=== PATIENT | female | born 1965 | race Caucasian/White ===

== ENCOUNTER 2020-05-05 11:00 | Outpatient (RCR) | payer BC, SELFPAY ==
--- NOTE | 2020-03-25 13:36 | OTOPEVAL ---
OCCUPATIONAL THERAPY EVALUATION REPORT 03/25/2020 Thank you for referring Joan Chase to [facility]. Skilled OT indicated 2x/week for 6 weeks for deficits outlined below. Please review, sign, date and return this plan of care MARYLU. I agree with and certify that the following plan of care is medically necessary. Referring Physician Date Referring Provider: Tony Rodriguez, PA Therapy Assessment Status Assessment Status Assessment Status Evaluation Outpatient Past Medical History Neurological History Hx Neurological Disorders No Significant History Cardiovascular History Hx Coronary Artery Disease Yes: s/p stents Hx Hypertension Yes Respiratory History Hx Chronic Obstructive Pulmonary Disease Yes (COPD) Hx Sleep Apnea Yes Musculoskeletal History Hx Arthritis Yes: spine Hx Fractures Yes: R clavicle, R pinky finger Reproductive History Hx Hysterectomy Yes Pain History Has Past Pain Affected Your Daily Life Yes: On steroids x2 months Other History Hx Cancer Yes: cervical, uterine, and ovarian; current non-hodgkin's lymphoma (suspected) Evaluation Information Problem Diagnosis (R) elbow pain Onset about 3 months Subjective Information Patient reports noticing an Query Text:As Reported By Patient/ ache in her elbow about three Family months ago then the pain and swelling progressively got worse. She reports no trauma to the area. Diagnostic Tests X-Rays For This Problem Yes: Negative for fracture Prior Level of Function Activity Level (Last 3 Months) Occupation Not working right now Hand Dominance Right Activity of Daily Living Ability Independent Cooking Yes Cleaning Yes Laundry Yes Shopping Yes Driving Yes Pain Assessment Timing of Pain Assessment Timing of Pain Assessment Assessment Pain Scale Pain Scale Used Numeric (1 - 10) Self Report Pain Assessment Right Elbow(s) Reported Pain Level 4 Pain Description Aching,Dull Pain Frequency Continuous Other Pain Description 3 Lowest Pain Intensity 10 Other Pain Aggravating Factors (R) UE use with gripping and lifting Pain Score Pain Score 4: Self Report Upper Extremity Range of Motion Scapular/ Shoulder Range of Motion Right Reason Not Measured WNL/Right Elbow/Forearm Range of Motion Right
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
== END 2020-05-05 14:35 | disposition home or self-care (01) ==
LOC: ANHOT 11:00
PROVIDERS: PCP Physician Assistant; Visit Provider Physician Assistant
DX: S59.901D Unspecified injury of right elbow, subsequent encounter (principal)
CPT/HCPCS: 97033; 97035; 97110; 97140; 97166; 97535; J1100; L3906

== ENCOUNTER 2020-07-28 13:01 | Outpatient (CLI) | payer BC, SELFPAY ==
--- NOTE | ~2020-07-28 | MM_ITS ---
EXAMINATION: MM diagnostic danuta BI w claudy HISTORY: Palpable lump of the upper inner quadrant of the left breast. Family history of breast cance r in her mother and sister TECHNIQUE: Craniocaudal, mediolateral, and mediolateral oblique 3-D tomosynthesis images of the melissa ts were performed and synthetic 2-D images were generated. CAD analysis was submitted and interpreted . COMPARISON: 09/20/2014, 08/29/2014 BREAST PARENCHYMAL COMPOSITION: There are scattered areas of fibroglandular density. FINDINGS: Right breast: There is no evidence of suspicious mass, calcification, or architectural distortion to suggest malignancy. There has been no suspicious interval change. Left breast: A stable focal asymmetry is present in the middle third of the upper breast. There is no suspicious calcification or architectural distortion. No mammographic correlate is identified for th e reported palpable abnormality of concern. IMPRESSION: 1. No mammographic correlate identified for the reported palpable abnormality of the left breast choudhury davon, targeted left breast ultrasound in the area of the palpable abnormality is recommended. BI-RADS Category 0: Incomplete: Needs additional imaging evaluation. Reviewed, dictated and finalized at location A. LER MACHINE OPERATOR HELPER IMPRESSION: 1. No mammographic correlate identified for the reported palpable abnormality o f the left breast however, targeted left breast ultrasound in the area of the p alpable abnormality is recommended. BI-RADS Category 0: Incomplete: Needs additional imaging evaluation.
== END 2020-07-28 13:02 | disposition home or self-care (01) ==
PROVIDERS: PCP Physician Assistant; Visit Provider Physician Assistant
DX: N63.20 Unspecified lump in the left breast, unspecified quadrant (principal); R92.8 Other abnormal and inconclusive findings on diagnostic imaging of breast
CPT/HCPCS: 77062; 77066; G0279

== ENCOUNTER 2020-08-04 10:56 | Outpatient (CLI) | payer BC, SELFPAY ==
--- NOTE | ~2020-08-04 | US_ITS ---
EXAMINATION: US breast LT limited HISTORY: Palpable lump of the left breast TECHNIQUE: Limited left breast ultrasound is performed in the area of clinical concern. FINDINGS: There is no evidence of focal abnormal cystic or solid mass in the vicinity of the reported palpable abnormality of concern. IMPRESSION: No specific sonographic correlate is identified for the reported palpable abnormality of concern. Fur ther evaluation at this time should be based on clinical assessment. Continued follow-up physical exa mination is recommended. BI-RADS Category 1: Negative Reviewed, dictated and finalized at location A. E RIDER IMPRESSION: No specific sonographic correlate is identified for the reported palpable abnor mality of concern. Further evaluation at this time should be based on clinical assessment. Continued follow-up physical examination is recommended. BI-RADS Category 1: Negative
== END 2020-08-04 10:57 | disposition home or self-care (01) ==
PROVIDERS: PCP Physician Assistant; Visit Provider Physician Assistant
DX: N63.20 Unspecified lump in the left breast, unspecified quadrant (principal)
CPT/HCPCS: 76642

== ENCOUNTER 2020-09-24 10:43 | Outpatient (CLI) | payer BC, SELFPAY ==
--- NOTE | ~2020-09-24 | US_ITS ---
EXAMINATION: US venous doppler UE DATE: 09/24/2020 11:46 INDICATION: Right arm pain TECHNIQUE: Kent scale images with and without compression and Doppler images of the right and left up per extremity veins were obtained. COMPARISON: None. FINDINGS: The right and left internal jugular vein, subclavian vein, axillary vein, brachial veins, basilic vei n, cephalic vein, radial vein, and ulnar vein are patent.] IMPRESSION: 1. Patent bilateral upper extremity veins. No evidence of deep venous thrombosis. Reviewed, dictated and finalized at location A. RN DANCER IMPRESSION: 1. Patent bilateral upper extremity veins. No evidence of deep venous thrombosi s.
== END 2020-09-24 10:44 | disposition home or self-care (01) ==
PROVIDERS: PCP Physician Assistant; Visit Provider Physician Assistant
DX: M79.601 Pain in right arm (principal)
CPT/HCPCS: 93970

== ENCOUNTER 2021-02-17 20:43 | Inpatient (IN) | payer MEDICARE, MEDICAID, SELFPAY ==
[2021-02-17] VITALS (16 sets, daily range): BP systolic 128–171; BP diastolic 70–94; PULSE 73–95; RESP 15–28; TEMP 36.8; O2SAT 93–100
--- NOTE | ~2021-02-17 | XR_ITS ---
EXAMINATION: XR chest 1V portable EXAM DATE: 02/22/2021 00:03 INDICATION: Shortness of breath. Chest pain. TECHNIQUE: Portable AP frontal chest x-ray was obtained. Comparison is made to prior examination from 02/20/2021, and CT from that same date. FINDINGS: Moderately hyperinflated lungs (mild emphysema was inserted on CT). Cardiomediastinal silho uette is normal. No confluent consolidation, pneumothorax or pleural effusion suspected. There are no osseous abnormalities identified. IMPRESSION: Hyperinflation. Reviewed, dictated and finalized at location A. IMPRESSION: Hyperinflation.
--- NOTE | ~2021-02-17 | XR_ITS ---
EXAMINATION: XR knee RT 3V DATE: 03/04/2021 10:21 INDICATION: Right knee pain TECHNIQUE: Anteroposterior, oblique and crosstable lateral views of the right knee were obtained COMPARISON: None. FINDINGS: Alignment is normal. No fracture. Joint spaces are normal on nonweightbearing imaging. Bone island a t the medial side of the proximal tibial metaphyseal region. No joint effusion/layering lipohemarthro sis. Soft tissues are unremarkable. IMPRESSION: 1. Normal right knee radiographs with bone island at the proximal tibia. Reviewed, dictated and finalized at location A.
--- NOTE | ~2021-02-17 | US_ITS ---
EXAMINATION: US retroperitoneal duplex ltd EXAM DATE: 03/01/2021 07:45 INDICATION: Resistant hypertension HTN . TECHNIQUE: Multiple grayscale and Doppler images of the kidneys and renal arteries were obtained. T here is no prior study for comparison. FINDINGS: The aorta peak systolic velocity is 71 cm/s. Renal arteries interrogated in several segments from origin to hilum. RIGHT RENAL ARTERY Proximal segment (origin): 108 cm/s. Middle segment: 84 cm/s. Distal segment (hilum): 40 cm/s. LEFT RENAL ARTERY Proximal segment (origin): 53 cm/s. Middle segment: 56 cm/s. Distal segment (hilum): 50 cm/s. IMPRESSION: 1. Renal artery Doppler velocities within normal limits. Reviewed, dictated and finalized at location A.
--- NOTE | ~2021-02-17 | MR_ITS ---
EXAMINATION: MRA brain wo con EXAM DATE: 03/02/2021 08:21 INDICATION: Severe headache with left visual field loss. TECHNIQUE: 3-D [id number] MRA of the intracranial arteries was performed without contrast. Correl ation is made to head CT from 02/27/2021. FINDINGS: There is normal flow related signal seen within the vertebral, basilar and internal carotid arteries. There is no proximal stenosis. There are no aneurysms identified. There is right-sided posterior c ommunicating artery dominant posterior cerebral artery. There are scattered regions of cerebral arter y narrowings, regions of atherosclerosis. IMPRESSION: 1. No cerebral artery aneurysm. 2. Scattered regions of cerebral narrowings, atherosclerosis. Reviewed, dictated and finalized at location B.
--- NOTE | ~2021-02-17 | CT_ITS ---
EXAMINATION:CT diagnostic chest wo con DATE: 02/20/2021 12:04 INDICATION: Left lung nodule. Abnormal chest radiograph. TECHNIQUE: Computed tomography (CT) of the chest was performed without intravenous contrast. Automate d exposure control and iterative reconstruction technique were employed. The dose-length product (DLP ) was 148.56 mGy-cm. COMPARISON: Chest single view 02/20/2021 FINDINGS: There is mild emphysema. There are mild peripheral groundglass opacities in the upper lobes , right middle lobe, and right lower lobe. There are a few scattered nodules measuring up to 3 mm. Th ere is a 4 mm nodule at minor fissure. These nodules are likely benign. Calcified left lung nodules a nd calcified left hilar lymph nodes are consistent with old granulomatous disease. No pleural effusio n. The heart size is normal. No pericardial effusion. There is ectasia of ascending aorta measuring 4 .0 cm. There is moderate thoracic spondylosis. There is mild chronic height loss of multiple vertebra l bodies. T3 is a butterfly segment. IMPRESSION: 1. No abnormal correlate for the chest radiograph finding. 2. Mild peripheral groundglass opacities in the upper lobes, right middle lobe, and right lower lobe, likely inflammation or infection. 3. Mild emphysema. Reviewed, dictated and finalized at location A.
--- NOTE | ~2021-02-17 | XR_ITS ---
EXAMINATION: XR chest 1V portable DATE: 02/20/2021 05:48 INDICATION: COPD exacerbation presenting with shortness of breath TECHNIQUE: frontal view of the chest was obtained. COMPARISON: Chest radiograph dated 02/17/2021 FINDINGS: Subtle nodular opacity projecting over the anterior left sixth rib. No other airspace opacities, pulm onary edema, pleural effusion or pneumothorax. The cardiomediastinal silhouette is normal. Visualized bones and soft tissues are unremarkable. IMPRESSION: 1. Indeterminate small nodular opacity projecting of the anterior left sixth rib further evaluation w ith low-dose noncontrast chest CT . Reviewed, dictated and finalized at location A. IMPRESSION: 1. Indeterminate small nodular opacity projecting of the anterior left sixth ri b further evaluation with low-dose noncontrast chest CT .
--- NOTE | ~2021-02-17 | XR_ITS ---
XR chest 1V portable DATE: 02/17/2021 21:31 INDICATION: Wheezing TECHNIQUE: Portable upright AP chest on 02/17/2021 at 2133 hours COMPARISON: 02/23/2012 PA and lateral chest FINDINGS: Normal heart size. No hilar or mediastinal enlargement. No pulmonary infiltrate or consolid ation, pleural effusion or pulmonary vascular congestion or pneumothorax. Included skeletal structures are unremarkable. IMPRESSION: No active cardiopulmonary disease Reviewed, dictated and finalized at location A.
--- NOTE | ~2021-02-17 | XR_ITS ---
EXAMINATION: XR ankle RT 2V DATE: 03/04/2021 10:21 INDICATION: Right ankle pain TECHNIQUE: Anteroposterior and lateral views of the right ankle were obtained. COMPARISON: None. FINDINGS: Alignment is normal. No fracture. Joint spaces are normal. Soft tissues are unremarkable. IMPRESSION: 1. Negative right ankle radiographs. Reviewed, dictated and finalized at location A.
--- NOTE | ~2021-02-17 | CT_ITS ---
EXAMINATION: CT brain wo con EXAM DATE: 02/27/2021 02:46 INDICATION: Headache. TECHNIQUE: Spiral CT of the head was performed without contrast. Axial, coronal and sagittal images were reviewed. The dose-length product (DLP) for this examination was 681.00 mGy-cm. The exposure w as tailored according to patient size, and iterative reconstruction (ASIR) was used as additional dos e reduction technique. There is no prior study for comparison. FINDINGS: There is no acute intraparenchymal hemorrhage. No evidence of intraparenchymal brain mass lesion. No evidence of acute infarction. There is no mass effect or midline shift. The ventricles are normal in size. There are no extra-axial collections. There are no acute calvarial fractures. T he orbits are unremarkable. Soft tissue is unremarkable. The visualized sinuses and mastoid air savage ls are well aerated. IMPRESSION: 1. No acute intracranial findings. Reviewed, dictated and finalized at location A.
--- NOTE | 2021-02-17 20:51 | ECG_ITS ---
Measurements Intervals [place] Rate: 79 P: 67 NC: 111 QRS: 21 QRSD: 89 T: 63 QT: 380 QTc: 437 Interpretive Statements SINUS RHYTHM WITH SHORT NC INTERVAL BORDERLINE ST ABNORMALITY- ANTEROLAT/INF LEADS BASELINE ARTIFACT- II, III, AVF, V3 BORDERLINE ECG Electronically Signed On 02-18-2021 6:01:51 CDT by Dav Olivarez D.O.
[2021-02-17] MEDS: IPRATROPIUM BR 0.02% INH SOLN 0.5 MG/2.5 ML VIAL INHALATION (21:01)
[2021-02-17] MEDS: ALBUTEROL SULFATE NEB 2.5 MG/0.5 ML INH 5 MG INHALATION (21:01)
[2021-02-17 21:24] LABS: Basophils Percent Auto 0.3 % (0.2-1.2); Eosinophils Percent Auto 0.2 % (0-4.4); Hematocrit 43.7 % (37.0-47.0); Hemoglobin 14.6 g/dL (12.0-15.0); Immature Granulocyte Absolute 0.07 K/mm3 (0.00-0.031); Immature Granulocyte Percent A 0.7 % (0-0.5); Lymphocytes Absolute Auto 1.11 K/mm3 (0.9-3.2); Lymphocytes Percent Auto 11.7 % (18.3-44.2); Mean Corpuscular HGB Conc 33.4 g/dl (32-36); Mean Corpuscular Hemoglobin 32.7 pg (26-34); Mean Platelet Volume 11.2 fl (7.4-10.4); Monocytes Absolute Auto 0.6 K/mm3 (0.1-0.6); Monocytes Percent Auto 6.3 % (2.6-8.5); Neutrophils Absolute Auto 7.7 K/mm3 (1.3-6.7); Neutrophils Percent Auto 80.8 % (45.5-73.1); Platelet Count Result 172 k/mm3 (150-375); Red Blood Count 4.46 M/mm3 (4.2-5.4); Red Cell Distribution Width 13.5 % (11.5-14.5); White Blood Count 9.5 K/mm3 (4.5-10.0)
[2021-02-17 21:30] LABS: Alveolar/Arterial O2 Gradient 158.6 mmHg; Fractional Inspired Oxygen 36 %; HCO3 ABG 25.7 mEq/l (22.0-26.0); Oxygen Content ABG 19.3 %vol (16.0-22.0); Oxygen Saturation ABG 92.7 % (95.0-100.0); Oxyhemoglobin 89.9 % THb (90.0-100.0); PO2 ABG 58.6 mmHg (80.0-100.0); PO2 FiO2 Ratio Arterial Blood 1.63 %; Total Hemoglobin 15.3 g/dL (12.0-18.0); pH ABG 7.497 (7.350-7.450)
[2021-02-17 21:34] LABS: Anion Gap 9 mmol/L (8-16); Blood Urea Nitrogen 9 mg/dL (7-17); Calcium 9.4 mg/dL (8.4-10.2); Carbon Dioxide 25 mmol/L (22-30); Chloride 103 mmol/L (98-107); Estimated CRCL calculation 37 ml/min; Estimated Glomerular Filt Rate > 60; Glucose 124 mg/dL (65-105); Potassium 4.2 mmol/L (3.4-5.0); Sodium 137 mmol/L (137-145)
--- NOTE | 2021-02-17 21:38 | ED.SOB ---
HPI - SOB/Dyspnea General Chief Complaint: Shortness of Breath/Dyspnea Stated Complaint: sob , neb treatment given Time Seen by Provider: 02/17/21 21:05 Source: patient Mode of arrival: EMS Limitations: no limitations History of Present Illness HPI Narrative: This is a 55 year old female that presents to the ER for shortness of breath x 2 days. Reports increasing wheezing and shortness of breath, not relieved with albuterol inhaler. Also reports a cough productive of sputum. Patient is still a smoker. Reports chest pain with coughing. Denies fever. Related Data Allergies Allergy/AdvReac Type Severity Reaction Status Date / Time iohexol Allergy Unknown Swelling Verified 02/17/21 22:53 [From contrast - CT, X-RAY] of Lip/Tongue/Throat Penicillins Allergy Unknown Unknown Verified 02/17/21 22:53 propoxyphene Allergy Unknown Hives Verified 02/17/21 22:53 Tetanus Vaccines and Toxoid Allergy Unknown Swelling Verified 02/17/21 22:53 Review of Systems Review of Systems: Narrative: CONSTITUTIONAL: Denies fever ENT: Reports congestion CARDIOVASCULAR: Denies chest pain or edema. RESPIRATORY: Reports cough and dyspnea. All systems reviewed & are unremarkable except as noted in HPI and below PMFSH Past Medical History Medical History (Updated 02/18/21 @ 02:46 by Swapna Madrid PA-C) History of COPD Social History Social History (Updated 02/17/21 @ 21:42 by Swapna Madrid PA-C) Smoking status: Current every day smoker Exam Narrative: Exam Narrative: GENERAL: Well-appearing, well-nourished, and in no acute distress. HEAD: Normocephalic, atraumatic. EYES: EOMI. ENT: Nares clear, no rhinorrhea or epistaxis. Mucous membranes moist. Oropharynx without tonsillar hypertrophy exudate or other lesions. Bilateral TMs pearly juan non-bulging NECK: Supple. No adenopathy or masses. CHEST: No respiratory distress. Expiratory wheezing throughout. No rales or rhonchi HEART: Regular rate and rhythm. No murmur heard. Normal peripheral pulses. EXTREMITIES: Normal range of motion. No edema. SKIN: Warm, dry, no rash. NEURO: No focal deficits. Alert and oriented x3. PSYCH: Normal mood and affect Course Consultations Consultation #1: Spoke with hospitalist about patient and workup who accepts admission Date: 02/18/21 Vital Signs Vital signs: Vital Signs Temperature 98.2 F 02/17/21 20:45 Pulse Rate 91 02/17/21 20:45 Respiratory Rate 28 H 02/17/21 20:45 Blood Pressure 171/94 H 02/17/21 20:45 Pulse Oximetry 99 02/17/21 20:45 Temperature 98.2 F 02/17/21 20:45 Pulse Rate 89 02/18/21 02:46 Respiratory Rate 19 02/18/21 02:46 Blood Pressure 134/85 02/18/21 02:31 Pulse Oximetry 97 02/18/21 02:46 MDM - SOB/Dyspnea MDM Narrative Medical decision making narrative: Patient presents to the emergency department for shortness of breath and wheezing x2 days. She is afebrile and nontoxic-appearing. Blood pressure elevated on arrival, this down trended on its own. Most recent blood pressure 140/88. Heart rate has remained normal. Oxygen saturation was in the low 90s, so patient placed on 2 L nasal cannula. She was given a dose of steroid and continuous nebulizer treatment with some improvement, but has continued wheezing. CBC and metabolic panel without concerning findings. D-dimer is not elevated. Chest x-ray without acute cardiopulmonary abnormality. EKG shows nonspecific ST changes. Baseline troponin is elevated to 0.161. Will trend this. She denies any current chest pain, but is short of breath. Will start patient on Lovenox for NSTEMI with lateral depressions noted on EKG and consult cardiology. Spoke with hospitalist about patient and work-up who accepts admission. Patient will be admitted to the IMU for COPD exacerbation and acute respiratory failure with hypoxia with elevated troponin Lab Data Attestation: I reviewed the patient's lab results. Result diagrams: 02/17/21 21:19
[2021-02-17] MEDS: IPRATROPIUM BR 0.02% INH SOLN 0.5 MG/2.5 ML VIAL 1 MG INHALATION (22:43)
[2021-02-17] MEDS: ALBUTEROL SULFATE NEB 2.5 MG/0.5 ML INH 10 MG INHALATION (22:43)
--- NOTE | 2021-02-17 22:43 | PC.NURSE ---
pt arrives in ED c EMS, c/o increasing dyspnea x 1 day. congested, nonproductive cough noted. lungs coarse. pt currently on ra with noted retractions. reports work of breathing increased with activity. on cardiac surgeon. call light in reach. RT therapist in room at bedside.
[2021-02-17] MEDS: methylPREDNISolone SOD SUCC 125 MG VIAL IV PUSH (22:53)
[2021-02-18] VITALS (42 sets, daily range): BP systolic 98–196; BP diastolic 59–108; PULSE 69–124; RESP 14–24; TEMP 36.3–36.5; O2SAT 92–100; BMI 25.7
[2021-02-18 01:45] LABS: Prothrombin Time 13.8 Seconds (11.1-14.7)
[2021-02-18 01:46] LABS: Partial Thromboplastin Time 28.1 SECONDS (22.3-36.8)
[2021-02-18 01:48] LABS: D Dimer 0.34 ug/mL (<0.48)
[2021-02-18 02:10] LABS: Troponin I 0.161 ng/mL (0.000-0.034)
[2021-02-18] MEDS: MAGNESIUM SULF 2 GM/WATER 50ML 2 GM/50 ML BAG IVPB (02:30)
[2021-02-18] MEDS: ASPIRIN 81 MG CHEWABLE TABLET 324 MG PO (03:30)
[2021-02-18] MEDS: ENOXAPARIN 60 MG/0.6 ML SYRINGE SUB-Q (03:31)
--- NOTE | 2021-02-18 04:08 | PC.NURSE ---
This patient, Joan Chase, was admitted to IMU Room 200-01 on 02/18/21 at 0402. Patient/family oriented to hospital policies and general routines including ID bracelet, bed and alarms, visiting hours, pain management, procedures, bathroom and other care routines, personal items, smoking policy, room service/diet, and visiting hours. Information on how to activate the Rapid Response Team has been discussed. Patient/Family are encouraged to report perceived risks to care and to ask questions if they do not understand what they are told or what they should do.
--- NOTE | 2021-02-18 04:45 | PM.IMHP ---
H&P: HPI History of Present Illness Date/Time: 02/18/21 04:45 Chief Complaint: shortness of breath Narrative: This is a 55 year old female that presents to the ER for shortness of breath x 2 days. Reports increasing wheezing and shortness of breath, not relieved with albuterol inhaler. Also reports a cough productive of sputum. Patient is still a smoker. Reports chest pain with coughing. Denies fever. chills. When she was seen, she ambualted back from bathroom, and was extremely short of breath with extensvie wheezing. she was tachycardic as well. this imporved as she settled down. her ed workup revelaed normal CXR, normal dd dianne, elevated tropoinn and some EKG chagnes. she reports that she qutited somkkign 3 days back when she started having breathing problem. she has had covid vaccine finished the course in december 2020. Review of Systems Review of Systems: Narrative: - CONSTITUTIONAL: Denies weight loss, fever and chills. - HEENT: Denies changes in vision and hearing - RESPIRATORY: reports SOB and cough. - CV: Denies palpitations and reports some chest soreness - GI: Denies abdominal pain, nausea, vomiting and diarrhea. - : Denies dysuria and urinary frequency. - MSK: Denies myalgia and joint pain. - SKIN: Denies rash and pruritus. - NEUROLOGICAL: Denies headache and syncope. - PSYCHIATRIC: Denies recent changes in mood. Denies anxiety and depression. All systems reviewed & are unremarkable except as noted in HPI and below Constitutional: Constitutional: Reports fatigue and Reports weakness Neurologic: Reports weakness Endocrine: Endocrine: Reports fatigue [facility] Past Medical History Medical History (Updated 02/18/21 @ 02:46 by Swapna Madrid PA-C) History of COPD Family History Family History Father Acute myocardial infarction Cerebrovascular accident Congestive heart failure Chronic obstructive pulmonary disease Hypertension Cancer of skin Sibling Asthma Sibling Asthma Sibling Asthma Mother Chronic obstructive pulmonary disease Cancer Ovarian cancer Social History Social History (Updated 02/17/21 @ 21:42 by Swapna Madrid PA-C) Smoking packs per day: 0.5 Smoking cigarettes per day: 10.0 Years smoked: 46 Smoking pack-years: 23.00 Smoking status: Current every day smoker Tobacco type: cigarettes Second hand tobacco smoke exposure: No Alcohol intake: current Drinks per week: 3 Substance use: former Substance use type: opiates Other substance usage details: prescription pain meds Last use: 2010 Spiritual care concerns: No Meds Home Medications and Allergies Home Medications Medication Instructions Recorded Confirmed Type albuterol sulfate [Ventolin HFA] 2 puff INHALATION Q4H PRN 02/18/21 02/18/21 History budesonide-formoterol [Symbicort] 2 puff INHALATION DAILY 02/18/21 02/18/21 History buprenorphine-naloxone [Suboxone] 1.5 tablet SUBLINGUAL DAILY 02/18/21 02/18/21 History diphenhydramine HCl [Banophen] 25 mg PO HS 02/18/21 02/18/21 History estradiol 1 mg PO HS 02/18/21 02/18/21 History guanfacine 2 mg PO HS 02/18/21 02/18/21 History ibuprofen 200 mg PO Q8H PRN 02/18/21 02/18/21 History levetiracetam 500 mg PO HS 02/18/21 02/18/21 History levothyroxine 112 mcg PO HS 02/18/21 02/18/21 History norethindrone acetate 5 mg PO HS 02/18/21 02/18/21 History omeprazole magnesium [Acid Slot Operations Manager 20 mg PO DAILY 02/18/21 02/18/21 History (omeprazole)] phenytoin sodium extended 500 mg PO HS 02/18/21 02/18/21 History prednisone 20 mg PO DAILY 02/18/21 02/18/21 History Allergies Allergy/AdvReac Type Severity Reaction Status Date / Time iohexol Allergy Unknown Swelling Verified 02/18/21 04:13 [From contrast - CT, X-RAY] of Lip/Tongue/Throat Penicillins Allergy Unknown Unknown Verified 02/18/21 04:13 propoxyphene Allergy Unknown Hives Verified 02/18/21 04:13 Tetanus Vaccines and Toxoi
[2021-02-18 04:58] LABS: Troponin I 0.139 ng/mL (0.000-0.034)
[2021-02-18 08:21] LABS: Troponin I 0.134 ng/mL (0.000-0.034)
[2021-02-18] MEDS: ALBUTEROL SULFATE NEB 2.5 MG/0.5 ML INH 5 MG INHALATION ×3 (08:49→20:17)
[2021-02-18] MEDS: IPRATROPIUM BR 0.02% INH SOLN 0.5 MG/2.5 ML VIAL INHALATION ×3 (08:50→20:17)
[2021-02-18] MEDS: PANTOPRAZOLE 40 MG TABLET PO (08:52)
[2021-02-18] MEDS: LEVOTHYROXINE SODIUM 112 MCG TABLET PO (08:52)
[2021-02-18] MEDS: methylPREDNISolone SOD SUCC 40 MG VIAL IV PUSH ×2 (08:52→16:53)
--- NOTE | 2021-02-18 08:55 | PM.CNCAR ---
Assessment and Plan Assessment and plan (1) Elevated troponin: Code(s): R77.8 - Other specified abnormalities of plasma proteins Status: Acute Assessment and Plan: 55 y/o with no known cardiac disease who presented with acute hypoxic resp failure and COPD exacerbation who is seen in cardiac consultation for elevated troponin Trop peaked at 0.1. She has atypical chest pain that is related to strenuous cough. EKG with non specific changes Trop elevation is likely due to increase demand from underlying resp distress Will d/c Lovenox Check 2D echocardiogram to assess LV function and rule out regional wall motion changes She had reportedly normal coronary angiogram long time ago. Given her risk factor will plan stress testing in outpatient settings for risk stratification once her resp status is stable Will start ASA for now. Check lipid profile (2) Acute respiratory failure with hypoxia: Code(s): J96.01 - Acute respiratory failure with hypoxia Status: Acute Assessment and Plan: With active wheezing on exam appears due to COPD. Management per primary team No evidence of volume overload on exam or pulmonary edema on Xray. (3) Tobacco abuse: Code(s): Z72.0 - Tobacco use Status: Acute Assessment and Plan: Smoking cessation counseling. Okay to use nicotine patch (4) Acute exacerbation of chronic obstructive airways disease: Code(s): J44.1 - Chronic obstructive pulmonary disease with (acute) exacerbation Status: Acute History of Present Illness History of Present Illness Consult date/time: 02/18/21 08:55 55 y/o female with h/o COPD, active tobacco abuse and hypothyroidism who presented with shortness of breath She reports symptoms started 3 days ago and felt similar to prior time when she had pneumonia in the past however shortness of breath this time was more severe with audible wheezing and cough which is productive of green sputum. Her troponin was mildly elevated hence cardiology consult was requested. She reports chest pain at her rib cage from coughing so hard. She reports undergoing cardiac catheterization about 10 years ago for cardiac arrhythmia per her report. She reports it was normal and she was never on any heart meds or followed with cardiology since. She has long history of tobacco abuse and has cut down over the last few months to 5 cigarettes a day from 2 packs a day She feels somewhat better since received nebs but continues to wheeze and feel short of breath. She denies chest pain except with coughing Trop peaked at 0.1.. Labs otherwise shows no leukocytosis and normal creatinine. She was swabbed for COVID which is still pending. off note, she received vaccine in December (Let it Wave) EKG shows normal sinus rhythm with non specific ST changes in inferolateral leads. Her father had CHF. her mother of cancer Reason For Visit: COPD exacerbation, respiratory failure w/ hypoxia Review of Systems Review of Systems: All systems reviewed & are unremarkable except as noted in HPI and below Constitutional: Constitutional: Denies fatigue and Denies headache(s) Eyes: Eyes: Denies blurry vision ENT: Reports Normal hearing present and Denies headache(s) Cardiovascular: Cardiovascular: Denies chest pain, Denies diaphoresis, Denies pedal edema, Denies leg edema, Denies lightheadedness, Denies palpitations and Denies dyspnea Respiratory: Respiratory: Denies cough and Denies dyspnea Gastrointestinal: Gastrointestinal: Denies abdominal pain Musculoskeletal: Musculoskeletal: Denies back pain Neurologic: Reports Normal hearing present and Denies headache(s) Psychiatric: Psychiatric: Denies anxiety Endocrine: Endocrine: Denies fatigue and Denies palpitations [facility] Past Medical History Medical History (Updated 02/18/21 @ 09:22 by Kayden Vincent MD) History of COPD Family History Family History (Reviewed 02/18/21 @ 04:35 by Jose Roberto
[2021-02-18] MEDS: hydrALAZINE HCL 25 MG TABLET PO (14:43)
--- NOTE | 2021-02-18 17:09 | PM.IMPN ---
Progress Note: A&P Assessment and Plan (1) Acute exacerbation of chronic obstructive airways disease: Code(s): J44.1 - Chronic obstructive pulmonary disease with (acute) exacerbation Status: Acute (2) Elevated troponin: Code(s): R77.8 - Other specified abnormalities of plasma proteins Status: Acute (3) Acute respiratory failure with hypoxia: Code(s): J96.01 - Acute respiratory failure with hypoxia Status: Acute Additional Plan # shortness of breath: wheezing actively. elevated troponin. abg reviwed. cxr clear. suspected COPD exaceerbation with active wheezing. awaiting covid test # Acute COPD exacerbation: contineu bd. solumedrol.CXR without any pneumonia noted. # Elevateed tropnonin; EKG with ST depressions in lateral leads. trend cardiac enzymes. cardiology cosnultation. lovenox. aspirin. no prior hx of cad # Current smoker # hx of seizures on dilatatin 500 mg in evening and keppra 500 mg in am. sees [facility] neurology. # hx of ovarian, uterine cancer s/p radical hysterectomy 1999. on hrt # hypothyroidsim: home meds # DVT proph: lovenox # high BP s start oral hydralazine Subjective Date/time seen: 02/18/21 17:09 Interval history: 5 year old female that presents to the ER for shortness of breath x 2 days. Reports increasing wheezing and shortness of breath, not relieved with albuterol inhaler. Likley copd exacerbation but covid being ruled out seen by cardiology for high bps and elevated troponin, awaiting covid test. Seen by cardiology Review of Systems Review of Systems: All systems reviewed & are unremarkable except as noted in HPI and below Exam Narrative: Exam Narrative: GENERAL: The patient is well developed HEENT: Nonicteric sclerae CHEST: Chest wall is nontender. HEART: Regular rate and rhythm without murmur, rubs, or gallops LUNGS: BL wheezy lungs ABDOMEN: Soft, positive bowel sounds, non-tender, no organomegaly. SKIN: No rash, no excessive bruising, petechiae, or purpura. NEUROLOGIC: Cranial nerves II-XII intact, alert and oriented x 3, no gross motor deficits EXTREMITIES: no edema, cyanosis or clubbing Objective Data Vital Signs Vital Signs: Vital Signs - 24 hr 02/17/21 20:45 02/17/21 21:01 02/17/21 21:16 Temperature 36.8 C Pulse Rate 91 82 81 Respiratory Rate 28 H 16 19 Blood Pressure 171/94 H 128/79 Pulse Oximetry 99 02/17/21 21:17 02/17/21 21:30 02/17/21 22:02 Temperature Pulse Rate 84 87 75 Respiratory Rate 16 25 H 15 Blood Pressure Pulse Oximetry 93 02/17/21 22:15 02/17/21 22:30 02/17/21 22:42 Temperature Pulse Rate 80 81 77 Respiratory Rate 16 15 Blood Pressure 146/78 H Pulse Oximetry 97 02/17/21 22:44 02/17/21 22:58 02/17/21 23:07 Temperature Pulse Rate 81 73 82 Respiratory Rate 20 16 20 Blood Pressure Pulse Oximetry 99 100 02/17/21 23:15 02/17/21 23:30 02/17/21 23:31 Temperature Pulse Rate 76 77 79 Respiratory Rate 16 15 15 Blood Pressure 129/70 Pulse Oximetry 99 100 100 02/17/21 23:45 02/18/21 00:00 02/18/21 00:01 Temperature Pulse Rate 79 83 80 Respiratory Rate 15 16 15 Blood Pressure 133/67 Pulse Oximetry 100 100 100 02/18/21 00:03 02/18/21 00:15 02/18/21 00:31 Temperature Pulse Rate 79 88 80 Respiratory Rate 18 19 21 H Blood Pressure 136/61 Pulse Oximetry 98 02/18/21 01:03 02/18/21 01:10 02/18/21 01:15 Temperature Pulse Rate 83 81 Respiratory Rate 16 18 Blood Pressure Pulse Oximetry 94 95 93 02/18/21 01:30 02/18/21 02:09 02/18/21 02:15 Temperature Pulse Rate 89 85 95 Respiratory Rate 18 18 14 Blood Pressure Pulse Oximetry 95 100 97 02/18/21 02:16 02/18/21 02:30 02/18/21 02:31 Temperature Pulse Rate 94 85 86 Respiratory Rate 20 19 Blood Pressure 140/88 134/85 Pulse Oximetry 97 97 97 02/18/21 02:46 02/18/21 03:37 02/18/21 03:44 Temperature Pulse Rate 89 76 86 Respiratory Rate 19 20 20 Blood Pressure 135/97 H 135
[2021-02-18 17:41] LABS: SARS-CoV-2 RNA PCR Negative
[2021-02-18] MEDS: levETIRAcetam 500 MG TABLET PO (20:50)
[2021-02-18] MEDS: diphenhydrAMINE HCl CAP 25 MG CAPSULE PO (20:50)
[2021-02-18] MEDS: guanFACINE HCL 1 MG TABLET 2 MG PO (20:50)
[2021-02-18] MEDS: IBUPROFEN 200 MG TABLET PO (20:51)
[2021-02-18] MEDS: PHENYTOIN SODIUM 100 MG CAP 500 MG PO (20:52)
--- NOTE | 2021-02-18 21:51 | PC.NURSE ---
2040 called to room by patient screaming out in pain. Upon entering room patient was holding head, diaphoretic, SOB with audible wheezing and reddened face. States I just went to the bathroom and had a severe headache start.Every time I get up this happens. I am NOT getting up again tonight! Vitals monitored and documented.
[2021-02-19] VITALS (27 sets, daily range): BP systolic 110–209; BP diastolic 60–102; PULSE 70–100; RESP 14–22; TEMP 36.2–36.7; O2SAT 96–100
--- NOTE | 2021-02-19 | ECHO_ITS ---
Patient Info Name: Joan Chase Age: 55 years : 1965 Gender: Female Ht: 63 in Wt: 145 lbs BSA: 1.72 m2 HR: 70 bpm BP: 110 / 61 mmHg Heart Rhythm: Sinus Rhythm Exam Date: 02/19/2021 9:11 AM Exam Location: [facility] Pulmonary Patient Status: Outpatient Admit Date: 02/18/2021 Staff Ordering Physician: Raymond Street MD [employer] Center: [facility] Attending Provider: Raymond Street MD Exam Type: CA echo doppler color flow Study Info Indications R06.02 - Shortness of breath Complete two-dimensional, color flow and Doppler transthoracic echocardiogram is performed. Summary 1. Complete two-dimensional, color flow and Doppler transthoracic echocardiogram is performed. 2. Left ventricular systolic function is normal, estimated at 60-65%. 3. There is small pericardial effusion. 4. The pericardium appears increased echogenicity of the pericardium. Left Ventricle Left ventricular chamber dimension is normal. Left ventricular systolic function is normal, estimated at 60-65%. There is no increased left ventricular wall thickness. Left ventricular septal wall motion is normal. The left ventricular diastolic function is normal. Right Ventricle Right ventricular chamber dimension is normal. Right ventricular systolic function is normal. Left Atria Left atrial chamber dimension is normal. Right Atria Right atrial chamber dimension is normal. Aortic Valve The aortic valve is trileaflet. There is no aortic valve sclerosis. There is no aortic valve stenosis. There is trace aortic valve regurgitation. Pulmonic Valve The pulmonic valve is normal. There is no pulmonic valve stenosis. There is no pulmonic regurgitation. Mitral Valve The mitral valve has normal leaflets. There is no mitral valve stenosis. There is trace mitral valve regurgitation. Tricuspid Valve The tricuspid valve leaflets are normal. There is no significant tricuspid valve stenosis. There is mild tricuspid valve regurgitation. No pulmonary hypertension, estimated pulmonary arterial systolic pressure is 13 mmHg. Pericardium/Pleural The pericardium appears increased echogenicity of the pericardium. There is small pericardial effusion. Inferior Vena Cava Normal inferior vena cava with >50% collapse upon inspiration consistent with normal right atrial pressure, 10 mmHg. Aorta The aortic root size at the sinus of Valsalva is normal. The prox ascending aorta size is normal. Left Ventricular Outflow Tract Name Value Normal LVOT 2D LVOT Diameter 1.9 cm LVOT Doppler LVOT Peak Gradient 8 mmHg LVOT Mean Gradient 4 mmHg LVOT VTI 30 cm LVOT VTI/AV VTI Ratio 1.0 LVOT Stroke Volume 84 ml LVOT CO 15.3 l/min LVOT CI 8.9 l/min/m2 Pulmonic Valve Name Value Normal
--- NOTE | 2021-02-19 01:25 | PC.NURSE ---
0113 vitals prior to getting up to BS HR 76, RR 16, BP 115/60 SaO2 97% - tolerated activity without incident. voiced concern of shooting pain in head with activity and expressed relief when this did not occur.
[2021-02-19] MEDS: IPRATROPIUM BR 0.02% INH SOLN 0.5 MG/2.5 ML VIAL INHALATION ×4 (02:14→17:47)
[2021-02-19] MEDS: ALBUTEROL SULFATE NEB 2.5 MG/0.5 ML INH 5 MG INHALATION ×4 (02:14→17:47)
[2021-02-19] MEDS: LEVOTHYROXINE SODIUM 112 MCG TABLET PO (06:44)
[2021-02-19] MEDS: methylPREDNISolone SOD SUCC 40 MG VIAL IV PUSH (07:59)
[2021-02-19] MEDS: PANTOPRAZOLE 40 MG TABLET PO (07:59)
--- NOTE | 2021-02-19 08:46 | PM.PNCARD ---
Progress Note: A&P Assessment and Plan (1) Elevated troponin: Code(s): R77.8 - Other specified abnormalities of plasma proteins Status: Acute Assessment and Plan: 55 y/o with no known cardiac disease who presented with acute hypoxic resp failure and COPD exacerbation who is seen in cardiac consultation for elevated troponin Trop peaked at 0.1 She has atypical chest pain that appears to be related to strenuous cough. EKG with non specific ST changes Trop elevation is likely due to increase demand from underlying resp distress D/c Lovenox Check 2D echocardiogram to assess LV function and rule out regional wall motion changes (not done pending COVID test which came negative this am) She had reportedly normal coronary angiogram long time ago. Given her risk factor will plan stress testing in outpatient settings for risk stratification once her resp status is stable Will start ASA for now. Check lipid profile (2) Acute respiratory failure with hypoxia: Code(s): J96.01 - Acute respiratory failure with hypoxia Status: Acute Assessment and Plan: With COPD exacerbation. Management per primary team (3) Tobacco abuse: Code(s): Z72.0 - Tobacco use Status: Acute Assessment and Plan: Smoking cessation counseling. Okay to use nicotine patch (4) Acute exacerbation of chronic obstructive airways disease: Code(s): J44.1 - Chronic obstructive pulmonary disease with (acute) exacerbation Status: Acute Subjective Date/time seen: 02/19/21 08:46 She continues to feel short of breath, only mildly improved compared to yesterday. Now also complaining of headache since been on steroids Review of Systems Review of Systems: All systems reviewed & are unremarkable except as noted in HPI and below Constitutional: Constitutional: Denies fatigue and Denies headache(s) Eyes: Eyes: Denies blurry vision ENT: Reports Normal hearing present and Denies headache(s) Cardiovascular: Cardiovascular: Denies chest pain, Denies diaphoresis, Denies pedal edema, Denies leg edema, Denies lightheadedness, Denies palpitations and Denies dyspnea Respiratory: Respiratory: Denies cough and Denies dyspnea Gastrointestinal: Gastrointestinal: Denies abdominal pain Musculoskeletal: Musculoskeletal: Denies back pain Neurologic: Reports Normal hearing present and Denies headache(s) Psychiatric: Psychiatric: Denies anxiety Endocrine: Endocrine: Denies fatigue and Denies palpitations Exam Narrative: Exam Narrative: in mild reso distress. Const: General: no acute distress Eyes: Sclera: sclerae normal Neck: Neck: no JVD Carotids: no bruits Resp: Auscultation: wheezes Cardio: Rate: regular rate and not tachycardic Rhythm: regular rhythm Heart sounds: S1 normal heart sound present, S2 normal heart sound present, no gallops, no murmurs and no rubs Skin: General skin exam: normal color Neuro: Cranial nerves: Yes Normal hearing present Speech: normal speech Extrem: General: normal to inspection and no edema Psych: Affect: normal affect Objective Data Vital Signs Vital Signs: Vital Signs - 24 hr 02/18/21 08:53 02/18/21 09:01 02/18/21 09:09 Temperature Pulse Rate 87 79 Respiratory Rate 20 20 Blood Pressure Pulse Oximetry 95 02/18/21 10:00 02/18/21 12:00 02/18/21 13:31 Temperature 36.3 C L Pulse Rate 72 79 Respiratory Rate 24 H Blood Pressure 142/75 H 196/84 H Pulse Oximetry 94 02/18/21 14:00 02/18/21 14:07 02/18/21 14:18 Temperature Pulse Rate 89 76 79 Respiratory Rate 20 20 Blood Pressure Pulse Oximetry 02/18/21 16:00 02/18/21 18:00 02/18/21 20:00 Temperature 36.3 C L 36.4 C Pulse Rate 97 77 81 Respiratory Rate 24 H 20 Blood Pressure 140/72 122/60 Pulse Oximetry 99 98 02/18/21 20:17 02/18/21 20:18 02/18/21 20:30 Temperature Pulse Rate 80 84 Respiratory Rate 20 20 Blood Pressure Pulse Oximetr
--- NOTE | 2021-02-19 11:07 | ECG_ITS ---
Measurements Intervals [place] Rate: 87 P: 69 ND: 109 QRS: 9 QRSD: 86 T: 59 QT: 365 QTc: 441 Interpretive Statements SINUS RHYTHM WITH SHORT ND INTERVAL BASELINE ARTIFACT- I, II, III, AVF BORDERLINE ECG Electronically Signed On 02-19-2021 15:57:14 CDT by Dav Olivarez D.O.
[2021-02-19] MEDS: ALPRAZolam (*CRX) 0.25 MG TABLET PO ×2 (11:19→21:14)
[2021-02-19] MEDS: FUROSEMIDE INJ 40 MG/4 ML VIAL 20 MG IV PUSH (11:19)
[2021-02-19] MEDS: ACETAMINOPHEN 325 MG TABLET 650 MG PO (11:28)
[2021-02-19 11:31] LABS: Alveolar/Arterial O2 Gradient 148.5 mmHg; Fractional Inspired Oxygen 40 %; HCO3 ABG 20.1 mEq/l (22.0-26.0); Oxygen Saturation ABG 97.9 % (95.0-100.0); Oxyhemoglobin 96.4 % THb (90.0-100.0); PCO2 ABG 30.7 mmHg (35.0-45.0); PO2 ABG 101.4 mmHg (80.0-100.0); PO2 FiO2 Ratio Arterial Blood 2.54 %; Total Hemoglobin 15.4 g/dL (12.0-18.0); pH ABG 7.433 (7.350-7.450)
[2021-02-19 11:32] LABS: Device NASAL CANNULA; Modified Allen's Test Pass; Site Drawn RIGHT RADIAL
[2021-02-19 11:43] LABS: Troponin I 0.028 ng/mL (0.000-0.034)
[2021-02-19] MEDS: hydrALAZINE HCL 25 MG TABLET PO (12:02)
--- NOTE | 2021-02-19 13:10 | PM.IMPN ---
Progress Note: A&P Assessment and Plan (1) Acute exacerbation of chronic obstructive airways disease: Code(s): J44.1 - Chronic obstructive pulmonary disease with (acute) exacerbation Status: Acute Assessment and Plan: wheezing actively. elevated troponin. abg reviwed. cxr clear. suspected COPD exacerbation with active wheezing, adviced to quit smoking order CXR for [place] (2) Elevated troponin: Code(s): R77.8 - Other specified abnormalities of plasma proteins Status: Acute Assessment and Plan: EKG with ST depressions in lateral leads. trend cardiac enzymes. cardiology consultation. aspirin. no prior hx of cad, echo ordered (3) Acute respiratory failure with hypoxia: Code(s): J96.01 - Acute respiratory failure with hypoxia Status: Acute Assessment and Plan: Oxygen, ABG from this morning reviwed. BT steroids reduce due to high BPS Order pulmonology test Additional Plan # hx of seizures on dilatatin 500 mg in evening and keppra 500 mg in am. sees [facility] neurology. # hx of ovarian, uterine cancer s/p radical hysterectomy 1999. on hrt # hypothyroidsim: home meds # high BP s start oral hydralazine and iv lasx , HTN is a new diagnosis cardiology rounding Subjective Date/time seen: 02/19/21 13:10 Interval history: 5 year old female that presents to the ER for shortness of breath x 2 days. Reports increasing wheezing and shortness of breath, not relieved with albuterol inhaler. Likley copd exacerbation but covid being ruled out seen by cardiology for high bps and elevated troponin, Echo ordered, pt seen by cardiology. Pt is very tight despite breathing treatments and steroids I will consult pulmonology and reduce her steroids due to high Bps Review of Systems Review of Systems: All systems reviewed & are unremarkable except as noted in HPI and below Exam Narrative: Exam Narrative: GENERAL: pt is very anxious and sweaty with severe SOB CHEST: Chest wall is nontender. HEART: Regular rate and rhythm without murmur, rubs, or gallops LUNGS: BL wheezy lungs very tight chest with dry cough persistent ABDOMEN: Soft, positive bowel sounds, non-tender, no organomegaly. SKIN: No rash, no excessive bruising, petechiae, or purpura. NEUROLOGIC: Cranial nerves II-XII intact, alert and oriented x 3, no gross motor deficits EXTREMITIES: no edema, cyanosis or clubbing Objective Data Vital Signs Vital Signs: Vital Signs - 24 hr 02/18/21 13:31 02/18/21 14:00 02/18/21 14:07 Temperature Pulse Rate 89 76 Respiratory Rate 20 Blood Pressure 196/84 H Pulse Oximetry 02/18/21 14:18 02/18/21 16:00 02/18/21 18:00 Temperature 36.3 C L Pulse Rate 79 97 77 Respiratory Rate 20 24 H Blood Pressure 140/72 Pulse Oximetry 99 02/18/21 20:00 02/18/21 20:17 02/18/21 20:18 Temperature 36.4 C Pulse Rate 81 80 Respiratory Rate 20 20 Blood Pressure 122/60 Pulse Oximetry 98 96 02/18/21 20:30 02/18/21 20:41 02/18/21 20:43 Temperature Pulse Rate 84 124 H 111 H Respiratory Rate 20 24 H 20 Blood Pressure 147/108 H 175/80 H Pulse Oximetry 100 100 02/18/21 20:48 02/18/21 20:52 02/18/21 20:58 Temperature Pulse Rate 107 H 106 H 112 H Respiratory Rate 20 20 20 Blood Pressure 150/82 H 149/82 H 146/75 H Pulse Oximetry 98 97 98 02/18/21 22:00 02/18/21 23:31 02/19/21 00:00 Temperature 36.5 C Pulse Rate 86 84 80 Respiratory Rate 20 Blood Pressure 98/59 L Pulse Oximetry 99 99 02/19/21 01:26 02/19/21 02:00 02/19/21 02:14 Temperature Pulse Rate 76 79 80 Respiratory Rate 16 20 Blood Pressure 115/60 Pulse Oximetry 97 02/19/21 02:25 02/19/21 04:00 02/19/21 06:00 Temperature 36.4 C Pulse Rate 77 80 70 Respiratory Rate 20 20 Blood Pressure 110/61 Pulse Oximetry 96 02/19/21 07:30 02/19/21 07:35 02/19/21 07:45 Temperature Pulse Rate 79 79 Respiratory Rate 20 20 Blood Pressure Pulse Oximetry 96 02/19/21 07
[2021-02-19] MEDS: methylPREDNISolone SOD SUCC 40 MG VIAL 20 MG IV PUSH (17:33)
[2021-02-19] MEDS: levETIRAcetam 500 MG TABLET PO (21:14)
[2021-02-19] MEDS: PHENYTOIN SODIUM 100 MG CAP 500 MG PO (21:14)
[2021-02-19] MEDS: diphenhydrAMINE HCl CAP 25 MG CAPSULE PO (21:14)
[2021-02-19] MEDS: guanFACINE HCL 1 MG TABLET 2 MG PO (21:14)
[2021-02-20] VITALS (27 sets, daily range): BP systolic 106–128; BP diastolic 61–72; PULSE 65–116; RESP 15–24; TEMP 36.1–36.6; O2SAT 95–98
[2021-02-20] MEDS: ALBUTEROL SULFATE NEB 2.5 MG/0.5 ML INH 5 MG INHALATION ×2 (02:41→07:50)
[2021-02-20] MEDS: IPRATROPIUM BR 0.02% INH SOLN 0.5 MG/2.5 ML VIAL INHALATION ×5 (02:41→20:13)
[2021-02-20] MEDS: LEVOTHYROXINE SODIUM 112 MCG TABLET PO (06:42)
[2021-02-20] MEDS: PANTOPRAZOLE 40 MG TABLET PO (08:25)
[2021-02-20] MEDS: methylPREDNISolone SOD SUCC 40 MG VIAL 20 MG IV PUSH (08:25)
[2021-02-20] MEDS: FUROSEMIDE INJ 40 MG/4 ML VIAL 20 MG IV PUSH ×2 (08:26→16:55)
--- NOTE | 2021-02-20 09:20 | PM.PNCARD ---
Progress Note: A&P Assessment and Plan (1) Elevated troponin: Code(s): R77.8 - Other specified abnormalities of plasma proteins Status: Acute Assessment and Plan: 55 y/o with no known cardiac disease who presented with acute hypoxic resp failure and COPD exacerbation who is seen in cardiac consultation for elevated troponin Mildly elevated troponin with flat pattern She had atypical chest pain that was be related to strenuous cough. No acute EKG changes. Trop elevation is likely due to increase demand from underlying resp distress Check 2D echocardiogram to assess LV function and rule out regional wall motion changes (not done pending COVID test) She had reportedly normal coronary angiogram long time ago. Given her risk factor will plan for further cardiac evaluation on outpatient basis when medically stable Will cont ASA for now. Check lipid profile (2) Tobacco abuse: Code(s): Z72.0 - Tobacco use Status: Acute (3) Acute exacerbation of chronic obstructive airways disease: Code(s): J44.1 - Chronic obstructive pulmonary disease with (acute) exacerbation Status: Acute Assessment and Plan: Management per PC Subjective Date/time seen: 02/20/21 Pt feels better today. No CP or palpitations. Her SOB is gradually improving. States that she was just diagnosed with COPD during this admission. Pt was seen and examined, chart was reviewed, case was d/w pt's nurse. Review of Systems Review of Systems: All systems reviewed & are unremarkable except as noted in HPI and below Constitutional: Constitutional: Reports as per HPI Eyes: Eyes: Reports as per HPI ENT: Reports system reviewed and no additional complaints, except as documented and Reports as per HPI Cardiovascular: Cardiovascular: Reports as per HPI Respiratory: Respiratory: Reports as per HPI Gastrointestinal: Gastrointestinal: Reports as per HPI Genitourinary: Genitourinary: Reports as per HPI Musculoskeletal: Musculoskeletal: Reports as per HPI Exam Const: General: no acute distress Nutritional Appearance: well nourished Orientation/consciousness: patient oriented x3 HENMT: Head: normal to inspection and atraumatic Ears: hearing grossly normal bilaterally Face and sinus: normal facial exam Eyes: General: appearance normal, both eyes and all related structures Pupils: Equal, round and reactive pupils present EOM: EOMs intact bilaterally Neck: Neck: supple Chest: Chest palpation & inspection: normal inspection of the chest Resp: Effort & Inspection: normal respiratory effort and no respiratory distress Auscultation: diminished lung sounds Cardio: Jugular venous distension: no JVD Rate: regular rate Heart sounds: S1 normal heart sound present, S2 normal heart sound present and no murmurs Peripheral pulses: Peripheral pulses 2+ throughout GI: GI Palp: No abdominal tenderness Auscultation: normal bowel sounds Skin: General skin exam: normal color Neuro: General: patient oriented x3 Cranial nerves: Yes Equal, round and reactive pupils present Extrem: General: normal to inspection and no clubbing, cyanosis or edema Objective Data Vital Signs Vital Signs: Vital Signs - 24 hr 02/19/21 10:00 02/19/21 11:43 02/19/21 12:00 Temperature 36.7 C Pulse Rate 76 99 100 Respiratory Rate 18 Blood Pressure 209/102 H Pulse Oximetry 100 99 02/19/21 13:00 02/19/21 13:10 02/19/21 14:00 Temperature Pulse Rate 78 80 78 Respiratory Rate 20 20 Blood Pressure Pulse Oximetry 02/19/21 16:00 02/19/21 17:47 02/19/21 17:57 Temperature 36.6 C Pulse Rate 81 80 88 Respiratory Rate 14 20 20 Blood Pressure 114/62 Pulse Oximetry 99 02/19/21 18:00 02/19/21 19:29 02/19/21 19:45 Temperature 36.2 C L Pulse Rate 88 94 87 Respiratory Rate 22 H Blood Pressure 122/61 Pulse Oximetry 97 96 02/19/21 20:00 02/19/21 22:00 02/19/21 23:41 Temperature 36.2 C L Pulse Rate 87 76
[2021-02-20] MEDS: BENZONATATE 100 MG CAPSULE PO (09:50)
--- NOTE | 2021-02-20 10:54 | PM.CNPUL ---
Assessment and Plan Assessment and plan (1) Acute exacerbation of chronic obstructive airways disease: Code(s): J44.1 - Chronic obstructive pulmonary disease with (acute) exacerbation Status: Acute Assessment and Plan: Patient carries a diagnosis of COPD. She has long history of tobacco use but I have no PFTs at this time. Patient has improved with Symbicort and Ventolin in the past. 02/20 Currently the patient presents with URI symptoms including body aches, shortness of breath, production of green phlegm, fever, chills and wheezing. She has no evidence of hypercarbic respiratory failure with a blood gas of 7.49/34/59 on 36% oxygen. D dimer negative. I suspect the etiology of this current exacerbation/illness is a respiratory viral illness other than COVID. I will treat this as a COPD exacerbation. I will increase her solumedrol to 40 Q 6 as she still has SOB, severe coughing and diffuse wheezing throughout. Her steroids were decreased for high blood pressures so she may rerquire additional antihypertensives per cardiology or hospitalist. Will start taper once she has improved. I increased her albuterol and ipratroprium neb to Q 4 hours, DC her symbicort for now. Agree with azithromycin for total 5 days. CXR today with indeterminant small nodular opacity and I have ordered CT scan of chest. Goal saturation 90-94% and wean oxygen as tolerated. I will follow with you on 02/23. History of Present Illness History of Present Illness Consult date: 02/20/21 Requesting physician: Rosa Baird MD Reason for consult: COPD Chief complaint: COPD exacerbation, respiratory failure w/ hypoxia Narrative: this is a new pulmonary consult for COPD exacerbation this is a 55-year-old woman with a history of seizure disorder on , uterine cancer status post radical hysterectomy 1999, hypothyroidism, yearly pneumonias since age 9, and tobacco use with possible COPD. In 07/2020 patient was having shortness of breath and her physician prescribed her Symbicort 160-4.5 at 2 puffs q.day and Ventolin. At that time she was never told she had COPD and had no PFTs performed. Patient tells me she has had pneumonia every year since age 9 in which she gets antibiotics but that it takes her 1-1 and half months to get over these episodes. Patient was last hospitalized with pneumonia 6 years ago. patient was in her usual state of health with no respiratory limitations in her activities of daily living until about 02/14/2021 when she developed fatigue and felt like she had the flu. Patient then developed shortness of breath, wheezing cough with green phlegm, fever, chills, shakes that progressed and she presented to the emergency room on 02/17. Patient had bilateral wheezes and her saturations were in the low 90s and she was placed on 2 L nasal cannula. Patient had a white blood cell count of 9.5, 0/0.2% eosinophils, D-dimer was negative at 0.34, ABG on 36% FiO2 was pH of 7.49/34/59. Chest x-ray showed no active cardiopulmonary disease her troponin was positive at 0.161. Patient was started on Solu-Medrol, albuterol, ipratropium and azithromycin for a COPD exacerbation and admitted to the floor. On 02/19 the patient said she felt 5% better, COVID negative and I was consulted. Patient has a tobacco history from age 9 to 6 days ago. She smoked 1 pack per day until 2 months ago in which she started to decrease and she had decreased to 3-4 cigarettes a day until she got sick and has not smoked any in the last 6 days. This results in a 46 pack year exposure. Patient denies vaping, marijuana, heroin, methamphetamine, cocaine inhalation. Patient was exposed to secondhand smoke from both her parents and her current roommate vapors cigarettes. 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 These birds consist of
[2021-02-20] MEDS: methylPREDNISolone SOD SUCC 40 MG VIAL IV PUSH ×2 (12:40→16:55)
[2021-02-20] MEDS: ALPRAZolam (*CRX) 0.25 MG TABLET PO (12:45)
[2021-02-20] MEDS: ALBUTEROL SULFATE NEB 2.5 MG/0.5 ML INH INHALATION ×3 (13:58→20:13)
--- NOTE | 2021-02-20 14:01 | PM.IMPN ---
Progress Note: A&P Assessment and Plan (1) Acute exacerbation of chronic obstructive airways disease: Code(s): J44.1 - Chronic obstructive pulmonary disease with (acute) exacerbation Status: Acute Assessment and Plan: wheezing actively. elevated troponin. abg reviwed. cxr clear. suspected COPD exacerbation with active wheezing, adviced to quit smoking pt had CT scan of chest -peripheral groundglass opacities in the upper lobes, right middle lobe, and right lower lobe, likely inflammation or infection. continue iv azithromycin (2) Elevated troponin: Code(s): R77.8 - Other specified abnormalities of plasma proteins Status: Acute Assessment and Plan: EKG with ST depressions in lateral leads. trend cardiac enzymes. cardiology consultation. aspirin. no prior hx of cad, echo ordered (3) Acute respiratory failure with hypoxia: Code(s): J96.01 - Acute respiratory failure with hypoxia Status: Acute Assessment and Plan: Oxygen, ABG from this morning reviwed. BT steroids reduce due to high BPS pt seen by pulmonology consult Additional Plan # hx of seizures on dilatatin 500 mg in evening and keppra 500 mg in am. sees [facility]. # hx of ovarian, uterine cancer s/p radical hysterectomy 1999. on hrt # hypothyroidsim: home meds # high BP s start oral hydralazine and iv lasx , HTN is a new diagnosis cardiology rounding Subjective Date/time seen: 02/20/21 14:01 Interval history: 55 year old female that presents to the ER for shortness of breath x 2 days. Reports increasing wheezing and shortness of breath, not relieved with albuterol inhaler. Bhavesh copd exacerbation, seen by cardiology for high bps and elevated troponin, Echo ordered, pt seen by cardiology. Pt is very tight despite breathing treatments and steroids I will consult pulmonology pts steroids increased watch bps over the weekend. Review of Systems Review of Systems: All systems reviewed & are unremarkable except as noted in HPI and below Exam Narrative: Exam Narrative: GENERAL: Pt is severely SOB and tight CHEST: Chest wall is nontender. HEART: Regular rate and rhythm without murmur, rubs, or gallops LUNGS: BL wheezy lungs very tight chest with dry cough persistent ABDOMEN: Soft, positive bowel sounds, non-tender, no organomegaly. SKIN: No rash, no excessive bruising, petechiae, or purpura. NEUROLOGIC: Cranial nerves II-XII intact, alert and oriented x 3, no gross motor deficits EXTREMITIES: no edema, cyanosis or clubbing Objective Data Vital Signs Vital Signs: Vital Signs - 24 hr 02/19/21 16:00 02/19/21 17:47 02/19/21 17:57 Temperature 36.6 C Pulse Rate 81 80 88 Respiratory Rate 14 20 20 Blood Pressure 114/62 Pulse Oximetry 99 02/19/21 18:00 02/19/21 19:29 02/19/21 19:45 Temperature 36.2 C L Pulse Rate 88 94 87 Respiratory Rate 22 H Blood Pressure 122/61 Pulse Oximetry 97 96 02/19/21 20:00 02/19/21 22:00 02/19/21 23:41 Temperature 36.2 C L Pulse Rate 87 76 70 Respiratory Rate 18 Blood Pressure 116/67 Pulse Oximetry 97 97 02/20/21 00:00 02/20/21 02:00 02/20/21 02:42 Temperature Pulse Rate 71 68 65 Respiratory Rate 20 Blood Pressure Pulse Oximetry 98 02/20/21 02:48 02/20/21 04:00 02/20/21 06:00 Temperature 36.1 C L Pulse Rate 70 81 65 Respiratory Rate 20 15 Blood Pressure 115/65 Pulse Oximetry 97 02/20/21 07:52 02/20/21 08:00 02/20/21 08:01 Temperature Pulse Rate 76 92 99 Respiratory Rate 20 24 H Blood Pressure Pulse Oximetry 97 97 02/20/21 08:15 02/20/21 10:00 02/20/21 12:00 Temperature 36.6 C Pulse Rate 82 116 H 92 Respiratory Rate 24 H Blood Pressure 128/72 Pulse Oximetry 97 96 02/20/21 12:29 02/20/21 14:00 Temperature 36.1 C L Pulse Rate 77 81 Respiratory Rate 21 H 18 Blood Pressure 125/70 Pulse Oximetry 96 Intake/Output Intake/Output: Intake & Output 02/17/21 02/18/21 02/19/21 06/0
[2021-02-20] MEDS: levETIRAcetam 500 MG TABLET PO (20:28)
[2021-02-20] MEDS: PHENYTOIN SODIUM 100 MG CAP 500 MG PO (20:28)
[2021-02-20] MEDS: diphenhydrAMINE HCl CAP 25 MG CAPSULE PO (20:29)
[2021-02-20] MEDS: guanFACINE HCL 1 MG TABLET 2 MG PO (20:29)
[2021-02-21] VITALS (32 sets, daily range): BP systolic 123–250; BP diastolic 69–148; PULSE 69–114; RESP 16–20; TEMP 36.1–36.5; O2SAT 95–97
[2021-02-21] MEDS: methylPREDNISolone SOD SUCC 40 MG VIAL IV PUSH ×4 (00:02→20:34)
[2021-02-21] MEDS: IPRATROPIUM BR 0.02% INH SOLN 0.5 MG/2.5 ML VIAL INHALATION ×6 (00:33→23:55)
[2021-02-21] MEDS: ALBUTEROL SULFATE NEB 2.5 MG/0.5 ML INH INHALATION ×6 (00:33→23:55)
[2021-02-21 05:31] LABS: Basophils Percent Auto 0.3 % (0.2-1.2); Hematocrit 44.5 % (37.0-47.0); Hemoglobin 15.2 g/dL (12.0-15.0); Immature Granulocyte Absolute 0.09 K/mm3 (0.00-0.031); Immature Granulocyte Percent A 0.9 % (0-0.5); Lymphocytes Absolute Auto 0.66 K/mm3 (0.9-3.2); Lymphocytes Percent Auto 6.4 % (18.3-44.2); Mean Corpuscular HGB Conc 34.2 g/dl (32-36); Mean Corpuscular Hemoglobin 32.8 pg (26-34); Mean Corpuscular Volume 96.1 fl (80-100); Monocytes Absolute Auto 0.4 K/mm3 (0.1-0.6); Monocytes Percent Auto 4.2 % (2.6-8.5); Neutrophils Absolute Auto 9.2 K/mm3 (1.3-6.7); Neutrophils Percent Auto 88.2 % (45.5-73.1); Platelet Count Result 155 k/mm3 (150-375); Red Blood Count 4.63 M/mm3 (4.2-5.4); Red Cell Distribution Width 13.1 % (11.5-14.5); White Blood Count 10.4 K/mm3 (4.5-10.0)
[2021-02-21 05:53] LABS: Anion Gap 9 mmol/L (8-16); Blood Urea Nitrogen 17 mg/dL (7-17); Calcium 9.1 mg/dL (8.4-10.2); Carbon Dioxide 26 mmol/L (22-30); Chloride 100 mmol/L (98-107); Estimated CRCL calculation 51 ml/min; Estimated Glomerular Filt Rate > 60; Glucose 122 mg/dL (65-105); Potassium 4.1 mmol/L (3.4-5.0); Sodium 135 mmol/L (137-145)
[2021-02-21] MEDS: LEVOTHYROXINE SODIUM 112 MCG TABLET PO (06:00)
[2021-02-21] MEDS: levETIRAcetam 500 MG TABLET PO (08:25)
[2021-02-21] MEDS: ASPIRIN 81 MG ENTERIC TABLET PO (08:26)
[2021-02-21] MEDS: PANTOPRAZOLE 40 MG TABLET PO (08:26)
[2021-02-21] MEDS: FUROSEMIDE INJ 40 MG/4 ML VIAL 20 MG IV PUSH ×2 (08:26→16:34)
[2021-02-21] MEDS: ALPRAZolam (*CRX) 0.25 MG TABLET PO ×2 (08:36→16:18)
--- NOTE | 2021-02-21 12:48 | PM.PNCARD ---
Progress Note: A&P Assessment and Plan (1) Elevated troponin: Code(s): R77.8 - Other specified abnormalities of plasma proteins Status: Acute Assessment and Plan: 55 y/o with no known cardiac disease who presented with acute hypoxic resp failure and COPD exacerbation who is seen in cardiac consultation for elevated troponin Mildly elevated troponin with flat pattern She had atypical chest pain that was be related to strenuous cough. No acute EKG changes. Trop elevation is likely due to increase demand from underlying resp distress Check 2D echocardiogram to assess LV function and rule out regional wall motion changes (not done pending COVID test) She had reportedly normal coronary angiogram long time ago. Given her risk factor will plan for further cardiac evaluation on outpatient basis when medically stable Will cont ASA for now. Check lipid profile (2) Tobacco abuse: Code(s): Z72.0 - Tobacco use Status: Acute Assessment and Plan: She stated that she quit smoking now (3) Acute exacerbation of chronic obstructive airways disease: Code(s): J44.1 - Chronic obstructive pulmonary disease with (acute) exacerbation Status: Acute Assessment and Plan: Management per PC, slightly better wheezing is less audible now Subjective Date/time seen: 02/21/21 12:48 SHE FEELS OKAY TODAY, NO chest pain she gets occasional palpitation, shortness breath is better. Exam Narrative: Exam Narrative: in mild reso distress. Const: General: no acute distress Nutritional Appearance: well nourished Orientation/consciousness: patient oriented x3 HENMT: Head: normal to inspection and atraumatic Ears: hearing grossly normal bilaterally Face and sinus: normal facial exam Eyes: General: appearance normal, both eyes and all related structures Sclera: sclerae normal Pupils: Equal, round and reactive pupils present EOM: EOMs intact bilaterally Neck: Neck: supple and no JVD Carotids: no bruits Resp: Effort & Inspection: normal respiratory effort and no respiratory distress Auscultation: wheezes and diminished lung sounds Cardio: Jugular venous distension: no JVD Rate: regular rate and not tachycardic Rhythm: regular rhythm Heart sounds: S1 normal heart sound present, S2 normal heart sound present, no gallops, no murmurs and no rubs Peripheral pulses: Peripheral pulses 2+ throughout GI: Auscultation: normal bowel sounds Skin: General skin exam: normal color Neuro: General: patient oriented x3 Cranial nerves: Yes Equal, round and reactive pupils present and Yes Normal hearing present Speech: normal speech Extrem: General: normal to inspection, no clubbing, cyanosis or edema and no edema Psych: Affect: normal affect Objective Data Vital Signs Vital Signs: Vital Signs - 24 hr 02/20/21 14:00 02/20/21 14:13 02/20/21 16:00 Temperature Pulse Rate 78 90 96 Respiratory Rate 18 20 Blood Pressure Pulse Oximetry 96 02/20/21 16:06 02/20/21 16:12 02/20/21 16:57 Temperature 36.6 C Pulse Rate 93 96 93 Respiratory Rate 20 20 20 Blood Pressure 106/61 Pulse Oximetry 97 02/20/21 17:01 02/20/21 18:00 02/20/21 19:57 Temperature 36.1 C L Pulse Rate 100 78 Respiratory Rate 16 Blood Pressure 119/71 Pulse Oximetry 95 96 02/20/21 20:00 02/20/21 20:15 02/20/21 20:16 Temperature Pulse Rate 80 96 Respiratory Rate 20 Blood Pressure Pulse Oximetry 96 02/20/21 20:25 02/20/21 21:55 02/21/21 00:00 Temperature 36.1 C L Pulse Rate 97 76 72 Respiratory Rate 20 16 Blood Pressure 123/71 Pulse Oximetry 96 02/21/21 00:33 02/21/21 00:43 02/21/21 02:00 Temperature Pulse Rate 71 74 72 Respiratory Rate 18 18 Blood Pressure Pulse Oximetry 02/21/21 04:00 02/21/21 05:17 02/21/21 06:00 Temperature 36.1 C L Pulse Rate 69 72 74 Respiratory Rate 16 18 Blood Pressure 123/69 Pulse Oximetry 97 02/21/21 07:14 02/21/21 0
[2021-02-21 13:41] LABS: Cholesterol 246 mg/dL (0-200); HDL Direct 75 mg/dL; Triglycerides 105 mg/dL (<150)
[2021-02-21 13:52] LABS: LDL Cholesterol Direct 111 mg/dL
--- NOTE | 2021-02-21 15:52 | PM.IMPN ---
Progress Note: A&P Assessment and Plan (1) Acute exacerbation of chronic obstructive airways disease: Code(s): J44.1 - Chronic obstructive pulmonary disease with (acute) exacerbation Status: Acute Assessment and Plan: wheezing actively. elevated troponin. abg reviwed. cxr clear. suspected COPD exacerbation with active wheezing, adviced to quit smoking pt had CT scan of chest -peripheral groundglass opacities in the upper lobes, right middle lobe, and right lower lobe, likely inflammation or infection. continue iv azithromycin (2) Elevated troponin: Code(s): R77.8 - Other specified abnormalities of plasma proteins Status: Acute Assessment and Plan: EKG with ST depressions in lateral leads. trend cardiac enzymes. cardiology consultation. aspirin. no prior hx of cad, echo ordered (3) Acute respiratory failure with hypoxia: Code(s): J96.01 - Acute respiratory failure with hypoxia Status: Acute Assessment and Plan: Oxygen, ABG from this morning reviwed. BT steroids reduce due to high BPS pt seen by pulmonology consult Additional Plan # hx of seizures on dilatatin 500 mg in evening and keppra 500 mg in am. sees [facility]. # hx of ovarian, uterine cancer s/p radical hysterectomy 1999. on hrt # hypothyroidsim: home meds # high BP s start oral hydralazine and iv lasx , HTN is a new diagnosis cardiology rounding, BP is better Subjective Date/time seen: 02/21/21 15:52 Interval history: 55 year old female that presents to the ER for shortness of breath x 2 days. Reports increasing wheezing and shortness of breath, not relieved with albuterol inhaler. Bhavesh copd exacerbation, seen by cardiology for high bps and elevated troponin, Echo ordered, pt seen by cardiology. Pt is very tight despite breathing treatments and steroids I will consult pulmonology pts steroids increased watch bps over the weekend. Pt is gradually improving. Pt keep birds at home. Pt is a ex smoker. Review of Systems Review of Systems: All systems reviewed & are unremarkable except as noted in HPI and below Exam Narrative: Exam Narrative: GENERAL: Pt looking better CHEST: Chest wall is nontender. HEART: Regular rate and rhythm without murmur, rubs, or gallops LUNGS: BL decreased BS no wheeze today ABDOMEN: Soft, positive bowel sounds, non-tender, no organomegaly. SKIN: No rash, no excessive bruising, petechiae, or purpura. NEUROLOGIC: Cranial nerves II-XII intact, alert and oriented x 3, no gross motor deficits EXTREMITIES: no edema, cyanosis or clubbing Objective Data Vital Signs Vital Signs: Vital Signs - 24 hr 02/20/21 16:00 02/20/21 16:06 02/20/21 16:12 Temperature Pulse Rate 96 93 96 Respiratory Rate 20 20 Blood Pressure Pulse Oximetry 96 02/20/21 16:57 02/20/21 17:01 02/20/21 18:00 Temperature 36.6 C Pulse Rate 93 100 Respiratory Rate 20 Blood Pressure 106/61 Pulse Oximetry 97 95 02/20/21 19:57 02/20/21 20:00 02/20/21 20:15 Temperature 36.1 C L Pulse Rate 78 80 96 Respiratory Rate 16 20 Blood Pressure 119/71 Pulse Oximetry 96 02/20/21 20:16 02/20/21 20:25 02/20/21 21:55 Temperature Pulse Rate 97 76 Respiratory Rate 20 Blood Pressure Pulse Oximetry 96 02/21/21 00:00 02/21/21 00:33 02/21/21 00:43 Temperature 36.1 C L Pulse Rate 72 71 74 Respiratory Rate 16 18 18 Blood Pressure 123/71 Pulse Oximetry 96 02/21/21 02:00 02/21/21 04:00 02/21/21 05:17 Temperature 36.1 C L Pulse Rate 72 69 72 Respiratory Rate 16 18 Blood Pressure 123/69 Pulse Oximetry 97 02/21/21 06:00 02/21/21 07:14 02/21/21 07:15 Temperature Pulse Rate 74 70 Respiratory Rate 18 Blood Pressure Pulse Oximetry 96 02/21/21 08:00 02/21/21 10:00 02/21/21 11:03 Temperature 36.3 C L Pulse Rate 88 87 77 Respiratory Rate 16 18 Blood Pressure 150/83 H Pulse Oximetry 95 02/21/21 12:00 02/21/21 14:00 Temperature 3
[2021-02-21] MEDS: hydrALAZINE HCL 25 MG TABLET PO (16:24)
--- NOTE | 2021-02-21 16:46 | PC.NURSE ---
notified Dr Camejo that patient went to the bathroom and pulse rate was 130's and bp was 200/148. Dr ordered 25 mg of po hydralzine, and 20 iv lasix, called dr green notified her pt blood presure was now 250/114 and asked she wanted to give iv hydralizine, Dr camejo said no, just to give the po hydralizine and iv lasix. I will remain at patient bedside mto assess and will call dr green with followup
[2021-02-21] MEDS: hydrALAZINE HCL 20 MG/ML VIAL (17:10)
[2021-02-21] MEDS: hydrALAZINE HCL 20 MG/ML VIAL 10 MG IV PUSH ×2 (17:10→22:07)
--- NOTE | 2021-02-21 17:27 | PC.NURSE ---
Called to Dr mcmanus and made him aware of drug interaction with cardizem and guanfansine and he said a one time dose is ok and to overide with MD reed'd.
--- NOTE | 2021-02-21 17:35 | PCRCNOTE ---
Window of time for administration has passed. See next scheduled administration.
[2021-02-21] MEDS: dilTIAZem HCl INJ 25 MG/5 ML VIAL 5 MG IV PUSH (17:44)
[2021-02-21] MEDS: dilTIAZem HCL 30 MG TABLET PO (19:45)
[2021-02-21] MEDS: IBUPROFEN 200 MG TABLET PO (20:32)
[2021-02-21] MEDS: ONDANSETRON INJ 4 MG/2 ML VIAL IV PUSH (21:22)
[2021-02-21] MEDS: MORPHINE SULFATE (*CRX) 2 MG/ML INJ IV PUSH (22:07)
--- NOTE | 2021-02-21 23:28 | ECG_ITS ---
Measurements Intervals [place] Rate: 109 P: 69 SD: 112 QRS: -9 QRSD: 86 T: 57 QT: 328 QTc: 442 Interpretive Statements SINUS TACHYCARDIA WITH SHORT SD INTERVAL LEFT ATRIAL ENLARGEMENT DELAYED PRECORDIAL R/S TRANSITION BORDERLINE ST ABNORMALITY- ANTEROLAT/INF LEADS ABNORMAL ECG Electronically Signed On 02-22-2021 7:46:32 CDT by Dav Olivarez D.O.
[2021-02-21] MEDS: NITROGLYCERIN SL 0.4 MG TABLET SUBLINGUAL ×2 (23:34→23:36)
[2021-02-22] VITALS (21 sets, daily range): BP systolic 136–155; BP diastolic 82–91; PULSE 79–123; RESP 16–20; TEMP 36.1–37.1; O2SAT 95–98
[2021-02-22] MEDS: MORPHINE SULFATE (*CRX) 2 MG/ML INJ IV PUSH (00:04)
[2021-02-22] MEDS: ALPRAZolam (*CRX) 0.25 MG TABLET PO ×3 (00:18→18:55)
[2021-02-22 00:35] LABS: Troponin I 0.094 ng/mL (0.000-0.034)
--- NOTE | 2021-02-22 03:06 | PC.NURSE ---
Pt very anxious and complaining of bad headache at beginning of shift. PRN Ibuprofen was given. Pt also c/o nausea. Order from Brenda Khan NP for zofran. Pt still c/o severe headache and related nausea, SBP still elevated in 170's-180's. States she couldn't take HS PO meds. Spoke with Dr Street who ordered 2mg Morphine and 10mg iv hydralazine x1. Pt fell asleep and told BUTTON[employer]ER that her headache felt better after receiving those meds. SBP came back down to 140's. When this nurse returned to room shortly after to flush iv abx, pt stated that saline flush made her nauseated suddenly and then complained of 10/[address] Street notified and ordered troponin, nitro, and an ekg. One dose of nitro relieved the pressure just slightly to a 9/10 (SBP dropped into 120's after the single dose of nitro.) Dr Street came to review ekg and see pt. Order for 2mg more morphine and a chest xray. Pt reports that chest pain was easing and headache was completely gone after administration of nitro. As of 0200, pt still reports headache gone and relief of chest pressure.
[2021-02-22 06:03] LABS: Troponin I 0.063 ng/mL (0.000-0.034)
[2021-02-22 06:24] LABS: Amphetamine Screen Urine Negative (Negative); Barbiturate Screen Urine Negative (Negative); Benzodiazepines Screen Urine Negative (Negative); Cannabinoid Screen Urine Positive (Negative); Cocaine Screen Urine Negative (Negative); Methadone Screen Urine Negative (Negative); Opiate Screen Urine Positive (Negative); Phencyclidine Screen Urine Negative (Negative)
[2021-02-22] MEDS: methylPREDNISolone SOD SUCC 40 MG VIAL IV PUSH ×4 (06:44→23:03)
[2021-02-22] MEDS: LEVOTHYROXINE SODIUM 112 MCG TABLET PO (06:44)
[2021-02-22] MEDS: ALBUTEROL SULFATE NEB 2.5 MG/0.5 ML INH INHALATION ×4 (07:38→20:14)
[2021-02-22] MEDS: IPRATROPIUM BR 0.02% INH SOLN 0.5 MG/2.5 ML VIAL INHALATION ×4 (07:40→20:14)
--- NOTE | 2021-02-22 09:16 | PM.PNCARD ---
Progress Note: A&P Assessment and Plan (1) Elevated troponin: Code(s): R77.8 - Other specified abnormalities of plasma proteins Status: Acute Assessment and Plan: 55 y/o with no known cardiac disease who presented with acute hypoxic resp failure and COPD exacerbation who is seen in cardiac consultation for elevated troponin Mildly elevated troponin with flat pattern She had atypical chest pain that was be related to strenuous cough. No acute EKG changes. Trop elevation is likely due to increase demand from underlying resp distress She had reportedly normal coronary angiogram long time ago. Given her risk factor will plan for further cardiac evaluation on outpatient basis when medically stable Will cont ASA for now. Check lipid profile (2) Tobacco abuse: Code(s): Z72.0 - Tobacco use Status: Acute Assessment and Plan: She stated that she quit smoking now (3) Acute exacerbation of chronic obstructive airways disease: Code(s): J44.1 - Chronic obstructive pulmonary disease with (acute) exacerbation Status: Acute Assessment and Plan: Management per PC, slightly better wheezing is less audible now (4) HTN (hypertension) with goal to be determined: Code(s): I10 - Essential (primary) hypertension Status: Acute Assessment and Plan: Hydralazine was added her blood pressure is better now, will keep on low-dose Cardizem for tachycardia and hypertension, and monitor closely Subjective Date/time seen: 02/22/21 09:16 She feels okay today, had significant headache last night with increased blood pressure, feels better today headache is improved and blood pressure is much better. No chest pain no significant shortness of breath Exam Narrative: Exam Narrative: in mild reso distress. Const: General: no acute distress Nutritional Appearance: well nourished Orientation/consciousness: patient oriented x3 HENMT: Head: normal to inspection and atraumatic Ears: hearing grossly normal bilaterally Face and sinus: normal facial exam Eyes: General: appearance normal, both eyes and all related structures Sclera: sclerae normal Pupils: Equal, round and reactive pupils present EOM: EOMs intact bilaterally Neck: Neck: supple and no JVD Carotids: no bruits Chest: Chest palpation & inspection: normal inspection of the chest Resp: Effort & Inspection: normal respiratory effort and no respiratory distress Auscultation: no wheezes and diminished lung sounds Cardio: Jugular venous distension: no JVD Rate: regular rate and not tachycardic Rhythm: regular rhythm Heart sounds: S1 normal heart sound present, S2 normal heart sound present, no gallops, no murmurs and no rubs Peripheral pulses: Peripheral pulses 2+ throughout GI: Auscultation: normal bowel sounds Skin: General skin exam: normal color Neuro: General: patient oriented x3 Cranial nerves: Yes Equal, round and reactive pupils present and Yes Normal hearing present Speech: normal speech Extrem: General: normal to inspection, no clubbing, cyanosis or edema and no edema Psych: Affect: normal affect Objective Data Vital Signs Vital Signs: Vital Signs - 24 hr 02/21/21 10:00 02/21/21 11:03 02/21/21 12:00 Temperature 36.3 C L Pulse Rate 87 77 83 Respiratory Rate 18 16 Blood Pressure 133/88 Pulse Oximetry 95 02/21/21 14:00 02/21/21 16:00 02/21/21 16:10 Temperature 36.3 C L Pulse Rate 75 100 Respiratory Rate 20 Blood Pressure 138/93 H 200/148 H Pulse Oximetry 95 02/21/21 16:35 02/21/21 17:47 02/21/21 18:00 Temperature Pulse Rate 87 Respiratory Rate Blood Pressure 250/114 H 176/90 H Pulse Oximetry 02/21/21 19:13 02/21/21 19:14 02/21/21 19:17 Temperature Pulse Rate 99 92 77 Respiratory Rate 16 20 Blood Pressure 162/83 H Pulse Oximetry 95 02/21/21 19:27 02/21/21 19:41 02/21/21 20:00 Temperature 36.4 C L Pulse Rate 99 114 H 104 H Respiratory Ra
[2021-02-22] MEDS: ASPIRIN 81 MG ENTERIC TABLET PO (09:23)
[2021-02-22] MEDS: FUROSEMIDE INJ 40 MG/4 ML VIAL 20 MG IV PUSH ×2 (09:23→18:08)
[2021-02-22] MEDS: levETIRAcetam 500 MG TABLET PO (09:24)
[2021-02-22] MEDS: PANTOPRAZOLE 40 MG TABLET PO (09:24)
[2021-02-22] MEDS: ACETAMINOPHEN 325 MG TABLET 650 MG PO ×2 (12:16→20:17)
[2021-02-22] MEDS: dilTIAZem HCL 30 MG TABLET PO ×3 (13:24→23:02)
--- NOTE | 2021-02-22 16:33 | PM.IMPN ---
Progress Note: A&P Assessment and Plan (1) Acute exacerbation of chronic obstructive airways disease: Code(s): J44.1 - Chronic obstructive pulmonary disease with (acute) exacerbation Status: Acute Assessment and Plan: wheezing actively. elevated troponin. abg reviwed. cxr clear. suspected COPD exacerbation with active wheezing, adviced to quit smoking pt had CT scan of chest -peripheral groundglass opacities in the upper lobes, right middle lobe, and right lower lobe, likely inflammation or infection. continue iv azithromycin (2) Elevated troponin: Code(s): R77.8 - Other specified abnormalities of plasma proteins Status: Acute Assessment and Plan: EKG with ST depressions in lateral leads. trend cardiac enzymes. cardiology consultation. aspirin. no prior hx of cad, echo ordered (3) Acute respiratory failure with hypoxia: Code(s): J96.01 - Acute respiratory failure with hypoxia Status: Acute Assessment and Plan: Oxygen, ABG from this morning reviwed. BT steroids reduce due to high BPS pt seen by pulmonology consult Additional Plan # hx of seizures on dilatatin 500 mg in evening and keppra 500 mg in am. sees [facility] neurology. # hx of ovarian, uterine cancer s/p radical hysterectomy 1999. on hrt # hypothyroidsim: home meds # high BP s start oral hydralazine and iv lasx , HTN is a new diagnosis cardiology rounding, BP is better #Tachycardiac continue to watch in IMU Subjective Date/time seen: 02/22/21 16:33 Interval history: 55 year old female that presents to the ER for shortness of breath x 2 days. Reports increasing wheezing and shortness of breath, not relieved with albuterol inhaler. Bhavesh copd exacerbation, seen by cardiology for high bps and elevated troponin, Echo ordered, pt seen by cardiology. Pt is very tight despite breathing treatments and steroids I will consult pulmonology pts steroids increased watch bps over the weekend. Pt is gradually improving. Pt keep birds at home. Pt is a ex smoker. Pt having troubles with high HRs and BPs Review of Systems Review of Systems: All systems reviewed & are unremarkable except as noted in HPI and below Exam Narrative: Exam Narrative: GENERAL: Pt looking better CHEST: Chest wall is nontender. HEART: Regular rate and rhythm without murmur, rubs, or gallops LUNGS: BL decreased BS no wheeze today ABDOMEN: Soft, positive bowel sounds, non-tender, no organomegaly. SKIN: No rash, no excessive bruising, petechiae, or purpura. NEUROLOGIC: Cranial nerves II-XII intact, alert and oriented x 3, no gross motor deficits EXTREMITIES: no edema, cyanosis or clubbing Objective Data Vital Signs Vital Signs: Vital Signs - 24 hr 02/21/21 16:35 02/21/21 17:47 02/21/21 18:00 Temperature Pulse Rate 87 Respiratory Rate Blood Pressure 250/114 H 176/90 H Pulse Oximetry 02/21/21 19:13 02/21/21 19:14 02/21/21 19:17 Temperature Pulse Rate 99 92 77 Respiratory Rate 16 20 Blood Pressure 162/83 H Pulse Oximetry 95 02/21/21 19:27 02/21/21 19:41 02/21/21 20:00 Temperature 36.4 C L Pulse Rate 99 114 H 104 H Respiratory Rate 16 20 Blood Pressure 175/95 H Pulse Oximetry 96 96 02/21/21 20:34 02/21/21 21:32 02/21/21 22:00 Temperature Pulse Rate 109 H Respiratory Rate Blood Pressure 189/86 H 181/95 H Pulse Oximetry 02/21/21 22:30 02/21/21 22:55 02/21/21 23:30 Temperature 36.5 C 36.4 C Pulse Rate 104 H 106 H Respiratory Rate 16 16 Blood Pressure 145/79 H 145/79 H 157/98 H Pulse Oximetry 95 95 02/21/21 23:58 02/22/21 00:00 02/22/21 02:00 Temperature Pulse Rate 86 100 105 H Respiratory Rate 18 Blood Pressure Pulse Oximetry 95 02/22/21 03:33 02/22/21 04:00 02/22/21 05:53 Temperature 36.1 C L Pulse Rate 81 79 117 H Respiratory Rate 16 Blood Pressure 139/85 Pulse Oximetry 95 95 02/22/21 07:41 02/22/21 07:44 02/22/21 07:59 Temperature 36.3 C L
[2021-02-22] MEDS: IBUPROFEN 200 MG TABLET PO (18:07)
[2021-02-22] MEDS: PHENYTOIN SODIUM 100 MG CAP 500 MG PO (20:17)
[2021-02-22] MEDS: guanFACINE HCL 1 MG TABLET 2 MG PO (20:17)
[2021-02-22] MEDS: diphenhydrAMINE HCl CAP 25 MG CAPSULE PO (20:18)
[2021-02-23] VITALS (26 sets, daily range): BP systolic 123–144; BP diastolic 66–112; PULSE 73–123; RESP 18–22; TEMP 35.9–37.2; O2SAT 95–98
[2021-02-23] MEDS: ALBUTEROL SULFATE NEB 2.5 MG/0.5 ML INH INHALATION ×6 (00:15→20:24)
[2021-02-23] MEDS: IPRATROPIUM BR 0.02% INH SOLN 0.5 MG/2.5 ML VIAL INHALATION ×6 (00:16→20:24)
[2021-02-23 05:27] LABS: Hematocrit 49.8 % (37.0-47.0); Hemoglobin 17.1 g/dL (12.0-15.0); Mean Corpuscular HGB Conc 34.3 g/dl (32-36); Mean Corpuscular Hemoglobin 32.6 pg (26-34); Mean Corpuscular Volume 94.9 fl (80-100); Mean Platelet Volume 11.2 fl (7.4-10.4); Platelet Count Result 244 k/mm3 (150-375); Red Blood Count 5.25 M/mm3 (4.2-5.4); Red Cell Distribution Width 12.8 % (11.5-14.5); White Blood Count 11.9 K/mm3 (4.5-10.0)
[2021-02-23 05:39] LABS: Anion Gap 10 mmol/L (8-16); Blood Urea Nitrogen 31 mg/dL (7-17); Calcium 9.2 mg/dL (8.4-10.2); Carbon Dioxide 25 mmol/L (22-30); Chloride 97 mmol/L (98-107); Estimated CRCL calculation 46 ml/min; Estimated Glomerular Filt Rate 57; Glucose 126 mg/dL (65-105); Potassium 3.9 mmol/L (3.4-5.0); Sodium 132 mmol/L (137-145)
[2021-02-23] MEDS: LEVOTHYROXINE SODIUM 112 MCG TABLET PO (05:47)
[2021-02-23] MEDS: methylPREDNISolone SOD SUCC 40 MG VIAL IV PUSH (05:47)
[2021-02-23] MEDS: dilTIAZem HCL 30 MG TABLET PO ×3 (05:47→17:43)
--- NOTE | 2021-02-23 08:16 | PM.PNPUL ---
Progress Note: A&P Assessment and Plan (1) Acute exacerbation of chronic obstructive airways disease: Code(s): J44.1 - Chronic obstructive pulmonary disease with (acute) exacerbation Status: Acute Assessment and Plan: Patient has history of tobacco use and mild apical predominant panlobular emphysema on CT chest from 02/20. I have no PFTs at this time. Patient has improved with Symbicort and Ventolin in the past. 02/20 Currently the patient presents with URI symptoms including body aches, shortness of breath, production of green phlegm, fever, chills and wheezing. She has no evidence of hypercarbic respiratory failure with a blood gas of 7.49/34/59 on 36% oxygen. D dimer negative. I suspect the etiology of this current exacerbation/illness is a respiratory viral illness other than COVID. I will treat this as a COPD exacerbation. I will increase her solumedrol to 40 Q 6 as she still has SOB, severe coughing and diffuse wheezing throughout. Her steroids were decreased for high blood pressures so she may require additional antihypertensives per cardiology or hospitalist. Will start taper once she has improved. I increased her albuterol and ipratroprium neb to Q 4 hours, DC her symbicort for now. Agree with azithromycin for total 5 days. CXR today with indeterminant small nodular opacity and I CT scan of chest without correlate. Did have mild peripheral infiltrates upper lobes and RML and RLL. Likely infectious (viral). Goal saturation 90-94% and wean oxygen as tolerated. 02/23 Patient improving now 70% better. No wheezes, I will begin steroid taper and change steroids to prednisone 50 mg PO today, she has received 5 days azithromycin and I will DC. Continue albuterol and ipratroprium nebs Q 4 for now. On room air oxygen for now, goal sats 90-94%. I will order overnight oximetry on room air the night before she is discharged to assess needs at night. Will follow with you. Subjective Date/time seen: 02/23/21 08:16 Interval history: 02/20 This is a new pulmonary consult for COPD exacerbation this is a 55-year-old woman with a history of seizure disorder on , uterine cancer status post radical hysterectomy 1999, hypothyroidism, yearly pneumonias since age 9, and tobacco use with possible COPD. In 07/2020 patient was having shortness of breath and her physician prescribed her Symbicort 160-4.5 at 2 puffs q.day and Ventolin. At that time she was never told she had COPD and had no PFTs performed. Patient tells me she has had pneumonia every year since age 9 in which she gets antibiotics but that it takes her 1-1 and half months to get over these episodes. Patient was last hospitalized with pneumonia 6 years ago. patient was in her usual state of health with no respiratory limitations in her activities of daily living until about 02/14/2021 when she developed fatigue and felt like she had the flu. Patient then developed shortness of breath, wheezing cough with green phlegm, fever, chills, shakes that progressed and she presented to the emergency room on 02/17. Patient had bilateral wheezes and her saturations were in the low 90s and she was placed on 2 L nasal cannula. Patient had a white blood cell count of 9.5, 0/0.2% eosinophils, D-dimer was negative at 0.34, ABG on 36% FiO2 was pH of 7.49/34/59. Chest x-ray showed no active cardiopulmonary disease her troponin was positive at 0.161. Patient was started on Solu-Medrol, albuterol, ipratropium and azithromycin for a COPD exacerbation and admitted to the floor. On 02/19 the patient said she felt 5% better, COVID negative and I was consulted. Patient has a tobacco history from age 9 to 6 days ago. She smoked 1 pack per day until 2 months ago in which she started to decrease and she had decreased to 3-4 cigarettes a day until she got sick and has not smoked any in the last 6 days. This results in a 46 pack year exposure. Patient denies vaping, marijuana, heroin, methamphetamine, cocaine i
--- NOTE | 2021-02-23 09:00 | PM.PNCARD ---
Progress Note: A&P Assessment and Plan (1) Elevated troponin: Code(s): R77.8 - Other specified abnormalities of plasma proteins Status: Acute Assessment and Plan: 55 y/o with no known cardiac disease who presented with acute hypoxic resp failure and COPD exacerbation who is seen in cardiac consultation for elevated troponin Mildly elevated troponin with flat pattern She had atypical chest pain that was be related to strenuous cough. No acute EKG changes. Trop elevation is likely due to increase demand from underlying resp distress She had reportedly normal coronary angiogram long time ago. Given her risk factor will plan for further cardiac evaluation on outpatient basis when medically stable Will cont ASA for now. Check lipid profile (2) Tobacco abuse: Code(s): Z72.0 - Tobacco use Status: Acute Assessment and Plan: She stated that she quit smoking now (3) Acute exacerbation of chronic obstructive airways disease: Code(s): J44.1 - Chronic obstructive pulmonary disease with (acute) exacerbation Status: Acute Assessment and Plan: Management per PC, slightly better wheezing is less audible now (4) HTN (hypertension) with goal to be determined: Code(s): I10 - Essential (primary) hypertension Status: Acute Assessment and Plan: Hydralazine was added her blood pressure is better now, will keep on low-dose Cardizem for tachycardia and hypertension, and monitor closely Subjective Date/time seen: 02/23/21 09:00 she feels better today, no more headache or shortness of breath and no chest pain and her blood pressure is better now Exam Narrative: Exam Narrative: in mild reso distress. Const: General: no acute distress Nutritional Appearance: well nourished Orientation/consciousness: patient oriented x3 HENMT: Head: normal to inspection and atraumatic Ears: hearing grossly normal bilaterally Face and sinus: normal facial exam Eyes: General: appearance normal, both eyes and all related structures Sclera: sclerae normal Pupils: Equal, round and reactive pupils present EOM: EOMs intact bilaterally Neck: Neck: supple and no JVD Carotids: no bruits Chest: Chest palpation & inspection: normal inspection of the chest Resp: Effort & Inspection: normal respiratory effort and no respiratory distress Auscultation: no wheezes and diminished lung sounds Cardio: Jugular venous distension: no JVD Rate: regular rate and not tachycardic Rhythm: regular rhythm Heart sounds: S1 normal heart sound present, S2 normal heart sound present, no gallops, no murmurs and no rubs Peripheral pulses: Peripheral pulses 2+ throughout GI: Auscultation: normal bowel sounds Skin: General skin exam: normal color Neuro: General: patient oriented x3 Cranial nerves: Yes Equal, round and reactive pupils present and Yes Normal hearing present Speech: normal speech Extrem: General: normal to inspection, no clubbing, cyanosis or edema and no edema Psych: Affect: normal affect Objective Data Vital Signs Vital Signs: Vital Signs - 24 hr 02/22/21 10:00 02/22/21 11:13 02/22/21 11:19 Temperature Pulse Rate 91 99 98 Respiratory Rate 18 18 Blood Pressure Pulse Oximetry 02/22/21 12:00 02/22/21 14:00 02/22/21 15:11 Temperature 36.5 C Pulse Rate 123 H 91 89 Respiratory Rate 20 18 Blood Pressure 137/89 Pulse Oximetry 98 02/22/21 16:00 02/22/21 18:00 02/22/21 20:00 Temperature 36.2 C L 37.1 C Pulse Rate 114 H 95 94 Respiratory Rate 18 18 Blood Pressure 136/91 H 155/84 H Pulse Oximetry 98 95 02/22/21 20:15 02/22/21 20:22 02/22/21 22:00 Temperature Pulse Rate 92 94 86 Respiratory Rate 18 18 Blood Pressure Pulse Oximetry 95 02/23/21 00:00 02/23/21 00:15 02/23/21 00:23 Temperature 37.2 C Pulse Rate 80 74 78 Respiratory Rate 18 18 18 Blood Pressure 136/83 Pulse Oximetry 98 02/23/21 02:00 02/23/21 04:00 02/23/21 0
[2021-02-23] MEDS: IBUPROFEN 200 MG TABLET PO (09:39)
[2021-02-23] MEDS: ASPIRIN 81 MG ENTERIC TABLET PO (09:40)
[2021-02-23] MEDS: FUROSEMIDE INJ 40 MG/4 ML VIAL 20 MG IV PUSH ×2 (09:40→17:42)
[2021-02-23] MEDS: levETIRAcetam 500 MG TABLET PO (09:41)
[2021-02-23] MEDS: PANTOPRAZOLE 40 MG TABLET PO (09:43)
[2021-02-23] MEDS: ALPRAZolam (*CRX) 0.25 MG TABLET PO ×2 (12:29→22:10)
[2021-02-23] MEDS: predniSONE 40 MG, predniSONE 10 MG 50 MG PO (12:30)
--- NOTE | 2021-02-23 13:00 | PC.NURSE ---
This patient, Joan Chase, was received from [facility] on 02/23/21 at 1300. Patient/family oriented to unit policies and routines
--- NOTE | 2021-02-23 13:45 | PC.NURSE ---
This patient, Joan Chase, was transferred to [facility] on 02/23/21 at 1300. Personal belongings sent with patient. Report given to MARILIN Whalen. Appropriate documentation sent with patient.
--- NOTE | 2021-02-23 13:46 | PM.IMPN ---
Progress Note: A&P Assessment and Plan (1) Acute exacerbation of chronic obstructive airways disease: Code(s): J44.1 - Chronic obstructive pulmonary disease with (acute) exacerbation Status: Acute Assessment and Plan: wheezing actively. elevated troponin. abg reviwed. cxr clear. suspected COPD exacerbation with active wheezing, adviced to quit smoking pt had CT scan of chest -peripheral groundglass opacities in the upper lobes, right middle lobe, and right lower lobe, likely inflammation or infection. continue iv azithromycin (2) Elevated troponin: Code(s): R77.8 - Other specified abnormalities of plasma proteins Status: Acute Assessment and Plan: EKG with ST depressions in lateral leads. trend cardiac enzymes. cardiology consultation. aspirin. no prior hx of cad, echo ordered, seen by cardiology (3) Acute respiratory failure with hypoxia: Code(s): J96.01 - Acute respiratory failure with hypoxia Status: Acute Assessment and Plan: Oxygen, ABG from this morning reviwed. BT steroids reduce due to high BPS pt seen by pulmonology consult Additional Plan # hx of seizures on dilatatin 500 mg in evening and keppra 500 mg in am. sees [facility] neurology. # hx of ovarian, uterine cancer s/p radical hysterectomy 1999. on hrt # hypothyroidsim: home meds # high BP s start oral hydralazine and iv lasx , HTN is a new diagnosis cardiology rounding, BP is better, medication adjusted #Tachycardiac continue to watch in IMU Subjective Date/time seen: 02/23/21 13:46 Interval history: 55 year old female that presents to the ER for shortness of breath x 2 days. Reports increasing wheezing and shortness of breath, not relieved with albuterol inhaler. Bhavesh copd exacerbation, seen by cardiology for high bps and elevated troponin, Echo ordered, pt seen by cardiology. Pt is very tight despite breathing treatments and steroids I will consult pulmonology pts steroids increased watch bps over the weekend. Pt is gradually improving. Pt keep birds at home. Pt is a ex smoker. Pt having troubles with high BP over the weekend, ok to transfer to medical floor. Review of Systems Review of Systems: All systems reviewed & are unremarkable except as noted in HPI and below Exam Narrative: Exam Narrative: GENERAL: Pt looking better CHEST: Chest wall is nontender. HEART: Regular rate and rhythm without murmur, rubs, or gallops LUNGS: BL decreased BS very wheezy and tight today ABDOMEN: Soft, positive bowel sounds, non-tender, no organomegaly. SKIN: No rash, no excessive bruising, petechiae, or purpura. NEUROLOGIC: Cranial nerves II-XII intact, alert and oriented x 3, no gross motor deficits EXTREMITIES: no edema, cyanosis or clubbing Objective Data Vital Signs Vital Signs: Vital Signs - 24 hr 02/22/21 14:00 02/22/21 15:11 02/22/21 16:00 Temperature 36.2 C L Pulse Rate 91 89 114 H Respiratory Rate 18 18 Blood Pressure 136/91 H Pulse Oximetry 98 02/22/21 18:00 02/22/21 20:00 02/22/21 20:15 Temperature 37.1 C Pulse Rate 95 94 92 Respiratory Rate 18 18 Blood Pressure 155/84 H Pulse Oximetry 95 95 02/22/21 20:22 02/22/21 22:00 02/23/21 00:00 Temperature 37.2 C Pulse Rate 94 86 80 Respiratory Rate 18 18 Blood Pressure 136/83 Pulse Oximetry 98 02/23/21 00:15 02/23/21 00:23 02/23/21 02:00 Temperature Pulse Rate 74 78 73 Respiratory Rate 18 18 Blood Pressure Pulse Oximetry 02/23/21 04:00 02/23/21 04:19 02/23/21 04:29 Temperature 37.2 C Pulse Rate 78 81 82 Respiratory Rate 18 18 18 Blood Pressure 135/91 H Pulse Oximetry 96 02/23/21 06:00 02/23/21 07:40 02/23/21 07:55 Temperature Pulse Rate 76 88 95 Respiratory Rate 18 20 Blood Pressure Pulse Oximetry 95 02/23/21 08:00 02/23/21 08:15 02/23/21 08:48 Temperature 35.9 C L Pulse Rate 108 H 98 Respiratory Rate 22 H Blood Pressure 136/112 H Pulse Oximetry 97 95
[2021-02-23] MEDS: diphenhydrAMINE HCl CAP 25 MG CAPSULE PO (22:07)
[2021-02-23] MEDS: PHENYTOIN SODIUM 100 MG CAP 500 MG PO (22:08)
[2021-02-23] MEDS: guanFACINE HCL 1 MG TABLET 2 MG PO (22:12)
[2021-02-24] VITALS (21 sets, daily range): BP systolic 101–119; BP diastolic 58–75; PULSE 62–98; RESP 16–20; TEMP 36–36.7; O2SAT 95–98
[2021-02-24] MEDS: ALBUTEROL SULFATE NEB 2.5 MG/0.5 ML INH INHALATION ×5 (00:02→20:53)
[2021-02-24] MEDS: IPRATROPIUM BR 0.02% INH SOLN 0.5 MG/2.5 ML VIAL INHALATION ×5 (00:03→20:53)
[2021-02-24] MEDS: dilTIAZem HCL 30 MG TABLET PO ×4 (01:06→17:27)
[2021-02-24] MEDS: hydrALAZINE HCL 25 MG TABLET PO (01:09)
[2021-02-24] MEDS: METOPROLOL TARTRATE INJ 5 MG/5 ML VIAL (01:25)
[2021-02-24] MEDS: LORazepam INJ (*CRX) 2 MG/ML VIAL (01:25)
[2021-02-24] MEDS: ACETAMINOPHEN 325 MG TABLET 650 MG PO ×2 (01:28→17:25)
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
[2021-02-24] MEDS: LEVOTHYROXINE SODIUM 112 MCG TABLET PO (06:15)
--- NOTE | 2021-02-24 07:34 | PM.PNCARD ---
Progress Note: A&P Assessment and Plan (1) Elevated troponin: Code(s): R77.8 - Other specified abnormalities of plasma proteins Status: Acute Assessment and Plan: 55 y/o with no known cardiac disease who presented with acute hypoxic resp failure and COPD exacerbation who is seen in cardiac consultation for elevated troponin Mildly elevated troponin with flat pattern She had atypical chest pain that was be related to strenuous cough. No acute EKG changes. Trop elevation is likely due to increase demand from underlying resp distress She had reportedly normal coronary angiogram long time ago. Given her risk factor will plan for further cardiac evaluation on outpatient basis when medically stable Will cont ASA for now. Check lipid profile (2) Tobacco abuse: Code(s): Z72.0 - Tobacco use Status: Acute Assessment and Plan: She stated that she quit smoking now (3) Acute exacerbation of chronic obstructive airways disease: Code(s): J44.1 - Chronic obstructive pulmonary disease with (acute) exacerbation Status: Acute Assessment and Plan: Management per PC, slightly better wheezing is less audible now (4) HTN (hypertension) with goal to be determined: Code(s): I10 - Essential (primary) hypertension Status: Acute Assessment and Plan: Hydralazine was added her blood pressure is better now, today is 119/60, however was high when she was having headache. Would recommend further workup for the headache indicated per hospitalist team Subjective Date/time seen: 02/24/21 07:34 She feels okay today but she had severe headache last night. No chest pain no significant shortness of breath no more wheezing Exam Narrative: Exam Narrative: in mild reso distress. Const: General: no acute distress Nutritional Appearance: well nourished Orientation/consciousness: patient oriented x3 HENMT: Head: normal to inspection and atraumatic Ears: hearing grossly normal bilaterally Face and sinus: normal facial exam Eyes: General: appearance normal, both eyes and all related structures Sclera: sclerae normal Pupils: Equal, round and reactive pupils present EOM: EOMs intact bilaterally Neck: Neck: supple and no JVD Carotids: no bruits Chest: Chest palpation & inspection: normal inspection of the chest Resp: Effort & Inspection: normal respiratory effort and no respiratory distress Auscultation: no wheezes and diminished lung sounds Cardio: Jugular venous distension: no JVD Rate: regular rate and not tachycardic Rhythm: regular rhythm Heart sounds: S1 normal heart sound present, S2 normal heart sound present, no gallops, no murmurs and no rubs Peripheral pulses: Peripheral pulses 2+ throughout GI: Auscultation: normal bowel sounds Skin: General skin exam: normal color Neuro: General: patient oriented x3 Cranial nerves: Yes Equal, round and reactive pupils present and Yes Normal hearing present Speech: normal speech Extrem: General: normal to inspection, no clubbing, cyanosis or edema and no edema Psych: Affect: normal affect Objective Data Vital Signs Vital Signs: Vital Signs - 24 hr 02/23/21 07:40 02/23/21 07:55 02/23/21 08:00 Temperature Pulse Rate 88 95 108 H Respiratory Rate 18 20 Blood Pressure Pulse Oximetry 95 02/23/21 08:15 02/23/21 08:48 02/23/21 10:00 Temperature 35.9 C L Pulse Rate 98 90 Respiratory Rate 22 H Blood Pressure 136/112 H Pulse Oximetry 97 95 02/23/21 11:41 02/23/21 11:49 02/23/21 12:00 Temperature Pulse Rate 89 102 H 90 Respiratory Rate 18 18 Blood Pressure Pulse Oximetry 02/23/21 12:07 02/23/21 13:26 02/23/21 15:52 Temperature 36.6 C 36.6 C Pulse Rate 98 95 82 Respiratory Rate 20 20 18 Blood Pressure 123/90 144/66 H Pulse Oximetry 98 98 02/23/21 16:00 02/23/21 16:01 02/23/21 20:00 Temperature Pulse Rate 76 76 123 H Respiratory Rate 18 Blood Pressure Pulse Oxim
[2021-02-24] MEDS: ALPRAZolam (*CRX) 0.25 MG TABLET PO ×2 (09:17→19:56)
[2021-02-24] MEDS: FUROSEMIDE INJ 40 MG/4 ML VIAL 20 MG IV PUSH ×2 (09:17→17:26)
--- NOTE | 2021-02-24 09:43 | PM.PNPUL ---
Progress Note: A&P Assessment and Plan (1) Acute exacerbation of chronic obstructive airways disease: Code(s): J44.1 - Chronic obstructive pulmonary disease with (acute) exacerbation Status: Acute Assessment and Plan: Patient has history of tobacco use and mild apical predominant panlobular emphysema on CT chest from 02/20. I have no PFTs at this time. Patient has improved with Symbicort and Ventolin in the past. 02/20 Currently the patient presents with URI symptoms including body aches, shortness of breath, production of green phlegm, fever, chills and wheezing. She has no evidence of hypercarbic respiratory failure with a blood gas of 7.49/34/59 on 36% oxygen. D dimer negative. I suspect the etiology of this current exacerbation/illness is a respiratory viral illness other than COVID. I will treat this as a COPD exacerbation. I will increase her solumedrol to 40 Q 6 as she still has SOB, severe coughing and diffuse wheezing throughout. Her steroids were decreased for high blood pressures so she may require additional antihypertensives per cardiology or hospitalist. Will start taper once she has improved. I increased her albuterol and ipratroprium neb to Q 4 hours, DC her symbicort for now. Agree with azithromycin for total 5 days (completed 02/21). CXR today with indeterminant small nodular opacity and I CT scan of chest without correlate. Did have mild peripheral infiltrates upper lobes and RML and RLL. Likely infectious (viral). Goal saturation 90-94% and wean oxygen as tolerated. 02/23 Patient improving now 70% better. No wheezes, I will begin steroid taper and change steroids to prednisone 50 mg PO today, she has received 5 days azithromycin and I will DC. Continue albuterol and ipratroprium nebs Q 4 for now. On room air oxygen for now, goal sats 90-94%. 02/24 Continues to improve, no wheezes, on room air sats 98%, walking in room, states she could go home from breathing perspective. Still with HTN episodes. Decreased albuterol and ipratroprium nebs from Q 4 to Q 6. Today is day 8 of steroids and will decrease to 40 on 02/25. Will follow with you. Subjective Date/time seen: 02/24/21 09:43 Interval history: 02/20 This is a new pulmonary consult for COPD exacerbation this is a 55-year-old woman with a history of seizure disorder on 11, uterine cancer status post radical hysterectomy 1999, hypothyroidism, yearly pneumonias since age 9, and tobacco use with possible COPD. In 07/2020 patient was having shortness of breath and her physician prescribed her Symbicort 160-4.5 at 2 puffs q.day and Ventolin. At that time she was never told she had COPD and had no PFTs performed. Patient tells me she has had pneumonia every year since age 9 in which she gets antibiotics but that it takes her 1-1 and half months to get over these episodes. Patient was last hospitalized with pneumonia 6 years ago. patient was in her usual state of health with no respiratory limitations in her activities of daily living until about 02/14/2021 when she developed fatigue and felt like she had the flu. Patient then developed shortness of breath, wheezing cough with green phlegm, fever, chills, shakes that progressed and she presented to the emergency room on 02/17. Patient had bilateral wheezes and her saturations were in the low 90s and she was placed on 2 L nasal cannula. Patient had a white blood cell count of 9.5, 0/0.2% eosinophils, D-dimer was negative at 0.34, ABG on 36% FiO2 was pH of 7.49/34/59. Chest x-ray showed no active cardiopulmonary disease her troponin was positive at 0.161. Patient was started on Solu-Medrol, albuterol, ipratropium and azithromycin for a COPD exacerbation and admitted to the floor. On 02/19 the patient said she felt 5% better, COVID negative and I was consulted. Patient has a tobacco history from age 9 to 6 days ago. She smoked 1 pack per day until 2 months ago in which she started to decrease and she had decreased to 3-4 cig
[2021-02-24] MEDS: ASPIRIN 81 MG ENTERIC TABLET PO (12:19)
[2021-02-24] MEDS: levETIRAcetam 500 MG TABLET PO (12:19)
[2021-02-24] MEDS: PANTOPRAZOLE 40 MG TABLET PO (12:20)
--- NOTE | 2021-02-24 13:00 | PM.IMPN ---
Progress Note: A&P Assessment and Plan (1) Acute exacerbation of chronic obstructive airways disease: Code(s): J44.1 - Chronic obstructive pulmonary disease with (acute) exacerbation Status: Acute Assessment and Plan: wheezing actively. elevated troponin. abg reviwed. cxr clear. suspected COPD exacerbation with active wheezing, adviced to quit smoking pt had CT scan of chest -peripheral groundglass opacities in the upper lobes, right middle lobe, and right lower lobe, likely inflammation or infection. sp iv azithromycin, hopeful DC tomorrow (2) Elevated troponin: Code(s): R77.8 - Other specified abnormalities of plasma proteins Status: Acute Assessment and Plan: EKG with ST depressions in lateral leads. trend cardiac enzymes. cardiology consultation. aspirin. no prior hx of cad, echo ordered, seen by cardiology (3) Acute respiratory failure with hypoxia: Code(s): J96.01 - Acute respiratory failure with hypoxia Status: Acute Assessment and Plan: Oxygen, ABG from this morning reviewed. BT steroids reduce due to high BPS, wean off steroids pt seen by pulmonology consult Additional Plan # hx of seizures on dilatatin 500 mg in evening and keppra 500 mg in am. sees [facility] neurology. # hx of ovarian, uterine cancer s/p radical hysterectomy 1999. on hrt # hypothyroidsim: home meds # high BP s start oral hydralazine and iv lasx , HTN is a new diagnosis cardiology rounding, BP is better, medication adjusted Subjective Date/time seen: 02/24/21 13:00 Interval history: 55 year old female that presents to the ER for shortness of breath x 2 days. Reports increasing wheezing and shortness of breath, not relieved with albuterol inhaler. Bhavesh copd exacerbation, seen by cardiology for high bps and elevated troponin, Echo ordered, pt seen by cardiology. Pt is gradually improving. Pt keep birds at home. Pt is a ex smoker. Pt having troubles with high BP over the weekend, ok to transfer to medical floor. wean down steroids, hopeful DC in 1-2 days time Review of Systems Review of Systems: All systems reviewed & are unremarkable except as noted in HPI and below Exam Narrative: Exam Narrative: GENERAL: Pt looking better CHEST: Chest wall is nontender. HEART: Regular rate and rhythm without murmur, rubs, or gallops LUNGS: BL decreased few scattered wheezes ABDOMEN: Soft, positive bowel sounds, non-tender, no organomegaly. SKIN: No rash, no excessive bruising, petechiae, or purpura. NEUROLOGIC: Cranial nerves II-XII intact, alert and oriented x 3, no gross motor deficits EXTREMITIES: no edema, cyanosis or clubbing Objective Data Vital Signs Vital Signs: Vital Signs - 24 hr 02/23/21 13:26 02/23/21 15:52 02/23/21 16:00 Temperature 36.6 C Pulse Rate 95 82 76 Respiratory Rate 20 18 Blood Pressure 144/66 H Pulse Oximetry 98 02/23/21 16:01 02/23/21 20:00 02/23/21 20:25 Temperature Pulse Rate 76 123 H 90 Respiratory Rate 18 18 Blood Pressure Pulse Oximetry 97 02/23/21 20:37 02/23/21 22:00 02/24/21 00:00 Temperature 36.4 C L Pulse Rate 92 90 76 Respiratory Rate 18 18 Blood Pressure 133/88 Pulse Oximetry 96 02/24/21 00:03 02/24/21 00:09 02/24/21 04:00 Temperature Pulse Rate 72 91 66 Respiratory Rate 16 16 Blood Pressure Pulse Oximetry 02/24/21 04:05 02/24/21 04:12 02/24/21 05:39 Temperature 36.6 C Pulse Rate 62 65 70 Respiratory Rate 18 16 20 Blood Pressure 119/70 Pulse Oximetry 98 02/24/21 08:00 02/24/21 08:44 02/24/21 08:46 Temperature Pulse Rate 78 78 Respiratory Rate 16 16 Blood Pressure Pulse Oximetry 95 95 02/24/21 08:55 02/24/21 12:00 Temperature Pulse Rate 82 73 Respiratory Rate 16 Blood Pressure Pulse Oximetry Intake/Output Intake/Output: Intake & Output 02/21/21 02/22/21 02/23/21 02/24/21 23:59 23:59 23:59 23:59 Intake Total 5275 378 7665 440 Output Total 2300 1975 1
[2021-02-24] MEDS: guanFACINE HCL 1 MG TABLET 2 MG PO (21:59)
[2021-02-24] MEDS: PHENYTOIN SODIUM 100 MG CAP 500 MG PO (21:59)
[2021-02-24] MEDS: diphenhydrAMINE HCl CAP 25 MG CAPSULE PO (21:59)
[2021-02-25] VITALS (17 sets, daily range): BP systolic 107–124; BP diastolic 66–89; PULSE 64–87; RESP 16–20; TEMP 36–36.8; O2SAT 95–98
[2021-02-25] MEDS: dilTIAZem HCL 30 MG TABLET PO ×5 (00:43→23:37)
[2021-02-25] MEDS: IPRATROPIUM BR 0.02% INH SOLN 0.5 MG/2.5 ML VIAL INHALATION ×4 (02:23→20:28)
[2021-02-25] MEDS: ALBUTEROL SULFATE NEB 2.5 MG/0.5 ML INH INHALATION ×4 (02:23→20:28)
[2021-02-25] MEDS: ACETAMINOPHEN 325 MG TABLET 650 MG PO (05:45)
[2021-02-25] MEDS: ALPRAZolam (*CRX) 0.25 MG TABLET PO ×2 (05:46→21:33)
[2021-02-25] MEDS: LEVOTHYROXINE SODIUM 112 MCG TABLET PO (06:33)
[2021-02-25] MEDS: ASPIRIN 81 MG ENTERIC TABLET PO (09:44)
[2021-02-25] MEDS: levETIRAcetam 500 MG TABLET PO (09:44)
[2021-02-25] MEDS: predniSONE 20 MG TABLET 40 MG PO (09:44)
[2021-02-25] MEDS: FUROSEMIDE INJ 40 MG/4 ML VIAL 20 MG IV PUSH ×2 (09:44→17:58)
[2021-02-25] MEDS: PANTOPRAZOLE 40 MG TABLET PO (09:44)
--- NOTE | 2021-02-25 09:51 | PM.PNCARD ---
Progress Note: A&P Assessment and Plan (1) Elevated troponin: Code(s): R77.8 - Other specified abnormalities of plasma proteins Status: Acute Assessment and Plan: 55 y/o with no known cardiac disease who presented with acute hypoxic resp failure and COPD exacerbation who is seen in cardiac consultation for elevated troponin Mildly elevated troponin with flat pattern She had atypical chest pain that was be related to strenuous cough. No acute EKG changes. 2D echo with normal LV function and no regional wall motion changes Trop elevation is likely due to increase demand from underlying resp distress BP better as steroids being tapped down She is stable for discharge from cardiac standpoint. Will sign off. please don't hesitate to call with any questions (2) Tobacco abuse: Code(s): Z72.0 - Tobacco use Status: Acute Assessment and Plan: She stated that she quit smoking now (3) Acute exacerbation of chronic obstructive airways disease: Code(s): J44.1 - Chronic obstructive pulmonary disease with (acute) exacerbation Status: Acute Assessment and Plan: Slowly improving. Pulmonary on board (4) HTN (hypertension) with goal to be determined: Code(s): I10 - Essential (primary) hypertension Status: Acute Assessment and Plan: well controlled on current regimen Subjective Date/time seen: 02/25/21 09:51 Breathing continues to slowly improve No more headaches and BP is better controlled Review of Systems Review of Systems: All systems reviewed & are unremarkable except as noted in HPI and below Constitutional: Constitutional: Reports as per HPI, Denies fatigue and Denies headache(s) Eyes: Eyes: Reports as per HPI and Denies blurry vision ENT: Reports system reviewed and no additional complaints, except as documented, Reports as per HPI, Reports Normal hearing present and Denies headache(s) Cardiovascular: Cardiovascular: Reports as per HPI, Denies chest pain, Denies diaphoresis, Denies pedal edema, Denies leg edema, Denies lightheadedness, Denies palpitations and Denies dyspnea Respiratory: Respiratory: Reports as per HPI, Denies cough and Denies dyspnea Gastrointestinal: Gastrointestinal: Reports as per HPI and Denies abdominal pain Genitourinary: Genitourinary: Reports as per HPI Musculoskeletal: Musculoskeletal: Reports as per HPI and Denies back pain Neurologic: Reports Normal hearing present and Denies headache(s) Psychiatric: Psychiatric: Denies anxiety Endocrine: Endocrine: Denies fatigue and Denies palpitations Exam Narrative: Exam Narrative: in mild reso distress. Const: General: no acute distress Nutritional Appearance: well nourished Orientation/consciousness: patient oriented x3 HENMT: Head: normal to inspection and atraumatic Ears: hearing grossly normal bilaterally Face and sinus: normal facial exam Eyes: General: appearance normal, both eyes and all related structures Sclera: sclerae normal Pupils: Equal, round and reactive pupils present EOM: EOMs intact bilaterally Neck: Neck: supple and no JVD Carotids: no bruits Chest: Chest palpation & inspection: normal inspection of the chest Resp: Effort & Inspection: normal respiratory effort and no respiratory distress Auscultation: no wheezes and diminished lung sounds Cardio: Jugular venous distension: no JVD Rate: regular rate and not tachycardic Rhythm: regular rhythm Heart sounds: S1 normal heart sound present, S2 normal heart sound present, no gallops, no murmurs and no rubs Peripheral pulses: Peripheral pulses 2+ throughout GI: Auscultation: normal bowel sounds Skin: General skin exam: normal color Neuro: General: patient oriented x3 Cranial nerves: Yes Equal, round and reactive pupils present and Yes Normal hearing present Speech: normal speech Extrem: General: normal to inspection, no clubbing, cyanosis or edema and no edema Psych: Affect: normal aff
--- NOTE | 2021-02-25 15:29 | PM.IMPN ---
Progress Note: A&P Assessment and Plan (1) Acute exacerbation of chronic obstructive airways disease: Code(s): J44.1 - Chronic obstructive pulmonary disease with (acute) exacerbation Status: Acute Assessment and Plan: wheezing actively. elevated troponin. abg reviwed. cxr clear. suspected COPD exacerbation with active wheezing, adviced to quit smoking pt had CT scan of chest -peripheral groundglass opacities in the upper lobes, right middle lobe, and right lower lobe, likely inflammation or infection. sp iv azithromycin, hopeful DC tomorrow (2) Elevated troponin: Code(s): R77.8 - Other specified abnormalities of plasma proteins Status: Acute Assessment and Plan: EKG with ST depressions in lateral leads. trend cardiac enzymes. cardiology consultation. aspirin. no prior hx of cad, echo ordered, seen by cardiology (3) Acute respiratory failure with hypoxia: Code(s): J96.01 - Acute respiratory failure with hypoxia Status: Acute Assessment and Plan: Oxygen, ABG from this morning reviewed. BT steroids reduce due to high BPS, wean off steroids pt seen by pulmonology consult Additional Plan # hx of seizures on dilatatin 500 mg in evening and keppra 500 mg in am. sees [facility] neurology. # hx of ovarian, uterine cancer s/p radical hysterectomy 1999. on hrt # hypothyroidsim: home meds # high BP s start oral hydralazine and iv lasx , HTN is a new diagnosis cardiology rounding, BP continues to run high Subjective Date/time seen: 02/25/21 15:29 Interval history: 55 year old female that presents to the ER for shortness of breath x 2 days. Reports increasing wheezing and shortness of breath, not relieved with albuterol inhaler. Bhavesh copd exacerbation, seen by cardiology for high bps and elevated troponin, Echo ordered, pt seen by cardiology. Pt is gradually improving. Pt keep birds at home. Pt is a ex smoker. Pt having troubles with high BP over the weekend, ok to transfer to medical floor. wean down steroids, hopeful DC soon Review of Systems Review of Systems: All systems reviewed & are unremarkable except as noted in HPI and below Exam Narrative: Exam Narrative: GENERAL: Pt looking better CHEST: Chest wall is nontender. HEART: Regular rate and rhythm without murmur, rubs, or gallops LUNGS: BL decreased few scattered wheezes ABDOMEN: Soft, positive bowel sounds, non-tender, no organomegaly. SKIN: No rash, no excessive bruising, petechiae, or purpura. NEUROLOGIC: Cranial nerves II-XII intact, alert and oriented x 3, no gross motor deficits EXTREMITIES: no edema, cyanosis or clubbing Objective Data Vital Signs Vital Signs: Vital Signs - 24 hr 02/24/21 16:00 02/24/21 20:00 02/24/21 20:54 Temperature Pulse Rate 79 72 87 Respiratory Rate 18 Blood Pressure Pulse Oximetry 02/24/21 20:55 02/24/21 21:04 02/24/21 22:00 Temperature 36.0 C L Pulse Rate 89 75 Respiratory Rate 18 18 Blood Pressure 101/75 Pulse Oximetry 97 95 02/25/21 00:00 02/25/21 02:25 02/25/21 02:33 Temperature Pulse Rate 64 72 75 Respiratory Rate 16 16 Blood Pressure Pulse Oximetry 02/25/21 04:00 02/25/21 06:00 02/25/21 08:00 Temperature 36.0 C L Pulse Rate 74 74 66 Respiratory Rate 18 Blood Pressure 107/66 120/72 Pulse Oximetry 98 02/25/21 08:17 02/25/21 08:26 02/25/21 13:36 Temperature Pulse Rate 76 77 85 Respiratory Rate 16 16 Blood Pressure Pulse Oximetry 97 02/25/21 14:00 02/25/21 14:26 02/25/21 14:32 Temperature 36.8 C Pulse Rate 85 74 75 Respiratory Rate 20 16 16 Blood Pressure 124/89 Pulse Oximetry 96 Intake/Output Intake/Output: Intake & Output 02/22/21 02/23/21 02/24/21 02/25/21 23:59 23:59 23:59 23:59 Intake Total 950 1300 2540 850 Output Total 1975 1300 1250 Balance -1025 0 1290 850 Meds/Results Medications: Active Medications Generic Name Dose Route Start Last Admin Trade Name Glenroyq PRN
--- NOTE | 2021-02-25 15:55 | PM.PNPUL ---
Progress Note: A&P Assessment and Plan (1) Acute exacerbation of chronic obstructive airways disease: Code(s): J44.1 - Chronic obstructive pulmonary disease with (acute) exacerbation Status: Acute Assessment and Plan: Patient has history of tobacco use and mild apical predominant panlobular emphysema on CT chest from 02/20. I have no PFTs at this time. Patient has improved with Symbicort and Ventolin in the past. 02/20 Currently the patient presents with URI symptoms including body aches, shortness of breath, production of green phlegm, fever, chills and wheezing. She has no evidence of hypercarbic respiratory failure with a blood gas of 7.49/34/59 on 36% oxygen. D dimer negative. I suspect the etiology of this current exacerbation/illness is a respiratory viral illness other than COVID. I will treat this as a COPD exacerbation. I will increase her solumedrol to 40 Q 6 as she still has SOB, severe coughing and diffuse wheezing throughout. Her steroids were decreased for high blood pressures so she may require additional antihypertensives per cardiology or hospitalist. Will start taper once she has improved. I increased her albuterol and ipratroprium neb to Q 4 hours, DC her symbicort for now. Agree with azithromycin for total 5 days (completed 02/21). CXR today with indeterminant small nodular opacity and I CT scan of chest without correlate. Did have mild peripheral infiltrates upper lobes and RML and RLL. Likely infectious (viral). Goal saturation 90-94% and wean oxygen as tolerated. 02/23 Patient improving now 70% better. No wheezes, I will begin steroid taper and change steroids to prednisone 50 mg PO today, she has received 5 days azithromycin and I will DC. Continue albuterol and ipratroprium nebs Q 4 for now. On room air oxygen for now, goal sats 90-94%. 02/24 Continues to improve, no wheezes, on room air sats 98%, walking in room, states she could go home from breathing perspective. Still with HTN episodes. Decreased albuterol and ipratroprium nebs from Q 4 to Q 6. Today is day 8 of steroids and will decrease to 40 on 02/25. 02/25 - [facility] tonight; Home O2 evaluation in am, Start Symbicort 160/4.5, 2 puffs bid, probable discharge in am. office f/u with sleep study with nocturnal seizures and headaches with spikes in BP. Will follow with you. Subjective Date/time seen: 02/25/21 15:55 follow up visit for asthma-COPD exacerbation this is a 55-year-old woman with a history of seizure disorder with nocturnal events, staring in Jul 2020, on Keppra and Dilantin; on 11, uterine cancer status post radical hysterectomy 1999, hypothyroidism, yearly pneumonias since age 9, and tobacco use with possible COPD. In 07/2020 patient was having shortness of breath and her physician prescribed her Symbicort 160-4.5 at 2 puffs q.day and Ventolin. At that time she was never told she had COPD and had no PFTs performed. She was only using the Symbicort 2 puffs in the am, half the normal dose, along with Ventolin 2 puffs in am. Patient tells me she has had pneumonia every year since age 9 in which she gets antibiotics but that it takes her 1-1.5 months to get over these episodes. Patient was last hospitalized with pneumonia 6 years ago. She was in her usual state of health with no respiratory limitations in her activities of daily living until about 02/14/2021 when she developed fatigue and felt like she had the flu. Patient then developed shortness of breath, wheezing cough with green phlegm, fever, chills, shakes that progressed and she presented to the emergency room on 02/17. Patient had bilateral wheezes and her saturations were in the low 90s and she was placed on 2 L nasal cannula. Patient had a white blood cell count of 9.5, 0/0.2% eosinophils, D-dimer was negative at 0.34, ABG on 36% FiO2 was pH of 7.49/34/59. Chest x-ray showed no active cardiopulmonary disease her troponin was positive at 0.161. Patient was started on Solu-Medrol, albuterol,
[2021-02-25] MEDS: PHENYTOIN SODIUM 100 MG CAP 500 MG PO (21:22)
[2021-02-25] MEDS: diphenhydrAMINE HCl CAP 25 MG CAPSULE PO (21:24)
[2021-02-25] MEDS: guanFACINE HCL 1 MG TABLET 2 MG PO (21:26)
[2021-02-26] VITALS (12 sets, daily range): BP systolic 111–128; BP diastolic 67–71; PULSE 54–118; RESP 18–20; TEMP 36.3–36.6; O2SAT 95–99
[2021-02-26] MEDS: dilTIAZem HCL 30 MG TABLET PO ×3 (05:28→17:12)
[2021-02-26] MEDS: LEVOTHYROXINE SODIUM 112 MCG TABLET PO (05:28)
[2021-02-26] MEDS: ALBUTEROL SULFATE NEB 2.5 MG/0.5 ML INH INHALATION ×2 (07:57→13:20)
[2021-02-26] MEDS: IPRATROPIUM BR 0.02% INH SOLN 0.5 MG/2.5 ML VIAL INHALATION ×3 (07:58→21:21)
[2021-02-26] MEDS: FUROSEMIDE INJ 40 MG/4 ML VIAL 20 MG IV PUSH (09:38)
[2021-02-26] MEDS: ASPIRIN 81 MG ENTERIC TABLET PO (09:38)
[2021-02-26] MEDS: predniSONE 20 MG TABLET PO (09:38)
[2021-02-26] MEDS: PANTOPRAZOLE 40 MG TABLET PO (09:39)
[2021-02-26] MEDS: levETIRAcetam 500 MG TABLET PO (09:39)
--- NOTE | 2021-02-26 10:20 | PCRCNOTE ---
HOME O2 EVAL COMPLETE, NO REQUIREMENTS
[2021-02-26] MEDS: ALPRAZolam (*CRX) 0.25 MG TABLET PO ×2 (13:26→21:11)
--- NOTE | 2021-02-26 15:35 | PM.IMPN ---
Progress Note: A&P Assessment and Plan (1) Acute exacerbation of chronic obstructive airways disease: Code(s): J44.1 - Chronic obstructive pulmonary disease with (acute) exacerbation Status: Acute Assessment and Plan: wheezing actively. elevated troponin. abg reviwed. cxr clear. suspected COPD exacerbation with active wheezing, adviced to quit smoking pt had CT scan of chest -peripheral groundglass opacities in the upper lobes, right middle lobe, and right lower lobe, likely inflammation or infection. sp iv azithromycin, hopeful DC tomorrow (2) Elevated troponin: Code(s): R77.8 - Other specified abnormalities of plasma proteins Status: Acute Assessment and Plan: EKG with ST depressions in lateral leads. trend cardiac enzymes. cardiology consultation. aspirin. no prior hx of cad, echo ordered, seen by cardiology (3) Acute respiratory failure with hypoxia: Code(s): J96.01 - Acute respiratory failure with hypoxia Status: Acute Assessment and Plan: Oxygen, ABG from this morning reviewed. BT steroids reduce due to high BPS, off steroids now pt seen by pulmonology consult Additional Plan # hx of seizures on dilatatin 500 mg in evening and keppra 500 mg in am. sees [facility] neurology. # hx of ovarian, uterine cancer s/p radical hysterectomy 1999. on hrt # hypothyroidsim: home meds # HTN is a new diagnosis cardiology rounding, BP continues to run high Subjective Date/time seen: 02/26/21 15:35 Interval history: 55 year old female that presents to the ER for shortness of breath x 2 days. Reports increasing wheezing and shortness of breath, not relieved with albuterol inhaler. Likely copd exacerbation, seen by cardiology for high bps and elevated troponin, Echo ordered, pt seen by cardiology. Pt is gradually improving. Pt keep birds at home. Pt is a ex smoker. Pt seen by bilingual case manager. Stop steroids watch Bps today dc tomorrow. Review of Systems Review of Systems: All systems reviewed & are unremarkable except as noted in HPI and below Exam Narrative: Exam Narrative: GENERAL: Pt looking better CHEST: Chest wall is nontender. HEART: Regular rate and rhythm without murmur, rubs, or gallops LUNGS: BL decreased few scattered wheezes ABDOMEN: Soft, positive bowel sounds, non-tender, no organomegaly. SKIN: No rash, no excessive bruising, petechiae, or purpura. NEUROLOGIC: Cranial nerves II-XII intact, alert and oriented x 3, no gross motor deficits EXTREMITIES: no edema, cyanosis or clubbing Objective Data Vital Signs Vital Signs: Vital Signs - 24 hr 02/25/21 18:00 02/25/21 19:49 02/25/21 20:29 Temperature 36.8 C Pulse Rate 80 87 70 Respiratory Rate 18 20 Blood Pressure 113/67 122/75 Pulse Oximetry 95 95 02/25/21 21:02 02/25/21 22:56 02/26/21 04:51 Temperature 36.6 C Pulse Rate 86 77 64 Respiratory Rate 18 18 Blood Pressure 118/68 Pulse Oximetry 95 95 02/26/21 07:58 02/26/21 09:30 02/26/21 09:35 Temperature Pulse Rate 84 93 90 Respiratory Rate 18 Blood Pressure 122/70 Pulse Oximetry 98 02/26/21 09:40 02/26/21 09:45 02/26/21 13:20 Temperature Pulse Rate 118 H 92 84 Respiratory Rate 18 Blood Pressure Pulse Oximetry 96 98 02/26/21 14:00 Temperature 36.3 C L Pulse Rate 54 L Respiratory Rate 18 Blood Pressure 128/69 Pulse Oximetry 97 Intake/Output Intake/Output: Intake & Output 02/23/21 02/24/21 02/25/21 02/26/21 23:59 23:59 23:59 23:59 Intake Total 1300 2540 2760 900 Output Total 1300 1250 890 Balance 0 1290 1870 900 Meds/Results Medications: Active Medications Generic Name Dose Route Start Last Admin Trade Name Freq PRN Reason Stop Dose Admin Acetaminophen 650 mg 02/18/21 17:12 02/25/21 05:45 Acetaminophen 325 Mg Tablet PO 650 mg Q4H PRN Administration Headache Albuterol 2 puff 02/18/21 05:44 Albuterol Sulfate (*Sp) Aerosol 1 Puff INHALATION Q4HRT PRN Whee
[2021-02-26] MEDS: FUROSEMIDE 20 MG TABLET 60 MG PO (17:12)
[2021-02-26] MEDS: PHENYTOIN SODIUM 100 MG CAP 500 MG PO (21:04)
[2021-02-26] MEDS: diphenhydrAMINE HCl CAP 25 MG CAPSULE PO (21:04)
[2021-02-26] MEDS: guanFACINE HCL 1 MG TABLET 2 MG PO (21:05)
[2021-02-27] VITALS (13 sets, daily range): BP systolic 103–209; BP diastolic 52–110; PULSE 64–92; RESP 15–20; TEMP 36.5–37.1; O2SAT 94–96
[2021-02-27] MEDS: dilTIAZem HCL 30 MG TABLET PO ×5 (00:32→23:56)
[2021-02-27] MEDS: ONDANSETRON INJ 4 MG/2 ML VIAL IV PUSH (02:17)
[2021-02-27] MEDS: MORPHINE SULFATE (*CRX) 2 MG/ML INJ IV PUSH (02:25)
[2021-02-27] MEDS: LABETALOL HCL INJ 100 MG/20 ML VIAL 10 MG IV PUSH (02:25)
[2021-02-27] MEDS: LORazepam INJ (*CRX) 2 MG/ML VIAL 1 MG IV PUSH (02:30)
[2021-02-27] MEDS: SUMAtriptan SUCCINATE 6 MG/0.5 ML VIAL SUB-Q (02:33)
[2021-02-27] MEDS: BUDESONIDE RESPULE NEB 0.5 MG/2 ML AMP (02:35)
[2021-02-27] MEDS: ALPRAZolam (*CRX) 0.25 MG TABLET PO ×3 (03:07→23:56)
[2021-02-27] MEDS: LEVOTHYROXINE SODIUM 112 MCG TABLET PO (05:19)
--- NOTE | 2021-02-27 05:34 | PC.NURSE ---
Patient was discovered yelling loudly at 0230 c/o a severe headache. Her BP was 205/108 at that time. She was thrashing her limbs while tossing and turning in bed. A rapid response was called and Dr. Diana arrived. She ordered a dose of labetalol, morphine, ativan, imitrex, and a head CT. She was wheeled down to CT on her bed and tolerated the CT well. The head CT appeared to be negative on initial impression. Dr. Diana was called again r/t another increase in BP. Patient was given a Xanax in the mean time. After approximately 1.5 hours her HERNANDEZ abated and her BP appeared to be gradually lowering, finally observed at 154/81.
[2021-02-27] MEDS: ASPIRIN 81 MG ENTERIC TABLET PO (08:40)
[2021-02-27] MEDS: FUROSEMIDE 20 MG TABLET 60 MG PO ×2 (08:40→17:35)
[2021-02-27] MEDS: levETIRAcetam 500 MG TABLET PO (08:41)
[2021-02-27] MEDS: amLODIPine BESYLATE 5 MG TABLET PO (08:41)
[2021-02-27] MEDS: PANTOPRAZOLE 40 MG TABLET PO (08:42)
[2021-02-27] MEDS: IBUPROFEN 200 MG TABLET PO ×2 (08:44→18:02)
[2021-02-27] MEDS: IPRATROPIUM BR 0.02% INH SOLN 0.5 MG/2.5 ML VIAL INHALATION ×3 (09:12→21:19)
[2021-02-27] MEDS: ALBUTEROL SULFATE NEB 2.5 MG/0.5 ML INH INHALATION ×3 (09:12→21:19)
[2021-02-27] MEDS: MORPHINE SULFATE (*CRX) 2 MG/ML INJ 1 MG IV PUSH ×2 (10:55→21:11)
--- NOTE | 2021-02-27 12:33 | PCNWS ---
Weekly nutritional screen. Patient is tolerating current diet with adequate intake. No weight loss reported. No nutritional needs at this time.
--- NOTE | 2021-02-27 14:10 | PCNSR ---
On 02/27/21, the student,Brielle White, provided care and completed [facility] documentation on this patient. I have reviewed the student's documentation and agree with the findings.
--- NOTE | 2021-02-27 14:39 | PM.IMPN ---
Progress Note: A&P Assessment and Plan (1) Acute exacerbation of chronic obstructive airways disease: Code(s): J44.1 - Chronic obstructive pulmonary disease with (acute) exacerbation Status: Acute Assessment and Plan: wheezing actively. elevated troponin. abg reviwed. cxr clear. suspected COPD exacerbation with active wheezing, adviced to quit smoking pt had CT scan of chest -peripheral groundglass opacities in the upper lobes, right middle lobe, and right lower lobe, likely inflammation or infection. sp iv azithromycin, hopeful DC tomorrow (2) Elevated troponin: Code(s): R77.8 - Other specified abnormalities of plasma proteins Status: Acute Assessment and Plan: EKG with ST depressions in lateral leads. trend cardiac enzymes. cardiology consultation. aspirin. no prior hx of cad, echo ordered, seen by cardiology (3) Acute respiratory failure with hypoxia: Code(s): J96.01 - Acute respiratory failure with hypoxia Status: Acute Assessment and Plan: Oxygen, ABG from this morning reviewed. BT steroids reduce due to high BPS, off steroids now pt seen by pulmonology consult Additional Plan #Migraines with high BP restart estradiol and Suboxone to continue # hx of seizures on dilatatin 500 mg in evening and keppra 500 mg in am. sees [facility]. # hx of ovarian, uterine cancer s/p radical hysterectomy 1999. on hrt # hypothyroidsim: home meds # HTN is a new diagnosis cardiology rounding, BP continues to run high Subjective Date/time seen: 02/27/21 14:39 Interval history: 55 year old female that presents to the ER for shortness of breath x 2 days. Reports increasing wheezing and shortness of breath, not relieved with albuterol inhaler. Likely COPD exacerbation, seen by cardiology for high bps and elevated troponin, Echo ordered, pt seen by cardiology. Pt is gradually improving. Pt keep birds at home. Pt is a ex smoker. Pt seen by bee tender. Pt complaining about migraines at night and high bps ct head was negative, i will consult neurology for migraine headaches. I will reorder patients Suboxone and estradiol from today. Review of Systems Review of Systems: All systems reviewed & are unremarkable except as noted in HPI and below Exam Narrative: Exam Narrative: GENERAL: Pt looks unwell with severe migraine CHEST: Chest wall is nontender. HEART: Regular rate and rhythm without murmur, rubs, or gallops LUNGS: Clear lungs ABDOMEN: Soft, positive bowel sounds, non-tender, no organomegaly. SKIN: No rash, no excessive bruising, petechiae, or purpura. NEUROLOGIC: Cranial nerves II-XII intact, alert and oriented x 3, no gross motor deficits EXTREMITIES: no edema, cyanosis or clubbing Objective Data Vital Signs Vital Signs: Vital Signs - 24 hr 02/26/21 17:11 02/26/21 21:20 02/26/21 21:29 Temperature Pulse Rate 64 62 66 Respiratory Rate 18 18 Blood Pressure 111/67 Pulse Oximetry 02/26/21 21:46 02/27/21 02:10 02/27/21 02:25 Temperature 36.6 C Pulse Rate 62 71 92 Respiratory Rate 20 20 Blood Pressure 126/71 209/110 H Pulse Oximetry 99 96 02/27/21 05:48 02/27/21 09:12 02/27/21 09:20 Temperature 36.5 C Pulse Rate 64 67 65 Respiratory Rate 18 15 16 Blood Pressure 128/77 Pulse Oximetry 96 02/27/21 10:03 02/27/21 13:41 Temperature 37.1 C Pulse Rate 65 Respiratory Rate 18 Blood Pressure 103/52 L Pulse Oximetry 95 95 Intake/Output Intake/Output: Intake & Output 02/24/21 02/25/21 02/26/21 02/27/21 23:59 23:59 23:59 23:59 Intake Total 2540 2760 1925 320 Output Total 1250 890 800 Balance 1290 1870 1125 320 Meds/Results Medications: Active Medications Generic Name Dose Route Start Last Admin Trade Name Glenroyq PRN Reason Stop Dose Admin Acetaminophen 650 mg 02/18/21 17:12 02/25/21 05:45 Acetaminophen 325 Mg Tablet PO 650 mg Q4H PRN Administration Headache Albuterol 2 puff 02/18/21 05:44 Alb
--- NOTE | 2021-02-27 18:37 | PM.PNPUL ---
Progress Note: A&P Assessment and Plan (1) Acute exacerbation of chronic obstructive airways disease: Code(s): J44.1 - Chronic obstructive pulmonary disease with (acute) exacerbation Status: Acute Assessment and Plan: Patient has history of tobacco use and mild apical predominant panlobular emphysema on CT chest from 02/20. I have no PFTs at this time. Patient has improved with Symbicort and Ventolin in the past. 02/20 Currently the patient presents with URI symptoms including body aches, shortness of breath, production of green phlegm, fever, chills and wheezing. She has no evidence of hypercarbic respiratory failure with a blood gas of 7.49/34/59 on 36% oxygen. D dimer negative. I suspect the etiology of this current exacerbation/illness is a respiratory viral illness other than COVID. I will treat this as a COPD exacerbation. I will increase her solumedrol to 40 Q 6 as she still has SOB, severe coughing and diffuse wheezing throughout. Her steroids were decreased for high blood pressures so she may require additional antihypertensives per cardiology or hospitalist. Will start taper once she has improved. I increased her albuterol and ipratroprium neb to Q 4 hours, DC her symbicort for now. Agree with azithromycin for total 5 days (completed 02/21). CXR today with indeterminant small nodular opacity and I CT scan of chest without correlate. Did have mild peripheral infiltrates upper lobes and RML and RLL. Likely infectious (viral). Goal saturation 90-94% and wean oxygen as tolerated. 02/23 Patient improving now 70% better. No wheezes, I will begin steroid taper and change steroids to prednisone 50 mg PO today, she has received 5 days azithromycin and I will DC. Continue albuterol and ipratroprium nebs Q 4 for now. On room air oxygen for now, goal sats 90-94%. 02/24 Continues to improve, no wheezes, on room air sats 98%, walking in room, states she could go home from breathing perspective. Still with HTN episodes. Decreased albuterol and ipratroprium nebs from Q 4 to Q 6. Today is day 8 of steroids and will decrease to 40 on 02/25. 02/25 - ApneaLink tonight, Start Symbicort 160/4.5, 2 puffs bid, discharge soon. Office f/u with sleep study with nocturnal seizures and headaches with spikes in BP. Will follow with you. 02/27- O2 with sleep, hypersensitivity panel with crackles and long history of bird exposure although [facility] does take many precautions. Subjective Date/time seen: 02/27/21 18:37 This 55-year-old woman with a history of seizure disorder with nocturnal events, starting in Jul 2020, on Keppra and Dilantin; uterine cancer status post radical hysterectomy 1999, hypothyroidism, yearly pneumonias since age 9, and tobacco use with possible COPD. In 07/2020 patient was having shortness of breath and her physician prescribed her Symbicort 160-4.5 at 2 puffs q.day and Ventolin. At that time she was never told she had COPD and had no PFTs performed. She was only using the Symbicort 2 puffs in the am, half the normal dose, along with Ventolin 2 puffs in am. Patient tells me she has had pneumonia every year since age 9 in which she gets antibiotics but that it takes her 1-1.5 months to get over these episodes. Patient was last hospitalized with pneumonia 6 years ago. She was in her usual state of health with no respiratory limitations in her activities of daily living until about 02/14/2021 when she developed fatigue and felt like she had the flu. Patient then developed shortness of breath, wheezing cough with green phlegm, fever, chills, shakes that progressed and she presented to the emergency room on 02/17. Patient had bilateral wheezes and her saturations were in the low 90s and she was placed on 2 L nasal cannula. Patient had a white blood cell count of 9.5, 0/0.2% eosinophils, D-dimer was negative at 0.34, ABG on 36% FiO2 was pH of 7.49/34/59. Chest x-ray showed no active cardiopulmonary disease her troponin was positive at 0.161. Pat
[2021-02-27] MEDS: estradioL 1 MG TABLET PO (21:06)
[2021-02-27] MEDS: diphenhydrAMINE HCl CAP 25 MG CAPSULE PO (21:06)
[2021-02-27] MEDS: PHENYTOIN SODIUM 100 MG CAP 500 MG PO (21:07)
[2021-02-27] MEDS: guanFACINE HCL 1 MG TABLET 2 MG PO (21:14)
--- NOTE | 2021-02-27 21:27 | PCRCNOTE ---
Patient refused her Symbicort tonight. Patient stated it causes her blood pressure to christine rocket.
[2021-02-28] VITALS (15 sets, daily range): BP systolic 103–140; BP diastolic 60–87; PULSE 53–88; RESP 16–20; TEMP 36–36.7; O2SAT 93–99
[2021-02-28] MEDS: IPRATROPIUM BR 0.02% INH SOLN 0.5 MG/2.5 ML VIAL INHALATION (02:41)
[2021-02-28] MEDS: ALBUTEROL SULFATE NEB 2.5 MG/0.5 ML INH INHALATION ×3 (02:41→19:58)
[2021-02-28] MEDS: ACETAMINOPHEN 325 MG TABLET 650 MG PO ×2 (04:00→19:04)
[2021-02-28] MEDS: dilTIAZem HCL 30 MG TABLET PO ×4 (06:29→23:46)
[2021-02-28] MEDS: LEVOTHYROXINE SODIUM 112 MCG TABLET PO (06:29)
[2021-02-28 06:44] LABS: Hematocrit 44.4 % (37.0-47.0); Hemoglobin 15.9 g/dL (12.0-15.0); Mean Corpuscular HGB Conc 35.8 g/dl (32-36); Mean Corpuscular Hemoglobin 32.9 pg (26-34); Mean Corpuscular Volume 91.9 fl (80-100); Platelet Count Result 256 k/mm3 (150-375); Red Blood Count 4.83 M/mm3 (4.2-5.4); Red Cell Distribution Width 12.1 % (11.5-14.5); White Blood Count 9.9 K/mm3 (4.5-10.0)
[2021-02-28 07:03] LABS: Anion Gap 8 mmol/L (8-16); Blood Urea Nitrogen 31 mg/dL (7-17); Calcium 8.6 mg/dL (8.4-10.2); Carbon Dioxide 35 mmol/L (22-30); Chloride 88 mmol/L (98-107); Estimated CRCL calculation 36 ml/min; Estimated Glomerular Filt Rate 42; Glucose 91 mg/dL (65-105); Potassium 2.6 mmol/L (3.4-5.0); Sodium 131 mmol/L (137-145)
[2021-02-28] MEDS: IBUPROFEN 200 MG TABLET PO (08:15)
[2021-02-28] MEDS: POTASSIUM CHLORIDE 20 MEQ TABLET 40 MEQ PO ×3 (08:15→17:24)
[2021-02-28] MEDS: levETIRAcetam 500 MG TABLET PO (08:17)
[2021-02-28] MEDS: amLODIPine BESYLATE 5 MG TABLET PO (08:17)
[2021-02-28] MEDS: ASPIRIN 81 MG ENTERIC TABLET PO (08:18)
[2021-02-28] MEDS: PANTOPRAZOLE 40 MG TABLET PO (08:18)
--- NOTE | 2021-02-28 09:43 | PCRCNOTE ---
PT REFUSED THIS MORNING NEBULIZER TX AND C/O SEVERE HEADACHE AFTER PREVIOUS TX'S. I NOTIFIED DR GUAMAN AND TELEPHONE ORDER WAS GIVEN TO DISCONTINUE IPRATROPIUM WHICH COULD BE A CONTRIBUTING FACTOR IT IS A LISTED SIDE EFFECT.
--- NOTE | 2021-02-28 16:29 | PM.IMPN ---
Progress Note: A&P Assessment and Plan (1) Acute exacerbation of chronic obstructive airways disease: Code(s): J44.1 - Chronic obstructive pulmonary disease with (acute) exacerbation Status: Acute Assessment and Plan: wheezing actively. elevated troponin. abg reviwed. cxr clear. suspected COPD exacerbation with active wheezing, adviced to quit smoking pt had CT scan of chest -peripheral groundglass opacities in the upper lobes, right middle lobe, and right lower lobe, likely inflammation or infection. sp iv azithromycin Possible hypersensitivity component Continue inhaled steroids, bronchodilators (2) Elevated troponin: Code(s): R77.8 - Other specified abnormalities of plasma proteins Status: Acute Assessment and Plan: EKG with ST depressions in lateral leads. trend cardiac enzymes. cardiology consultation noted. aspirin. no prior hx of cad Echo with EF 65%, NL wall motion, slightly thickened pericardium. May be due to elevated BP (3) Acute respiratory failure with hypoxia: Code(s): J96.01 - Acute respiratory failure with hypoxia Status: Acute Assessment and Plan: Oxygen, ABG from this morning reviewed. BT steroids reduce due to high BPS, off steroids now pt seen by pulmonology consult (4) Hypertension: Qualifiers: Hypertension type: unspecified Qualified Code(s): I10 - Essential (primary) hypertension Code(s): I10 - Essential (primary) hypertension Status: Acute Assessment and Plan: Labile with associated headaches No prior hx of HBP No abdominal bruits noted but high risk for vascular disease due to age, smoking Renal U/s with doppler (5) Hypokalemia: Code(s): E87.6 - Hypokalemia Status: Acute Assessment and Plan: Due to diuretic therapy (furosemide) PO replacement and tele ordered 02/28 for K 2.6. F/u K, mag, hold furosemide. Consider spironolactone for diuretic therapy. Subjective Date/time seen: 02/28/21 16:29 Interval history: 55 year old female that presents to the ER for shortness of breath x 2 days. Reports increasing wheezing and shortness of breath, not relieved with albuterol inhaler. Likely COPD exacerbation, seen by cardiology for high bps and elevated troponin, 02/28: Review of Systems Review of Systems: All systems reviewed & are unremarkable except as noted in HPI and below Exam Narrative: Exam Narrative: GENERAL: Pt looks unwell with severe migraine CHEST: Chest wall is nontender. HEART: Regular rate and rhythm without murmur, rubs, or gallops LUNGS: Clear lungs ABDOMEN: Soft, positive bowel sounds, non-tender, no organomegaly. SKIN: No rash, no excessive bruising, petechiae, or purpura. NEUROLOGIC: Cranial nerves II-XII intact, alert and oriented x 3, no gross motor deficits EXTREMITIES: no edema, cyanosis or clubbing Objective Data Vital Signs Vital Signs: Vital Signs - 24 hr 02/27/21 17:44 02/27/21 21:19 02/27/21 21:28 Temperature 98.7 F Pulse Rate 69 67 Respiratory Rate 18 18 Blood Pressure Pulse Oximetry 02/27/21 22:00 02/28/21 00:00 02/28/21 02:41 Temperature 98.5 F Pulse Rate 73 74 Respiratory Rate 18 18 Blood Pressure 107/63 Pulse Oximetry 94 96 02/28/21 02:50 02/28/21 06:00 02/28/21 08:00 Temperature 98.1 F Pulse Rate 69 66 64 Respiratory Rate 18 18 Blood Pressure 103/61 Pulse Oximetry 99 98 02/28/21 12:00 02/28/21 13:04 02/28/21 14:00 Temperature 97.9 F 96.8 F L Pulse Rate 64 74 76 Respiratory Rate 16 20 Blood Pressure 140/87 112/84 Pulse Oximetry 99 97 02/28/21 14:53 02/28/21 14:58 Temperature Pulse Rate 72 70 Respiratory Rate 18 18 Blood Pressure Pulse Oximetry Intake/Output Intake/Output: Intake & Output 02/25/21 02/26/21 02/27/21 02/28/21 23:59 23:59 23:59 23:59 Intake Total 2760 1925 820 480 Output Total 890 800 Balance 1870 1125 820 480 Meds/Results Medications: Active
[2021-02-28] MEDS: PHENYTOIN SODIUM 100 MG CAP 500 MG PO (20:46)
[2021-02-28] MEDS: diphenhydrAMINE HCl CAP 25 MG CAPSULE PO (20:46)
[2021-02-28] MEDS: ALPRAZolam (*CRX) 0.25 MG TABLET PO (20:46)
[2021-02-28] MEDS: guanFACINE HCL 1 MG TABLET 2 MG PO (20:46)
[2021-02-28] MEDS: estradioL 1 MG TABLET PO (20:47)
[2021-03-01] VITALS (18 sets, daily range): BP systolic 82–105; BP diastolic 50–62; PULSE 59–76; RESP 16–22; TEMP 36.4–36.7; O2SAT 95–100
[2021-03-01] MEDS: ALBUTEROL SULFATE NEB 2.5 MG/0.5 ML INH INHALATION ×4 (02:25→20:23)
[2021-03-01] MEDS: LEVOTHYROXINE SODIUM 112 MCG TABLET PO (06:13)
[2021-03-01] MEDS: IBUPROFEN 200 MG TABLET PO (06:13)
[2021-03-01] MEDS: dilTIAZem HCL 30 MG TABLET PO (06:14)
[2021-03-01 07:29] LABS: Anion Gap 6 mmol/L (8-16); Blood Urea Nitrogen 19 mg/dL (7-17); Calcium 9.1 mg/dL (8.4-10.2); Carbon Dioxide 31 mmol/L (22-30); Chloride 95 mmol/L (98-107); Estimated CRCL calculation 51 ml/min; Estimated Glomerular Filt Rate > 60; Glucose 101 mg/dL (65-105); Magnesium 2.2 mg/dL (1.6-2.3); Potassium 3.2 mmol/L (3.4-5.0); Sodium 132 mmol/L (137-145)
[2021-03-01] MEDS: POTASSIUM CHLORIDE 20 MEQ TABLET 40 MEQ PO (08:14)
[2021-03-01] MEDS: KCL 40 MEQ/0.9% SOD CHL 1,000 ML 125 ML IV CONT (08:15)
[2021-03-01] MEDS: ACETAMINOPHEN 325 MG TABLET 650 MG PO ×3 (08:16→21:44)
[2021-03-01] MEDS: levETIRAcetam 500 MG TABLET PO (08:17)
[2021-03-01] MEDS: PANTOPRAZOLE 40 MG TABLET PO (08:17)
[2021-03-01] MEDS: ASPIRIN 81 MG ENTERIC TABLET PO (08:17)
[2021-03-01] MEDS: SODIUM CHLORIDE 0.9% IV 500 ML IV CONT ×2 (10:11→11:30)
--- NOTE | 2021-03-01 14:35 | PCPTNOTE ---
Attempted to see patient today at 12:30pm and pt. reported she wasn't feeling up to participating in therapy. Pt. asked that therapy come back later. At 14:30 pt. declined therapy again reporting that she was too sore and that her head hurt. Pt. reported her pain as 8/10. SENIOR SSIS DEVELOPER was in the room and was going to report to RN.
[2021-03-01] MEDS: ALPRAZolam (*CRX) 0.25 MG TABLET PO ×2 (15:16→21:44)
--- NOTE | 2021-03-01 15:18 | PM.IMPN ---
Progress Note: A&P Assessment and Plan (1) Headache: Qualifiers: Headache type: unspecified Headache chronicity pattern: episodic headache Intractability: intractable Qualified Code(s): R51.9 - Headache, unspecified Code(s): R51.9 - Headache, unspecified Status: Acute Assessment and Plan: History suggests left ocular migraine with onset of headache associated with visual changes during this hospitalization. Differential diagnosis includes aneurysm, neoplasm, and cerebral vascular disease with TIA 03/01 MRA brain (2) Acute exacerbation of chronic obstructive airways disease: Code(s): J44.1 - Chronic obstructive pulmonary disease with (acute) exacerbation Status: Acute Assessment and Plan: At admission: wheezing actively. elevated troponin. abg reviwed. cxr clear. suspected COPD exacerbation with active wheezing, advised to quit smoking pt had CT scan of chest -peripheral groundglass opacities in the upper lobes, right middle lobe, and right lower lobe, likely inflammation or infection. sp iv azithromycin Possible hypersensitivity component Continue inhaled steroids, bronchodilators (3) Elevated troponin: Code(s): R77.8 - Other specified abnormalities of plasma proteins Status: Acute Assessment and Plan: EKG with ST depressions in lateral leads. trend cardiac enzymes. cardiology consultation noted. aspirin. no prior hx of cad Echo with EF 65%, NL wall motion, slightly thickened pericardium. May be due to elevated BP (4) Acute respiratory failure with hypoxia: Code(s): J96.01 - Acute respiratory failure with hypoxia Status: Acute Assessment and Plan: Oxygen, ABG from this morning reviewed. BT steroids reduce due to high BPS, off steroids now pt seen by pulmonology consult (5) Hypertension: Qualifiers: Hypertension type: unspecified Qualified Code(s): I10 - Essential (primary) hypertension Code(s): I10 - Essential (primary) hypertension Status: Acute Assessment and Plan: Labile with associated headaches No prior hx of HBP No abdominal bruits noted but high risk for vascular disease due to age, smoking Renal U/s with doppler negative for renal artery stenosis 03/01 03/01 BP low, so meds held and IVF given (6) Hypokalemia: Code(s): E87.6 - Hypokalemia Status: Acute Assessment and Plan: Due to diuretic therapy (furosemide) PO replacement and tele ordered 02/28 for K 2.6. 03/01 K 3.2, d/c tele F/u K, mag, hold furosemide. Consider spironolactone for diuretic, bp control if needed Subjective Date/time seen: 03/01/21 15:18 Interval history: 55 year old female that presents to the ER for shortness of breath x 2 days. Reports increasing wheezing and shortness of breath, not relieved with albuterol inhaler. Likely COPD exacerbation, seen by cardiology for high bps and elevated troponin, 03/01: Severe headache today with loss of left visual field. Lasted several minutes. Headache gradually improving still present after a few hours. No other associated symptoms such as weakness numbness dizziness nausea or incoordination. Prior history of loss of left visual field but without headache for the past few years. Sometimes occurs while she is driving and she has to well puller in order to let it pass. May last for several minutes. Random and very intermittent. Denied personal or family history of migraine. Other c/o today is aching, tender joints with stiffness but no swelling. Similar issues in past but not as severe. Has claustrophobia and panic attacks. States she requires sedation for MRI. Review of Systems Review of Systems: All systems reviewed & are unremarkable except as noted in HPI and below Exam Narrative: Exam Narrative: GENERAL: Alert. NAD. HEENT: PERRL, EOMI, Fundi intact, Sclerae nonicteric, oral mucosa pink & moist. NECK: supple, w/o pain on ROM CHEST: Chest wall is nonte
[2021-03-01] MEDS: estradioL 1 MG TABLET PO (20:45)
[2021-03-01] MEDS: PHENYTOIN SODIUM 100 MG CAP 500 MG PO (20:45)
[2021-03-01] MEDS: diphenhydrAMINE HCl CAP 25 MG CAPSULE PO (20:46)
[2021-03-02] VITALS (11 sets, daily range): BP systolic 95–133; BP diastolic 41–68; PULSE 69–84; RESP 16–24; TEMP 36.1–36.6; O2SAT 96–97
[2021-03-02] MEDS: ALBUTEROL SULFATE NEB 2.5 MG/0.5 ML INH INHALATION ×3 (02:06→20:48)
[2021-03-02] MEDS: ALPRAZolam (*CRX) 0.25 MG TABLET PO ×2 (04:48→17:53)
[2021-03-02] MEDS: ACETAMINOPHEN 325 MG TABLET 650 MG PO ×3 (04:48→17:52)
[2021-03-02] MEDS: LORazepam INJ (*CRX) 2 MG/ML VIAL 1 MG IV PUSH (06:42)
[2021-03-02 06:44] LABS: Anion Gap 4 mmol/L (8-16); Blood Urea Nitrogen 14 mg/dL (7-17); Calcium 8.5 mg/dL (8.4-10.2); Carbon Dioxide 30 mmol/L (22-30); Chloride 99 mmol/L (98-107); Estimated CRCL calculation 51 ml/min; Estimated Glomerular Filt Rate > 60; Glucose 93 mg/dL (65-105); Potassium 3.5 mmol/L (3.4-5.0); Sodium 133 mmol/L (137-145)
[2021-03-02] MEDS: LEVOTHYROXINE SODIUM 112 MCG TABLET PO (06:45)
[2021-03-02] MEDS: PANTOPRAZOLE 40 MG TABLET PO (09:30)
[2021-03-02] MEDS: ASPIRIN 81 MG ENTERIC TABLET PO (09:30)
[2021-03-02] MEDS: levETIRAcetam 500 MG TABLET PO (09:30)
[2021-03-02] MEDS: MORPHINE SULFATE (*CRX) 2 MG/ML INJ 1 MG IV PUSH ×3 (11:53→23:21)
--- NOTE | 2021-03-02 15:32 | PM.IMPN ---
Progress Note: A&P Assessment and Plan (1) Headache: Qualifiers: Headache chronicity pattern: episodic headache Headache type: unspecified Intractability: intractable Qualified Code(s): R51.9 - Headache, unspecified Code(s): R51.9 - Headache, unspecified Status: Acute Assessment and Plan: History suggests left ocular migraine with onset of headache associated with visual changes during this hospitalization. Differential diagnosis includes aneurysm, neoplasm, and cerebral vascular disease with TIA 03/02 MRA brain is negative (2) Acute exacerbation of chronic obstructive airways disease: Code(s): J44.1 - Chronic obstructive pulmonary disease with (acute) exacerbation Status: Acute Assessment and Plan: At admission: wheezing actively. elevated troponin. abg reviwed. cxr clear. suspected COPD exacerbation with active wheezing, advised to quit smoking pt had CT scan of chest -peripheral groundglass opacities in the upper lobes, right middle lobe, and right lower lobe, likely inflammation or infection. sp iv azithromycin Possible hypersensitivity component Continue inhaled steroids, bronchodilators (3) Elevated troponin: Code(s): R77.8 - Other specified abnormalities of plasma proteins Status: Acute Assessment and Plan: EKG with ST depressions in lateral leads. trend cardiac enzymes. cardiology consultation noted. aspirin. no prior hx of cad Echo with EF 65%, NL wall motion, slightly thickened pericardium. May be due to elevated BP (4) Acute respiratory failure with hypoxia: Code(s): J96.01 - Acute respiratory failure with hypoxia Status: Acute Assessment and Plan: Oxygen, ABG from this morning reviewed. BT steroids reduce due to high BPS, off steroids now pt seen by pulmonology consult (5) Hypertension: Qualifiers: Hypertension type: unspecified Qualified Code(s): I10 - Essential (primary) hypertension Code(s): I10 - Essential (primary) hypertension Status: Acute Assessment and Plan: Labile with associated headaches No prior hx of HBP No abdominal bruits noted but high risk for vascular disease due to age, smoking Renal U/s with doppler negative for renal artery stenosis 03/01 03/01 BP low, so meds held and IVF given (6) Hypokalemia: Code(s): E87.6 - Hypokalemia Status: Acute Assessment and Plan: Due to diuretic therapy (furosemide) PO replacement and tele ordered 02/28 for K 2.6. 03/01 K 3.2, d/c tele F/u K, mag, hold furosemide. Consider spironolactone for diuretic, bp control if needed Additional Plan #Migraines with high BP restart estradiol and Suboxone to continue consult neurology # hx of seizures on dilatatin 500 mg in evening and keppra 500 mg in am. sees [facility] neurology. # hx of ovarian, uterine cancer s/p radical hysterectomy 1999. on hrt # hypothyroidsim: home meds # HTN is a new diagnosis cardiology rounding, BP continues to run high Subjective Date/time seen: 03/02/21 15:32 Interval history: 55 year old female that presents to the ER for shortness of breath x 2 days. Reports increasing wheezing and shortness of breath, not relieved with albuterol inhaler. Likely COPD exacerbation, seen by cardiology for high bps and elevated troponin, 03/01: Severe headache today with loss of left visual field. Lasted several minutes. Headache gradually improving still present after a few hours. 03/02 aching, tender joints with stiffness but no swelling. pt had mra brain which is Nl Pt to restart suboxone tomorrow and see neurology Review of Systems Review of Systems: All systems reviewed & are unremarkable except as noted in HPI and below Exam Narrative: Exam Narrative: GENERAL: Crying in pain nick tearful with joint pains CHEST: Chest wall is nontender. HEART: Regular rate and rhythm without murmur, rubs, or gallops EXTREMITIES: no edema, cyanosis or clubbing LUNG
--- NOTE | 2021-03-02 17:08 | PM.PNPUL ---
Progress Note: A&P Assessment and Plan (1) Acute exacerbation of chronic obstructive airways disease: Code(s): J44.1 - Chronic obstructive pulmonary disease with (acute) exacerbation Status: Acute Assessment and Plan: Patient has history of tobacco use and mild apical predominant panlobular emphysema on CT chest from 02/20. I have no PFTs at this time. Patient has improved with Symbicort and Ventolin in the past. 02/20 Currently the patient presents with URI symptoms including body aches, shortness of breath, production of green phlegm, fever, chills and wheezing. She has no evidence of hypercarbic respiratory failure with a blood gas of 7.49/34/59 on 36% oxygen. D dimer negative. I suspect the etiology of this current exacerbation/illness is a respiratory viral illness other than COVID. I will treat this as a COPD exacerbation. I will increase her solumedrol to 40 Q 6 as she still has SOB, severe coughing and diffuse wheezing throughout. Her steroids were decreased for high blood pressures so she may require additional antihypertensives per cardiology or hospitalist. Will start taper once she has improved. I increased her albuterol and ipratropium neb to Q 4 hours, DC her Symbicort for now. Agree with azithromycin for total 5 days (completed 02/21). CXR today with indeterminant small nodular opacity and I CT scan of chest without correlate. Did have mild peripheral infiltrates upper lobes and RML and RLL. Likely infectious (viral). Goal saturation 90-94% and wean oxygen as tolerated. 02/23 Patient improving now 70% better. No wheezes, I will begin steroid taper and change steroids to prednisone 50 mg PO today, she has received 5 days azithromycin and I will DC. Continue albuterol and ipratropium nebs Q 4 for now. On room air oxygen for now, goal sats 90-94%. 02/24 Continues to improve, no wheezes, on room air sats 98%, walking in room, states she could go home from breathing perspective. Still with HTN episodes. Decreased albuterol and ipratropium nebs from Q 4 to Q 6. Today is day 8 of steroids and will decrease to 40 on 02/25. 02/25 - ApneaLink tonight, Start Symbicort 160/4.5, 2 puffs bid, discharge soon. Office f/u with sleep study with nocturnal seizures and headaches with spikes in BP. Will follow with you. 02/27- O2 with sleep, hypersensitivity panel with crackles and long history of bird exposure although [facility] does take many precautions. 02/28 - continue O2 with sleep 2 L/min, try to arrange for home use. Subjective Date/time seen: 03/02/21 17:08 This 55-year-old woman with a history of seizure disorder with nocturnal events, starting in Jul 2020, on Keppra and Dilantin; uterine cancer status post radical hysterectomy 1999, hypothyroidism, yearly pneumonias since age 9, and tobacco use with possible COPD. In 07/2020 patient was having shortness of breath and her physician prescribed her Symbicort 160-4.5 at 2 puffs q.day and Ventolin. At that time she was never told she had COPD and had no PFTs performed. She was only using the Symbicort 2 puffs in the am, half the normal dose, along with Ventolin 2 puffs in am. Patient tells me she has had pneumonia every year since age 9 in which she gets antibiotics but that it takes her 1-1.5 months to get over these episodes. Patient was last hospitalized with pneumonia 6 years ago. She was in her usual state of health with no respiratory limitations in her activities of daily living until about 02/14/2021 when she developed fatigue and felt like she had the flu. Patient then developed shortness of breath, wheezing cough with green phlegm, fever, chills, shakes that progressed and she presented to the emergency room on 02/17. Patient had bilateral wheezes and her saturations were in the low 90s and she was placed on 2 L nasal cannula. Patient had a white blood cell count of 9.5, 0/0.2% eosinophils, D-dimer was negative at 0.34, ABG on 36% FiO2 was pH of 7.49/34/59. Chest x-ray showed no active
[2021-03-02] MEDS: estradioL 1 MG TABLET PO (20:47)
[2021-03-02] MEDS: diphenhydrAMINE HCl CAP 25 MG CAPSULE PO (20:47)
[2021-03-02] MEDS: PHENYTOIN SODIUM 100 MG CAP 500 MG PO (20:48)
[2021-03-03] VITALS (8 sets, daily range): BP systolic 120–122; BP diastolic 73–96; PULSE 78–109; RESP 16–20; TEMP 36.5–37.9; O2SAT 98–99
[2021-03-03] MEDS: LORazepam INJ (*CRX) 2 MG/ML VIAL IV PUSH (01:18)
[2021-03-03] MEDS: ALBUTEROL SULFATE NEB 2.5 MG/0.5 ML INH INHALATION ×2 (02:03→20:11)
[2021-03-03] MEDS: ALPRAZolam (*CRX) 0.25 MG TABLET PO ×3 (04:12→21:16)
[2021-03-03] MEDS: ACETAMINOPHEN 325 MG TABLET 650 MG PO (04:13)
[2021-03-03] MEDS: LEVOTHYROXINE SODIUM 112 MCG TABLET PO (06:38)
--- NOTE | 2021-03-03 07:56 | PCOTNOTE ---
Attempted to see patient, patient c/o of pain all over. RN notified and stated patient is not due to receive meds soon. Will attempt to see patient later when pain in more controlled for improved participation.
[2021-03-03] MEDS: levETIRAcetam 500 MG TABLET PO (08:34)
[2021-03-03] MEDS: ASPIRIN 81 MG ENTERIC TABLET PO (08:34)
[2021-03-03] MEDS: PANTOPRAZOLE 40 MG TABLET PO (08:34)
[2021-03-03] MEDS: MORPHINE SULFATE (*CRX) 2 MG/ML INJ 1 MG IV PUSH ×2 (08:35→17:04)
--- NOTE | 2021-03-03 11:21 | PCPTNOTE ---
Patient refused treatment this session due to pain. Attempted to see patient at 10:50 for PT treatment. Patient refused stating that she is in too much pain right now. RN aware of patient's pain. Will attempt to see patient later as appropriate per POC. Angie Villeda, CLINIC CHARGE NURSE
--- NOTE | 2021-03-03 11:53 | WPDNEURCNPN ---
Assessment and Plan Additional Plan chronic recurrent headaches with multiple location pain and Clinical generalize examination not focal she is taking anticonvulsants Dilantin 500 mg p.o. HS and levetiracetam 500 p.o. HS there is no reason to have 2 anticonvulsants we could just simply continue with Keppra 1000 mg daily and take her off the phenytoin I will discussed with her personally but the selection of the anticonvulsants and also find out whether she has been taking the Topamax in the past or not before considering the changes Consult date: 03/03/21 Time Seen: 12:00 HPI: Joan Chase is a 55 year old female admitted to the hospital for the complains of difficulties in breathing in addition to history of COPD, and history of current everyday smoker 40 years smoked smoking packs per day 0.5 evaluation includes MRA of the brain without aneurysm but scattered areas of cerebral narrowing seen compatible with atherosclerosis, renal artery ultrasound normal, CT of the head normal and normal echocardiogram complains of chronic recurrent headaches Review of Systems Review of Systems: All systems reviewed & are unremarkable except as noted in HPI and below PMFSH Past Medical History Medical History History of COPD Family History Family History Father Acute myocardial infarction Cerebrovascular accident Congestive heart failure Chronic obstructive pulmonary disease Hypertension Cancer of skin Sibling Asthma Sibling Asthma Sibling Asthma Mother Chronic obstructive pulmonary disease Cancer Ovarian cancer Social History Social History Smoking packs per day: 0.5 Smoking cigarettes per day: 10.0 Years smoked: 46 Smoking pack-years: 23.00 Smoking status: Current every day smoker Tobacco type: cigarettes Second hand tobacco smoke exposure: No Alcohol intake: current Drinks per week: 3 Substance use: former Substance use type: opiates Other substance usage details: prescription pain meds Last use: 2010 Spiritual care concerns: No Meds Home Medications and Allergies Home Medications Medication Instructions Recorded Confirmed Type albuterol sulfate [Ventolin HFA] 2 puff INHALATION Q4H PRN 02/18/21 02/18/21 History budesonide-formoterol [Symbicort] 2 puff INHALATION DAILY 02/18/21 02/18/21 History buprenorphine-naloxone [Suboxone] 1.5 tablet SUBLINGUAL DAILY 02/18/21 02/18/21 History diphenhydramine HCl [Banophen] 25 mg PO HS 02/18/21 02/18/21 History estradiol 1 mg PO HS 02/18/21 02/18/21 History guanfacine 2 mg PO HS 02/18/21 02/18/21 History ibuprofen 200 mg PO Q8H PRN 02/18/21 02/18/21 History levetiracetam 500 mg PO HS 02/18/21 02/18/21 History levothyroxine 112 mcg PO HS 02/18/21 02/18/21 History norethindrone acetate 5 mg PO HS 02/18/21 02/18/21 History omeprazole magnesium [Acid Obstetrics Specialist 20 mg PO DAILY 02/18/21 02/18/21 History (omeprazole)] phenytoin sodium extended 500 mg PO HS 02/18/21 02/18/21 History prednisone 20 mg PO DAILY 02/18/21 02/18/21 History Allergies Allergy/AdvReac Type Severity Reaction Status Date / Time iohexol Allergy Unknown Swelling Verified 02/18/21 04:13 [From contrast - CT, X-RAY] of Lip/Tongue/Throat Penicillins Allergy Unknown Unknown Verified 02/18/21 04:13 propoxyphene Allergy Unknown Hives Verified 02/18/21 04:13 Tetanus Vaccines and Toxoid Allergy Unknown Swelling Verified 02/18/21 04:13 Vital Signs Vital Signs - 24 hr 03/02/21 13:51 03/02/21 14:01 03/02/21 15:34 Temperature 36.6 C Pulse Rate 76 82 84 Respiratory Rate 20 20 16 Blood Pressure 95/53 L Pulse Oximetry 97 96 03/02/21 20:48 03/02/21 20:52 03/02/21 20:59 Temperature Pulse Rate 76 82 Respiratory Rate 20 20 Blood Pressure Pulse Oximetry 97 03/02/21 22:00 03/03/21 02:11 03/03/21 02
--- NOTE | 2021-03-03 13:26 | PM.IMPN ---
Progress Note: A&P Assessment and Plan (1) Headache: Qualifiers: Headache type: unspecified Headache chronicity pattern: episodic headache Intractability: intractable Qualified Code(s): R51.9 - Headache, unspecified Code(s): R51.9 - Headache, unspecified Status: Acute Assessment and Plan: History suggests left ocular migraine with onset of headache associated with visual changes during this hospitalization. Differential diagnosis includes aneurysm, neoplasm, and cerebral vascular disease with TIA 03/02 MRA brain is negative (2) Acute exacerbation of chronic obstructive airways disease: Code(s): J44.1 - Chronic obstructive pulmonary disease with (acute) exacerbation Status: Acute Assessment and Plan: At admission: wheezing actively. elevated troponin. abg reviwed. cxr clear. suspected COPD exacerbation with active wheezing, advised to quit smoking pt had CT scan of chest -peripheral groundglass opacities in the upper lobes, right middle lobe, and right lower lobe, likely inflammation or infection. sp iv azithromycin Possible hypersensitivity component Continue inhaled steroids, bronchodilators this has imrpoved. pumoanry consutled during thospitalisation. (3) Elevated troponin: Code(s): R77.8 - Other specified abnormalities of plasma proteins Status: Acute Assessment and Plan: EKG with ST depressions in lateral leads. trend cardiac enzymes. cardiology consultation noted. aspirin. no prior hx of cad Echo with EF 65%, NL wall motion, slightly thickened pericardium. May be due to elevated BP (4) Acute respiratory failure with hypoxia: Code(s): J96.01 - Acute respiratory failure with hypoxia Status: Acute Assessment and Plan: Oxygen, ABG from this morning reviewed. BT steroids reduce due to high BPS, off steroids now pt seen by pulmonology consult (5) Hypertension: Qualifiers: Hypertension type: unspecified Qualified Code(s): I10 - Essential (primary) hypertension Code(s): I10 - Essential (primary) hypertension Status: Acute Assessment and Plan: Labile with associated headaches No prior hx of HBP No abdominal bruits noted but high risk for vascular disease due to age, smoking Renal U/s with doppler negative for renal artery stenosis 03/01 03/01 BP low, so meds held and IVF given (6) Hypokalemia: Code(s): E87.6 - Hypokalemia Status: Acute Assessment and Plan: Due to diuretic therapy (furosemide) PO replacement and tele ordered 02/28 for K 2.6. 03/01 K 3.2, d/c tele F/u K, mag, hold furosemide. Consider spironolactone for diuretic, bp control if needed Additional Plan hx of migraineS: # chorni cpain syndrome: start gabapentin. add robaxin. cotnineu suboxone. used to be twice daily. which is what i will change it to. twice daily dosign used for pain control along with opioid dependece. # hx of seizures on dilatatin 500 mg in evening and keppra 500 mg in am. sees [facility] neurology. this dosage has been adjsuted by neurology here. # hx of ovarian, uterine cancer s/p radical hysterectomy 1999. on hrt # hypothyroidsim: home meds Subjective Date/time seen: 03/03/21 13:26 Interval history: 55 year old female that presents to the ER for shortness of breath x 2 days. Reports increasing wheezing and shortness of breath, not relieved with albuterol inhaler. Likely COPD exacerbation, seen by cardiology for high bps and elevated troponin, 03/01: Severe headache today with loss of left visual field. Lasted several minutes. Headache gradually improving still present after a few hours. 03/02 aching, tender joints with stiffness but no swelling. 03/03: pt contnieus to ahve achy legs, restless because of this. she was stared on suboxone. neurology saw.she states breathign is better. no nausea, vmoiting. she has hx of opioid dependence an dhence on suboxone. Review of Systems Review of Systems: [place]
[2021-03-03] MEDS: methocarbamoL 500 MG TABLET PO (13:45)
[2021-03-03] MEDS: GABAPENTIN 100 MG CAPSULE PO ×2 (13:45→16:58)
[2021-03-03] MEDS: LIDOCAINE 5% PATCH 1 PATCH TRANSDERM (14:46)
[2021-03-03 15:02] LABS: Rheumatoid Factor < 8.6 IU/ML (<12)
--- NOTE | 2021-03-03 16:41 | P.PNPL_ITS ---
Progress Note: A&P Assessment and Plan (1) Acute exacerbation of chronic obstructive airways disease: Code(s): J44.1 - Chronic obstructive pulmonary disease with (acute) exacerbation Status: Acute Assessment and Plan: Patient has history of tobacco use and mild apical predominant panlobular emphysema on CT chest from 02/20. I have no PFTs at this time. Patient has improved with Symbicort and Ventolin in the past. 02/20 Currently the patient presents with URI symptoms including body aches, shortness of breath, production of green phlegm, fever, chills and wheezing. She has no evidence of hypercarbic respiratory failure with a blood gas of 7.49/34/59 on 36% oxygen. D dimer negative. I suspect the etiology of this current exacerbation/illness is a respiratory viral illness other than COVID. I will treat this as a COPD exacerbation. I will increase her solumedrol to 40 Q 6 as she still has SOB, severe coughing and diffuse wheezing throughout. Her steroids were decreased for high blood pressures so she may require additional antihypertensives per cardiology or hospitalist. Will start taper once she has improved. I increased her albuterol and ipratropium neb to Q 4 hours, DC her Symbicort for now. Agree with azithromycin for total 5 days (completed 02/21). CXR today with indeterminant small nodular opacity and I CT scan of chest without correlate. Did have mild peripheral infiltrates upper lobes and RML and RLL. Likely infectious (viral). Goal saturation 90-94% and wean oxygen as tolerated. 02/23 Patient improving now 70% better. No wheezes, I will begin steroid taper and change steroids to prednisone 50 mg PO today, she has received 5 days azithromycin and I will DC. Continue albuterol and ipratropium nebs Q 4 for now. On room air oxygen for now, goal sats 90-94%. 02/24 Continues to improve, no wheezes, on room air sats 98%, walking in room, states she could go home from breathing perspective. Still with HTN episodes. Decreased albuterol and ipratropium nebs from Q 4 to Q 6. Today is day 8 of steroids and will decrease to 40 on 02/25. 02/25 - ApneaLink tonight, Start Symbicort 160/4.5, 2 puffs bid, discharge soon. Office f/u with sleep study with nocturnal seizures and headaches with spikes in BP. Will follow with you. 02/27- O2 with sleep, hypersensitivity panel with crackles and long history of bird exposure although [facility] does take many precautions. 02/28 - continue O2 with sleep 2 L/min, try to arrange for home use. Subjective Date/time seen: 03/03/21 16:41 This 55-year-old woman with a history of seizure disorder with nocturnal events, starting in Jul 2020, on Keppra and Dilantin; uterine cancer status post radical hysterectomy 1999, hypothyroidism, yearly pneumonias since age 9, and tobacco use with possible COPD. In 07/2020 patient was having shortness of breath and her physician prescribed her Symbicort 160-4.5 at 2 puffs q.day and Ventolin. At that time she was never told she had COPD and had no PFTs performed. She was only using the Symbicort 2 puffs in the am, half the normal dose, along with Ventolin 2 puffs in am. Patient tells me she has had pneumonia every year since age 9 in which she gets antibiotics but that it takes her 1-1.5 months to get over these episodes. Patient was last hospitalized with pneumonia 6 years ago. She was in her usual state of health with no respiratory limitations in her activities of daily living until about 02/14/2021 when she developed fatigue and felt like she had the flu. Patient then developed shortness of breath, wheezing cough with green phlegm, fever, chills, shakes that progressed and she presented to the emergency room on 02/17. Patient had bilateral wheezes an
[2021-03-03] MEDS: diphenhydrAMINE HCl CAP 25 MG CAPSULE PO (21:16)
[2021-03-03] MEDS: PHENYTOIN SODIUM 100 MG CAP 500 MG PO (21:16)
[2021-03-03] MEDS: estradioL 1 MG TABLET PO (21:17)
[2021-03-04] VITALS (11 sets, daily range): BP systolic 100–159; BP diastolic 72–76; PULSE 96–112; RESP 16–20; TEMP 35.9–37.7; O2SAT 95–100
[2021-03-04] MEDS: MORPHINE SULFATE (*CRX) 2 MG/ML INJ 1 MG IV PUSH ×2 (00:51→08:58)
[2021-03-04] MEDS: ALBUTEROL SULFATE NEB 2.5 MG/0.5 ML INH INHALATION ×4 (02:08→19:59)
[2021-03-04] MEDS: methocarbamoL 500 MG TABLET PO (03:13)
[2021-03-04] MEDS: ALPRAZolam (*CRX) 0.25 MG TABLET PO ×2 (04:16→21:34)
[2021-03-04] MEDS: LEVOTHYROXINE SODIUM 112 MCG TABLET PO (05:55)
[2021-03-04 06:02] LABS: Basophils Percent Auto 0.4 % (0.2-1.2); Eosinophils Percent Auto 0.4 % (0-4.4); Hematocrit 40.5 % (37.0-47.0); Hemoglobin 14.1 g/dL (12.0-15.0); Immature Granulocyte Percent A 1.1 % (0-0.5); Lymphocytes Absolute Auto 0.98 K/mm3 (0.9-3.2); Lymphocytes Percent Auto 10.5 % (18.3-44.2); Mean Corpuscular HGB Conc 34.8 g/dl (32-36); Mean Corpuscular Hemoglobin 32.8 pg (26-34); Mean Corpuscular Volume 94.2 fl (80-100); Mean Platelet Volume 10.9 fl (7.4-10.4); Monocytes Percent Auto 10.6 % (2.6-8.5); Neutrophils Absolute Auto 7.2 K/mm3 (1.3-6.7); Platelet Count Result 204 k/mm3 (150-375); Red Cell Distribution Width 12.1 % (11.5-14.5); White Blood Count 9.4 K/mm3 (4.5-10.0)
[2021-03-04 06:27] LABS: Alanine Aminotransferase 59 U/L (4-35); Albumin Level 3.6 g/dL (3.5-5.1); Alkaline Phosphatase 75 U/L (38-126); Anion Gap 8 mmol/L (8-16); Aspartate Amino Transferase 42 U/L (14-36); Bilirubin,Total 0.8 mg/dL (0.2-1.3); Blood Urea Nitrogen 8 mg/dL (7-17); Calcium 8.7 mg/dL (8.4-10.2); Carbon Dioxide 27 mmol/L (22-30); Chloride 98 mmol/L (98-107); Creatine Kinase 31 U/L (30-135); Estimated CRCL calculation 51 ml/min; Estimated Glomerular Filt Rate > 60; Glucose 91 mg/dL (65-105); Magnesium 1.7 mg/dL (1.6-2.3); Potassium 3.8 mmol/L (3.4-5.0); Sodium 133 mmol/L (137-145)
[2021-03-04] MEDS: GABAPENTIN 100 MG CAPSULE PO (08:56)
[2021-03-04] MEDS: levETIRAcetam 500 MG TABLET PO (08:56)
[2021-03-04] MEDS: ASPIRIN 81 MG ENTERIC TABLET PO (08:56)
[2021-03-04] MEDS: PANTOPRAZOLE 40 MG TABLET PO (08:57)
--- NOTE | 2021-03-04 09:07 | PM.IMPN ---
Progress Note: A&P Assessment and Plan (1) Headache: Qualifiers: Headache type: unspecified Headache chronicity pattern: episodic headache Intractability: intractable Qualified Code(s): R51.9 - Headache, unspecified Code(s): R51.9 - Headache, unspecified Status: Acute Assessment and Plan: History suggests left ocular migraine with onset of headache associated with visual changes during this hospitalization. Differential diagnosis includes aneurysm, neoplasm, and cerebral vascular disease with TIA 03/02 MRA brain is negative (2) Acute exacerbation of chronic obstructive airways disease: Code(s): J44.1 - Chronic obstructive pulmonary disease with (acute) exacerbation Status: Acute Assessment and Plan: At admission: wheezing actively. elevated troponin. abg reviwed. cxr clear. suspected COPD exacerbation with active wheezing, advised to quit smoking pt had CT scan of chest -peripheral groundglass opacities in the upper lobes, right middle lobe, and right lower lobe, likely inflammation or infection. sp iv azithromycin Possible hypersensitivity component Continue inhaled steroids, bronchodilators this has imrpoved. pumoanry consutled during thospitalisation. (3) Elevated troponin: Code(s): R77.8 - Other specified abnormalities of plasma proteins Status: Acute Assessment and Plan: EKG with ST depressions in lateral leads. trend cardiac enzymes. cardiology consultation noted. aspirin. no prior hx of cad Echo with EF 65%, NL wall motion, slightly thickened pericardium. May be due to elevated BP (4) Acute respiratory failure with hypoxia: Code(s): J96.01 - Acute respiratory failure with hypoxia Status: Acute Assessment and Plan: Oxygen, ABG from this morning reviewed. BT steroids reduce due to high BPS, off steroids now pt seen by pulmonology consult (5) Hypertension: Qualifiers: Hypertension type: unspecified Qualified Code(s): I10 - Essential (primary) hypertension Code(s): I10 - Essential (primary) hypertension Status: Acute Assessment and Plan: Labile with associated headaches No prior hx of HBP No abdominal bruits noted but high risk for vascular disease due to age, smoking Renal U/s with doppler negative for renal artery stenosis 03/01 03/01 BP low, so meds held and IVF given (6) Hypokalemia: Code(s): E87.6 - Hypokalemia Status: Acute Assessment and Plan: Due to diuretic therapy (furosemide) PO replacement and tele ordered 02/28 for K 2.6. 03/01 K 3.2, d/c tele F/u K, mag, hold furosemide. Consider spironolactone for diuretic, bp control if needed Additional Plan hx of migraineS: # chornic pain syndrome: start gabapentin. add robaxin. cotnineu suboxone. used to be twice daily. which is what i will change it to. twice daily dosign used for pain control along with opioid dependece. # generalised bodyaches: will restart prednisone 20 mg po daily. increase gabapentin to 300 mg po tid. # fever: will do blood culture # joint pain; will check right knee and ankle xrays. check esr, crp. satish screen pending. DOREEN negative. COVID neg # hx of seizures on dilatatin 500 mg in evening and keppra 500 mg in am. sees U neurology. this dosage has been adjsuted by neurology here. # hx of ovarian, uterine cancer s/p radical hysterectomy 1999. on hrt # hypothyroidsim: home meds Subjective Date/time seen: 03/04/21 09:07 Interval history: 55 year old female that presents to the ER for shortness of breath x 2 days. Reports increasing wheezing and shortness of breath, not relieved with albuterol inhaler. Likely COPD exacerbation, seen by cardiology for high bps and elevated troponin, 03/01: Severe headache today with loss of left visual field. Lasted several minutes. Headache gradually improving still present after a few hours. 03/02 aching, tender joints with stiffness but no swelling. 03/03
[2021-03-04 09:49] LABS: Creatine Kinase 32 U/L (30-135); Magnesium 1.6 mg/dL (1.6-2.3)
[2021-03-04 09:51] LABS: CRP 8.4 mg/dL (<1.0)
[2021-03-04 10:18] LABS: Erythrocyte Sedimentation Rate 27 mm/hr (0-20)
[2021-03-04] MEDS: LIDOCAINE 5% PATCH 1 PATCH TRANSDERM (10:23)
[2021-03-04] MEDS: GABAPENTIN 300 MG CAPSULE PO ×2 (11:50→17:26)
[2021-03-04] MEDS: predniSONE 20 MG TABLET PO (11:50)
[2021-03-04] MEDS: estradioL 1 MG TABLET PO (21:33)
[2021-03-04] MEDS: PHENYTOIN SODIUM 100 MG CAP 500 MG PO (21:33)
[2021-03-04] MEDS: diphenhydrAMINE HCl CAP 25 MG CAPSULE PO (21:34)
[2021-03-05] VITALS (8 sets, daily range): BP systolic 109–122; BP diastolic 56–76; PULSE 81–107; RESP 16–20; TEMP 36.1–37; O2SAT 95–97
[2021-03-05] MEDS: ALBUTEROL SULFATE NEB 2.5 MG/0.5 ML INH INHALATION ×3 (01:44→13:37)
[2021-03-05] MEDS: LEVOTHYROXINE SODIUM 112 MCG TABLET PO (06:03)
[2021-03-05 06:08] LABS: Basophils Percent Auto 0.6 % (0.2-1.2); Eosinophils Percent Auto 0.8 % (0-4.4); Hematocrit 35.1 % (37.0-47.0); Hemoglobin 12.2 g/dL (12.0-15.0); Immature Granulocyte Absolute 0.06 K/mm3 (0.00-0.031); Immature Granulocyte Percent A 1.2 % (0-0.5); Lymphocytes Absolute Auto 0.98 K/mm3 (0.9-3.2); Lymphocytes Percent Auto 20.2 % (18.3-44.2); Mean Corpuscular HGB Conc 34.8 g/dl (32-36); Mean Corpuscular Hemoglobin 32.4 pg (26-34); Mean Corpuscular Volume 93.4 fl (80-100); Mean Platelet Volume 10.7 fl (7.4-10.4); Monocytes Absolute Auto 0.8 K/mm3 (0.1-0.6); Monocytes Percent Auto 16.7 % (2.6-8.5); Neutrophils Absolute Auto 2.9 K/mm3 (1.3-6.7); Neutrophils Percent Auto 60.5 % (45.5-73.1); Platelet Count Result 185 k/mm3 (150-375); Red Blood Count 3.76 M/mm3 (4.2-5.4); Red Cell Distribution Width 12.2 % (11.5-14.5); White Blood Count 4.8 K/mm3 (4.5-10.0)
[2021-03-05 06:33] LABS: Alanine Aminotransferase 47 U/L (4-35); Albumin Level 3.1 g/dL (3.5-5.1); Alkaline Phosphatase 75 U/L (38-126); Anion Gap 3 mmol/L (8-16); Aspartate Amino Transferase 32 U/L (14-36); Bilirubin,Total 0.4 mg/dL (0.2-1.3); Blood Urea Nitrogen 7 mg/dL (7-17); Calcium 8.4 mg/dL (8.4-10.2); Carbon Dioxide 31 mmol/L (22-30); Chloride 101 mmol/L (98-107); Estimated CRCL calculation 57 ml/min; Estimated Glomerular Filt Rate > 60; Glucose 101 mg/dL (65-105); Potassium 3.4 mmol/L (3.4-5.0); Sodium 135 mmol/L (137-145)
[2021-03-05] MEDS: GABAPENTIN 300 MG CAPSULE PO ×2 (08:35→13:18)
[2021-03-05] MEDS: ASPIRIN 81 MG ENTERIC TABLET PO (08:36)
[2021-03-05] MEDS: LIDOCAINE 5% PATCH 1 PATCH TRANSDERM (08:36)
[2021-03-05] MEDS: PANTOPRAZOLE 40 MG TABLET PO (08:36)
[2021-03-05] MEDS: levETIRAcetam 500 MG TABLET PO (08:37)
[2021-03-05] MEDS: predniSONE 20 MG TABLET PO (08:37)
--- NOTE | 2021-03-05 13:47 | PM.DS ---
DS: Admitting Diagnosis Admitting Diagnosis Admitting Diagnosis: shortness of breath DS: Discharge Diagnosis Discharge Diagnosis (1) Headache: Qualifiers: Headache type: unspecified Headache chronicity pattern: episodic headache Intractability: intractable Qualified Code(s): R51.9 - Headache, unspecified Code(s): R51.9 - Headache, unspecified Status: Acute (2) Hypokalemia: Code(s): E87.6 - Hypokalemia Status: Acute (3) Hypertension: Qualifiers: Hypertension type: unspecified Qualified Code(s): I10 - Essential (primary) hypertension Code(s): I10 - Essential (primary) hypertension Status: Acute (4) Tobacco abuse: Code(s): Z72.0 - Tobacco use Status: Acute (5) Acute exacerbation of chronic obstructive airways disease: Code(s): J44.1 - Chronic obstructive pulmonary disease with (acute) exacerbation Status: Acute (6) Elevated troponin: Code(s): R77.8 - Other specified abnormalities of plasma proteins Status: Acute (7) Acute respiratory failure with hypoxia: Code(s): J96.01 - Acute respiratory failure with hypoxia Status: Acute (8) Generalized pain: Code(s): R52 - Pain, unspecified Status: Acute (9) Chronic pain syndrome: Code(s): G89.4 - Chronic pain syndrome Status: Acute DS: Summary Hospital Course Hospital Course: This is 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 Reports increasing wheezing and shortness of breath, not relieved with albuterol inhaler. Also reports a cough productive of sputum. Patient is still a smoker. Reports chest pain with coughing. Denies fever. chills. When she was seen, she ambualted back from bathroom, and was extremely short of breath with extensvie wheezing. she was tachycardic as well. this imporved as she settled down. her ed workup revelaed normal CXR, normal dd dianne, elevated tropoinn and some EKG chagnes. she reports that she qutited somkkign 3 days back when she started having breathing problem. she has had covid vaccine finished the course in december 2020. # Acute hypoxic respiratory failure: wheezing actively. elevated troponin. abg reviwed. cxr clear. suspected COPD exaceerbation with active wheezing. COVID vaccinated, [facility] swabbed and came back negative. # Acute COPD exacerbation: contineu bd. solumedrol.CXR without any pneumonia noted. she receoverd very slowly with slow steroid taper. her breathing status improved. pulmonary was also consutled during the hospitalisation. possible hypersensitivity pneumonitis as she takes care different birds at home. CT chest with peripheral ground glass opacities in the upper lobe, right middle lobe and right lower lboe. # Elevated troponin; EKG with ST depressions in lateral leads. trend cardiac enzymes. cardiology cosnultation. lovenox. aspirin. no prior hx of cad. echo was okay. she was placed on aspirin. her symptoms were related to her undelryng pulmonary diesease. 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 # hx of seizures on dilatatin 500 mg in evening and keppra 500 mg in am. sees U neurology. consulted durign the hosptialisation due to severe intermtetnt headache. MRA done which was negative. will contniue on home medications at [facility]. # hx of ovarian, uterine cancer s/p radical hysterectomy 1999. on HRT which will be continued. # hypothyroidsim: home meds # DVT proph: lovenox # Headaches: intermittent sevre. with hypertension. resovled with pain medications. MRA was negative. neurology was also consutled during the visit for these. at the time of discharge therse headaches were gone. ESR was mildly elevated at 27. she does have hx of ocular migraine. # Generalised pain: # HTN: No prior hx of HBP No abdominal bruits noted but high risk for vascular disease due to age, smoking Renal U/s with doppler negative for renal artery stenosis 03/01 # Hypokalemia: repalced in termitently
--- NOTE | 2021-03-05 16:41 | PM.PNPUL ---
Progress Note: A&P Assessment and Plan (1) Acute exacerbation of chronic obstructive airways disease: Code(s): J44.1 - Chronic obstructive pulmonary disease with (acute) exacerbation Status: Acute Assessment and Plan: Patient has history of tobacco use and mild apical predominant panlobular emphysema on CT chest from 02/20. I have no PFTs at this time. Patient has improved with Symbicort and Ventolin in the past. 02/20 Currently the patient presents with URI symptoms including body aches, shortness of breath, production of green phlegm, fever, chills and wheezing. She has no evidence of hypercarbic respiratory failure with a blood gas of 7.49/34/59 on 36% oxygen. D dimer negative. I suspect the etiology of this current exacerbation/illness is a respiratory viral illness other than COVID. I will treat this as a COPD exacerbation. I will increase her solumedrol to 40 Q 6 as she still has SOB, severe coughing and diffuse wheezing throughout. Her steroids were decreased for high blood pressures so she may require additional antihypertensives per cardiology or hospitalist. Will start taper once she has improved. I increased her albuterol and ipratropium neb to Q 4 hours, DC her Symbicort for now. Agree with azithromycin for total 5 days (completed 02/21). CXR today with indeterminant small nodular opacity and I CT scan of chest without correlate. Did have mild peripheral infiltrates upper lobes and RML and RLL. Likely infectious (viral). Goal saturation 90-94% and wean oxygen as tolerated. 02/23 Patient improving now 70% better. No wheezes, I will begin steroid taper and change steroids to prednisone 50 mg PO today, she has received 5 days azithromycin and I will DC. Continue albuterol and ipratropium nebs Q 4 for now. On room air oxygen for now, goal sats 90-94%. 02/24 Continues to improve, no wheezes, on room air sats 98%, walking in room, states she could go home from breathing perspective. Still with HTN episodes. Decreased albuterol and ipratropium nebs from Q 4 to Q 6. Today is day 8 of steroids and will decrease to 40 on 02/25. 02/25 - ApneaLink ordered; Start Symbicort 160/4.5, 2 puffs bid, discharge soon. Office f/u with sleep study with nocturnal seizures and headaches with spikes in BP. 02/26 - ApneaLink completed, AHI 12.4, lowest sat 90%, 20% of the night [employer] respirations. 02/27- O2 with sleep, hypersensitivity panel with crackles and long history of bird exposure although she does take many precautions. 02/28 - continue O2 with sleep 2 L/min, 03/05 - ok to go home without O2 ordered; she has O2 to use at night through family and sleep study at [facility] March 07. Subjective Date/time seen: 03/05/21 16:41 Joan Chase is seen in follow up with COPD exacerbation, nocturnal hypoxemia, probable NICOLA. She had an ApneaLink with AHI 12, did not desaturate, but does have episodes of hypertension at night with drops in O2 saturation and headaches. She has a sleep study scheduled at [facility] March 07, and she is stable to go home today. She has access to O2 as her sister uses O2 and has a concentrator and portable tanks. This may help her sleep at night without episodes of headaches, hypertension and drops in saturation until she gets definitive diagnosis and treatment. Hypersensitivity pneumonitis panel is pending, sent February 28. ApneaLink March 01 shoed AHI 12.4, lowest saturation 90%, 20% of the night [place] respirations. Review of Systems Review of Systems: All systems reviewed & are unremarkable except as noted in HPI and below Exam Const: General: no acute distress HENMT: Head: normal to inspection Face and sinus: normal facial exam Eyes: General: appearance normal, both eyes and all related structures Resp: Effort & Inspection: normal respiratory effort Auscultation: clear to auscultation bilaterally and diminished lung sounds Cardio: Rate: regular rate Rhythm: regular rhythm Skin: General skin exam: normal color
--- NOTE | 2021-03-11 10:40 | PC.NURSE ---
Received VM from patient stating she was to have oxygen arranged for home use. I spoke with Janell Rodriguez, Director of Respiratory. Patient did not qualify for nocturnal oxygen. Patient told Dr. Ya that she had oxygen to use thru a family member. Patient was to have a sleep study at [facility] on 03/07. Spoke with patient and explained did not qualify for oxygen use at night. Informed her she told Dr. Ya she had oxygen she could use from family member until after sleep study at [facility] on 03/07. Patient states [facility] changed her sleep study till 04/06. Gave patient Dr. Ya's office number and instructed her to call her today. Patient states understanding and agreement.
== END 2021-03-05 17:10 | disposition home or self-care (01) | DRG 190 ==
LOC: ANHED 02-18 02:21 → ANHIMU 02-18 02:53 → ANH3MEDSUR 02-23 13:09
PROVIDERS: Family Medicine; Internal Medicine; Internal Medicine Critical Care Medicine; Physician Assistant; Specialist; Admitting Provider Internal Medicine; Emergency Provider Emergency Medicine; PCP Physician Assistant; Visit Provider Internal Medicine
DX: J44.1 Chronic obstructive pulmonary disease with (acute) exacerbation (principal); J96.01 Acute respiratory failure with hypoxia; E03.9 Hypothyroidism, unspecified; F17.200 Nicotine dependence, unspecified, uncomplicated; R56.9 Unspecified convulsions; Z20.822 Contact with and (suspected) exposure to COVID-19; I10 Essential (primary) hypertension; R77.8 Other specified abnormalities of plasma proteins; G44.89 Other headache syndrome; G89.29 Other chronic pain; G43.B0 Ophthalmoplegic migraine, not intractable
CPT/HCPCS: 36415; 36600; 70450; 70544; 71045; 71250; 73562; 73600; 80048; 80053; 80061; 80307; 82550; 82728; 82805; 83735; 84484; 85025; 85027; 85380; 85610; 85652; 85730; 86038; 86140; 86331; 86430; 86606; 86609; 87040; 93005; 93306; 93976; 94618; 94640; 94762; 96365; 96366; 96367; 96372; 96375; 96376; 97110; 97116; 97161; 97165; 97530; 99291; A9270; C9803; G0378; J0360; J0456; J1650; J1940; J2060; J2270; J2405; J2920; J2930; J3030; J3475; J7040; J7512; U0003; U0005

== ENCOUNTER 2021-03-12 13:28 | Outpatient (CLI) | payer MEDICARE, MEDICAID, SELFPAY ==
[2021-03-16 19:52] LABS: Alpha-1-Antitrypsin, QN 179 mg/dL (83-199)
== END 2021-03-12 13:29 | disposition home or self-care (01) ==
LOC: ANHLAB 13:31
PROVIDERS: PCP Physician Assistant; Visit Provider Internal Medicine Critical Care Medicine
DX: J44.9 Chronic obstructive pulmonary disease, unspecified (principal)
CPT/HCPCS: 36415; 82103; 82104

== ENCOUNTER 2021-04-29 10:17 | Outpatient (CLI) | payer MEDICARE, MEDICAID, SELFPAY ==
[2021-04-29 11:00] VITALS: PULSE 85; O2SAT 94
[2021-04-29 11:15] VITALS: PULSE 125; O2SAT 96
[2021-04-29 11:25] VITALS: PULSE 82; O2SAT 97
--- NOTE | 2021-04-29 11:33 | HOMEO2EVAL ---
Evaluation was performed at [facility] Home Oxygen Evaluation RC: Home Oxygen (O2) Evaluation Start: 04/29/21 11:23 Freq: Status: Active Protocol: RPE Activity Type Activity Date Activity User E-Sign Co-Sign Detail Recorded Client Recorded Date Recorded By Document 04/29/21 11:15 KMV [email or web address] 04/29/21 11:26 KMV Document 04/29/21 11:25 KMV [id number] 04/29/21 11:27 KMV 04/29/21 04/29/21 11:15 11:25 Home O2 Evaluation Test Phase Exercise Resting Oxygen Delivery Room Air Room Air Pulse Oximetry (90-100 %) 96 97 Pulse Rate (60-100 beats/min) 125 H 82 Activity Tolerance Good Rating of Perceived Dyspnea (PD) +4 Severe +2 Mild, Some Difficulty, Difficulty, Participant Noticeable to Cannot Continue the Observer Rate of Perceived Exertion (PE) 19 Very, Very Hard Ambulation Distance (feet) 500 Home Oxygen Evaluation Comments Pt appeared very SOB, wheezing audible.
--- NOTE | 2021-04-29 12:51 | WPDPFTINT ---
PFT Procedure Performed PFT Procedure Performed Spirometry with Pre/Post Bronchodilator Plethysmography (Lung Vol) Diffusing Cap (DLCO) Flow Vol Loop PFT Interpretation DOS: 04/29/2021 REQUESTING: Dr Ya REASON FOR TESTING: dyspnea on exertion PULMONARY FUNCTION TESTS Results are reproducible. Spirometry: FEV1 is 53%, moderately decreased, 1.33 L. FVC is 76%, mildly decreased; slow vital capacity measured in the lung volume measure is normal at 80%. FEV1/FVC is decreased 55% consistent with airflow obstruction. [id number]% is severely decreased 19%. There is a nonstatistically significant increase in flows with bronchodilator. Lung volumes: Total lung volume is 113%, normal. RV increased 163%, severe air trapping. RV/TLC = 55%. Airway resistance increased 385%. Diffusion: DLCO moderately decreased 52%. DLCO/VA 65%, still mildly decreased. Flow volume loop: Scooping of the expiratory limb. IMPRESSION: Moderately severe obstructive ventilatory impairment, severe air trapping, increased airway resistance, moderate diffusion impairment. This is consistent with emphysema. Lack of response to bronchodilator should not preclude use if clinically indicated. Roxi Ya MD
--- NOTE | 2021-04-29 12:56 | HOMEO2EVAL ---
Evaluation was performed at [facility] Home Oxygen Evaluation RC: Home Oxygen (O2) Evaluation Start: 04/29/21 11:23 Freq: Status: Active Protocol: RPE Activity Type Activity Date Activity User E-Sign Co-Sign Detail Recorded Client Recorded Date Recorded By Document 04/29/21 11:15 KMV [email or web address] 04/29/21 11:26 KMV Document 04/29/21 11:25 KMV [email or web address] 04/29/21 11:27 KMV 04/29/21 04/29/21 11:15 11:25 Home O2 Evaluation Test Phase Exercise Resting Oxygen Delivery Room Air Room Air Pulse Oximetry (90-100 %) 96 97 Pulse Rate (60-100 beats/min) 125 H 82 Activity Tolerance Good Rating of Perceived Dyspnea (PD) +4 Severe +2 Mild, Some Difficulty, Difficulty, Participant Noticeable to Cannot Continue the Observer Rate of Perceived Exertion (PE) 19 Very, Very Hard Ambulation Distance (feet) 500 Home Oxygen Evaluation Comments Pt appeared very SOB, wheezing audible.
== END 2021-04-29 10:18 | disposition home or self-care (01) ==
PROVIDERS: PCP Physician Assistant; Visit Provider Internal Medicine Critical Care Medicine
DX: J44.9 Chronic obstructive pulmonary disease, unspecified (principal); R94.2 Abnormal results of pulmonary function studies
CPT/HCPCS: 94060; 94618; 94726; 94729

== ENCOUNTER 2021-05-06 11:52 | Emergency (ER) | payer MEDICARE, MEDICAID, SELFPAY ==
[2021-05-06] VITALS (14 sets, daily range): BP systolic 119–152; BP diastolic 60–93; PULSE 66–94; RESP 12–23; TEMP 36.6; O2SAT 91–99
--- NOTE | ~2021-05-06 | XR_ITS ---
EXAMINATION: XR chest 2V 05/06/2021 12:27 INDICATION: Shortness of breath. Hypertension. PROCEDURE: 2 view chest COMPARISON: Comparison to multiple prior studies sequentially, with oldest reviewed study dated 02/2012. FINDINGS: The lungs are clear. The cardiomediastinal silhouette is within normal limits. There are no pleural effusions. There is no pneumothorax suspected. Right basilar atelectasis. IMPRESSION: 1: Right basilar atelectasis. Reviewed, dictated and finalized at location A.
--- NOTE | ~2021-05-06 | NM_ITS ---
NM pulmonary perfusion DATE: 05/06/2021 17:20 INDICATION: Shortness of breath TECHNIQUE: 8 standard perfusion images in multiple projections following intravenous injection of 4.5 mCi 99m technetium MAA COMPARISON: 05/06/2021 PA and lateral chest FINDINGS: No lobar or segmental perfusion abnormalities are noted. IMPRESSION: No probability of pulmonary embolism Reviewed, dictated and finalized at Location A. Reviewed, dictated and finalized at location A.
--- NOTE | ~2021-05-06 | CT_ITS ---
EXAMINATION: CT soft tissue neck wo con DATE: 05/06/2021 15:55 INDICATION: Neck swelling. TECHNIQUE: Computed tomography (CT) of the neck was performed without intravenous contrast. Automated exposure control and iterative reconstruction technique were employed. The dose-length product was 5 63.94 mGy-cm. COMPARISON: CT cervical spine 08/26/2014 FINDINGS: There is mild emphysema. There is mucosal thickening in the paranasal sinuses and dependent fluid in right maxillary sinus. There are surgical changes of the paranasal sinuses. There are no pa thologically enlarged lymph nodes. The mastoid air cells are normal. There is severe degenerative dis c disease at C5-C6 and mild spondylosis at other levels. T3 is a butterfly segment. There is 12 degre es dextroscoliosis of cervicothoracic spine. IMPRESSION: 1. No abnormal mass or lymphadenopathy. Reviewed, dictated and finalized at location B.
--- NOTE | 2021-05-06 12:02 | ECG_ITS ---
Measurements Intervals [place] Rate: 87 P: 57 MI: 109 QRS: 29 QRSD: 87 T: 77 QT: 345 QTc: 415 Interpretive Statements SINUS RHYTHM WITH SHORT MI INTERVAL BASELINE ARTIFACT- I, II, III, AVR, AVL, AVF, V1-V6 BORDERLINE ECG Electronically Signed On 05-06-2021 13:12:12 CDT by Dav Olivarez D.O.
[2021-05-06 12:29] LABS: Basophils Percent Auto 0.4 % (0.2-1.2); Hematocrit 40.6 % (37.0-47.0); Hemoglobin 12.8 g/dL (12.0-15.0); Immature Granulocyte Percent A 2.4 % (0-0.5); Lymphocytes Absolute Auto 0.65 K/mm3 (0.9-3.2); Lymphocytes Percent Auto 7.8 % (18.3-44.2); Mean Corpuscular HGB Conc 31.5 g/dl (32-36); Mean Corpuscular Hemoglobin 31.7 pg (26-34); Mean Corpuscular Volume 100.5 fl (80-100); Mean Platelet Volume 9.9 fl (7.4-10.4); Monocytes Absolute Auto 0.1 K/mm3 (0.1-0.6); Monocytes Percent Auto 1.4 % (2.6-8.5); Neutrophils Absolute Auto 7.4 K/mm3 (1.3-6.7); Platelet Count Result 231 k/mm3 (150-375); Red Blood Count 4.04 M/mm3 (4.2-5.4); Red Cell Distribution Width 15.2 % (11.5-14.5); White Blood Count 8.4 K/mm3 (4.5-10.0)
--- NOTE | 2021-05-06 12:35 | ED.GENADULT ---
HPI - General Adult General Chief complaint: Shortness of Breath/Dyspnea Stated complaint: SOB, SWELLING, Time Seen by Provider: 05/06/21 12:04 Source: patient and RN notes reviewed History of Present Illness HPI narrative: Patient is a 55 y/o female complaining of moderate SOB for last 3 months. She state that walking or any exertion aggravates her SOB. She also has bilateral leg swelling and neck swelling. She has history of COPD. Related Data Home Medications Medication Instructions Recorded Confirmed albuterol sulfate [Ventolin HFA] 2 puff INHALATION Q4H PRN 02/18/21 02/18/21 budesonide-formoterol [Symbicort] 2 puff INHALATION DAILY 02/18/21 02/18/21 diphenhydramine HCl [Banophen] 25 mg PO HS 02/18/21 02/18/21 estradiol 1 mg PO HS 02/18/21 02/18/21 guanfacine 2 mg PO HS 02/18/21 02/18/21 ibuprofen 200 mg PO Q8H PRN 02/18/21 02/18/21 levetiracetam 500 mg PO HS 02/18/21 02/18/21 levothyroxine 112 mcg PO HS 02/18/21 02/18/21 norethindrone acetate 5 mg PO HS 02/18/21 02/18/21 omeprazole magnesium [Acid Land Management Forester 20 mg PO DAILY 02/18/21 02/18/21 (omeprazole)] phenytoin sodium extended 500 mg PO HS 02/18/21 02/18/21 buprenorphine-naloxone [Suboxone] 1 tablet SUBLINGUAL DAILY 05/06/21 05/06/21 furosemide 20 mg PO BID 05/06/21 Allergies Allergy/AdvReac Type Severity Reaction Status Date / Time iohexol Allergy Unknown Swelling Verified 05/06/21 12:07 [From contrast - CT, X-RAY] of Lip/Tongue/Throat Penicillins Allergy Unknown Unknown Verified 05/06/21 12:07 propoxyphene Allergy Unknown Hives Verified 05/06/21 12:07 Tetanus Vaccines and Toxoid Allergy Unknown Swelling Verified 05/06/21 12:07 Review of Systems Constitutional: Constitutional: Denies chills, Denies fever(s), Denies headache(s) and Denies weakness Eyes: Eyes: Denies blurry vision ENT: Denies headache(s) and Denies neck pain Cardiovascular: Cardiovascular: Denies chest pain, Reports leg edema and Reports dyspnea Respiratory: Respiratory: Denies cough and Reports dyspnea Gastrointestinal: Gastrointestinal: Denies abdominal pain, Denies diarrhea, Denies nausea and Denies vomiting Genitourinary: Genitourinary: Denies hematuria and Denies dysuria Musculoskeletal: Musculoskeletal: Denies back pain and Denies neck pain Neurologic: Denies headache(s) and Denies weakness [facility] Past Medical History Medical History (Updated 05/06/21 @ 20:35 by Sheryl Alba MD) History of COPD Pulmonary infiltrates (~02/2021) Family History Family History Father Acute myocardial infarction Cerebrovascular accident Congestive heart failure Chronic obstructive pulmonary disease Hypertension Cancer of skin Sibling Asthma Sibling Asthma Sibling Asthma Mother Chronic obstructive pulmonary disease Cancer Ovarian cancer Social History Social History Smoking packs per day: 0.5 Smoking cigarettes per day: 10.0 Years smoked: 46 Smoking pack-years: 23.00 Smoking status: Current every day smoker Tobacco type: cigarettes Second hand tobacco smoke exposure: No Alcohol intake: current Drinks per week: 3 Substance use: former Substance use type: opiates Other substance usage details: prescription pain meds Last use: 2010 Gender identity (if verbalized by the patient): Female Spiritual care concerns: No Exam Const: General: no acute distress and well developed Orientation/consciousness: oriented to person, oriented to place, oriented to time and patient oriented x3 HENMT: Head: normocephalic Ears: external ears normal General nose exam: Normal external nose present Eyes: General: appearance normal, both eyes and all related structures Conjunctivae: conjunctivae normal Neck: Neck: normal visual inspection and full ROM Chest: Chest palpation & inspection: normal inspection of the chest and no tendernes
[2021-05-06 12:54] LABS: Anion Gap 7 mmol/L (8-16); Blood Urea Nitrogen 9 mg/dL (7-17); Calcium 8.9 mg/dL (8.4-10.2); Carbon Dioxide 24 mmol/L (22-30); Chloride 106 mmol/L (98-107); Estimated CRCL calculation 52 ml/min; Estimated Glomerular Filt Rate 57; Glucose 180 mg/dL (65-110); Sodium 137 mmol/L (137-145)
[2021-05-06 13:54] LABS: NT Pro B Type Natriuretic Pept 236 pg/mL (5-100); Troponin I < 0.012 ng/mL (0.000-0.034)
[2021-05-06 14:18] LABS: D Dimer 0.77 ug/mL (<0.48)
[2021-05-06] MEDS: ALBUTEROL SULFATE NEB 2.5 MG/0.5 ML INH 5 MG INHALATION (16:23)
[2021-05-06 18:22] LABS: Troponin I < 0.012 ng/mL (0.000-0.034)
--- NOTE | 2021-05-06 19:16 | PC.NURSE ---
Assumed care at this time. Pt alert and upright on stretcher, eating meal tray. Updated pt on POC.
[2021-05-06 19:37] LABS: Troponin I < 0.012 ng/mL (0.000-0.034)
--- NOTE | 2021-05-06 20:30 | PC.NURSE ---
This RN entered room and witnessed pt on edge of bed, fully dressed, crying. Pt stated They just keep doing all these tests and cant ever find anything wrong with me. I want to go home, at least ill be comfortable there. EDP aware.
--- NOTE | 2021-05-06 20:31 | PCRCNOTE ---
Pt refused ABG. Leaving AMA. Dr. Alba notified.
== END 2021-05-06 20:37 | disposition left against medical advice (07) ==
PROVIDERS: Emergency Provider Emergency Medicine; PCP Physician Assistant
DX: J44.1 Chronic obstructive pulmonary disease with (acute) exacerbation (principal); F17.210 Nicotine dependence, cigarettes, uncomplicated; R94.31 Abnormal electrocardiogram [ECG] [EKG]
CPT/HCPCS: 36415; 70490; 71046; 78580; 80048; 83880; 84484; 85025; 85380; 93005; 94640; 99284; A9270; A9540

== ENCOUNTER 2021-07-08 07:44 | Outpatient (CLI) | payer MEDICARE, MEDICAID, SELFPAY ==
--- NOTE | 2021-07-14 10:22 | WPDSLEEPSTUD ---
Sleep Study Date of Study: 07/08/21 <Angie Hassan DO - Last Filed: 07/14/21 11:25> Ordering Provider: Roxi Ya MD <Angie Hassan DO - Last Filed: 07/14/21 11:25> Interpreting Physician: Angie Hassan DO <Angie Hassan DO - Last Filed: 07/14/21 11:25> Sleep Study Type: Split Polysomnogram <Angie Hassan DO - Last Filed: 07/14/21 11:25> Height: 1.6 m <Angie Hassan DO - Last Filed: 07/14/21 11:25> Weight: 76.204 kg <Angie Hassan DO - Last Filed: 07/14/21 11:25> Body Mass Index: 29.7 <Angie Hassan DO - Last Filed: 07/14/21 11:25> Neck Circumference (inches): 19 <Angie Hassan DO - Last Filed: 07/14/21 11:25> [place]: 6 <Angie Hassan DO - Last Filed: 07/14/21 11:25> Reason for Sleep Study Previous diagnosis of NICOLA but not on CPAP. She now sleepwalks. <Angie Hassan DO - Last Filed: 07/14/21 11:25> Sleep History The patient is a 55-year-old female with severe COPD, hypertension, nocturnal seizures and tobacco abuse had had a split study ordered by her manager benefit for previously diagnosed NICOLA. She had a HSAT done on 02/26/2021 that showed an AHI of 12.4. Her study also showed that she had Rayo-Interiano respirations present for 20% the study. She is now sleepwalking. The patient states that she wakes up gasping for air and stops breathing throughout the night. She states she can not stay asleep for longer than an hour at a time. She states this has been going on almost every night for the past few months. Her sister has sleep apnea. She states that she constantly awakens from sleep short of breath. She constantly awakens at night with heartburn, belching or cough. He occasionally snores but it is rarely loud enough that others complain. She constantly has trouble sleeping when she has a cold. She constantly wakes up gasping for air throughout the night. She frequently has breathing problems at night observed by others. She constantly sweats excessively at night. She constantly notices heart palpitations throughout the night. She rarely falls asleep during the day and never while driving. He rarely experiences loss of muscle tone when extremely emotional. She does not have trouble at school or work due to sleepiness. She frequently feels unable to move when waking or falling asleep. She often experiences vivid dreamlike scenes upon awakening or falling asleep. She is occasionally afraid of going to sleep. She rarely has nightmares. She frequently feels sad, depressed and anxious. She constantly has muscular tension and notices parts of her body jerk. She rarely kicks during the night. She experiences crawling and aching feelings in her legs. She occasionally experiences leg pain during the night. She frequently grinds her teeth during sleep and awakens with jaw pain in the morning. She is constantly bothered by pain during the day and awakened by pain during the night. She constantly wakes up feeling stiff in the morning with sore and achy muscles. The patient goes to bed at 11:00 p.m. on both weekdays and weekends. It takes her 30-60 minutes to fall asleep. She wakes up 10-15 times per night and it takes her about 20 minutes to fall back asleep. When she awakens throughout the night, she will get a drink of water, go to the restroom or sit up in bed. She wakes up at 4:30 a.m. on the weekdays and 430-5 a.m. on the weekends. She will stay in bed for about 10 minutes after waking up. She states that she gets 4-5 hours of sleep per day. She currently lives alone. She does not consume any caffeinated beverages within 2 hours of going to bed. She does not engage in physical exercise before bedtime. She will read before falling asleep. She does not take any naps in the afternoon or the evening. She currently smokes half a pack of cigarettes per day. She drinks 2 cans of Pepsi per
[2021-07-14 10:27] VITALS: BMI 29.7
== END 2021-07-09 06:38 | disposition home or self-care (01) ==
LOC: ANHCSM 07:46
PROVIDERS: PCP Physician Assistant; Visit Provider Internal Medicine Critical Care Medicine
DX: G47.19 Other hypersomnia (principal); G47.33 Obstructive sleep apnea (adult) (pediatric); F45.8 Other somatoform disorders
CPT/HCPCS: 95811

== ENCOUNTER 2021-08-24 10:21 | Outpatient (CLI) | payer MEDICARE, MEDICAID, SELFPAY ==
--- NOTE | ~2021-08-24 | XR_ITS ---
EXAMINATION:XR_[id number]_CR DATE: 08/24/2021 10:45 INDICATION: Neck pain TECHNIQUE: AP, lateral, lateral swimmers and odontoid views of the cervical spine are provided. COMPARISON: 01/26/2012 FINDINGS: Alignment is normal. The odontoid is intact. No fracture is identified. There is mild loss of intervertebral disc space height at C5-6. There is moderate facet and uncovertebral joint osteoart hritis of the cervical spine. Prevertebral soft tissues are normal. IMPRESSION: 1. Mild to moderate cervical spondylosis with slight worsening. Reviewed, dictated and finalized at location A. E RIDING COACH OR INSTRUCTOR
== END 2021-08-24 10:22 | disposition home or self-care (01) ==
LOC: ANHIMG 10:25
PROVIDERS: PCP Internal Medicine; Visit Provider Nurse Practitioner
DX: M47.892 Other spondylosis, cervical region (principal)
CPT/HCPCS: 72040

== ENCOUNTER 2021-12-29 12:33 | Inpatient (IN) | payer MEDICARE, MEDICAID, SELFPAY ==
[2021-12-29] VITALS (42 sets, daily range): BP systolic 97–159; BP diastolic 62–98; PULSE 71–122; RESP 14–29; TEMP 36.7–38.5; O2SAT 90–97; BMI 26.5
--- NOTE | ~2021-12-29 | XR_ITS ---
EXAMINATION: XR chest 2V DATE: 12/29/2021 13:08 INDICATION: Shortness of breath. Congestive heart failure. Chronic obstructive pulmonary disease. TECHNIQUE: Frontal and lateral views of the chest were obtained. COMPARISON: Chest 2 views 05/06/2021, chest CT 02/20/2021 FINDINGS: The chest demonstrates clear lungs without pneumonia, pleural effusion, or pneumothorax. Th e heart size is normal. IMPRESSION: 1. No acute cardiopulmonary disease. Reviewed, dictated and finalized at location A.
--- NOTE | 2021-12-29 12:55 | ECG_ITS ---
Measurements Intervals [place] Rate: 95 P: 57 FL: 123 QRS: 7 QRSD: 86 T: 59 QT: 350 QTc: 440 Interpretive Statements SINUS RHYTHM NONSPECIFIC ST AND T-WAVE ABNORMALITY ABNORMAL ECG COMPARED TO ECG 05/06/2021 12:05:08 NO SIGNIFICANT CHANGES Electronically Signed On 12-29-2021 18:09:34 CDT by Rambo Schaffer M.D.
[2021-12-29 13:08] LABS: Basophils Percent Auto 0.7 % (0.2-1.2); Eosinophils Percent Auto 0.4 % (0-4.4); Hemoglobin 14.5 g/dL (12.0-15.0); Immature Granulocyte Absolute 0.05 K/mm3 (0.00-0.031); Immature Granulocyte Percent A 1.1 % (0-0.5); Lymphocytes Absolute Auto 0.88 K/mm3 (0.9-3.2); Lymphocytes Percent Auto 19.5 % (18.3-44.2); Mean Corpuscular Hemoglobin 32.2 pg (26-34); Mean Corpuscular Volume 97.8 fl (80-100); Mean Platelet Volume 11.4 fl (7.4-10.4); Monocytes Absolute Auto 0.5 K/mm3 (0.1-0.6); Neutrophils Percent Auto 66.3 % (45.5-73.1); Platelet Count Result 171 k/mm3 (150-375); Red Cell Distribution Width 14.7 % (11.5-14.5); White Blood Count 4.5 K/mm3 (4.5-10.0)
[2021-12-29 13:19] LABS: Partial Thromboplastin Time 25.4 SECONDS (22.3-36.8)
[2021-12-29 13:32] LABS: Lactic Acid Reflex 1.2 mmol/L (0.7-2.1)
[2021-12-29 14:03] LABS: Alanine Aminotransferase 46 U/L (4-35); Albumin Level 4.3 g/dL (3.5-5.1); Alkaline Phosphatase 75 U/L (38-126); Anion Gap 8 mmol/L (8-16); Aspartate Amino Transferase 59 U/L (14-36); Bilirubin,Total 0.5 mg/dL (0.2-1.3); Blood Urea Nitrogen 10 mg/dL (7-17); Calcium 8.7 mg/dL (8.4-10.2); Carbon Dioxide 25 mmol/L (22-30); Chloride 100 mmol/L (98-107); Estimated Glomerular Filt Rate 57; Glucose 91 mg/dL (65-110); Sodium 133 mmol/L (137-145)
[2021-12-29] MEDS: methylPREDNISolone SOD SUCC 125 MG VIAL IV PUSH (14:09)
[2021-12-29] MEDS: ALBUTEROL SULFATE NEB 2.5 MG/0.5 ML INH 5 MG INHALATION ×3 (14:11→21:13)
[2021-12-29] MEDS: IPRATROPIUM BR 0.02% INH SOLN 0.5 MG/2.5 ML VIAL INHALATION ×3 (14:11→21:13)
[2021-12-29 14:16] LABS: NT Pro B Type Natriuretic Pept 125 pg/mL (5-100); Troponin I < 0.012 ng/mL (0.000-0.034)
[2021-12-29 14:22] LABS: Alveolar/Arterial O2 Gradient 54.3 mmHg; Base Excess ABG -1.1 mEq/l (+/-2.0); Carboxyhemoglobin 2.1 % THb (0-2.0); Fractional Inspired Oxygen 21 %; HCO3 ABG 21.6 mEq/l (22.0-26.0); Methemoglobin ABG 0.2 %THb (0-1.5); Oxygen Content ABG 18.4 %vol (16.0-22.0); Oxygen Saturation ABG 92.3 % (95.0-100.0); Oxyhemoglobin 89.3 % THb (90.0-100.0); PCO2 ABG 30.6 mmHg (35.0-45.0); PO2 ABG 58.8 mmHg (80.0-100.0); Reduced Hemoglobin 8.4 %THb (0-5.0); Total Hemoglobin 14.7 g/dL (12.0-18.0); pH ABG 7.466 (7.350-7.450)
[2021-12-29 14:23] LABS: Device ROOM AIR; Modified Allen's Test Pass; Site Drawn RIGHT RADIAL
--- NOTE | 2021-12-29 14:23 | ED.SOB ---
HPI - SOB/Dyspnea General Chief Complaint: Shortness of Breath/Dyspnea <Swapna Madrid PA-C - Last Filed: 12/29/21 16:20> Stated Complaint: SOB <Swapna Madrid PA-C - Last Filed: 12/29/21 16:20> Time Seen by Provider: 12/29/21 13:01 <Swapna Madrid PA-C - Last Filed: 12/29/21 16:20> Source: patient <RODGER Rick Last Filed: 12/29/21 16:20> Mode of arrival: ambulatory <RODGER Rick Last Filed: 12/29/21 16:20> Limitations: no limitations <RODGER Rick Last Filed: 12/29/21 16:20> History of Present Illness HPI Narrative: This is a 56 year old female that presents to the ER for cold symptoms present over the last couple of days. Reports fever, productive cough, congestion and worsening shortness of breath. Reports she has history of COPD, she has been using her albuterol with little relief. Her personal banking assistant is Dr. Ya. She is COVID and influenza vaccinated. Denies chest pain or lower extremity edema. <Swapna Madrid PA-C - Last Filed: 12/29/21 16:20> Related Data Home Medications: Home Medications Medication Instructions Recorded Confirmed estradiol 1 mg PO HS 02/18/21 12/29/21 ibuprofen 200 mg PO Q8H PRN 02/18/21 12/29/21 levothyroxine 112 mcg PO HS 02/18/21 12/29/21 omeprazole magnesium [Acid Vp Data 20 mg PO DAILY 02/18/21 12/29/21 (omeprazole)] nebulizer accessories 05/26/21 12/29/21 buprenorphine 8 mg-naloxone 2 mg 1 film SUBLINGUAL DAILY 07/24/21 12/29/21 sublingual film diphenhydramine HCl 25 mg capsule 25 mg PO QHS 07/24/21 12/29/21 folic acid 400 mcg tablet 0.4 mg PO DAILY 07/24/21 12/29/21 losartan 100 1 tablet PO DAILY 07/24/21 12/29/21 mg-hydrochlorothiazide 12.5 mg tablet amlodipine 5 mg PO DAILY 12/29/21 12/29/21 prednisone 10 mg PO QAM 12/29/21 12/29/21 <Swapna Madrid PA-C - Last Filed: 12/29/21 16:20> Allergies/Adverse Reactions: Allergies Allergy/AdvReac Type Severity Reaction Status Date / Time iohexol Allergy Unknown Swelling Verified 11/03/21 10:25 [From contrast - CT, X-RAY] of Lip/Tongue/Throat Penicillins Allergy Unknown Unknown Verified 11/03/21 10:25 propoxyphene Allergy Unknown Hives Verified 11/03/21 10:25 Tetanus Vaccines and Toxoid Allergy Unknown Swelling Verified 11/03/21 10:25 <Swapna Madrid PA-C - Last Filed: 12/29/21 16:20> Review of Systems Review of Systems: CONSTITUTIONAL: Reports fever ENT: Reports rhinorrhea, congestion CARDIOVASCULAR: Denies chest pain, or edema. RESPIRATORY: Reports cough and dyspnea. <Swapna Madrid PA-C - Last Filed: 12/29/21 16:20> All systems reviewed & are unremarkable except as noted in HPI and below <Swapna Madrid PA-C - Last Filed: 12/29/21 16:20> [facility] Past Medical History Medical History: Medical History Allergies Anxiety Arthritis CHF (congestive heart failure) Chronic pain syndrome CKD (chronic kidney disease) GERD (gastroesophageal reflux disease) Headache History of COPD History of tobacco abuse Hormone replacement therapy (HRT) Hx of non-Hodgkin's lymphoma Hypertension Nocturnal seizures Pulmonary infiltrates (~02/2021) Shortness of Breath Thyroid disorder <RODGER Rick Last Filed: 12/29/21 16:20> Family History Family History: Family History Father Acute myocardial infarction Cerebrovascular accident Congestive heart failure Chronic obstructive pulmonary disease Hypertension Cancer of skin Asthma Sibling Asthma Sibling Asthma Sibling Asthma Mother Chronic obstructive pulmonary disease Cancer Ovarian cancer Depression Anxiety Grandparent Cancer Diabetes mellitus Hypertension Cerebrovascular accident Heart problem <Swapna Madrid PA-C - Last Filed: 12/29/21 16:20> Social History Social History: Social History (Reviewed
[2021-12-29 14:47] LABS: Influenza A QL RT-PCR Positive (Negative); Influenza B QL RT-PCR Negative (Negative); SARS-CoV-2 RNA PCR Negative
--- NOTE | 2021-12-29 15:15 | PM.IMHP ---
H&P: HPI History of Present Illness Date/Time: 12/29/21 15:15 Chief Complaint: Cough, shortness of breath, fever. Narrative: This is a 56-year-old female with chronic obstructive pulmonary disease, coronary artery disease, hypertension, hypothyroidism, and other comorbidities who presented to the emergency department from home for evaluation of cough, shortness of breath, and fever. She has not felt well for 5 to 7 days with multiple symptoms including headache, fever with a T-max of 104? last night, sinus congestion, cough occasionally productive of whitish phlegm, nausea, and decreased appetite. She has been taking ibuprofen, acetaminophen, and generic DayQuil with perhaps some benefit. Over last couple of days she has been increasingly short of breath and wheezy and she came in for evaluation. Temperature on arrival was 101.3? with stable blood pressures and SpO2 of 96% on room air. Chest x-ray showed no acute cardiopulmonary finding and her labs were relatively unremarkable. SARS-CoV-2 by PCR was negative but she was found to be positive for influenza A and due to her concomitant COPD exacerbation she is being admitted for further treatment. Currently she has no specific complaints aside from those detailed above. Review of Systems Review of Systems: Twelve systems were reviewed. No neck ache or rash. He denies chest pain and pleuritic pain. No orthopnea, PND, or lower extremity edema. Appetite has been poor but she denies nausea and vomiting. Smell and taste are okay. No diarrhea. Except as documented, all other systems were reviewed and are negative. [facility] Past Medical History Medical History (Updated 12/30/21 @ 00:41 by Ann Pereira PA-C) Allergies Anxiety Arthritis Cervical cancer Chronic kidney disease Chronic obstructive pulmonary disease Chronic pain syndrome Chronic steroid use Congestive heart failure Echocardiogram in October 2021 showed normal LV systolic function with an EF of 60% and normal right ventricular systolic function. Former smoker Gastroesophageal reflux disease Hypertension Hypothyroidism Hypothyroidism Nocturnal seizures Non-Hodgkin lymphoma Obstructive sleep apnea Surgical History Surgical History (Updated 12/30/21 @ 00:37 by Ann Pereira PA-C) History of cardiac catheterization History of coronary artery stent placement History of open reduction and internal fixation (ORIF) procedure Right foot fracture. History of tonsillectomy Family History Family History Father Acute myocardial infarction Cerebrovascular accident Congestive heart failure Chronic obstructive pulmonary disease Hypertension Cancer of skin Asthma Sibling Asthma Sibling Asthma Sibling Asthma Mother Chronic obstructive pulmonary disease Cancer Ovarian cancer Depression Anxiety Grandparent Cancer Diabetes mellitus Hypertension Cerebrovascular accident Heart problem Social History Social History (Updated 12/30/21 @ 00:39 by Ann Pereira PA-C) Social History: Surrogate decision maker: Juan Daniel Bravo (friend) or Kendradebra Vasquez (sister). Code status: Full code. Smoking packs per day: 1 Smoking cigarettes per day: 20.0 Years smoked: 50 Smoking pack-years: 50.00 Smoking status: Former smoker Tobacco type: cigarettes Second hand tobacco smoke exposure: No Additional smoking assessment comments: Quit in 2020. Alcohol intake: current Drinks per week: 5 Alcohol use details: Occasional alcohol use, at the most 5 a week. Substance use: former Substance use type: opiates Other substance usage details: prescription pain meds Last use: 2010 Living arrangements: with friend(s) Occupation/Education: unemployed Spiritual care concerns: No Meds Home Medications and Allergies Home Medications Medication Instructions Recorded Confirmed Type estradiol 1 mg PO HS 02/18/2112/18
[2021-12-29] MEDS: OSELTAMIVIR PHOSPHATE 75 MG CAPSULE PO (16:09)
--- NOTE | 2021-12-29 17:22 | ADMGEN ---
This patient, Joan Chase, was admitted to Medical Room 243-01. Patient/family oriented to hospital policies and general routines including ID bracelet, bed and alarms, visiting hours, pain management, procedures, bathroom and other care routines, personal items, smoking policy, room service/diet, and visiting hours. Information on how to activate the Rapid Response Team has been discussed. Patient/Family are encouraged to report perceived risks to care and to ask questions if they do not understand what they are told or what they should do.
[2021-12-29] MEDS: ACETAMINOPHEN 325 MG TABLET 650 MG PO (20:32)
[2021-12-29] MEDS: diphenhydrAMINE HCl CAP 25 MG CAPSULE PO (21:57)
[2021-12-29] MEDS: PANTOPRAZOLE 40 MG TABLET PO (21:58)
[2021-12-29] MEDS: LEVOTHYROXINE SODIUM 112 MCG TABLET PO (21:58)
[2021-12-30] VITALS (19 sets, daily range): BP systolic 104–114; BP diastolic 61–73; PULSE 67–91; RESP 14–18; TEMP 36.2–36.8; O2SAT 93–96
[2021-12-30] MEDS: ALBUTEROL SULFATE NEB 2.5 MG/0.5 ML INH 5 MG INHALATION ×4 (01:41→19:37)
[2021-12-30] MEDS: IPRATROPIUM BR 0.02% INH SOLN 0.5 MG/2.5 ML VIAL INHALATION ×4 (01:41→19:38)
[2021-12-30 05:32] LABS: Hematocrit 44.6 % (37.0-47.0); Hemoglobin 14.6 g/dL (12.0-15.0); Mean Corpuscular HGB Conc 32.7 g/dl (32-36); Mean Corpuscular Volume 97.8 fl (80-100); Mean Platelet Volume 11.3 fl (7.4-10.4); Platelet Count Result 146 k/mm3 (150-375); Red Blood Count 4.56 M/mm3 (4.2-5.4); Red Cell Distribution Width 14.2 % (11.5-14.5)
[2021-12-30] MEDS: ACETAMINOPHEN 325 MG TABLET 650 MG PO ×2 (05:44→17:43)
[2021-12-30] MEDS: methylPREDNISolone SOD SUCC 125 MG VIAL 60 MG IV PUSH ×3 (05:45→17:41)
[2021-12-30 06:01] LABS: Alanine Aminotransferase 39 U/L (4-35); Alkaline Phosphatase 64 U/L (38-126); Anion Gap 9 mmol/L (8-16); Aspartate Amino Transferase 41 U/L (14-36); Bilirubin,Total 0.3 mg/dL (0.2-1.3); Blood Urea Nitrogen 12 mg/dL (7-17); Calcium 8.6 mg/dL (8.4-10.2); Carbon Dioxide 20 mmol/L (22-30); Chloride 104 mmol/L (98-107); Estimated CRCL calculation 63 ml/min; Estimated Glomerular Filt Rate > 60; Glucose 116 mg/dL (65-110); Potassium 4.1 mmol/L (3.4-5.0); Sodium 133 mmol/L (137-145)
[2021-12-30 06:37] LABS: Thyroid Stimulating Hormone Reflex < 0.015 uIU/mL (0.465-4.68)
--- NOTE | 2021-12-30 09:45 | P.PNIM_ITS ---
Progress Note: A&P Assessment and Plan (1) Influenza A: Code(s): J10.1 - Influenza due to other identified influenza virus with other respiratory manifestations Status: Acute Assessment and Plan: * Influenza A positive * Reports about 1 week since symptoms * No indication for Tamiflu * Supportive care (2) COPD exacerbation: Code(s): J44.1 - Chronic obstructive pulmonary disease with (acute) exacerbation Status: Acute Assessment and Plan: * Reports SOB, increased wheezes, without sputum changes * Neb treatments, change to home inhalers * Methylprednisolone 60mg IV Q6hr, hold home prednisone since she is getting IV * Chest xray shows no acute cardiopulmonary disease * Could be exacerbated from the flu * Trend symptoms (3) Elevated LFTs: Code(s): R79.89 - Other specified abnormal findings of blood chemistry Status: Acute Assessment and Plan: * AST/ALT 41/39 * Hep panel * History of transaminitis chronically * Could be from viral infection * Trend labs * consider ultrasound (4) Hypertension: Qualifiers: Hypertension type: unspecified Qualified Code(s): I10 - Essential (primary) hypertension Code(s): I10 - Essential (primary) hypertension Status: Acute Assessment and Plan: * BP 114/73 * Continue home amlodipine 5mg PO daily, Losartan/HCTZ 100/12.5mg PO daily * Trend blood pressure * adjust therapy as indicated (5) Chronic steroid use: Status: Acute Assessment and Plan: * 10mg PO prednisone at home * Hold since she is on IV steroids * Restart as indicated (6) Hypothyroidism: Code(s): E03.9 - Hypothyroidism, unspecified Status: Acute Assessment and Plan: * Continue levothyroxine * check TSH <0.015 Time Spent With Patient Time with patient: Greater than 35 minutes Subjective Date/time seen: 12/30/21 0945 Interval history: Date/Time: 12/29/21 15:15 Narrative: This is a 56-year-old female with chronic obstructive pulmonary disease, coronary artery disease, hypertension, hypothyroidism, and other comorbidities who presented to the emergency department from home for evaluation of cough, shortness of breath, and fever. She has not felt well for 5 to 7 days with multiple symptoms including headache, fever with a T-max of 104? last night, sinus congestion, cough occasionally productive of whitish phlegm, nausea, and decreased appetite. She has been taking ibuprofen, acetaminophen, and generic DayQuil with perhaps some benefit. Over last couple of days she has been increasingly short of breath and wheezy and she came in for evaluation. Temperature on arrival was 101.3? with stable blood pressures and SpO2 of 96% on room air. Chest x-ray showed no acute cardiopulmonary finding and her labs were relatively unremarkable. SARS-CoV-2 by PCR was negative but she was found to be positive for influenza A and due to her concomitant COPD exacerbation she is being admitted for further treatment. Currently she has no specific complaints aside from those detailed above. Date/Time: 12/30/21 0015 Patient stated that she is feeling a little better today. Patient states that she still does have a bad cough and is very weak. She also complaining of dizziness especially with position change. She denies any nausea, vomiting, d iarrhea, constipation, weakness or fatigue. She did state that she is having some sweats because of fevers and her appet
--- NOTE | 2021-12-30 09:45 | PM.IMPN ---
Progress Note: A&P Assessment and Plan (1) Influenza A: Code(s): J10.1 - Influenza due to other identified influenza virus with other respiratory manifestations Status: Acute Assessment and Plan: Influenza A positive Reports about 1 week since symptoms No indication for Tamiflu Supportive care (2) COPD exacerbation: Code(s): J44.1 - Chronic obstructive pulmonary disease with (acute) exacerbation Status: Acute Assessment and Plan: Reports SOB, increased wheezes, without sputum changes Neb treatments, change to home inhalers Methylprednisolone 60mg IV Q6hr, hold home prednisone since she is getting IV Chest xray shows no acute cardiopulmonary disease Could be exacerbated from the flu Trend symptoms (3) Elevated LFTs: Code(s): R79.89 - Other specified abnormal findings of blood chemistry Status: Acute Assessment and Plan: AST/ALT 41/39 Hep panel History of transaminitis chronically Could be from viral infection Trend labs consider ultrasound (4) Hypertension: Qualifiers: Hypertension type: unspecified Qualified Code(s): I10 - Essential (primary) hypertension Code(s): I10 - Essential (primary) hypertension Status: Acute Assessment and Plan: BP 114/73 Continue home amlodipine 5mg PO daily, Losartan/HCTZ 100/12.5mg PO daily Trend blood pressure adjust therapy as indicated (5) Chronic steroid use: Status: Acute Assessment and Plan: 10mg PO prednisone at home Hold since she is on IV steroids Restart as indicated (6) Hypothyroidism: Code(s): E03.9 - Hypothyroidism, unspecified Status: Acute Assessment and Plan: Continue levothyroxine check TSH <0.015 Time Spent With Patient Time with patient: Greater than 35 minutes Subjective Date/time seen: 12/30/21 0945 Interval history: Date/Time: 12/29/21 15:15 Narrative: This is a 56-year-old female with chronic obstructive pulmonary disease, coronary artery disease, hypertension, hypothyroidism, and other comorbidities who presented to the emergency department from home for evaluation of cough, shortness of breath, and fever. She has not felt well for 5 to 7 days with multiple symptoms including headache, fever with a T-max of 104? last night, sinus congestion, cough occasionally productive of whitish phlegm, nausea, and decreased appetite. She has been taking ibuprofen, acetaminophen, and generic DayQuil with perhaps some benefit. Over last couple of days she has been increasingly short of breath and wheezy and she came in for evaluation. Temperature on arrival was 101.3? with stable blood pressures and SpO2 of 96% on room air. Chest x-ray showed no acute cardiopulmonary finding and her labs were relatively unremarkable. SARS-CoV-2 by PCR was negative but she was found to be positive for influenza A and due to her concomitant COPD exacerbation she is being admitted for further treatment. Currently she has no specific complaints aside from those detailed above. Date/Time: 12/30/21 0945 Patient stated that she is feeling a little better today. Patient states that she still does have a bad cough and is very weak. She also complaining of dizziness especially with position change. She denies any nausea, vomiting, diarrhea, constipation, weakness or fatigue. She did state that she is having some sweats because of fevers and her appetite is not that great. Review of Systems Review of Systems: All systems reviewed & are unremarkable except as noted in HPI and below Exam Const: General: cooperative, healthy appearing, no acute distress, well developed, alert and awake Nutritional Appearance: well nourished Orientation/consciousness: patient oriented x3 Limitations: no limitations HENMT: Head: normal to inspection Ears: hearing grossly normal bilaterally General nose exam: Nor
[2021-12-30] MEDS: ASPIRIN 81 MG ENTERIC TABLET PO (09:53)
[2021-12-30] MEDS: ENOXAPARIN 40 MG/0.4 ML SYRINGE SUB-Q (09:54)
[2021-12-30] MEDS: PANTOPRAZOLE 40 MG TABLET PO ×2 (09:55→20:29)
[2021-12-30] MEDS: FOLIC ACID 0.4 MG TABLET PO (09:55)
--- NOTE | 2021-12-30 12:43 | PC.NURSE ---
Principal Software Architect reviewed and agrees with student nurse assessment and charting
[2021-12-30 13:22] LABS: Free T4 Free Thyroxine Reflex 1.65 ng/dL (0.78-2.19)
[2021-12-30 14:13] LABS: Total Triiodothyronine (T3) 0.91 NG/ML (0.97-1.69)
[2021-12-30] MEDS: diphenhydrAMINE HCl CAP 25 MG CAPSULE PO (20:28)
[2021-12-31] VITALS (23 sets, daily range): BP systolic 96–110; BP diastolic 52–70; PULSE 61–118; RESP 14–18; TEMP 36.6–36.8; O2SAT 90–95
[2021-12-31] MEDS: methylPREDNISolone SOD SUCC 125 MG VIAL 60 MG IV PUSH ×3 (01:01→12:21)
[2021-12-31] MEDS: ALBUTEROL SULFATE NEB 2.5 MG/0.5 ML INH 5 MG INHALATION ×4 (01:13→20:12)
[2021-12-31] MEDS: IPRATROPIUM BR 0.02% INH SOLN 0.5 MG/2.5 ML VIAL INHALATION ×4 (01:14→20:12)
[2021-12-31 05:40] LABS: Basophils Percent Auto 0.1 % (0.2-1.2); Hematocrit 41.8 % (37.0-47.0); Hemoglobin 14.1 g/dL (12.0-15.0); Immature Granulocyte Absolute 0.08 K/mm3 (0.00-0.031); Immature Granulocyte Percent A 0.7 % (0-0.5); Lymphocytes Percent Auto 4.4 % (18.3-44.2); Mean Corpuscular HGB Conc 33.7 g/dl (32-36); Mean Corpuscular Hemoglobin 31.9 pg (26-34); Mean Corpuscular Volume 94.6 fl (80-100); Monocytes Absolute Auto 0.4 K/mm3 (0.1-0.6); Monocytes Percent Auto 3.7 % (2.6-8.5); Neutrophils Absolute Auto 10.5 K/mm3 (1.3-6.7); Neutrophils Percent Auto 91.1 % (45.5-73.1); Platelet Count Result 152 k/mm3 (150-375); Red Blood Count 4.42 M/mm3 (4.2-5.4); White Blood Count 11.5 K/mm3 (4.5-10.0)
[2021-12-31 05:49] LABS: Alanine Aminotransferase 31 U/L (4-35); Albumin Level 3.8 g/dL (3.5-5.1); Alkaline Phosphatase 60 U/L (38-126); Anion Gap 7 mmol/L (8-16); Aspartate Amino Transferase 29 U/L (14-36); Bilirubin,Total 0.2 mg/dL (0.2-1.3); Blood Urea Nitrogen 13 mg/dL (7-17); Calcium 8.4 mg/dL (8.4-10.2); Carbon Dioxide 25 mmol/L (22-30); Chloride 103 mmol/L (98-107); Estimated CRCL calculation 56 ml/min; Estimated Glomerular Filt Rate > 60; Glucose 148 mg/dL (65-110); Magnesium 2.3 mg/dL (1.6-2.3); Potassium 4.3 mmol/L (3.4-5.0); Sodium 135 mmol/L (137-145)
[2021-12-31] MEDS: LEVOTHYROXINE SODIUM 112 MCG TABLET PO (06:17)
[2021-12-31 06:38] LABS: Hepatitis B Surface Antigen Negative (Negative)
[2021-12-31 06:44] LABS: HAV RESULT Negative (Negative); Hepatitis B Core IgM Result Negative (Negative)
[2021-12-31 06:56] LABS: Hepatitis C Virus Antibody Negative (Negative)
[2021-12-31] MEDS: ASPIRIN 81 MG ENTERIC TABLET PO (08:49)
[2021-12-31] MEDS: amLODIPine BESYLATE 5 MG TABLET PO (08:49)
[2021-12-31] MEDS: hydroCHLOROthiazide 12.5 MG CAPSULE PO (08:49)
[2021-12-31] MEDS: ENOXAPARIN 40 MG/0.4 ML SYRINGE SUB-Q (08:49)
[2021-12-31] MEDS: PANTOPRAZOLE 40 MG TABLET PO ×2 (08:49→21:21)
[2021-12-31] MEDS: LOSARTAN POTASSIUM 100 MG TABLET PO (08:49)
[2021-12-31] MEDS: FOLIC ACID 0.4 MG TABLET PO (08:49)
--- NOTE | 2021-12-31 13:43 | P.PNIM_ITS ---
Progress Note: A&P Assessment and Plan (1) Influenza A: Code(s): J10.1 - Influenza due to other identified influenza virus with other respiratory manifestations Status: Acute Assessment and Plan: * Influenza A positive * Mildly elevated WBC at 11.5 today up from 5.0 yesterday. * Reports about 1 week since symptom onset. * No indication for Tamiflu, continue supportive care. (2) COPD exacerbation: Code(s): J44.1 - Chronic obstructive pulmonary disease with (acute) exacerbation Status: Acute Assessment and Plan: * Patient has history of severe, poorly controlled COPD, per pulmonology. * Reports SOB with activity such as showering today, without sputum changes * 94% O2 on room air currently. * Continue neb treatments, change to home inhalers upon discharge. * Continue Methylprednisolone 60mg IV Q6hr; has received 2 days of therapy thus far. Will transition to PO prednisone 40mg daily upon discharge. Continue to hold home prednisone. * Chest x-ray shows no acute cardiopulmonary disease * Could be exacerbated from the flu * Home O2 assessment. * Continue to trend symptoms (3) Elevated LFTs: Code(s): R79.89 - Other specified abnormal findings of blood chemistry Status: Acute Assessment and Plan: * AST/ALT all WNL today. * Hep panel negative, no indication for imaging at this time. * No nausea/vomiting/diarrhea/ abd. pain. (4) Hypertension: Qualifiers: Hypertension type: unspecified Qualified Code(s): I10 - Essential (primary) hypertension Code(s): I10 - Essential (primary) hypertension Status: Acute Assessment and Plan: * Patient has been hypotensive today at 97/62 and 96/61. * We will hold her BP meds at this time until we assess cause of her hypotension. * IV fluid resuscitation. * Continue to trend. (5) Chronic steroid use: Status: Acute Assessment and Plan: * Patient has new hypotension today, and endorses continued poor appetite, no new GI symptoms, and with mild hyponatremia at 135 (improved from yesterday). * Restart home Prednisone 10mg, which she has been taking daily since June 2021. This was held upon admission for initiating her methylprednisolone, however, there is some concern of adrenal insufficiency with her new hypotension. * IV fluid resuscitation. * Will test AM cortisol for workup of adrenal insufficiency. (6) Hypothyroidism: Code(s): E03.9 - Hypothyroidism, unspecified Status: Acute Assessment and Plan: * Continue levothyroxine at current dose. * TSH low at was <0.015, as was T3, however, T4 was therapeutic. * Will advise patient to recheck TSH/T4/T3 in 6 weeks with primary care. (7) Obstructive sleep apnea: Code(s): G47.33 - Obstructive sleep apnea (adult) (pediatric) Status: Acute Assessment and Plan: Patient endorses diagnosis of NICOLA, however she is not treating it with CPAP, as she was not using her CPAP frequently enough and the company took it back. She does wake up gasping for breath at night, and recognizes that she stops breathing. * Start CPAP here in hospital tonight. (8) DVT prophylaxis: Code(s): Z29.9 - Encounter for prophylactic measures, unspecified Status: Acute Assessment and Plan: Lovenox. Discussed with patient. Subjective Date/time seen: 12/31/21 13:43 56-year-old female with history of COPD, c
--- NOTE | 2021-12-31 13:43 | PM.IMPN ---
Progress Note: A&P Assessment and Plan (1) Influenza A: Code(s): J10.1 - Influenza due to other identified influenza virus with other respiratory manifestations Status: Acute Assessment and Plan: Influenza A positive Mildly elevated WBC at 11.5 today up from 5.0 yesterday. Reports about 1 week since symptom onset. No indication for Tamiflu, continue supportive care. (2) COPD exacerbation: Code(s): J44.1 - Chronic obstructive pulmonary disease with (acute) exacerbation Status: Acute Assessment and Plan: Patient has history of severe, poorly controlled COPD, per pulmonology. Reports SOB with activity such as showering today, without sputum changes 94% O2 on room air currently. Continue neb treatments, change to home inhalers upon discharge. Continue Methylprednisolone 60mg IV Q6hr; has received 2 days of therapy thus far. Will transition to PO prednisone 40mg daily upon discharge. Continue to hold home prednisone. Chest x-ray shows no acute cardiopulmonary disease Could be exacerbated from the flu Home O2 assessment. Continue to trend symptoms (3) Elevated LFTs: Code(s): R79.89 - Other specified abnormal findings of blood chemistry Status: Acute Assessment and Plan: AST/ALT all WNL today. Hep panel negative, no indication for imaging at this time. No nausea/vomiting/diarrhea/ abd. pain. (4) Hypertension: Qualifiers: Hypertension type: unspecified Qualified Code(s): I10 - Essential (primary) hypertension Code(s): I10 - Essential (primary) hypertension Status: Acute Assessment and Plan: Patient has been hypotensive today at 97/62 and 96/61. We will hold her BP meds at this time until we assess cause of her hypotension. IV fluid resuscitation. Continue to trend. (5) Chronic steroid use: Status: Acute Assessment and Plan: Patient has new hypotension today, and endorses continued poor appetite, no new GI symptoms, and with mild hyponatremia at 135 (improved from yesterday). Restart home Prednisone 10mg, which she has been taking daily since June 2021. This was held upon admission for initiating her methylprednisolone, however, there is some concern of adrenal insufficiency with her new hypotension. IV fluid resuscitation. Will test AM cortisol for workup of adrenal insufficiency. (6) Hypothyroidism: Code(s): E03.9 - Hypothyroidism, unspecified Status: Acute Assessment and Plan: Continue levothyroxine at current dose. TSH low at was <0.015, as was T3, however, T4 was therapeutic. Will advise patient to recheck TSH/T4/T3 in 6 weeks with primary care. (7) Obstructive sleep apnea: Code(s): G47.33 - Obstructive sleep apnea (adult) (pediatric) Status: Acute Assessment and Plan: Patient endorses diagnosis of NICOLA, however she is not treating it with CPAP, as she was not using her CPAP frequently enough and the company took it back. She does wake up gasping for breath at night, and recognizes that she stops breathing. [facility]. (8) DVT prophylaxis: Code(s): Z29.9 - Encounter for prophylactic measures, unspecified Status: Acute Assessment and Plan: Lovenox. Discussed with patient. Subjective Date/time seen: 12/31/21 13:43 56-year-old female with history of COPD, coronary artery disease, hypertension, hypothyroidism, substance use disorder, and untreated sleep apnea currently admitted to our care for treatment of influenza A and COPD exacerbation. She has been taking 10 mg of prednisone daily since June 2021, as prescribed by her primary care provider. She reports some improvement in her dizziness. She endorses continued shortness of breath with activities such as showering, decreased appetite. She denies chest pain, fevers, chills, shortness a breath at
--- NOTE | 2021-12-31 14:02 | PC.NURSE ---
On 12/31/21, the studenst, [Tamara Finley, Flip Rubi], provided care and completed [employer]ohob[employer] documentation on this patient. I have reviewed the students' documentation and agree with the findings.
--- NOTE | 2021-12-31 16:11 | HOMEO2EVAL ---
Evaluation was performed at [facility] Home Oxygen Evaluation RC: Home Oxygen (O2) Evaluation Start: 12/31/21 15:09 Freq: ONCE Status: Active Protocol: RPE Activity Type Activity Date Activity User E-Sign Co-Sign Detail Recorded Client Recorded Date Recorded By Document 12/31/21 15:50 DJO [email or web address] 12/31/21 16:10 DJO Document 12/31/21 15:55 DJO [email or web address] 12/31/21 16:10 DJO Document 12/31/21 16:05 DJO [email or web address] 12/31/21 16:10 DJO 12/31/21 12/31/21 12/31/21 15:50 15:55 16:05 Home O2 Evaluation Test Phase Resting Exercise Resting Oxygen Delivery Room Air Room Air Room Air Pulse Oximetry (90-100 %) 95 90 95 Pulse Rate (60-100 beats/min) 75 98 79 Treatment Charges O2 Evaluation - Inpatient
--- NOTE | 2021-12-31 16:12 | PCRCNOTE ---
HOME O2 EVAL COMPLETE, NO REQUIREMENTS
[2021-12-31] MEDS: diphenhydrAMINE HCl CAP 25 MG CAPSULE PO (21:21)
[2022-01-01] VITALS (19 sets, daily range): BP systolic 109–148; BP diastolic 68–78; PULSE 61–82; RESP 16–18; TEMP 36.5–36.8; O2SAT 94–96
[2022-01-01] MEDS: ALBUTEROL SULFATE NEB 2.5 MG/0.5 ML INH 5 MG INHALATION ×4 (02:15→20:05)
[2022-01-01] MEDS: IPRATROPIUM BR 0.02% INH SOLN 0.5 MG/2.5 ML VIAL INHALATION ×4 (02:30→20:05)
[2022-01-01] MEDS: LEVOTHYROXINE SODIUM 112 MCG TABLET PO (06:25)
[2022-01-01 08:29] LABS: Basophils Percent Auto 0.1 % (0.2-1.2); Hemoglobin 14.6 g/dL (12.0-15.0); Immature Granulocyte Absolute 0.03 K/mm3 (0.00-0.031); Immature Granulocyte Percent A 0.3 % (0-0.5); Lymphocytes Absolute Auto 1.35 K/mm3 (0.9-3.2); Lymphocytes Percent Auto 14.8 % (18.3-44.2); Mean Corpuscular HGB Conc 32.4 g/dl (32-36); Mean Corpuscular Hemoglobin 31.5 pg (26-34); Mean Platelet Volume 11.8 fl (7.4-10.4); Monocytes Absolute Auto 0.4 K/mm3 (0.1-0.6); Monocytes Percent Auto 4.1 % (2.6-8.5); Neutrophils Absolute Auto 7.4 K/mm3 (1.3-6.7); Neutrophils Percent Auto 80.7 % (45.5-73.1); Platelet Count Result 186 k/mm3 (150-375); Red Blood Count 4.64 M/mm3 (4.2-5.4); Red Cell Distribution Width 14.3 % (11.5-14.5); White Blood Count 9.1 K/mm3 (4.5-10.0)
[2022-01-01 08:33] LABS: Alanine Aminotransferase 28 U/L (4-35); Albumin Level 4.3 g/dL (3.5-5.1); Alkaline Phosphatase 57 U/L (38-126); Anion Gap 7 mmol/L (8-16); Aspartate Amino Transferase 32 U/L (14-36); Bilirubin,Total 0.3 mg/dL (0.2-1.3); Blood Urea Nitrogen 21 mg/dL (7-17); Calcium 8.8 mg/dL (8.4-10.2); Carbon Dioxide 29 mmol/L (22-30); Chloride 100 mmol/L (98-107); Estimated CRCL calculation 52 ml/min; Estimated Glomerular Filt Rate 57; Glucose 134 mg/dL (65-110); Potassium 3.7 mmol/L (3.4-5.0); Sodium 136 mmol/L (137-145)
[2022-01-01] MEDS: ENOXAPARIN 40 MG/0.4 ML SYRINGE SUB-Q (08:59)
[2022-01-01] MEDS: FOLIC ACID 0.4 MG TABLET PO (08:59)
[2022-01-01] MEDS: PANTOPRAZOLE 40 MG TABLET PO ×2 (08:59→19:49)
[2022-01-01] MEDS: ASPIRIN 81 MG ENTERIC TABLET PO (09:00)
[2022-01-01] MEDS: predniSONE 20 MG TABLET 40 MG PO (09:01)
[2022-01-01 09:04] LABS: Cortisol Baseline 1.14 ug/dL
--- NOTE | 2022-01-01 16:14 | PM.IMPN ---
Progress Note: A&P Assessment and Plan (1) Influenza A: Code(s): J10.1 - Influenza due to other identified influenza virus with other respiratory manifestations <Susan Carolina PA-C - Last Filed: 01/01/22 16:47> Status: Acute <Susan Michelle RODGER Carolina - Last Filed: 01/01/22 16:47> Assessment and Plan: Influenza A positive, currently responding well with supportive therapy. She has no supplemental oxygen requirements and has been saturating well today. WBC has normalized today. She reports no fevers or chills and overall improvement. Continue to provide supportive care Monitor vital signs. <Susan Carolina PA-C - Last Filed: 01/01/22 16:47> (2) COPD exacerbation: Code(s): J44.1 - Chronic obstructive pulmonary disease with (acute) exacerbation <Susan Carolina PA-C - Last Filed: 01/01/22 16:47> Status: Acute <Susan [place] PA-C - Last Filed: 01/01/22 16:47> Assessment and Plan: Patient has history of severe, poorly controlled COPD, per pulmonology. No new shortness of breath, aside from with activity, no sputum changes today. 96% O2 on room air currently. Continue neb treatments, change to home inhalers upon discharge. Transitioned to PO prednisone 40mg today. Continue to hold home prednisone. Home O2 assessment showed no oxygen requirements. Patient is clinically improving, breathing well, tolerating her therapy. Likely d/c tomorrow with home course of prednisone for a total of 5 days. Continue to trend symptoms Monitor vitals continue prednisone PO in the AM Albuterol/ ipratropium bromide Q6 hrs. 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 <Susan [place] PA-C - Last Filed: 01/01/22 16:47> (3) Elevated LFTs: Code(s): R79.89 - Other specified abnormal findings of blood chemistry <Susan [place] PA-C - Last Filed: 01/01/22 16:47> Status: Acute <Susan [place] PA-C - Last Filed: 04/15/22 16:47> Assessment and Plan: AST/ALT all WNL today. Hep panel negative, no indication for imaging at this time. <SHELLY KumarElle - Last Filed: 01/01/22 16:47> (4) Hypertension: Qualifiers: Hypertension type: unspecified Qualified Code(s): I10 - Essential (primary) hypertension <Susan [place] PA-C - Last Filed: 01/01/22 16:47> Code(s): I10 - Essential (primary) hypertension <YESSICA KumarFaithElle - Last Filed: 01/01/22 16:47> Status: Acute <Susan [place] PA-C - Last Filed: 01/01/22 16:47> Assessment and Plan: Patient's hypotension has resolved, and we will resume her home medications in the AM. She was unable to receive IV fluid resuscitation as her IVs continued to blow. Continue to trend BPs with antihypertensives back on board. <Susan [place] PA-C - Last Filed: 01/01/22 16:47> (5) Chronic steroid use: Status: Acute <Susan [place] PA-C - Last Filed: 01/01/22 16:47> Assessment and Plan: Prednisone 10mg, which she has been taking daily since June 2021 was held upon admission for initiating her methylprednisolone. Patient's hypotension has resolved, AM cortisol showed low levels. Her sodium has continued to improve from yesterday. We have transitioned her to 40mg prednisone daily for her COPD flair. Will advise she continue her 10mg of prednisone after completing her course of 40mg prednisone and follow up with her primary. <Susan VargasixSHELLYElle - Last Filed: 01/01/22 16:47> (6) Hypothyroidism: Code(s): E03.9 - Hypothyroidism, unspecified <Susan Carolina RODGER - Last Filed: 01/01/22 16:47> Status: Acute <Susan VargasixRODGER - Last Filed: 01/01/22 16:47> Assessment and Plan: TSH low at was <0.015, as was T3, however, T4 was therapeutic. Gopi
[2022-01-01] MEDS: LIDOCAINE 5% PATCH 1 PATCH TRANSDERM (19:48)
[2022-01-01] MEDS: ACETAMINOPHEN 325 MG TABLET 650 MG PO (19:52)
[2022-01-01] MEDS: diphenhydrAMINE HCl CAP 25 MG CAPSULE PO (19:53)
[2022-01-02] VITALS (10 sets, daily range): BP systolic 106–132; BP diastolic 68–78; PULSE 62–95; RESP 16–18; TEMP 36.4; O2SAT 93
[2022-01-02] MEDS: IPRATROPIUM BR 0.02% INH SOLN 0.5 MG/2.5 ML VIAL INHALATION ×2 (03:20→09:04)
[2022-01-02] MEDS: ALBUTEROL SULFATE NEB 2.5 MG/0.5 ML INH 5 MG INHALATION ×2 (03:20→09:04)
[2022-01-02] MEDS: LEVOTHYROXINE SODIUM 112 MCG TABLET PO (06:15)
--- NOTE | 2022-01-02 08:15 | PM.DS ---
DS: Admitting Diagnosis Discharge Date 01/02/22 0900 Admitting Diagnosis Shortness of Breath DS: Discharge Diagnosis Discharge Diagnosis (1) Influenza A: Code(s): J10.1 - Influenza due to other identified influenza virus with other respiratory manifestations Status: Acute Assessment and Plan: Influenza A positive, currently responding well with supportive therapy. She has no supplemental oxygen requirements and has been saturating well today. WBC has normalized. She reports no fevers or chills and overall improvement. Continue supportive care at home Drink plenty of fluids and get plenty of rest. Avoid large gatherings, as you may still be contageous. (2) COPD exacerbation: Code(s): J44.1 - Chronic obstructive pulmonary disease with (acute) exacerbation Status: Acute Assessment and Plan: Patient has history of severe, poorly controlled COPD, per pulmonology. No new shortness of breath, aside from with activity, no sputum changes today. 96% O2 on room air currently. Continue neb treatments, change to home inhalers upon discharge. Transitioned to PO prednisone 40mg today. Continue to hold home prednisone. Home O2 assessment showed no oxygen requirements at rest or with activity. Patient is clinically improving, breathing well, tolerating her therapy. Monitor your own oxygen at home. Continue prednisone oral prednisone 40mg for 4 additional days (including today's dose). Continue home inhaler therapy for COPD. Follow up with your primary care provider in 2 weeks. Ordered testing for chlamydia pneumonia/histoplasma (sheron borne-diseases), and will follow up with these results. (3) Elevated LFTs: Code(s): R79.89 - Other specified abnormal findings of blood chemistry Status: Acute Assessment and Plan: AST/ALT all within normal limits. Hep panel negative, no indication for imaging at this time. (4) Hypertension: Qualifiers: Hypertension type: unspecified Qualified Code(s): I10 - Essential (primary) hypertension Code(s): I10 - Essential (primary) hypertension Status: Acute Assessment and Plan: Patient's hypotension has resolved, and we have resumed her home medications. Repeat BP this AM was 115/78 after home medications. Continue to monitor your home blood pressures and provide this information to your primary care provider during follow up. Over the counter home blood pressure cuffs are available at most drug stores. (5) Chronic steroid use: Status: Acute Assessment and Plan: Prednisone 10mg, which she has been taking daily since June 2021 was held upon admission for initiating her methylprednisolone. We have transitioned her to 40mg prednisone daily for her COPD flair. Continue your 10mg of prednisone after completing your course of 40mg prednisone for your COPD flair. Follow up in 2 weeks with your primary care regarding your 10mg prednisone prescription. It is important not to stop your prednisone suddenly, and to taper as advised by your primary care provider. (6) Hypothyroidism: Code(s): E03.9 - Hypothyroidism, unspecified Status: Acute Assessment and Plan: TSH low at was <0.015, as was T3, however, T4 was therapeutic. Will advise patient to recheck TSH/T4/T3 in 6 weeks with primary care. Continue home levothyroxine upon discharge. (7) Obstructive sleep apnea: Code(s): G47.33 - Obstructive sleep apnea (adult) (pediatric) Status: Acute Assessment and Plan: Patient endorses diagnosis of NICOLA, however she is not treating it with CPAP, as she was not using her CPAP frequently enough and the company took it back. She does wake up gasping for breath at night, and recognizes that she stops breathing. During primary care follow up, request to restart the CPAP requisition process, as CPAP will be beneficial to your overall health.
[2022-01-02] MEDS: LOSARTAN POTASSIUM 100 MG TABLET PO (09:20)
[2022-01-02] MEDS: PANTOPRAZOLE 40 MG TABLET PO (09:20)
[2022-01-02] MEDS: hydroCHLOROthiazide 12.5 MG CAPSULE PO (09:20)
[2022-01-02] MEDS: amLODIPine BESYLATE 5 MG TABLET PO (09:20)
[2022-01-02] MEDS: ASPIRIN 81 MG ENTERIC TABLET PO (09:20)
[2022-01-02] MEDS: FOLIC ACID 0.4 MG TABLET PO (09:20)
[2022-01-02] MEDS: ENOXAPARIN 40 MG/0.4 ML SYRINGE SUB-Q (09:20)
[2022-01-02] MEDS: predniSONE 20 MG TABLET 40 MG PO (09:20)
--- NOTE | 2022-01-08 09:57 | PC.NURSE ---
Urine histoplasma Ag- WNL.
[2022-01-13 14:42] LABS: Chlamydia pneumoniae by PCR Not Detected
--- NOTE | 2022-01-20 09:41 | PC.NURSE ---
c pneumoniae is negative.
== END 2022-01-02 13:10 | disposition home or self-care (01) | DRG 194 ==
LOC: ANHED 15:25 → ANH2MED 15:39
PROVIDERS: Nurse Practitioner; Physician Assistant; Student in an Organized Health Care Education/Training Program; Admitting Provider Internal Medicine; Emergency Provider Emergency Medicine; PCP Internal Medicine; Visit Provider Internal Medicine
DX: J10.1 Influenza due to other identified influenza virus with other respiratory manifestations (principal); J44.1 Chronic obstructive pulmonary disease with (acute) exacerbation; R79.89 Other specified abnormal findings of blood chemistry; Z20.822 Contact with and (suspected) exposure to COVID-19; E03.9 Hypothyroidism, unspecified; I11.0 Hypertensive heart disease with heart failure; I50.9 Heart failure, unspecified; Z87.891 Personal history of nicotine dependence; Z82.49 Family history of ischemic heart disease and other diseases of the circulatory system; Z82.3 Family history of stroke; Z82.5 Family history of asthma and other chronic lower respiratory diseases; Z95.5 Presence of coronary angioplasty implant and graft; K21.9 Gastro-esophageal reflux disease without esophagitis; F41.9 Anxiety disorder, unspecified; Z85.41 Personal history of malignant neoplasm of cervix uteri; Z85.72 Personal history of non-Hodgkin lymphomas; G47.33 Obstructive sleep apnea (adult) (pediatric); Z79.51 Long term (current) use of inhaled steroids; Z79.899 Other long term (current) drug therapy; G89.4 Chronic pain syndrome; Z79.82 Long term (current) use of aspirin
CPT/HCPCS: 36415; 36600; 71046; 80053; 80074; 82375; 82533; 82805; 83050; 83605; 83735; 83880; 84439; 84443; 84480; 84484; 85025; 85027; 85610; 85730; 87040; 87385; 87486; 87502; 93005; 94618; 94640; 96365; 96367; 96372; 96375; 96376; 99285; A9270; C9803; G0378; J0131; J1650; J1956; J2930; J7512; U0003; U0005

== ENCOUNTER 2022-01-18 14:19 | Outpatient (CLI) | payer MEDICARE, MEDICAID, SELFPAY ==
--- NOTE | ~2022-01-18 | XR_ITS ---
EXAMINATION: XR chest 2V Exam Date/Time: 01/18/2022 14:31 CDT CLINICAL HISTORY: R05.9 - Cough, unspecified Comparison: 12/29/21. RESULT: Lines, tubes, and devices: None. Lungs and pleura: Clear. Cardiomediastinal silhouette: Stable cardiomediastinal silhouette. Other: No acute osseous or upper abdominal finding. IMPRESSION: No acute cardiopulmonary process Reviewed, dictated and finalized at location K.
== END 2022-01-18 14:20 | disposition home or self-care (01) ==
LOC: ANHIMG 14:26
PROVIDERS: PCP Internal Medicine; Visit Provider Nurse Practitioner
DX: R05.9 Cough, unspecified (principal); J44.1 Chronic obstructive pulmonary disease with (acute) exacerbation
CPT/HCPCS: 71046

== ENCOUNTER 2022-03-23 14:04 | Outpatient (CLI) | payer MEDICARE, MEDICAID, SELFPAY ==
[2022-03-23 14:45] LABS: Basophils Absolute Auto 0.1 K/mm3 (0.0-0.1); Basophils Percent Auto 0.5 % (0.2-1.2); Eosinophils Percent Auto 0.2 % (0-4.4); Hematocrit 39.1 % (37.0-47.0); Hemoglobin 12.7 g/dL (12.0-15.0); Immature Granulocyte Absolute 0.07 K/mm3 (0.00-0.031); Immature Granulocyte Percent A 0.8 % (0-0.5); Lymphocytes Absolute Auto 0.95 K/mm3 (0.9-3.2); Lymphocytes Percent Auto 10.3 % (18.3-44.2); Mean Corpuscular HGB Conc 32.5 g/dl (32-36); Mean Corpuscular Hemoglobin 31.5 pg (26-34); Mean Platelet Volume 11.4 fl (7.4-10.4); Monocytes Absolute Auto 0.5 K/mm3 (0.1-0.6); Monocytes Percent Auto 5.7 % (2.6-8.5); Neutrophils Absolute Auto 7.6 K/mm3 (1.3-6.7); Neutrophils Percent Auto 82.5 % (45.5-73.1); Platelet Count Result 286 k/mm3 (150-375); Red Blood Count 4.03 M/mm3 (4.2-5.4); Red Cell Distribution Width 13.9 % (11.5-14.5); White Blood Count 9.2 K/mm3 (4.5-10.0)
[2022-03-23 15:56] LABS: Thyroid Stimulating Hormone Reflex < 0.015 uIU/mL (0.465-4.68)
[2022-03-23 19:50] LABS: Total Triiodothyronine (T3) 1.21 NG/ML (0.97-1.69)
== END 2022-03-23 14:05 | disposition home or self-care (01) ==
PROVIDERS: Student in an Organized Health Care Education/Training Program; Visit Provider Internal Medicine Critical Care Medicine
DX: R23.3 Spontaneous ecchymoses (principal); E03.9 Hypothyroidism, unspecified
CPT/HCPCS: 36415; 84439; 84443; 84480; 85025

== ENCOUNTER 2022-04-12 13:35 | Outpatient (CLI) | payer MEDICARE, MEDICAID, SELFPAY ==
--- NOTE | ~2022-04-12 | CT_ITS ---
EXAMINATION: CT lung screening DATE: 04/12/2022 14:30 INDICATION: Personal history of tobacco dependence. TECHNIQUE: Computed tomography (CT) of the chest was performed without intravenous contrast. The dose -length product was 73.35 mGy-cm. Automated exposure control and iterative reconstruction technique w ere employed. COMPARISON: CT dated 02/20/2021 FINDINGS: Heart size is normal. No significant pleural or pericardial effusion. The liver, spleen, pa ncreas, adrenal glands are unremarkable. No thoracic lymphadenopathy. There is mild atherosclerosis o f the aorta. There is emphysema. No endobronchial lesions. There is a 3 mm right middle lobe nodule. There are small 2 mm nodules in the left lower lobe. Calcified granuloma right upper lobe. No endobro nchial lesions. No pneumothorax. Mild thoracic spondylosis. IMPRESSION: 1. Lung-RADS category 2: Benign appearance or behavior. Continue annual screening with noncontrast lo w-dose chest CT in 12 months. Reviewed, dictated and finalized at location A. IMPRESSION: 1. Lung-RADS category 2: Benign appearance or behavior. Continue annual screeni ng with noncontrast low-dose chest CT in 12 months.
== END 2022-04-12 13:36 | disposition home or self-care (01) ==
PROVIDERS: PCP Internal Medicine; Visit Provider Physician Assistant
DX: Z12.2 Encounter for screening for malignant neoplasm of respiratory organs (principal); Z87.891 Personal history of nicotine dependence
CPT/HCPCS: 71271

== ENCOUNTER 2022-06-07 12:55 | Outpatient (CLI) | payer MEDICARE, MEDICAID, SELFPAY ==
--- NOTE | 2022-06-07 14:39 | WPDPFTINT ---
PFT Procedure Performed PFT Procedure Performed Spirometry with Pre/Post Bronchodilator Plethysmography (Lung Vol) Diffusing Cap (DLCO) Flow Vol Loop PFT Interpretation This is a pulmonary function test with pre and post-bronchodilator spirometry, plethysmography and diffusing capacity. The test was performed and results interpreted in accordance with the 2019 and 2005 ATS/ERS Task Force guidelines respectively using the Global Lung Function Initiative-2012 reference equations. Patient demonstrated good effort and cooperation. The quality of the pre bronchodilator spirometry maneuver was Grade E (only 1 acceptable maneuver) and post bronchodilator spirometry maneuver was Grade B. Of note the testing was done to the best of the patient's ability. However the patient struggled to complete all trials due to shortness of breath and fatigue. Findings: Spirometry: There is decreased maximal expiratory airflow at all lung volumes with concave expiratory flow tracing. The contour the inspiratory flow tracing is normal. The pre bronchodilator FVC is 1.97 L, 63% predicted. The pre bronchodilator FEV1 is 1.06 L, 43% predicted. The pre bronchodilator FEV1: FVC ratio is 54%. The post bronchodilator FVC is 1.23 L, representing a 38% decrease. The post bronchodilator FEV1 is 0.87, representing and 19% decrease. The post bronchodilator FEV1: FVC ratio is 70%. Plethysmography: The total lung capacity is 5.53 L, 113% predicted. The functional residual capacity is 4.26 L, 155% predicted. The residual volume is 3.56 L, 189% predicted. Diffusing capacity: The diffusing capacity unadjusted for hemoglobin and carboxyhemoglobin is 8.8, 41% predicted. The diffusing capacity adjusted for alveolar volume is 3.00, 66% predicted. In comparison to previous pulmonary function tests on 04/29/2021 the pre bronchodilator FVC has decreased from 2.42 L to 1.97 L. The pre bronchodilator FEV1 is decreased from 1.33 L to 1.06 L. The total lung capacity is unchanged from 5.55 L to 5.53 L. The functional residual capacity has increased from 3.55 L to 4.26 L. The residual volume has increased from 3.03 L to 3.56 L. Diffusing capacity unadjusted for hemoglobin and carboxyhemoglobin has decreased from 11.3 to 8.8. The diffusing capacity adjusted for alveolar volume is unchanged from 2.97 to 3.00 Impression: This study was limited due to shortness of breath and fatigue with no reproducibility of the pre bronchodilator maneuver. Accordingly the interpretation of the study is limited. There is a severe obstructive abnormality without significant improvement after inhaling a single dose of albuterol. The increase in residual volume is consistent with air trapping from an obstructive abnormality. Hyperinflation is present as demonstrated by the increase in functional residual capacity and is consistent with an obstructive abnormality. The diffusing capacity unadjusted for hemoglobin and carboxyhemoglobin is moderately decreased and remains mildly decreased when adjusted for alveolar volume. In comparison to previous pulmonary function test on 04/29/2021 there has been a greater than anticipated time dependent decrease in the FVC, FEV1, and diffusing capacity unadjusted for hemoglobin and carboxyhemoglobin with a greater than anticipated time dependent increase in functional residual capacity and no significant change in the total lung capacity and diffusing capacity adjusted for alveolar volume. Clinical correlation is recommended.
--- NOTE | 2022-06-07 15:06 | WPDSIXMINUTE ---
Six Minute Walk Procedure Procedure Performed Pulmonary Stress Test (6 min walk) Six Minute Walk Six Minute Walk: This is a 6 minute walk test. The test was performed and interpreted in accordance with the 2014 ERS/ATS task force guidelines. Findings: The patient's resting room air oxygen saturation measured by pulse oximetry was 95% and heart rate was 97 bpm. Patient ambulated for 396 meters and oxygen saturation remained 93 to 98%. Heart rate at the end of the study was 119 bpm. The patient did not qualify for supplemental oxygen at rest or with ambulation. There are no prior studies for comparison.
== END 2022-06-07 12:56 | disposition home or self-care (01) ==
LOC: ANHPFT 12:57
PROVIDERS: PCP Internal Medicine; Visit Provider Physician Assistant
DX: R06.02 Shortness of breath (principal); J44.9 Chronic obstructive pulmonary disease, unspecified
CPT/HCPCS: 94060; 94618; 94726; 94729

== ENCOUNTER → 2022-11-03 10:32 | Outpatient (CLI) | payer MEDICARE, MEDICAID, SELFPAY ==
--- NOTE | ~2022-11-03 | MR_ITS ---
EXAMINATION: MR cervical spine wo con DATE: 11/03/2022 11:14 INDICATION: Cervical stenosis. TECHNIQUE: Magnetic resonance imaging (MRI) of the cervical spine was performed without intravenous c ontrast. Sequences included sagittal T2-weighted FSE, sagittal T2-weighted FS FSE, sagittal T1-weight ed FSE, axial MERGE, and axial T2-weighted FSE. COMPARISON: Cervical spine radiographs 08/24/2021 FINDINGS: There is 10 degrees dextroscoliosis of cervicothoracic spine. There is 2 mm anterolisthesis of C3 on C4 and 2 mm retrolisthesis of C5 on C6. T3 is a butterfly segment. There is mildly decrease d disc height at C3-C4 and severely decreased disc height at C5-C6. The spinal cord signal intensity is normal. The following disc levels are specifically discussed: C2-C3: The disc does not extend beyond the endplate margin. There is mild left uncovertebral joint os teoarthritis. There is mild bilateral facet joint osteoarthritis. There is no neural foraminal stenos is. There is no central canal stenosis. C3-C4: There is a central extrusion. There is mild bilateral uncovertebral joint osteoarthritis. Ther e is moderate bilateral facet joint osteoarthritis. There is mild bilateral neural foraminal stenosis . There is moderate central canal stenosis with ventral and dorsal indentation of the spinal cord. C4-C5: There is a central protrusion. There is severe left uncovertebral joint osteoarthritis. There is mild right and severe left facet joint osteoarthritis. There is moderate left neural foraminal bert nosis. There is mild central canal stenosis. C5-C6: The disc is bulging. There is severe bilateral uncovertebral joint osteoarthritis. There is mi ld bilateral facet joint osteoarthritis. There is mild right and severe left neural foraminal stenosi s. There is moderate central canal stenosis with ventral and dorsal indentation of the spinal cord. C6-C7: There is a central protrusion. There is mild bilateral uncovertebral joint osteoarthritis. The re is mild right and severe left facet joint osteoarthritis. There is mild bilateral neural foraminal stenosis. There is mild central canal stenosis. C7-T1: The disc does not extend beyond the endplate margin. There is no uncovertebral joint osteoarth ritis. There is mild bilateral facet joint osteoarthritis. There is no neural foraminal stenosis. The re is no central canal stenosis. IMPRESSION: 1. Severe cervical spondylosis. 2. Cervical thoracic dextroscoliosis. Reviewed, dictated and finalized at location A. [employer]
== END ==
PROVIDERS: PCP Physician Assistant; Visit Provider Family Medicine
DX: M48.02 Spinal stenosis, cervical region (principal); M47.892 Other spondylosis, cervical region
CPT/HCPCS: 72141

== ENCOUNTER 2023-11-30 10:23 | Outpatient (CLI) | payer MEDICARE, MEDICAID, SELFPAY ==
--- NOTE | ~2023-11-30 | CT_ITS ---
CT Scan of the Chest without Contrast: Clinical Indication: Lung cancer screening, personal history of nicotine dependence Technique: Contiguous sections were acquired throughout the chest without intravenous contrast. Dose reduction technique was used on this scan by utilizing automated exposure control and iterative recon struction technique. The dose-length product (DLP) was 69.16 mGy-cm. COMPARISON: 04/12/2022 Findings: There is no evidence of any significant mediastinal, hilar or axillary lymphadenopathy. The mediastin al soft tissues appear normal. There is no evidence of pleural or pericardial effusion. Stable 3 mm perifissural nodule in the right lung (axial image 84). Mild emphysema present. Images through the upper abdomen reveal no abnormalities. Impression: Lung RADS 2: Benign appearance. 12 month follow-up screening CT advised. Reviewed, dictated and finalized at [facility]. Impression: Lung RADS 2: Benign appearance. 12 month follow-up screening CT advised.
== END 2023-11-30 10:24 | disposition home or self-care (01) ==
LOC: ANHIMG 10:23
PROVIDERS: Visit Provider Internal Medicine Critical Care Medicine
DX: Z12.2 Encounter for screening for malignant neoplasm of respiratory organs (principal); Z87.891 Personal history of nicotine dependence
CPT/HCPCS: 71271

== ENCOUNTER 2024-06-09 10:37 | Outpatient (CLI) | payer MEDICARE, MEDICAID, SELFPAY ==
--- NOTE | ~2024-06-09 | MR_ITS ---
EXAMINATION: MR brain/brain stem wo/w con DATE: 06/09/2024 11:33 INDICATION: Transient ischemic attack. Dysphagia. TECHNIQUE: Magnetic resonance imaging (MRI) of the brain and brainstem was performed without and with 11 mL MultiHance intravenous contrast. COMPARISON: None. FINDINGS: There are scattered areas of nonspecific increased T2-weighted signal intensity in the cere bral white matter, which is within normal limits for the patient's age. There is no intracranial hemo rrhage, acute infarction, or abnormal intracranial mass lesion. The ventricles are normal in size. Th ere is mucosal thickening in the paranasal sinuses. There are likely changes of ocular lens replaceme nt surgeries. The mastoid air cells are normal. IMPRESSION: 1. Normal aging brain. Reviewed, dictated and finalized at location A. IMPRESSION: 1. Normal aging brain.
== END 2024-06-09 10:38 | disposition home or self-care (01) ==
PROVIDERS: PCP Physician Assistant Medical; Visit Provider Internal Medicine Critical Care Medicine
DX: R29.898 Other symptoms and signs involving the musculoskeletal system (principal); G45.8 Other transient cerebral ischemic attacks and related syndromes
CPT/HCPCS: 70553; A9577

== ENCOUNTER 2024-10-19 08:35 | Outpatient (CLI) | payer MEDICARE, MEDICAID, SELFPAY ==
--- NOTE | ~2024-10-19 | MM_ITS ---
EXAMINATION: MM screening danuta BI w claudy HISTORY: Screening TECHNIQUE: Craniocaudal and mediolateral oblique 3-D tomosynthesis images were obtained and synthetic 2-D images were generated. CAD analysis was submitted and interpreted. COMPARISON: Comparison to multiple prior studies sequentially, with oldest reviewed study dated 05/2020. BREAST PARENCHYMAL COMPOSITION: There are scattered areas of fibroglandular density. FINDINGS: There is no evidence of suspicious mass, calcification, or architectural distortion to sugg est malignancy in either breast. There has been no suspicious interval change. IMPRESSION: 1. No mammographic evidence of malignancy. 2. Recommend routine screening mammography in one year. BI-RADS Category 1: Negative Reviewed, dictated and finalized at location A. SUPERINTENDENT
--- OUTSIDE RECORDS SUMMARY | 2024-10-19 08:51 | XMS_ITS | Patient Health Summary ---
Author Organization [facility] Address [address] [place] [address] Care Team Providers Care Technical Cable Jointer Name Role Phone Yunier Rodriguez APRN-PROPERTY UTILIZATION OFFICER Primary Care Provider Note from [facility],non-owned Affiliates and Associated Physician Practices is amultiple site organization consisting of ambulatory clinics and hospital sitesin [place], [place], [place] and [place]. This disclosure is being madepursuant to the Care Everywhere program and may not contain all information available regarding this patient. Last updated 18.[facility] Allergies * Aspirin(Bleeding) -High Criticality * Ciprofloxacin(Rash) -Medium Criticality * Contrast-Iodinated Agents For Ct/Other(Rash) -Medium Criticality * Penicillins * Propoxyphene(GI Discomfort) * Tetanus Toxoid(Swelling) -High Criticality * Tetanus Immune Globulin(Swelling),Inactive Medications * Be aware that medications may not be up to date on this document. Alwaysverify current medications with the patient. * Nutritional Supplements (ESTROVEN PO) * norethindrone (AYGESTIN) 5 MG tablet(Started 01/05/2021) 1 tablet at bedtime * levothyroxine (SYNTHROID) 112 MCG tablet(Started 01/05/2021) 1 tablet at bedtime * guanFACINE (TENEX) 2 MG tablet(Started 06/24/2020) guanfacine 2 mg tablet TK 1 T PO HS PRN * estradiol (ESTRACE) 1 MG tablet(Started 06/27/2020) 1 tablet at bedtime * SYMBICORT 160-4.5 MCG/ACT inhaler(Started 12/05/2020) 2 puffs every morning * VENTOLIN HFA 108 (90 Base) MCG/ACT inhaler(Started 12/05/2020) 2 puffs every morning * omeprazole EC (PRILOSEC OTC) 20 MG tablet Take 1 tablet by mouth every morning * ibuprofen (MOTRIN) 200 MG tablet Take 400 mg by mouth 2 times daily * furosemide (LASIX) 40 MG tablet(Started 03/16/2021) * methocarbamol (ROBAXIN) 500 MG tablet(Started 03/06/2021) Take 500 mg by mouth 4 times daily as needed For pain. * potassium chloride ER (KLOR-CON) 10 MEQ tablet(Started 03/16/2021) * gabapentin (NEURONTIN) 300 MG capsule(Started 04/06/2021) 3 times daily * losartan (COZAAR) 50 MG tablet(Started 06/25/2021) Take 50 mg by mouth once daily * phenytoin ER (DILANTIN) 100 MG capsule(Started 07/07/2021) Take 200 mg in am and 300 mg at night 5 refills by 07/07/2022 * levETIRAcetam (KEPPRA) 750 MG tablet(Started 07/07/2021) Take 1 (one) tablet by mouth 2 times daily 5 refills by 07/07/2022 Active Problems Problem Noted Date Diagnosed Date Herpes zoster 07/07/2021 Genital herpes simplex 07/07/2021 Pain of breast 07/07/2021 Malignant lymphoma 07/07/2021 Menopausal syndrome 07/07/2021 Opioid dependence 07/07/2021 Spasm of paraspinal muscle 07/07/2021 Non-Hodgkin lymphoma, unspec ified, extranodal and solid organ sites 05/27/2021 Localized edema 04/22/2021 Wheezing 04/22/2021 Orthopnea 04/02/2021 Shortness of breath 04/02/2021 Chronic obstructive pulmonary disease 04/02/2021 Paroxysmal nocturnal dyspnea 04/02/2021 Bilateral leg edema 04/02/2021 Seizure disorder 11/24/2020 Recurrent seizures 10/27/2020 Cellulitis of hand 09/22/2020 Pain in right arm 09/16/2020 Need for prophylactic vaccin ation against Streptococcus pneumoniae (pneumococcus) and influenza 06/13/2020 Lateral epicondylitis 05/27/2020 Arthralgia of right elbow 05/16/2020 Parotitis 05/16/2020 Injury of elbow 01/22/2020 Allergic rhinitis 12/05/2019 Labyrinthitis 11/06/2019 Acute bronchitis 11/06/2019 Tobacco user 11/06/2019 Pain of right hip joint 10/23/2019 Skin eruption 10/23/2019 Renal pain 10/23/2019 Hyperlipidemia 09/26/2017 History of drug abuse 09/26/2017 Well adult health check 09/26/2017 Hypercholesterolemia 02/28/2015 Chest pain, non-cardiac 02/28/2015 Cardiovascular symptoms 02/28/2015 Primary hypertension 02/28/2015 Resolved Problems Problem Noted Date Diagnosed Date Resolved Date Acute sinusitis 10/23/2019 08/04/2021 Immunizations * Covid Pfizer primary monovalent 12+ yr 0.3mL Purple cap(Given 12/28/2020, 12/04/2020) * FLU VACCINE QUAD IIV4 SPLIT 0.25 ML IM(Given 07/10/2020, 07/16/2019) * INFLUENZA VACCINE(Given 05/07/2017) * Pneumococcal Pcv13 Conj(Given 06/13/2020) Social History Tobacco Use Types Packs/Day Years Used Date Smoking Tobacco: Former Cigarettes 1 46 0 02/11/1975 - 02/11/2021 Smokeless Tobacco: Never Tobacco Cessation:Counseling Given: Yes Alcohol Use Standard Drinks/Week Comments Yes 1 (1 standard drink = 0.6 oz pur e alcohol) Sex and Gender Information Value Date Recorded Sex Assigned at Not on file Gender Identity Not on file Sexual Orientation Not on file Last Filed Vital Signs Vital Sign Reading Time Taken Comments Blood Pressure 117/76 07/07/2021 1:24 PM CDT Pulse 100 07/07/2021 1:24 PM CDT Temperature 36.3 ??C (97.3 ??F) 07/07/2021 1:24 PM CD T Respiratory Rate 14 04/03/2021 8:09 AM CDT Oxygen Saturation 97% 07/07/2021 1:24 PM CDT Inhaled Oxygen Concentration - - Weight 77.2 kg (170 lb 3.2 oz) 07/07/2021 1:24 P M CDT Height 160 cm (5' 3 ) 07/07/2021 1:24 PM CDT Body Mass Index 30.15 07/07/2021 1:24 PM CDT Procedures * EEG(Performed 12/21/2021) * NV POLYSOM 6/> YRS 4/> KATY(Performed 04/08/2021) Performed for NICOLA (obstructive sleep apnea) * CARDIAC EKG ORDER(Performed 04/03/2021) * BASIC METABOLIC PANEL (CALCIUM TOTAL)(Performed 04/03/2021) Performed for Shortness of breath * LACTIC ACID BLOOD(Performed 04/03/2021) Performed for Shortness of breath * ECHO COMPLETE(Performed 04/03/2021) Performed for Shortness of breath, Chronic obstructive pulmonary disease, unspecified COPD type (HCC) * TRANSFERRIN(Performed 04/03/2021) Performed for Bilateral leg edema * FERRITIN(Performed 04/03/2021) Performed for Bilateral leg edema * IRON BLOOD(Performed 04/03/2021) Performed for Bilateral leg edema * PROCALCITONIN LEVEL(Performed 04/03/2021) Performed for Bilateral leg edema * SARS-COV-2 (COVID-19)+INFLU A+B PCR RAPID(Performed 04/03/2021) Performed for Shortness of breath, Chronic obstructive pulmonary disease, unspecified COPD type (HCC), Bilateral leg edema, Orthopnea, Paroxysmal nocturnal dyspnea * CBC W/O DIFFERENTIAL(Performed 04/03/2021) Performed for Shortness of breath * BASIC METABOLIC PANEL (CALCIUM TOTAL)(Performed 04/03/2021) Performed for Shortness of breath * TROPONIN I(Performed 04/02/2021) * LACTIC ACID BLOOD(Performed 04/02/2021) * B-TYPE NATRIURETIC PEPTIDE(Performed 04/02/2021) * TROPONIN I(Performed 04/02/2021) * LACTIC ACID BLOOD(Performed 04/02/2021) * XR CHEST 2VW(Performed 04/02/2021) Performed for Shortness of breath * LACTIC ACID BLOOD(Performed 04/02/2021) * CBC W AUTO DIFFERENTIAL(Performed 04/02/2021) * TROPONIN I(Performed 04/02/2021) * COMPREHENSIVE METABOLIC PANEL(Performed 04/02/2021) * EKG 12-LEAD(Performed 04/02/2021) Performed for Shortness of breath Results * EEG (12/21/2021) 12/21/2021 Narrative 12/21/2021 Ordered by an unspecified provider. Scanned Document NEUROLOGY ORDERABLES * NV POLYSOM 6/> YRS 4/> KATY (04/08/2021 10:23 AM CDT) Narrative Oscar Nickerson MD - 04/08/2021 10:23 AM CDT Oscar Nickerson MD ? 04/08/2021 10:55 AM [facility] Accredited by the [place] [employer] [facility], First Floor [address] [place] [address] Telephone : [phone] ? Medical Records Patient Name: ??Joan Chase : ??1965 Date of Study: ??04/07/2021 Referring Physician: ??ARPITA Rosario Type of Montage: ??Respiratory Scoring System: ??[facility] FULL NIGHT DIAGNOSTIC POLYSOMNOGRAM INTERPRETATION (04/07/2021) Procedure: The polysomnogram was performed with a electromechanical technologist in attendance. ??Central, occipital, and temporal EEG, EOG, submentalis, EMG, nasal thermistor, nasal pressure, thoracoabdominal motion, anterior tibialis EMG, snore sensor, and pulse oximetry were monitored. ??Sleep stages, periodic limb movements, and EEG arousals were scored in 30-second epochs according to the AASM Scoring Manual. ??Apnea-hypopnea index was calculated using the recommended definition of hypopnea for scoring events. ??Data acquisition, collection, and scoring have been validated and clinically correlated. Sleep History: Ms. Joan Chase, a 55 year old female, was referred to the Sleep Disorders Clinic by ARPITA Rosario for the evaluation of suspected obstructive sleep apnea (NICOLA). Current Outpatient Medications: ?estradiol (ESTRACE) 1 MG tablet, 1 tablet at bedtime, Disp: , Rfl: ?furosemide (LASIX) 40 MG tablet, , Disp: , Rfl: ?gabapentin (NEURONTIN) 300 MG capsule, 3 times daily, Disp: , Rfl: ?guanFACINE (TENEX) 2 MG tablet, guanfacine 2 mg tablet ??TK 1 T PO HS PRN, Disp: , Rfl: ?ibuprofen (MOTRIN) 200 MG tablet, Take 400 mg by mouth 2 times daily, Disp: , Rfl: ?levETIRAcetam (KEPPRA) 500 MG tablet, Take 1 (one) tablet by mouth 2 times daily, Disp: 60 tablet, Rfl: 5 ?levothyroxine (SYNTHROID) 112 MCG tablet, 1 tablet at bedtime, Disp: , Rfl: ?methocarbamol (ROBAXIN) 500 MG tablet, Take 500 mg by mouth 4 times daily as needed For pain., Disp: , Rfl: ?norethindrone (AYGESTIN) 5 MG tablet, 1 tablet at bedtime, Disp: , Rfl: ?Nutritional Supplements (ESTROVEN PO), , Disp: , Rfl: ?omeprazole EC (PRILOSEC OTC) 20 MG tablet, Take 1 tablet by mouth every morning, Disp: , Rfl: ?Phenytoin (DILANTIN PO), Take 500 mg by mouth at bedtime, Disp: , Rfl: ?potassium chloride ER (KLOR-CON) 10 MEQ tablet, , Disp: , Rfl: ?predniSONE (DELTASONE) 20 MG tablet, Take 20 mg by mouth once , Disp: , Rfl: ?promethazine-DM syrup, TAKE 5 ML BY MOUTH EVERY 4 HOURS FOR 10 DAYS NEEDED, Disp: , Rfl: ?SYMBICORT 160-4.5 MCG/ACT inhaler, 2 puffs every morning, Disp: , Rfl: ?VENTOLIN HFA 108 (90 Base) MCG/ACT inhaler, 2 puffs every morning, Disp: , Rfl: DIAGNOSTIC STUDY Sleep Architecture: During this diagnostic study, the patient was monitored from 10:15 pm to 4:46 am. The patient slept for 327 minutes and had normal sleep efficiency of 83.6%. ??The patient's initial sleep latency was reduced at 2 minutes. ??The initial REM latency was within normal limits at 90.5 minutes. The sleep architecture was as follows: ??stage N1: ??7.6%; stage N2: ??64.2%; stage N3: ??16.1%; stage REM: ??12.1%. Respiratory Analysis: The patient's overall apnea-hypopnea index (AHI) was within normal limits at 0 per hour while the respiratory effort-related arousal index was within normal limits at 4.6 per hour. The overall respiratory disturbance index (RDI) was 4.6 per hour. ?? The patient slept entirely in the supine position during the diagnostic study. The REM AHI was 0 per hour while the REM RERA index was 15.2 per hour. ??There were 0 obstructive apneas, 0 central apneas, 0 mixed apneas, 0 hypopneas, and 25 respiratory effort-related arousals (RERA). ??There was no evidence of periodic breathing. ?? Oximetry Data: The minimum oxygen saturation was within normal limits at 92% during REM sleep and within normal limits at 92% during non-REM sleep. ??The time spent with oxygen saturation less than 90% was 0 minutes of the total diagnostic sleep time. Snoring Profile: No snoring was detected during this study. Periodic Limb Movements: The patient's periodic limb movement index was within normal limits at 5 per hour. ?? EEG Profile: The patient's total arousal index was within normal limits at 12.7 per hour. ?? There was no epileptiform activity during sleep. Cardiac Profile: EKG showed normal sinus rhythm. ??No clinically significant arrhythmia was noted. Parasomnias: Bruxism episdoes and REM sleep without atonia were noted during this diagnostic study. IMPRESSION: 1. 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 Bruxism. RECOMMENDATIONS: 1. ??If patient has symptoms from REM-related UARS, consider CPAP or oral appliance therapy or, perhaps, even a REM-suppressing agent (e.g., SSRI) 2. ??Evaluate for possible REM sleep behavior disorder (RBD) 3. ??Suggest dental evaluation for bruxism Oscar Billy ??MD Liya, [facility], [facility], [facility] Chief Engineer Research, [facility] Professor of Internal Medicine Adjunct Department Secretary of Neurology Division of Pulmonary, Critical Care, and Sleep Medicine [facility] This note was electronically signed on 04/08/2021. CC: ??Yunier Rodriguez, SPRING COILER-PROPERTY UTILIZATION OFFICER [id number] [facility], ??[place] [address] Yunier Rodriguez SPRING COILER-PROPERTY UTILIZATION OFFICER Oscar Nickerson MD PROCEDURE/MINOR BENJAMIN GICAL ORDERABLES * CARDIAC EKG ORDER (04/03/2021 1:57 PM CDT) Narrative 04/03/2021 1:57 PM CDT Ordered by an unspecified provider. Scanned Document CARDIAC SERVICES ORD ERABLES * (ABNORMAL) BASIC METABOLIC PANEL (CALCIUM TOTAL) (04/03/2021 11:23 AM CDT) Only the most recent of2 resultswithin the time period is included. BUN 9 7 - 26 mg/dL 04/03/2021 12:02 PM [facility] Creatinine 1.08(H) 0.56 - 0.96 mg/dL 04/03/2021 12:02 PM [facility] Sodium 141 136 - 145 mmol/L 04/03/2021 12:02 PM [facility] Potassium 3.5 3.5 - 4.5 mmol/L 04/03/2021 12:02 PM [facility] Chloride 101 98 - 107 mmol/L 04/03/2021 12:02 PM [facility] CO2 27 22 - 29 mmol/L 04/03/2021 12:02 PM [facility] Glucose 84 70 - 115 mg/dL 04/03/2021 12:02 PM [facility] Calcium 8.8 8.4 - 10.2 mg/dL 04/03/2021 12:02 PM [facility] Anion Gap 17 8 - 18 04/03/2021 12:02 PM [facility] BUN/Creatinine Ratio 8 7 - 23 04/03/2021 12:02 PM CDT [facility] Osmolality Calculated 290 270 - 300 mOsm/kg 04/03/2021 12:02 PM CDT [facility] eGFR by CKD-EPI 57(L) >=90 mL/min/1.7 3 m2 04/03/2021 12:02 PM CDT [facility] Blood BLOOD SPECIMEN / Unknown Venipuncture / Unknown 04/03/2021 11:23 AM CDT 04/03/2021 11:32 AM CDT Steven Loving MD LAB - CHEMISTRY [facility] [address] [address], [place] [phone] * LACTIC ACID BLOOD (04/03/2021 11:23 AM CDT) Only the most recent of4 resultswithin the time period is included. Lactic Acid-Stat 1.4 <=2.0 mmol/L 04/03/2021 11:57 AM CDT [facility] Blood BLOOD SPECIMEN / Unknown Venipuncture / Unknown 04/03/2021 11:23 AM CDT 04/03/2021 11:32 AM CDT Steven Loving MD LAB - CHEMISTRY [facility] [address] [address], [place] [phone] * ECHO COMPLETE (04/03/2021 10:53 AM CDT) Anatomical Region Laterality Modality Chest Echo 04/03/2021 10:1 3 AM CDT Narrative Procedure Note Carlos Barraza MD - 04/03/2021 Oscar Daniel MD ECHOCARDIOGRAPHY RAD IANT * PROCALCITONIN LEVEL (04/03/2021 3:59 AM CDT) PROCALCITONIN <0.02 <=0.10 ng/mL 04/03/2021 5:16 AM CDT [facility] Blood BLOOD SPECIMEN / Unknown Venipuncture / Unknown 04/03/2021 3:59 AM CDT 04/03/2021 4:24 AM CDT Narrative [facility] - 04/03/2021 5:16 AM CDT The change in procalcitonin (PCT) concentration over time provides support in decision making on antibiotic discontinuation for suspected or confirmed septic patients. Follow-up samples should be tested once every 1-2 days based upon physician discretion taking into account the patient? s evolution and progress. Consider discontinuation of ??antibiotic therapy ??if the PCT current ??is <= 0.5 ng/mL or if the delta PCT is > 80%. ??Duration of antibiotics should not be determined solely on PCT; established guidelines for the indication should be followed. ? PCT peak: ??Highest observed PCT concentration ? PCT current: Most recent PCT concentration ? Calculate delta PCT using the following equation: ?Delta PCT ??= ?? PCT Peak ? PCT current ??X 100% ? PCT Peak The Change in Procalcitonin Calculator is available at [email or web address]-YMV-[email or web address] ?? If clinical picture has not improved and PCT remains high, reevaluate and consider treatment failure or other causes. Oscar Daniel MD LAB - CHEMISTRY [facility] [address] [place] [address], [facility] [phone] * TRANSFERRIN (04/03/2021 3:59 AM CDT) Pathologist [facility] Transferrin 266 174 - 382 mg/dL 04/03/2021 4:57 AM CDT [facility] Blood BLOOD SPECIMEN / Unknown Venipuncture / Unknown 04/03/2021 3:59 AM CDT 04/03/2021 4:24 AM CDT Oscar Daniel MD LAB - CHEMISTRY [facility] [address] [address], [place] [phone] * IRON BLOOD (04/03/2021 3:59 AM CDT) Pathologist [facility] Iron 63 40 - 150 ug/dL 04/03/2021 4:57 AM CDT [facility] Blood BLOOD SPECIMEN / Unknown Venipuncture / Unknown 04/03/2021 3:59 AM CDT 04/03/2021 4:24 AM CDT Oscar Daniel MD LAB - CHEMISTRY [facility] Performing Organization Address City/[facility]/ZIP Co de Phone Number [address] [address], [place] [phone] * FERRITIN (04/03/2021 3:59 AM CDT) [facility] Ferritin 68 13 - 204 ng/mL 04/03/2021 5:15 AM CDT [facility] Blood BLOOD SPECIMEN / Unknown Venipuncture / Unknown 04/03/2021 3:59 AM CDT 04/03/2021 4:24 AM CDT Oscar Daniel MD LAB - CHEMISTRY [facility] [address] [address], [place] [phone] * SARS-COV-2 (COVID-19)+INFLU A+B PCR RAPID (04/03/2021 1:47 AM CDT) COVID-19 PCR Not detected Not detected 04/03/20 21 2:17 AM CDT [facility] Influenza A Rapid JOSY Not Detected Not Detected 04/03/2021 2:17 AM T [facility] Influenza B JOSY Rapid Not Detected Not Detected 04/03/2021 2:17 AM T [facility] Microbiology SPECIMEN FROM NASOPHARYNGEAL STRUCTURE / Unknown Collection / Unknown 04/03/2021 1:47 AM CDT 04/03/2021 1:50 AM CDT [facility] - 04/03/2021 2:17 AM CDT Influenza assay performed by Nucleic Acid Amplification. Results do not exclude the possibility of a mixed viral infection. NOTE: ??Detecting and identifying specific viral nucleic acids from individuals exhibiting signs and symptoms of respiratory infection aids in the diagnosis of respiratory infection, if used in conjunction with other clinical and laboratory findings. The results of this test should not be used as the sole basis for diagnosis, treatment, or patient management decisions. This nucleic acid amplification assay performance was validated by [facility]. This test has been authorized by the Food and Drug administration (FDA)under an Emergency??Use Authorization (EUA). This test has been validated in accordance with the FDA's guidance document Policy for Diagnostic Testing in Laboratories Certified to perform High Complexity Testing under CLIA prior to Emergency Use Authorization for Coronavirus Disease-2019 during the Public Health Emergency issued on November 17, 2019. FDA independent review of this validation is pending. This test is only authorized for the duration of time the declaration that circumstances exist justifying the authorization of emergency use of in vitro diagnostic tests for detection of SARS-CoV-2 virus and/or diagnosis of COVID-19 infection under section 564(b)(1) of the Act, 21 U.S.C 360bbb-3 (b)(1), unless the authorization is terminated or revoked sooner. Fact Sheets for this EUA assay are available upon request. Carlos Posada MD LAB - MICROBIOLOGY O RDERABLES [facility] [address] [place] [address], [facility] [phone] * (ABNORMAL) CBC W/O DIFFERENTIAL (04/03/2021 1:46 AM CDT) WBC 9.0 3.5 - 10.5 10? 3 /uL 04/03/2021 2:11 AM [facility] RBC 3.62(L) 3.80 - 5.20 10? 6 /uL 04/03/2021 2:11 AM [facility] Hemoglobin 11.5(L) 12.0 - 15.6 g/dL 04/03/2021 2:11 AM [facility] Hematocrit 34.9(L) 35.0 - 45.0 % 04/03/2021 2:11 AM [facility] MCV 96.4 80.7 - 98.3 fL 04/03/2021 2:11 AM [facility] MCH 31.8 26.7 - 34.0 pg 04/03/2021 2:11 AM [facility] MCHC 33.0 30.8 - 35.9 g/dL 04/03/2021 2:11 AM [facility] Platelet Count 203 150 - 400 10? 3 /uL 04/03/2021 2:11 AM [facility] RDW-SD 51.8(H) 36.0 - 50.0 fL 04/03/2021 2:11 AM [facility] RDW-CV 14.5 11.2 - 14.8 % 04/03/2021 2:11 AM [facility] MPV 10.9 9.4 - 12.9 fL 04/03/2021 2:11 AM [facility] nRBC Absolute 0.00 0 10? 3 /uL 04/03/2021 2:11 AM [facility] nRBC Auto 0.0 0 /100 WBC 04/03/2021 2:11 AM [facility] Blood BLOOD SPECIMEN / Unknown Venipuncture / Unknown 04/03/2021 1:46 AM CDT 04/03/2021 1:51 AM T Oscar Daniel MD LAB - HEMATOLOGY ORD ERABLES [facility] [address] [place] [address], [facility] [phone] * TROPONIN I (04/02/2021 9:02 PM CDT) Only the most recent of3 resultswithin the time period is included. [facility] Troponin I <0.010 <0.032 ng/mL 04/02/2021 9:54 PM CDT [facility] Blood BLOOD SPECIMEN / Unknown Venipuncture / Unknown 04/02/2021 9:02 PM CDT 04/02/2021 9:19 PM CDT Brayan Mayers MD LAB - CHEMISTRY [facility] [address] [place] [address], [facility] [phone] * (ABNORMAL) B-TYPE NATRIURETIC PEPTIDE (04/02/2021 7:03 PM CDT) [facility] BNP 142(H) <100 pg/mL 04/02/2021 8:07 PM CDT [facility] Comment: A decision threshold of 100 pg/mL has been demonstrated to provide the maximal combination of sensitivity, specificity and predictive value for the diagnosis of congestive heart failure (CHF). ??Virtually all patients with no evidence of CHF have BNP values less than 100 pg/mL. A BNP value greater than 100 pg/mL is consistent with the diagnosis of CHF in the appropriate clinical setting. In a study of 693 patients (male and female) with diagnosed CHF, the following values were determined based on the NYHA functional classification system: NYHA Functional Class ?Mean Valule (pg/mL) ? % >100 pg/mL ?I ?320 ? 58.1 ?II ? 432 ? 73.0 ?III ?656 ? 79.0 ?IV ?1635 ? 98.3 ? Blood BLOOD SPECIMEN / Unknown Venipuncture / Unknown 04/02/2021 7:03 PM CDT 04/02/2021 7:16 PM CDT Andrzej Valdovinos PA-C LAB - CHEMISTRY OR DERABLES Performing Organization Address [facility]/State/[facility] Co de Phone Number [address] [address], [facility] [phone] * XR CHEST 2VW (04/02/2021 4:05 PM CDT) Anatomical Region Laterality Modality Chest Radiographic Jannette ging 04/03/2021 7:11 AM CDT Impressions 04/03/2021 7:52 AM CDT FINDINGS/IMPRESSION: No focal consolidation, pleural effusion, or pneumothorax is seen. The cardiomediastinal silhouette is normal. No acute fractures are seen. Report drafted by Gagan Alas MD (resident director) I, Dr. HO PERALES have personally reviewed and interpreted this examination/study. This report was electronically signed by HO PERALES ??on 04/03/2021 7:52 AM . Narrative 04/03/2021 7:52 AM CDT EXAMINATION: XR CHEST 2VW HISTORY: R06.02: Shortness of breath COMPARISON: None. Procedure Note HrHo phoenix DO - 04/03/2021 EXAMINATION: XR CHEST 2VW HISTORY: R06.02: Shortness of breath COMPARISON: None. FINDINGS/IMPRESSION: No focal consolidation, pleural effusion, or pneumothorax is seen. The cardiomediastinal silhouette is normal. No acute fractures are seen. Report drafted by Gagan Alas MD (resident director) I, Dr. HO PERALES have personally reviewed and interpreted this examination/study. This report was electronically signed by HO PERALES on 04/03/2021 7:52 AM . Andrzej Valdovinos PA-C DIAGNOSTIC IMAGING ORDERABLES * (ABNORMAL) CBC W AUTO DIFFERENTIAL (04/02/2021 2:42 PM CDT) WBC 8.5 3.5 - 10.5 10? 3 /uL 04/02/2021 3:18 PM T [facility] RBC 3.79(L) 3.80 - 5.20 10? 6 /uL 04/02/2021 3:18 PM [facility] Hemoglobin 12.0 12.0 - 15.6 g/dL 04/02/2021 3:18 PM [facility] Hematocrit 36.8 35.0 - 45.0 % 04/02/2021 3:18 PM [facility] MCV 97.1 80.7 - 98.3 fL 04/02/2021 3:18 PM [facility] MCH 31.7 26.7 - 34.0 pg 04/02/2021 3:18 PM [facility] MCHC 32.6 30.8 - 35.9 g/dL 04/02/2021 3:18 PM [facility] Platelet Count 222 150 - 400 10? 3 /uL 04/02/2021 3:18 PM [facility] RDW-SD 52.2(H) 36.0 - 50.0 fL 04/02/2021 3:18 PM [facility] RDW-CV 14.6 11.2 - 14.8 % 04/02/2021 3:18 PM [facility] MPV 11.2 9.4 - 12.9 fL 04/02/2021 3:18 PM [facility] nRBC Absolute 0.00 0 10? 3 /uL 04/02/2021 3:18 PM [facility] nRBC Auto 0.0 0 /100 WBC 04/02/2021 3:18 PM [facility] Neutrophils % 86.8(H) 35.0 - 70.0 % 04/02/2021 3:18 PM [facility] Lymphocytes % 7.5(L) 20.0 - 43.0 % 04/02/2021 3:18 PM [facility] Monocytes % 4.0(L) 5.0 - 13.0 % 04/02/2021 3:18 PM [facility] Eosinophils % 0.0 0.0 - 6.0 % 04/02/2021 3:18 PM [facility] Basophil % 0.2 0.0 - 2.0 % 04/02/2021 3:18 PM [facility] Neutrophils Absolute 7.4(H) 1.6 - 7.0 10? 3 /uL 04/02/2021 3:18 PM [facility] Lymphocyte Absolute 0.6(L) 1.1 - 3.9 10? 3 /uL 04/02/2021 3:18 PM [facility] Monocytes Absolute 0.34 0.26 - 1.07 10? 3 /uL 04/02/2021 3:18 PM [facility] Eosinophils Absolute 0.00 0.00 - 0.47 10? 3 /uL 04/02/2021 3:18 PM [facility] Basophils Absolute 0.02 0.00 - 0.08 10? 3 /uL 04/02/2021 3:18 PM [facility] Immature Granulocytes % 1.5(H) 0.0 - 1.0 % 04/02/2021 3:18 PM [facility] Immature Granulocytes Absolute 0.13 04/02/2021 3:18 PM [facility] Blood BLOOD SPECIMEN / Unknown Venipuncture / Unknown 04/02/2021 2:42 PM CDT 04/02/2021 3:02 PM CDT Brayan Mayers MD LAB - HEMATOLOGY ORD ERABLES [facility] [address] [place] [address], [facility] [phone] * (ABNORMAL) COMPREHENSIVE METABOLIC PANEL (04/02/2021 2:41 PM CDT) BUN 7 7 - 26 mg/dL 04/02/2021 3:26 PM [facility] Creatinine 0.93 0.56 - 0.96 mg/dL 04/02/2021 3:26 PM [facility] Sodium 140 136 - 145 mmol/L 04/02/2021 3:26 PM [facility] Potassium 4.5 3.5 - 4.5 mmol/L 04/02/2021 3:26 PM [facility] Chloride 107 98 - 107 mmol/L 04/02/2021 3:26 PM [facility] CO2 26 22 - 29 mmol/L 04/02/2021 3:26 PM [facility] Glucose 161(H) 70 - 115 mg/dL 04/02/2021 3:26 PM [facility] Calcium 8.6 8.4 - 10.2 mg/dL 04/02/2021 3:26 PM [facility] Protein Total 6.4 6.0 - 8.3 g/dL 04/02/2021 3:26 PM [facility] Albumin 3.4 3.4 - 5.0 g/dL 04/02/2021 3:26 PM [facility] Bilirubin Total 0.3 0.2 - 1.2 mg/dL 04/02/2021 3:26 PM [facility] Alkaline Phosphatase 83 40 - 150 U/L 04/02/2021 3:26 PM [facility] ALT 35 5 - 55 U/L 04/02/2021 3:26 PM [facility] AST 18 5 - 34 U/L 04/02/2021 3:26 PM [facility] Anion Gap 12 8 - 18 04/02/2021 3:26 PM [facility] BUN/Creatinine Ratio 8 7 - 23 04/02/2021 3:26 PM CDT [facility] Osmolality Calculated 291 270 - 300 mOsm/kg 04/02/2021 3:26 PM CDT [facility] Albumin/Globulin Ratio 1.1 1.1 - 2.3 04/02/2021 3:26 PM CDT [facility] eGFR by CKD-EPI 69(L) >=90 mL/min/1.7 3 m2 04/02/2021 3:26 PM CDT [facility] Blood BLOOD SPECIMEN / Unknown Venipuncture / Unknown 04/02/2021 2:41 PM CDT 04/02/2021 3:02 PM CDT Brayan Mayers MD LAB - CHEMISTRY JOSSY REYES [facility] [address] [place] [address], [facility] [phone] * EKG 12-LEAD (04/02/2021 2:31 PM CDT) Ventricular Rate 77 BPM SL MUSE Atrial Rate 77 BPM [facility] MUSE P-R Interval 102 ms [facility] QRS Duration ms 82 ms [facility] MUSE Q-T Interval ms 368 ms [facility] MUSE QTC Calculation (Bezet) 416 ms [facility] MUSE Calculated P [place] 65 degrees [facility] MUSE Calculated R [place] 13 degrees [facility] MUSE Calculated T [place] 75 degrees [facility] Interpretation EKG SINUS RHYTHM POSSIBLE LEFT ATRIAL ENLARGEMENT BORDERLINE ECG NO PREVIOUS ECGS AVAILABLE Confirmed by fellow Simon Hughes ([id number]) on 04/03/2021 10:00:44 AM Confirmed by Zoran Mclaughlin ([id number]) on 04/03/2021 10:27:46 PM [facility] MUSE 04/02/2021 2:31 PM CDT 04/03/2021 10:27 PM CDT Brayan Mayers MD ECG ORDERABLES Performing Organization Address City/[facility]/ZIP Co de Phone Number [facility] MUSE Care Teams Technical Cable Jointer Relationship Specialty Start Date End Date Yunier Rodriguez, SPRING COILER-PROPERTY UTILIZATION OFFICER [address] [place] [id number] PCP - General 01/16/21
--- OUTSIDE RECORDS SUMMARY | 2024-10-19 08:51 | XMS_ITS | Encounter Summary ---
Author Organization [facility] Address [address] [place] [address] Phone Care Team Providers Care Logistical Engineer Name Role Phone Tony Rodriguez Primary Care Provider [phone] Errol Lebron MD Unavailable [phone] Encounter Details Date Type Department Care Team (Late st Contact Info) Description 10/24/2020 Telephone [facility] [address] [place] [address] Errol Lebron MD [address] [place] [address] Social History Tobacco Use Types Packs/Day Years Used Date Smoking Tobacco: Every Day Cigarettes 0.5 8 Smokeless Tobacco: Never Alcohol Use Standard Drinks/Week Comments Yes 2 (1 standard drink = 0.6 oz pur e alcohol) PHQ-2 Answer Date Recorded Total Score - Questions 1-9 0 0 04/2021 Sexually Active Control Partners Comments Yes Comments Unknown Sex and Gender Information Value Date Recorded Sex Assigned at Not on file Legal Sex Female 4:14 PM CDT Gender Identity Not on file Sexual Orientation Not on file COVID-19 Exposure Response Date Recorded In the last month, have you been in contact with someone who was confirmed or suspected to have Coronavirus / COVID-19? 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 She is rescheduled tonext week. LE PACKING MACHINE CLEANER documented in this encounter Plan of Treatment Upcoming Encounters Date Type Department Care Team (Late st Contact Info) Description 05/22/2025 10:30 AM CDT Office Visit [facility] [address] [phone] Errol Lebron MD [address] [place] [phone] 05/22/2025 10:30 AM CDT Lab [facility] [address] [address] Lab, Cc [facility] documented as of this encounter Visit Diagnoses Not on filedocumented in this encounter Additional Health Concerns Assessment Noted Time PHQ-9 Depression Total Score: 0 07/25/20 20 8:00 AM BOTTLE PACKING MACHINE CLEANER documented as of this encounter Care Teams Logistical Engineer Relationship Specialty Start Date End Date Tony Rodriguez PA [address] [place] [phone] PCP - General Physician Biopharmaceutical Rep 07/09/20 Errlo Lebron MD [address] [place] [phone] Consulting Physician Oncology 07/09/20 documented as of this encounter
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
--- OUTSIDE RECORDS SUMMARY | 2024-10-19 08:51 | XMS_ITS | Clinical Summary ---
Author Organization [facility] Address [facility] [place] [address] Care Team Providers Care Medicaid Plan Compliance Director Name Role Phone Rodrigo Olivera Primary Care Provider [phone] Allergies Active Allergy Reactions Criticality Noted Date Comments Aspirin Hives,Other (See comments) High 01/13/2021 With a buffer Atorvastatin Muscle pain,Nausea & Vomiting Medium 06/06/2023 Ciprofloxacin Rash Medium 01/13/2021 Gabapentin Swelling Medium 06/27/2023 Iodinated Contrast Media Anaphylaxis,Rash High 07/18 Heart stopped Penicillins Anaphylaxis,Rash High 2020 Propoxyphene Stomach upset Low 01/13/2021 Tetanus And Diphther. Tox (Pf) Swelling Medium 07/19/2022 Tetanus Immune Globulin Hives Medium 06/06/2023 Tetanus Toxoid Hives,Swelling High 2020 Medications amLODIPine (NORVASC) 10 mg tabletIndication s:hypertension Take 1 tablet (10 mg total) by mouth nightly 3 Active albuterol HFA (PROVENTIL HFA,VENTOLIN HFA,PROAIR HFA) 90 mcg/actuation inhalerIndicatio ns:Acute Asthma Attack,Chronic Obstructive Pulmonary Disease Inhale 2 puffs every morning 3 Active diphenhydrAMINE (BENADRYL) 25 mg capsuleIndicatio ns:Allergic Rhinitis Take 1 capsule by mouth nightly 1 Active nystatin 100,000 unit/mL suspensionIndica tions:oral candidiasis Take 5 mL (500,000 Units total) by mouth as needed (mouth sore) 1 Active Trelegy Ellipta 100-62.5-25 mcg inhalerIndicatio ns:Bronchospasm Prevention with COPD,Maintenance Therapy for Asthma Inhale 1 puff every morning Active acetaminophen 500 mg capsule Take 2 capsules (1,000 mg total) by mouth every 6 (six) hours as needed for pain 3 Active aspirin 81 mg chewable tabletIndication s:Myocardial Reinfarction Prevention Take 1 tablet (81 mg total) by mouth nightly 3 Active estradioL (ESTRACE) 1 mg tabletIndication s:hormone replacement Take 1 tablet (1 mg total) by mouth nightly 3 Active Suboxone 8-[address] 1 Film under the tongue Active roflumilast (DALIRESP) 500 mcg tablet 1 tablet (500 mcg total) Active fluticasone propionate (FLONASE) 50 mcg/actuation nasal spray USE ONE SPRAY IN EACH NOSTRIL EVERY DAY DIRECTED FOR ALLERGIES Active Compact Space Chamber spacer USE as directed with inhaler 4 Active omeprazole (PriLOSEC) 20 mg capsule TAKE ONE CAPSULE BY MOUTH EVERY DAY IN THE MORNING FOR STOMACH 4 Active levothyroxine (SYNTHROID) 75 mcg tablet Take 1 tablet (75 mcg total) by mouth daily 30 tablet 6 4 04/17/20 25 Active inhalational spacing device (Compact Space Chamber) spacer USE with symbicort Active budesonide (PULMICORT) 0.5 mg/2 mL nebulizer solution Mix 1 capsule/ampule in 250 mL of saline irrigations ([employer] Sinus Rinse Bottle) and irrigate each nostril with half of the bottle twice daily. 240 mL 3 4 Active ALPRAZolam (XANAX) 0.25 mg tablet TAKE ONE TABLET BY MOUTH WITH WATER 30 MINUTES BEFORE MRI. REPEAT IN 15 MINUTES IF NEEDED 4 Active losartan (COZAAR) 100 mg tablet Take 0.5 tablets (50 mg total) by mouth daily 4 Active mirtazapine (REMERON) 7.5 mg tablet TAKE ONE TABLET BY MOUTH ONCE EVERY DAY AT BEDTIME 4 Active predniSONE (DELTASONE) 10 mg tablet TAKE 4 TABLETS BY MOUTH FOR 3 DAYS THEN TAKE THREE TABLETS FOR 3 DAYS THEN TAKE TWO TABLETS FOR 3 DAYS THEN TAKE ONE TABLET FOR 3 DAYS 4 Active Active Problems Problem Noted Date Diagnosed Date Chronic sinusitis 04/24/2024 Dysphagia 04/17/2024 Assessment & Plan (04/17/2024 1:13 PM CDT): I looked at Ms. Corbin is thyroid under ultrasound today The thyroid gland is small, rather atrophic without any nodules. Color Doppler shows decreased vascularity I explained to Ms. Corbin that her thyroid is definitely not the cause of her dysphagia or neck tenderness She has an appointment with the ENT I also requested a gastroenterology consultation Cervical myelopathy 06/27/2023 Cardiac murmur 01/21/2023 Cervical spine instability 01/21/2023 Cervical spinal stenosis 11/15/2022 Overview (11/15/2022): Added automatically from request for surgery [id number] Muscle weakness 11/05/2022 Adenocarcinoma of cervix (CMS/HCC) 11/05/2021 Overview (12/21/2023): Dx in 1999 s/p radical hysterectomy with nodes and vaginectomy and radiation therapy Claustrophobia 09/14/2021 Hypothyroidism 08/04/2021 Assessment & Plan (04/17/2024 1:11 PM CDT): Over replaced, with iatrogenic hyperthyroidism, which will explain the weight loss and palpitations Will reassess TFTs today Lower levothyroxine to 75 mcg daily Sleep apnea 07/29/2021 Overview (12/21/2023): see sleep study 07/08/2021 Genital herpes simplex 07/07/2021 Herpes zoster 07/07/2021 Malignant lymphoma 07/07/2021 Menopausal syndrome 07/07/2021 Opioid dependence 07/07/2021 Pain of breast 07/07/2021 Spasm of paraspinal muscle 07/07/2021 Gastroesophageal reflux disease 06/08/2021 Non-Hodgkin lymphoma, unspec ified, extranodal and solid organ sites 05/27/2021 Localized edema 04/22/2021 Wheezing 04/22/2021 Bilateral leg edema 04/02/2021 Chronic obstructive pulmonary disease 04/02/2021 Shortness of breath 04/02/2021 Paroxysmal nocturnal dyspnea 04/02/2021 Low back pain 03/09/2021 Recurrent seizures ([facility]/HCC) 10/27/2020 Cellulitis of hand 09/22/2020 Pain in right arm 09/16/2020 Lateral epicondylitis 05/27/2020 Arthralgia of right elbow 05/16/2020 Parotitis 05/16/2020 Injury of elbow 01/22/2020 Allergic rhinitis 12/05/2019 Acute bronchitis 11/06/2019 Skin eruption 10/23/2019 Renal pain 10/23/2019 Pain of right hip joint 10/23/2019 History of drug abuse ([facility]) 09/26/2017 Cardiovascular symptoms 02/28/2015 Hypercholesterolemia 02/28/2015 Primary hypertension 02/28/2015 Encounters Date Type Department Care Team Description 08/24/20 Telephone [facility] Gastroenterology at [address] [phone] Ari Lees MD Test Results (/) 08/13/20 8:05 AM NIGHTMAN Anesthesia Event [facility] [address] [place] [id number] Deborah Daugherty MD PhD 08/13/20 8:00 AM NIGHTMAN - 08/13/20 8:30 AM NIGHTMAN Surgery [facility] [address] [place] [id number] Ari Lees MD ESOPHAGOGASTRODUODENOSCOPY 08/13/20 6:49 AM NIGHTMAN - 08/13/20 9:29 AM NIGHTMAN Hospital Encounter [facility] [address] [place] [id number] Ari Lees MD Dysphagia, unspecified type Discharge Disposition: Discharge to home or self care 08/13/20 Telephone [facility] Gastroenterology at [address] [phone] Ari Lees MD 08/09/20 10:00 AM NIGHTMAN Office Visit [facility] Gastroenterology at [address] [phone] Ari Lees MD Dysphagia, unspecified type (Primary Dx) 08/09/20 24 Telephone [facility] Gastroenterology at [address] [place] [phone] Ari Lees MD 08/06/20 24 Orders Only [facility] ([facility]) - [facility] E[facility] [address] [facility] [address] [place] [address] [place] [address] Solomon Mcdowell MD Chronic sinusitis, unspecified location (Primary Dx) 07/23/20 24 1:35 PM NIGHTMAN Lab [facility] [place] [facility] ([facility]) [address] [place] [phone] Chronic sinusitis, unspecifi ed location 07/23/20 24 10:40 AM NIGHTMAN Office Visit [facility] [place] [facility] ([facility]) - [facility] [address] [facility] [address] [place] [address] [place] [address] Solomon Mcdowell MD Chronic sinusitis, unspecified location (Primary Dx); Non-Hodgkin lymphoma, unspecified, extranodal and solid organ sites (HCC) from Last 3 Months Immunizations Name Administration Dates Next Due Influenza, Quadrivalent, Spl it, Intramuscular 07/16/2022,07/14/2021,07/10/2020,07/16,07/13/2019,05/07/2017 Influenza, Quadrivalent, Spl it, Preservative Free, Intramuscular 06/15/2018 Influenza, Unspecified 05/07/2017 Pneumococcal Conjugate PCV 13 06/13/2020 Pneumococcal Polysaccharide PPV23 07/16/2022 Surgical History Surgery Date Site/Laterality Comments ANGIOPLASTY HYSTERECTOMY 09/19/1999 - 09/18/2000 LAPAROSCOPIC GASTRIC BANDING mesh EYE SURGERY Bilateral EYE SURGERY Bilateral cyst removal TONSILLECTOMY 09/19/1965 - 09/18/1966 UPPER GASTROINTESTINAL ENDOSCOPY 08/13/2024 Medical History Medical History Date Comments Hypertension Hypothyroidism Asthma COPD (chronic obstructive pu lmonary disease) (HCC) Seizures (HCC) Awareness under anesthesia catac t surgery (2022) and hysterectomy (1999). Was able to move arms and was able to hear someone giving insturctions not to move with both surgeries. recalls having something in her throat. could feel abd pain. could see the bubbles during eye surgery. was able to talk during cataract srugery and had garbled speech with hysterectomy. no longer recalls as traumatic experiences. Sleep apnea Family History Medical History Relation Name Comments Stroke Maternal Grandmother Cancer Other Diabetes Other Heart attack Other Heart disease Other Hypertension Other Stroke Other Anesthesia problems Neg Hx Relation Name Status Comments Maternal Grandmother Other Social History Tobacco Use Types Packs/Day Years Used Date Smoking Tobacco: Former Cigarettes 0.5 27 1 2019 Passive Smoke Exposure: Current Smokeless Tobacco: Never Tobacco Cessation:Counseling Given: No Social Connection and Isolat ion Panel [NHANES] Answer Date Recorded In a typical week, how many times do you talk on the phone with family, friends, or neighbors? More than three times a week 07/01/2023 How often do you get togethe r with friends or relatives? More than three times a week 07/01/2023 How often do you attend chur ch or jainism services? Never 07/01/2023 Do you belong to any clubs o r organizations such as restorationism groups, unions, fraternal or athletic groups, or school groups? No 07/01/2023 How often do you attend meet ings of the clubs or organizations you belong to? Never 07/01/2023 Are you , , di vorced, , never , or living with a partner? Never 07/01/2023 AUDIT-C Answer Date Recorded Q1: How often do you have a drink containing alc ohol? 2-4 times a month 08/13/2024 Q2: How many drinks containi ng alcohol do you have on a typical day when you are drinking? 1 or 2 08/13/2024 Q3: How often do you have si x or more drinks on one occasion? Less than monthly 08/13/2024 Overall Financial Resource Strain (CARDIA) Answe r Date Recorded How hard is it for you to pa y for the very basics like food, housing, medical care, and heating? Not hard at all 07/01/2023 PHQ-2 Answer Date Recorded PHQ-2 Total Score (If total score is 3 or more points, staff should administer the PHQ-9) 0 04/17/2024 Hunger Vital Sign Answer Date Recorded Within the past 12 months, y ou worried that your food would run out before you got the money to buy more. Never true 07/01/20 23 Within the past 12 months, t he food you bought just didn't last and you didn't have money to get more. Never true 07/01/2023 PRAPARE - Transportation Answer Date Re corded In the past 12 months, has l ack of transportation kept you from medical appointments or from getting medications? No 06/19 In the past 12 months, has l ack of transportation kept you from meetings, work, or from getting things needed for daily living? No 07/01/2023 Housing Stability Vital Sign Answer Papa e Recorded In the last 12 months, was t here a time when you were not able to pay the mortgage or rent on time? No 07/01/2023 In the last 12 months, how many places have you lived? 1 07/01/2023 In the last 12 months, was t here a time when you did not have a steady place to sleep or slept in a alf (including now)? No 07/01/2023 Personal Safety Answer Date Recorded Have you ever been in or are you currently in a harmful physical or emotional relationship or is someone making you feel afraid or unsafe? Denies 08/13/2024 Comments No Sex and Gender Information Value Date Recorded Sex Assigned at Not on file Legal Sex Female 6:21 AM NIGHTMAN Gender Identity Not on file Sexual Orientation Straight 04/17/2024 9: 54 AM CDT Occupation Industry Job Start Date Job End Date On disability Not on file Not on file Not on file Obstetrics History Last Filed Vital Signs Vital Sign Reading Time Taken Comments Blood Pressure 132/73 08/13/2024 9:05 AM NIGHTMAN Pulse 72 08/13/2024 9:05 AM NIGHTMAN Temperature 36.4 ??C (97.5 ??F) 06/30/2023 7:16 AM CD T Respiratory Rate 17 08/13/2024 9:05 AM NIGHTMAN Oxygen Saturation 96% 08/13/2024 9:05 AM NIGHTMAN Inhaled Oxygen Concentration - - Weight 56.7 kg (125 lb) 08/13/2024 7:33 AM NIGHTMAN Height 160 cm (5' 3 ) 08/13/2024 7:33 AM NIGHTMAN Body Mass Index 22.14 08/13/2024 7:33 AM NIGHTMAN Plan of Treatment Health Maintenance Due Date Last Done Comments Breast Cancer Screening-Mammogram 1965 Colon Cancer Screening-Colonoscopy 1965 Hepatitis C Screening 1965 DTaP/Tdap/Td Vaccine (1 - Tdap) 1975 Hepatitis B Screening 1982 Regular Well Visit/Exam 18-64 1982 Zoster Vaccine (1 of 2) 1983 Covid-19 Vaccine (5 - 2023-2 5 season) 2024 08/16/2022, 05/17/2022, 12/28/2020, Additional history exists Influenza Vaccine (#1) 2024 , 07/14/2021, 07/10/2020, Additional history exists Depression Screening 04/17/2025 04/17/2024 Pneumococcal vaccine <65 (3 of 3 - PPSV23 or PCV20) 07/16/2027 07/16/2022, 06/13/2020 Medical Devices Implanted Type Area Gravity Flow Irrigator Device Identifier Shelf Expiration Date Model / Serial / Lot [employer] [employer]ine [id number] Cervical Anterior 6d Cage Spinal Tritanium Sterile Latex Free [id number] - [id number] Implanted:Qty : 1 on 06/27/2023 by Floyd Sandoval MD at [facility] Cage N/A: Spine Cervical [employer]ine 05/03/2028 [id number] / / [employer] Spine L12 Mm X W14 Mm X H6 Mm Cervical Anterior 6 D Cage Spinal Tritanium Sterile Latex Free [id number] - [id number] Implanted:Qty : 1 on 06/27/2023 by Floyd Sandoval MD at [facility] Cage N/A: Spine Cervical [employer] [employer]ine 07/08/2023 [id number] / / [employer] Spine L14 Mm X W17 Mm X H6 Mm Cervical Anterior 6 D Cage Spinal Tritanium Sterile Latex Free [id number] - [id number] Implanted:Qty : 1 on 06/27/2023 by Floyd Sandoval MD at [facility] Cage N/A: Spine Cervical [employer] Spine 03/27/2028 [id number] / / [employer] Mike Graft Bone Cylinder Cancellous Gel Alt[place] Lg 8ml Putty [id number] - [id number] Implanted:Qty : 1 on 06/27/2023 by Floyd Sandoval MD at [facility] Graft N/A: Spine Cervical [employer] Mike [id number] 12/18/2027 [id number] / / [id number] [place] Spine Plate 54mm 3 Level [employer] Bone Spine Cerv Nonstrl Ltxfre [id number] - [id number] Implanted:Qty : 1 on 06/27/2023 by Floyd Sandoval MD at [facility] Plate N/A: Spine Cervical [employer] [employer]ine [id number] / / [employer] [employer] Screw 16mm 4mm Bone [employer] Spine Cervical Self Start Variable Angle Nonsterile [id number] - [id number] Implanted:Qty : 8 on 06/27/2023 by Floyd Sandoval MD at [facility] Screw N/A: Spine Cervical [employer]ine [id number] / / Procedures Procedure Name Priority Date/Time Associated Diagnosis Comments ESOPHAGOGASTRODUODENOSCOPY 08/13 8:05 AM NIGHTMAN Dysphagia, unspecified type EGD 08/13/2024 7:33 AM NIGHTMAN CYTOLOGY Routine 08/13/2024 12:00 AM NIGHTMAN Dysphagia, unspecified type IGG Routine 07/23/2024 11:20 AM NIGHTMAN Chronic sinusitis, unspecified location IGA Routine 07/23/2024 11:20 AM NIGHTMAN Chronic sinusitis, unspecified location IGM Routine 07/23/2024 11:20 AM NIGHTMAN Chronic sinusitis, unspecified location IGE Routine 07/23/2024 11:20 AM NIGHTMAN Chronic sinusitis, unspecified location STREP PNEUMONIAE ANTIBODY SEROTYPES Routine 07/23/2024 11:20 AM NIGHTMAN Chronic sinusitis, unspecified location from Last 3 Months Results * EGD (08/13/2024 7:33 AM NIGHTMAN) Anatomical Region Laterality Modality Other Narrative Procedure Note Ari Lees MD - 08/13/2024 7:33 AM CST [facility] Endoscopy Lab Patient Name: Joan Corbin Procedure Date: 08/13/2024 7:33 AM Date of : 1965 Admit Type: Outpatient Age: 59 Gender: Female Note Status: Finalized Attending MD: Ari Lees M.D. Procedure Date: 08/13/2024 Procedure: Upper GI endoscopy Indications: Dysphagia Patient Profile: 59 y old woman c/o cervical dysphagia after spinal surgery ~ 1 year ago. Providers: Ari Lees M.D., Alyssa Salas CRNA (Anesthesia Staff), Jeny Franks, MARILIN, Reanna Medina, MARILIN,Kishore Medina, Recovery Room Nurse Referring MD: Evangelista Dick Medicines: Monitored Anesthesia Care, Propofol perAnesthesia Complications: No immediate complications. Estimated blood loss: Minimal. Estimated Blood Loss: Estimated blood loss was minimal. Procedure: Pre-Anesthesia Assessment: - Prior to the procedure, a History and Physicalwas performed, and patient medications and allergieswere reviewed. The patient's tolerance of previous anesthesia was also reviewed. The risks andbenefits of the procedure and the sedation options and risks were discussed with the patient. All questions were answered, and informed consent was obtained. Prior Anticoagulants: The patient has taken noanticoagulant or antiplatelet agents. ASA Grade Assessment: III -A patient with severe systemic disease. Afterreviewing the risks and benefits, the patient was deemed in satisfactory condition to undergo the procedure. After obtaining informed consent, the endoscope was passed under direct vision. Throughout theprocedure, the patient's blood pressure, pulse, and oxygen saturations were monitored continuously. The scopewas passed under direct vision. The was introducedthrough the mouth, and advanced to the second part of duodenum. The upper GI endoscopy was accomplished without difficulty. The patient tolerated the procedure well. Findings: Patchy mild mucosal changes characterized by white specks were foundin the lower third of the esophagus. Brushings for cytology wereobtained in the lower third of the esophagus to evaluate for moises. GE junction regular at 40 cm from the incisors. No esophagealstricture seen. No external compression seen in upper esophagus or at upper esophageal sphincter region. Normal appearing esophageal motilityduring exam. The stomach was normal. The examined duodenum was normal. The cardia and gastric fundus were normal on retroflexion. Impression: 1) No esophageal stricture seen on this exam. No external compression of esophagus seen on thisexam. 2) A few specks of white-specked mucosa were seenin distal esophagus. Brushings performed to r/ocandida esophagitis. 3) Normal stomach. 4) Normal examined duodenum. Recommendation: - Discharge patient to home (ambulatory). - Await pathology results. - I recommend that patient have repeat evaluationby speech language pathology at the next available appointment for her cervical dysphagia. I also recommend repeat modified barium swallow forfurther evaluation. - Recommend patient return to surgery for further follow-up as well. Procedure Code(s): --- Professional --- 35485, Esophagogastroduodenoscopy, flexible, transoral; diagnostic, including collection of specimen(s) by brushing or washing, when performed (separate procedure) Diagnosis Code(s): --- Professional --- K22.89, Other specified disease of esophagus R13.10, Dysphagia, unspecified CPT copyright 2020 [employer]. All rights reserved. The codes documented in this report are preliminary and upon department chairperson reviewmay be revised to meet current compliance requirements. Ari Lees M.D. 08/13/2024 8:36:32 AM Number of Addenda: 0 Note Initiated On: 08/13/2024 7:33 AM Ari Lees MD ENDOSCOPY PROCEDURES Edit ed Result - Final * Cytology (08/13/2024 12:00 AM NIGHTMAN) Fluid (Gastroesophageal Brushing (Cytology)) 08/13/2024 8:12 AM NIGHTMAN Narrative PATHOLOGY [facility] - 08/14/2024 6:16 PM NIGHTMAN EPIC results best viewed via link to PDF [facility] Department of Pathology [address] [place] [id number] Note to Patients: ??This report may contain a detailed description of human tissue sent by a health care provider to the laboratory for pathologic evaluation. ??The content of this report is essential for diagnosis and may provide important critical findings. ??This information may be unfamiliar to patients to review without a medical professional present. ?? It is advised that the patient review this report in the presence of a health care provider who can answer questions and explain the details. Final Report Patient Name: ??JOAN CORBIN Address: ??[address] [place] [address] [address], [place], [place] [address]61 Gender: ??F : ??1965 (Age: 59) Service: ??Gastro Location: [facility] # [facility][id number] Patient Type: ?? SDS Taken: ??08/13/2024 Received: ?? 08/13/2024 Accessioned: ?? 08/13/2024 Reported: ?? 08/14/2024 Physician(s): ??MD Rodrigo Brooks PA-C Diagnosis: Esophagus, brush cytology: ? - Negative for malignancy. ? - Moises species identified. James Hernandez M.D. Report Electronically Reviewed and Signed Out By ??James Rivera M.D. ??08/14/2024 18:16:35Specimen(s) Received: A: Brushing, Esophageal Clinical History: The patient is a 59 year old female with dysphagia. Gross Description: 1 container received with a brush tip in 30 cc of clear CytoLyt solution. 1 ThinPrep made. Microscopic Description: Microscopic examination of the esophageal brush cytology (one ThinPrep slide) reveals a specimen that is adequate for evaluation. ??The specimen consists of benign, mildly reactive squamous cells, some of which are associated with fungal yeast and hyphal forms that are morphologically consistent with Moises species. ??There is no evidence of dysplasia or malignancy. ?? The performance characteristics of some immunohistochemical stains, fluorescence in-situ hybridization tests and immunophenotyping by flow cytometry cited in this report (if any) were determined by the Surgical Pathology Department at [facility] as part of an ongoing quality improvement consultant program and in compliance with federally mandated regulations drawn from the Clinical Laboratory Improvement Act of 1988 (CLIA '88). ??Some of these tests rely on the use of analyte specific reagents and are subject to specific labeling requirements by the US Food and Drug Administration. ??Such diagnostic tests may only be performed in a facility that is certified by the Department of Health and Human Services as a high complexity laboratory under CLIA '88. The FDA has determined that such clearance or approval is not necessary. ??This test is used for clinical purposes. ??It should not be regarded as investigational or for research. ??Nevertheless, federal rules concerning the medical use of analyte specific reagents require that the following disclaimer be attached to the report: This test was developed and its performance characteristics determined by the Surgical Pathology Department [facility]. ??It has not been cleared or approved by the U. S. Food and Drug Administration. Unless otherwise noted all cytology processing, staining and screening is performed at [facility] ([address] [address]). REPORT IMAGES AND SCANNED DOCUMENTS, IF INCLUDED, ONLY VIEWABLE IN PDF VERSION OF REPORT us Ari Lees MD LAB CYTOLOGY ORDERABLES F inal Result [facility] [address] [place] [address] * Strep pneumoniae antibody serotypes (07/23/2024 11:20 AM NIGHTMAN) S. pneumo Type 1 (1) 0.9 >=1.0 mcg/mL [place] ref Lab S. pneumo Type 2 (2) 1.0 >=1.0 mcg/mL [facility] S. pneumo Type 3 (3) 0.2 >=1.0 mcg/mL [facility] S. pneumo Type 4 (4) 0.3 >=1.0 mcg/mL [facility] S. pneumo Type 5 (5) 0.8 >=1.0 mcg/mL [facility] S. pneumo Type 8 (8) 3.5 >=1.0 mcg/mL [facility] S. pneumo Type 9N (9) 0.3 >=1.0 mcg/mL [facility] S. pneumo Type 12F (12) See Footnote >=1.0 mcg/mL [facility] Comment: No result available due to non-linear dilution response for this serotype. See Interpretation. S. pneumo Type 14 (14) 1.8 >=1.0 mcg/mL [facility] S. pneumo Type 17F (17) 0.6 >=1.0 mcg/mL [facility] S. pneumo Type 19F (19) 1.8 >=1.0 mcg/mL [facility] S. pneumo Type 20 (20) 2.4 >=1.0 mcg/mL [facility] S. pneumo Type 22F (22) 3.1 >=1.0 mcg/mL [facility] S. pneumo Type 23F (23) See Footnote >=1.0 mcg/mL [facility] Comment: No result available due to non-linear dilution response for this serotype. See Interpretation. S. pneumo Type 6B (26) 0.9 >=1.0 mcg/mL [facility] S. pneumo Type 10A (34) 9.1 >=1.0 mcg/mL [facility] S. pneumo Type 11A (43) 0.8 >=1.0 mcg/mL [facility] S. pneumo Type 7F (51) 3.0 >=1.0 mcg/mL [facility] S. pneumo Type 15B (54) 0.9 >=1.0 mcg/mL [facility] S. pneumo Type 18C (56) 0.3 >=1.0 mcg/mL [facility] S. pneumo Type 19A (57) 14.8 >=1.0 mcg/mL [facility] S. pneumo Type 9V (68) 0.8 >=1.0 mcg/mL [facility] S. pneumo Type 33F (70) 2.6 >=1.0 mcg/mL [facility] Pneum Ab 23 interp See Footnote MARICRUZ ROLON Comment: Unable to quantitate serotypes 12F (12) and 23F (23) due to nonlinear dilution response of patient sample. Overall interpretation of pneumococcal antibody serology panel can be based on the reported 21 serotypes. Evaluation of the immune response following pneumococcal vaccination can be assessed by measuring serotype-specific Streptococcus pneumonia IgG antibodies. Either of the following conditions is consistent with a normal response to Streptococcus pneumonia vaccination: 1. When comparing pre and post-vaccination samples, antibody concentrations increased by at least 2-fold for either >50% of serotypes in children <6 years of age or >70% of serotypes for individuals >6 years of age. 2. In either a pre- or post-vaccination sample, antibody concentrations >=1.0 mcg/mL for either >50% of serotypes for children <6 years of age or >70% of serotypes for individuals >6 years of age. Results >=1.0 mcg/mL or those showing a >=2-fold change are consistent with an immune response, but are not necessarily sufficient to provide protection against infection. ADDITIONAL INFORMATION This test was developed and its performance characteristics determined by [facility] in a manner consistent with CLIA requirements. This test has not been cleared or approved by the U.S. Food and Drug Administration. Test Performed by: [facility] Laboratories - [facility] [address] [place] [address] Slat Basket Maker Helper Machine: Aditya Nagel Ph.D.; CLIA# [id number] Blood 07/23/2024 11:2 0 AM NIGHTMAN 07/23/2024 12:14 PM NIGHTMAN Narrative [facility] - 07/27/2024 1:41 PM NIGHTMAN Strep pneumo 23 Solomon Mcdowell MD LAB BLOOD ORDERABLES Fin al Result Performing Organization Address [facility] de Phone Number [facility] [place] [address] Catalan ref Lab * IgE (07/23/2024 11:20 AM NIGHTMAN) IgE 24 <=100 IUnits/mL Blood 07/23/2024 11:2 0 AM NIGHTMAN 07/23/2024 11:38 AM NIGHTMAN Solomon Mcdowell MD LAB BLOOD ORDERABLES Fin al Result Performing Organization Address [facility] de Phone Number [facility] [place] [address] * (ABNORMAL) IgA (07/23/2024 11:20 AM NIGHTMAN) Immunoglobulin A 421(H) 70 - 400 mg/dL Blood 07/23/2024 11:2 0 AM NIGHTMAN 07/23/2024 11:38 AM NIGHTMAN Solomon Mcdowell MD LAB BLOOD ORDERABLES Fin al Result Performing Organization Address [facility] de Phone Number [facility] [place] [address] * IgM (07/23/2024 11:20 AM NIGHTMAN) Immunoglobulin M 69 40 - 230 mg/dL Blood 07/23/2024 11:2 0 AM NIGHTMAN 07/23/2024 11:38 AM NIGHTMAN Solomon Mcdowell MD LAB BLOOD ORDERABLES Fin al Result Performing Organization Address City/[facility] Co de Phone Number [facility] [place] [address] * IgG (07/23/2024 11:20 AM NIGHTMAN) Immunoglobulin G 721 700 - 1,600 mg/dL Blood 07/23/2024 11:2 0 AM NIGHTMAN 07/23/2024 11:38 AM NIGHTMAN Solomon Mcdowell MD LAB BLOOD ORDERABLES Fin al Result Performing Organization Address [facility] de Phone Number [facility] [place] [address] from Last 3 Months [place] [address] MEDICARE SOLUTIONS IDNM Advance Directives For more information, please contact: [phone] * Full Code (Latest Code Status on File) Date Activated Date Inactivated Comments 06/27/2023 4:26 PM 06/30/2023 3:12 PM Care Teams Medicaid Plan Compliance Director Relationship Specialty Start Date End Date Rodrigo Olivera PA [address] [place] [address] PCP - General Physician Flatbed Truck Driver 02/16/24 Dr. Joanne Castillo Public Health Staff Nurse 04/19/23
--- OUTSIDE RECORDS SUMMARY | 2024-10-19 08:51 | XMS_ITS | Referral Summary ---
Author Organization [facility] Address [address] [place] [address] Care Team Providers Care Acetylene Torch Solderer Name Role Phone Rodrigo Olivera Primary Care Provider [phone]- [phone] Encounters Date Type Department Care Team Description 08/24/20 24 Telephone [facility] Gastroenterology at [address] [address] Ari Lees MD Test Results (/) 08/13/20 24 Telephone [facility] Gastroenterology at [address] [address] Ari Lees MD 08/13/20 24 8:05 AM SENIOR TREASURY ANALYST Anesthesia Event [facility] [address] [place] [address] Deborah Daugherty MD PhD 08/13/20 24 8:00 AM SENIOR TREASURY ANALYST - 08/13/20 24 8:30 AM SENIOR TREASURY ANALYST Surgery [facility] [address] [place] [address] Ari Lees MD ESOPHAGOGASTRODUODENOSCOPY 08/13/20 24 6:49 AM SENIOR TREASURY ANALYST - 08/13/20 24 9:29 AM SENIOR TREASURY ANALYST Hospital Encounter [facility] [address] [place] [address] Ari Lees MD Dysphagia, unspecified type Discharge Disposition: Discharge to home or self care 08/09/20 24 Telephone [facility] Gastroenterology at [address] [address] Ari Lees MD 08/09/20 24 10:00 AM SENIOR TREASURY ANALYST Office Visit [facility] Gastroenterology at [address] [place] [address] Ari Lees MD Dysphagia, unspecified type (Primary Dx) 08/06/[address] [facility] ([facility]) - [facility] ENT [address] [facility] 11th [place] [address] [place] [address] Solomon Mcdowell MD Chronic sinusitis, unspecified location (Primary Dx) 07/23/20 24 1:35 PM SENIOR TREASURY ANALYST Lab [facility] ([facility]) [address] [place] [address] Chronic sinusitis, unspecifi ed location 07/23/20 24 10:40 AM SENIOR TREASURY ANALYST Office Visit [facility] ([facility]) - [facility] ENT [facility] [facility] [address]th [place] [address] [place] [address] Solomon Mcdowell MD Chronic sinusitis, unspecified location (Primary Dx); Non-Hodgkin lymphoma, unspecified, extranodal and solid organ sites (HCC) from Last 3 Months Allergies Active Allergy Reactions Criticality Noted Date [...] capsule/ampule in 250 mL of saline irrigations ([employer] Sinus Rinse Bottle) and irrigate each nostril [...] 1:13 PM CDT): I looked at Ms. Chase is thyroid under ultrasound today The thyroid gland is small, rather atrophic without any nodules. Color Doppler shows decreased vascularity I explained to Ms. Chase that her thyroid is definitely not the cause of her dysphagia or neck tenderness She has an appointment with the ENT I also requested a gastroenterology consultation Cervical myelopathy 06/27/2023 Cardiac murmur 01/21/2023 Cervical spine instability 01/21/2023 Cervical spinal stenosis 11/15/2022 Overview (11/15/2022): Added automatically from request for surgery [id number] Muscle weakness 11/05/2022 Adenocarcinoma of cervix (CMS/HCC) [...] 04/02/2021 Low back pain 03/09/2021 Recurrent seizures ([facility]) 10/27/2020 Cellulitis of hand 09/22/2020 Pain in right arm 09/16/2020 Lateral epicondylitis 05/27/2020 Arthralgia of right elbow 05/16/2020 Parotitis 05/16/2020 Injury of elbow 01/22/2020 Allergic rhinitis 12/05/2019 Acute bronchitis 11/06/2019 Skin eruption 10/23/2019 Renal pain 10/23/2019 Pain of right hip joint 10/23/2019 History of drug abuse ([facility]) 09/26/2017 Cardiovascular symptoms 02/28/2015 Hypercholesterolemia 02/28/2015 Primary hypertension 02/28/2015 Immunizations Name Administration Dates Next Due Influenza, Quadrivalent, Spl it, Intramuscular 07/16/2022,07/14/2021,07/10/2020,07/16,07/13/2019,05/07/2017 Influenza, Quadrivalent, Spl it, Preservative Free, Intramuscular 06/15/2018 Influenza, Unspecified 05/07/2017 Pneumococcal Conjugate PCV 13 06/13/2020 Pneumococcal Polysaccharide PPV23 07/16/2022 Social History Tobacco Use Types Packs/Day Years Used Date Smoking Tobacco: Former Cigarettes 0.5 27 1 - 2019 Passive Smoke Exposure: Current Smokeless Tobacco: [...] often do you attend chur ch or rastafarian services? Never 07/01/2023 Do you belong to any clubs o r organizations such as baptist groups, unions, fraternal or athletic groups, or [...] place to sleep or slept in a half-way (including now)? No 07/01/2023 Personal Safety Answer Date Recorded Have you ever been in or are you currently in a harmful physical or emotional relationship or is someone making you feel afraid or unsafe? Denies 08/13/2024 Comments No Sex and Gender Information Value Date Recorded Sex Assigned at Not on file Legal Sex Female 6:21 AM SENIOR TREASURY ANALYST Gender Identity Not on file Sexual Orientation Straight 04/17/2024 9: 54 AM CDT Occupation Industry Job Start Date Job End Date On disability Not on file Not on file Not on file Last Filed Vital Signs Vital Sign Reading Time Taken Comments Blood Pressure 132/73 08/13/2024 9:05 AM SENIOR TREASURY ANALYST Pulse 72 08/13/2024 9:05 AM SENIOR TREASURY ANALYST Temperature 36.4 ??C (97.5 ??F) 06/30/2023 7:16 AM CD T Respiratory Rate 17 08/13/2024 9:05 AM SENIOR TREASURY ANALYST Oxygen Saturation 96% 08/13/2024 9:05 AM SENIOR TREASURY ANALYST Inhaled Oxygen Concentration - - Weight 56.7 kg (125 lb) 08/13/2024 7:33 AM SENIOR TREASURY ANALYST Height 160 cm (5' 3 ) 08/13/2024 7:33 AM SENIOR TREASURY ANALYST Body Mass Index 22.14 08/13/2024 7:33 AM SENIOR TREASURY ANALYST Plan of Treatment Not on file Medical Devices Implanted Type Area Ruling Technician Device Identifier Shelf Expiration Date Model / Serial / Lot Marbella Spine [id number] Cervical Anterior 6d Cage Spinal Tritanium Sterile Latex Free [id number] - [id number] Implanted:Qty : 1 on 06/27/2023 by Floyd Sandoval MD at [facility] Cage N/A: Spine Cervical [employer] Spine 05/03/2028 [id number] / / Royston Spine L12 Mm X W14 Mm X H6 Mm Cervical Anterior 6 D Cage Spinal Tritanium Sterile Latex Free [id number] - [id number] Implanted:Qty : 1 on 06/27/2023 by Floyd Sandoval MD at [facility] Cage N/A: Spine Cervical Marbella Spine 07/08/2023 [id number] / / Royston Spine L14 Mm X W17 Mm X H6 Mm Cervical Anterior 6 D Cage Spinal Tritanium Sterile Latex Free [id number] - [id number] Implanted:Qty : 1 on 06/27/2023 by Floyd Sandoval MD at [facility] Cage N/A: Spine Cervical [employer] Spine 03/27/2028 [id number] / / [employer] Mike Graft Bone Cylinder Cancellous Gel Altapore Lg 8ml Putty [id number] - [id number] Implanted:Qty : 1 on 06/27/2023 by Floyd Sandoval MD at [facility] Graft N/A: Spine Cervical [employer] Mike [id number] 12/18/2027 [id number] / / [id number] Marbella Spine Plate 54mm 3 Level Enterprise Bone Spine Cerv Nonstrl Ltxfre [id number] - [id number] Implanted:Qty : 1 on 06/27/2023 by Floyd Sandoval MD at [facility] Plate N/A: Spine Cervical Marbella Spine [id number] / / Royston Spine Screw 16mm 4mm Bone Enterprise Spine Cervical Self Start Variable Angle Nonsterile [id number] - [id number] Implanted:Qty : 8 on 06/27/2023 by Floyd Sandoval MD at [facility] Screw N/A: Spine Cervical Marbella Spine [id number] / / Procedures Procedure Name Priority Date/Time Associated Diagnosis Comments ESOPHAGOGASTRODUODENOSCOPY 08/13 8:05 AM SENIOR TREASURY ANALYST Dysphagia, unspecified type EGD 08/13/2024 7:33 AM SENIOR TREASURY ANALYST CYTOLOGY Routine 08/13/2024 12:00 AM SENIOR TREASURY ANALYST Dysphagia, unspecified type IGG Routine 07/23/2024 11:20 AM SENIOR TREASURY ANALYST Chronic sinusitis, unspecified location IGA Routine 07/23/2024 11:20 AM SENIOR TREASURY ANALYST Chronic sinusitis, unspecified location IGM Routine 07/23/2024 11:20 AM SENIOR TREASURY ANALYST Chronic sinusitis, unspecified location IGE Routine 07/23/2024 11:20 AM SENIOR TREASURY ANALYST Chronic sinusitis, unspecified location STREP PNEUMONIAE ANTIBODY SEROTYPES Routine 07/23/2024 11:20 AM SENIOR TREASURY ANALYST Chronic sinusitis, unspecified location from Last 3 Months Results * EGD (08/13/2024 7:33 AM SENIOR TREASURY ANALYST) Anatomical Region Laterality Modality Other Narrative Procedure Note Ari Lees MD - 08/13/2024 7:33 AM CST [facility] Endoscopy Lab Patient Name: Joan Chase Procedure Date: 08/13/2024 7:33 AM Date of : 1965 Admit Type: Outpatient Age: 59 Gender: Female Note Status: Finalized Attending MD: Ari Lees M.D. Procedure Date: 08/13/2024 Procedure: Upper GI endoscopy Indications: Dysphagia Patient Profile: 59 y old woman c/o cervical dysphagia after spinal surgery ~ 1 year ago. Providers: Ari Lees M.D., Alyssa Salas CRNA (Anesthesia Staff), Jeny Franks RN, Reanna Medina RN,Kishore Medina, Senior Ui Web Developer Referring MD: Evangelista Dick Medicines: Monitored Anesthesia [...] as well. Procedure Code(s): --- Professional --- 39919, Esophagogastroduodenoscopy, flexible, transoral; diagnostic, including collection of specimen(s) by brushing or washing, when performed (separate procedure) Diagnosis Code(s): --- Professional --- K22.89, Other specified disease of esophagus R13.10, Dysphagia, unspecified CPT copyright 2020 [employer]. All rights reserved. The codes documented in this report are preliminary and upon professional fee coder reviewmay be revised to meet current compliance requirements. Ari Lees M.D. 08/13/2024 8:36:32 AM Number of Addenda: 0 Note Initiated On: 08/13/2024 7:33 AM us Ari Lees MD ENDOSCOPY PROCEDURES Edit ed Result - Final * Cytology (08/13/2024 12:00 AM SENIOR TREASURY ANALYST) Fluid (Gastroesophageal Brushing (Cytology)) 08/13/2024 8:12 AM SENIOR TREASURY ANALYST Narrative PATHOLOGY CH - 08/14/2024 6:16 PM SENIOR TREASURY ANALYST EPIC results best viewed via link to PDF [facility] Department of Pathology [address] [place] [address] Note to Patients: ??This report may [...] explain the details. Final Report Patient Name: ??CHUCKKADEEMAGUILAR HaroYA Address: ??[address] [place] [address] [address], [place], [place] [address] Gender: ??F : ??1965 (Age: 59) Service: ??Gastro Location: ?? GI Lab Hospital # ??[id number] Patient Type: ??[facility] Taken: ??08/13/2024 Received: ?? 08/13/2024 Accessioned: ?? [...] determined by the Surgical Pathology Department at [facility] as part of an ongoing design quality engineer program and in compliance with federally mandated [...] characteristics determined by the Surgical Pathology Department [facility]. ??It has not been cleared or approved by the U. S. Food and Drug Administration. Unless otherwise noted all cytology processing, staining and screening is performed at [facility] ([address] [place] [address]). REPORT IMAGES AND SCANNED DOCUMENTS, IF INCLUDED, ONLY VIEWABLE IN PDF VERSION OF REPORT us Ari Lees MD LAB CYTOLOGY ORDERABLES [place] [address] * Strep pneumoniae antibody serotypes (07/23/2024 11:20 AM SENIOR TREASURY ANALYST) S. pneumo Type 1 (1) 0.9 >=1.0 mcg/mL [facility] Lab S. pneumo Type 2 (2) 1.0 [...] [facility] Pneum Ab 23 interp See Footnote CERNER B Comment: Unable to quantitate serotypes 12F (12) [...] developed and its performance characteristics determined by [facility] in a manner consistent with CLIA requirements. This test has not been cleared or approved by the U.S. Food and Drug Administration. Test Performed by: [facility] [address] [place] [address] [employer] Caretaker: Aditya Nagel Ph.D.; CLIA# [id number] Blood 07/23/2024 11:2 0 AM SENIOR TREASURY ANALYST 07/23/2024 12:14 PM SENIOR TREASURY ANALYST Narrative [facility] - 07/27/2024 1:41 PM SENIOR TREASURY ANALYST Strep pneumo 23 Solomon Mcdowell MD LAB BLOOD ORDERABLES Fin al Result Performing Organization Address City/[facility] Co de Phone Number [facility] [place] [address] Catalan ref Lab * IgE (07/23/2024 11:20 AM SENIOR TREASURY ANALYST) Pathologist [facility] IgE 24 <=100 IUnits/mL Blood 07/23/2024 11:2 0 AM SENIOR TREASURY ANALYST 07/23/2024 11:38 AM SENIOR TREASURY ANALYST Solomon Mcdowell MD LAB BLOOD ORDERABLES Fin al Result Performing Organization Address [facility] Co de Phone Number [facility] [place] [address] * (ABNORMAL) IgA (07/23/2024 11:20 AM SENIOR TREASURY ANALYST) Pathologist [facility] Immunoglobulin A 421(H) 70 - 400 mg/dL Blood 07/23/2024 11:2 0 AM SENIOR TREASURY ANALYST 07/23/2024 11:38 AM SENIOR TREASURY ANALYST Solomon Mcdowell MD LAB BLOOD ORDERABLES Fin al Result Performing Organization Address City/[facility] Co de Phone Number [facility] [place] [address] * IgM (07/23/2024 11:20 AM SENIOR TREASURY ANALYST) Immunoglobulin M 69 40 - 230 mg/dL Blood 07/23/2024 11:2 0 AM SENIOR TREASURY ANALYST 07/23/2024 11:38 AM SENIOR TREASURY ANALYST Solomon Mcdowell MD LAB BLOOD ORDERABLES Fin al Result Performing Organization Address [facility] de Phone Number [facility] [place] [address] * IgG (07/23/2024 11:20 AM SENIOR TREASURY ANALYST) Immunoglobulin G 721 700 - 1,600 mg/dL Blood 07/23/2024 11:2 0 AM SENIOR TREASURY ANALYST 07/23/2024 11:38 AM SENIOR TREASURY ANALYST Solomon Mcdowell MD LAB BLOOD ORDERABLES Fin al Result Performing Organization Address [facility] de Phone Number [facility] [place] [address] from Last 3 Months Insurance MEDICARE SOLUTIONS MEDICARE SOLUTIONS IDPA Advance Directives For more information, please contact: [phone] * Full Code (Latest Code Status on File) Date Activated Date Inactivated Comments 06/27/2023 4:26 PM 06/30/2023 3:12 PM Care Teams Acetylene Torch Solderer Relationship Specialty Start Date End Date Rodrigo Olivera PA [address] [place] [address] PCP - General Physician Hardwood Flooring Specialist 02/16/24 Dr. Joanne Castillo Material Chaser 04/19/23
--- OUTSIDE RECORDS SUMMARY | 2024-10-19 08:51 | XMS_ITS | CONTINUITY OF CARE DOCUMENT ---
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 Name Role Phone Jere CARTY, Joanne Flower Unavailable JORDEN SKELTON Unavailable Rodrigo Guerra Unavailable [phone] PROBLEMS Condition Status Date Provider Notes Other symptoms involving car diovascular system active Joanne Oquendo MD HTN essential active Joanne Oquendo MD Hypercholesterolemia active Joanne richardson MD Chest pain, non-cardiac active Joanne pimentel MD Wheezing active Joanne Oquendo MD Edema - localized active Joanne Patel D Shortness of breath active Joanne Oquendo MD Seizure disorder active Joanne Oquendo MD C O P D active Haven Bates NP Hypertension active Haven Bates 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 examination active Kash Oquendo MD Cardiac murmur active Joanne Oquendo MD ENCOUNTERS Date Type Provider Location Encounter Diag nosis 2 - 9 In-person encounter Office Visit Joanne Oquendo MD [facility] 2 - 4 In-person encounter Office Visit Joanne Oquendo MD [facility] 3 - 5 In-person encounter Office Visit Joanne Oquendo MD [facility] 5 - 8 In-person encounter Office Visit Joanne Oquendo MD [facility] Cervical spine instabilityPreop cardiovasc. examinationCardiac murmur 3 - 3 In-person encounter Office Visit Joanne Oquendo MD [facility] 7 - 2 In-person encounter Office Visit Joanne Oquendo MD [facility] C O P DHypertensionUpper extremity weakness 2 - 2 In-person encounter Office Visit Joanne Oquendo MD [facility] 5 - 8 In-person encounter Office Visit Joanne Oquendo MD [facility] 1 - 7 In-person encounter Office Visit Joanne Oquendo MD [facility] Seizure disorder 4 - 6 In-person encounter Office Visit Joanne Oquendo MD [facility] WheezingEdema - localizedShortness of breath 2 - 6 In-person encounter Office Visit Joanne Oquendo MD [facility] Other symptoms involving cardiovascular systemHTN essentialHypercholesterolemiaChest pain, non-cardiac VITAL SIGNS Date Observation Value Provider Body Mass Index (Ratio) 22.32 kg/m2 Kory Wiley blood pressure, diastolic 70 mm[Hg] Valencia nkLogortiz blood pressure, systolic 143 mm[Hg] Marlin kLogortiz weight E&M 126 [lb_av] Tiki Gomez pulse rate 87 /min Tiki Gomez respiratory rate E&M 14 /min Tiki Gomez oxygen saturation, oximetry 97 % Tiki Gomez blood pressure, diastolic 70 mm[Hg] Chantel Elizabethn blood pressure, systolic 143 mm[Hg] Virginia Gomez height E&M 63 [in_i] Tiki Elizabethn blood pressure, cuff size large Va sharif Gomez Body Mass Index (Ratio) 21.25 kg/m2 Meghana Oquendo MD blood pressure, diastolic 74 mm[Hg] [facility] 125 [facility][Hg] [facility], cuff size regular [facility] blood pressure, diastolic 74 mm[Hg] [facility] blood pressure, systolic 125 mm[Hg] [facility] E&M 16 /min [facility] iller oxygen saturation, oximetry 96 % [facility] pulse rate 75 /min [facility] weight E&M 120 [lb_av] [facility] height E&M 63 [in_i] [facility] Body Mass Index (Ratio) 24.62 kg/m2 Meghana Oquendo MD blood pressure, diastolic 81 mm[Hg] Li nkLog blood pressure, systolic 125 mm[Hg] Marlin kLog blood pressure, cuff size regular Fa [facility] blood pressure, diastolic 81 mm[Hg] [facility] blood pressure, systolic 125 mm[Hg] [facility] oxygen saturation, oximetry 97 % [facility] weight E&M 139 [lb_av] [facility] height E&M 63 [in_i] [facility] respiratory rate E&M 16 /min Paula M iller pulse rate 116 /min [facility] Body Mass Index (Ratio) 23.91 kg/m2 Meghana Oquendo MD blood pressure, diastolic 74 mm[Hg] pedro Roosevelt blood pressure, systolic 147 mm[Hg] Shahida jon Roosevelt oxygen saturation, oximetry 96 % Jeanna Roosevelt respiratory rate E&M 18 /min Jeanna Serafin reinoso pulse rate 83 /min Jeanna Roosevelt weight E&M 135 [lb_av] Jeanna Roosevelt height E&M 63 [in_i] Jeannadontrell Albert Body Mass Index (Ratio) 24.27 kg/m2 Tasha arriaga Phi blood pressure, diastolic 63 mm[Hg] Valencia nkLogic blood pressure, systolic 116 mm[Hg] Marlin Chamberlainogortiz oxygen saturation, oximetry 94 % Ariana Oneal pulse rate 76 /min Arianadebra Oneal blood pressure, diastolic 63 mm[Hg] An john Oneal blood pressure, systolic 116 mm[Hg] Any debra Oneal blood pressure, cuff size large An john Oneal weight E&M 137 [lb_av] Ariana Jm height E&M 63 [in_i] Arianadebra Oneal Body Mass Index (Ratio) 24.62 kg/m2 Meghana Oquendo MD blood pressure, cuff size regular Ke rri Myronueneivana blood pressure, diastolic 60 mm[Hg] Ke rri Ericneivana blood pressure, systolic 142 mm[Hg] Serenity Archer oxygen saturation, oximetry 97 % Jyoti Archer respiratory rate E&M 16 /min Jyoti diop pulse rate 81 /min Jyoti blackburn weight E&M 139 [lb_av] Jyoti Mckenzie lder height E&M 63 [in_i] Jyoti Mckenzie lder Body Mass Index (Ratio) 30.64 kg/m2 Meghana Oquendo MD blood pressure, diastolic 70 mm[Hg] Li nkLogic blood pressure, systolic 116 mm[Hg] Marlin kLogic blood pressure, diastolic 70 mm[Hg] Tashi Pilar Ritter blood pressure, systolic 116 mm[Hg] Lissette Ritter oxygen saturation, oximetry 97 % Siobhan Guadarramaenson respiratory rate E&M 16 /min Javad ashia Ritter pulse rate 84 /min Siobhan Hylton nsnando weight E&M 173 [lb_av] Siobhan Hylton nsnando height E&M 63 [in_i] Siobhan Hylton nson Body Mass Index (Ratio) 29.37 kg/m2 Meghana Oquendo MD blood pressure, diastolic 60 mm[Hg] Li nkLogic blood pressure, systolic 130 mm[Hg] Marlin kLogic blood pressure, diastolic 60 mm[Hg] Tashi Pilar Ritter blood pressure, systolic 130 mm[Hg] Lissette Ritter oxygen saturation, oximetry 97 % Siobhan Ritter respiratory rate E&M 16 /min Javad Ritter pulse rate 101 /min Siobhan Hylton nson weight E&M 165.8 [lb_av] Siobhan Guadarrama enson height E&M 63 [in_i] Siobhan Hylton nson Body Mass Index (Ratio) 28.34 kg/m2 Meghana Oquendo MD blood pressure, diastolic 70 mm[Hg] Li nkLogic blood pressure, systolic 130 mm[Hg] Marlin kLogic blood pressure, cuff size regular Ricky Guerreroby blood pressure, diastolic 70 mm[Hg] Ricky morris blood pressure, systolic 130 mm[Hg] Rosa Guerrero oxygen saturation, oximetry 97 % Sarah [place] pulse rate 101 /min Sarah [place] respiratory rate E&M 18 /min Sarah weight E&M 160 [lb_av] Sarah height E&M 63 [in_i] Sarah Body Mass Index (Ratio) 27.81 kg/m2 Meghana Oquendo MD blood pressure, diastolic 90 mm[Hg] Tashi hernandez [place] blood pressure, systolic 130 mm[Hg] Lissette sparrow [place] oxygen saturation, oximetry 98 % Vannesa O'Hesham respiratory rate E&M 18 /min Vannesa O'Hesham pulse rate 79 /min Vannesa O'[place]esham blood pressure, resting Yes [facility] O'Hesham weight E&M 157 [lb_av] Vannesa O'Hesham height E&M 63 [in_i] Vannesa O'Hesham blood pressure, diastolic 91 mm[Hg] Tashi Ritter blood pressure, systolic 142 mm[Hg] Lissette Ritter Body Mass Index (Ratio) 25.12 kg/m2 Alyssa Ritter pulse rate 70 /min Siobhan zamora oxygen saturation, oximetry 98 % Siobhan Ritter respiratory rate E&M 18 /min Javad Ritter weight E&M 141.8 [lb_av] Siobhan hernandez height E&M 63 [in_i] Siobhan zamora ALLERGIES Allergy Name Onset Date Reaction Criticality Status IVP DYE High Criticality active ASA High Criticality active TETANUS High Criticality active PENICILLIN High Criticality active RESULTS Date Observation Value Provider Reference Range Interpretation Location 3 prothrombin time (patient) 9.3 s [facility] 9.1-12.0 3 international normalized ratio (INR) 0.9 [facility] 0.9-1.2 3 lipoprotein, beta, serum, point, quantitative, calculated 98 mg/dL [facility] 0-99 3 HDL cholesterol, serum 155 mg/dL [facility] >39 3 triglyceride, serum, random 133 mg/dL [facility] 0-149 3 cholesterol, serum 274 mg/dL [facility] 100-199 High 3 calcium, serum 10.2 mg/dL [facility] 8.7-10.2 3 carbon dioxide, venous blood 24 mmol/L [facility] 20-29 3 chloride, serum 110 mmol/L [facility] 96-106 High 3 potassium, serum 4.4 mmol/L [facility] 3.5-5.2 3 sodium, serum 150 mmol/L [facility] 134-144 High 3 urea nitrogen/creatinine ratio, serum 12 [facility] 9-23 3 creatinine, serum 0.78 mg/dL [facility] 0.57-1.00 3 urea nitrogen, blood 9 mg/dL [facility] 6-24 3 blood glucose, random 131 mg/dL [facility] 70-99 High 3 basophil count, absolute 0.0 x10E3/uL [facility] 0.0-0.2 3 Eosinophil Absolute Count 0.0 X10E3/UL [facility] 0.0-0.4 3 monocyte count, blood, automated 0.4 X10E3/UL [facility] 0.1-0.9 3 lymphocyte count, blood, automated 0.6 X10E3/UL [facility] 0.7-3.1 Low 3 Absolute Neutrophils 7.4 X10E3/UL [facility] 1.4-7.0 High 3 basophils as percent of blood leukocytes 0 % [facility] Not Estab. 3 eosinophils as percent of blood leukocytes 1 % [facility] Not Estab. 3 monocytes as percent of blood leukocytes 5 % [facility] Not Estab. 3 lymphocytes as percent of blood leukocytes 7 % [facility] Not Estab. 3 neutrophils as percent of blood leukocytes 87 % [facility] Not Estab. 3 platelet count 222 X10E3/UL [facility] 590-589 9085/04/0 3 red blood cell distribution width 14.8 % [facility] 11.7-15.4 3 mean corpuscular hemoglobin concentration, RBC 34.0 G/DL [facility] 31.5-35.7 3 mean corpuscular hemoglobin, RBC 29.7 pg [facility] 26.6-33.0 3 mean corpuscular volume, RBC 87 fL [facility] 79-97 3 hematocrit, blood 42.4 % [facility] 34.0-46.6 3 hemoglobin, blood 14.4 g/dL [facility] 11.1-15.9 3 erythrocyte (RBC) count 4.85 X10E6/UL [facility] 3.77-5.28 3 leukocyte count, blood 8.4 X10E3/UL [facility] 3.4-10.8 6 B-type natriuretic peptide 58.5 pg/mL [facility] 0.0-100.0 6 hemoglobin A1C, blood, as % of total hemoglobin 5.8 % [facility] 4.8-5.6 High 6 free thyroxine index 2.6 [facility] 1.2-4.9 6 triiodothyronine resin uptake 34 % [facility] 24-39 6 thyroxine, serum, total 7.5 ug/dL [facility] 4.5-12.0 thyroid stimulating hormone, serum 0.014 u[IU]/mL [facility] 0.450-4.500 Low lipoprotein, beta, serum, point, quantitative, calculated 126 mg/dL [facility] 0-99 High HDL cholesterol, serum 89 mg/dL [facility] >39 triglyceride, serum, random 193 mg/dL [facility] 0-149 High 6 cholesterol, serum 248 mg/dL [facility] 100-199 High platelet count 276 X10E3/UL [facility] 843-317 1301/10/1 red blood cell distribution width 14.4 % [facility] 11.7-15.4 6 mean corpuscular hemoglobin concentration, RBC 33.6 G/DL [facility] 31.5-35.7 6 mean corpuscular hemoglobin, RBC 31.7 pg [facility] 26.6-33.0 6 mean corpuscular volume, RBC 94 fL [facility] 79-97 6 hematocrit, blood 45.5 % [facility] 34.0-46.6 6 hemoglobin, blood 15.3 g/dL [facility] 11.1-15.9 6 erythrocyte (RBC) count 4.83 X10E6/UL [facility] 3.77-5.28 6 leukocyte count, blood 11.1 X10E3/UL [facility] 3.4-10.8 High 6 alanine aminotransferase (SGPT), serum 32 1/L [facility] 0-32 6 aspartate aminotransferase (SGOT), serum 22 1/L [facility] 0-40 6 alkaline phosphatase, serum 63 1/L [facility] 44-121 6 bilirubin, serum, total 0.3 mg/dL [facility] 0.0-1.2 6 albumin/globulin ratio, serum 1.7 [facility] 1.2-2.2 6 globulin, serum 2.5 [facility] 1.5-4.5 6 albumin, serum 4.3 g/dL [facility] 3.8-4.9 6 protein, total, serum 6.8 g/dL [facility] 6.0-8.5 6 calcium, serum 9.7 mg/dL [facility] 8.7-10.2 6 carbon dioxide, venous blood 26 mmol/L [facility] 20-29 6 chloride, serum 97 mmol/L [facility] 96-106 6 potassium, serum 5.1 mmol/L [facility] 3.5-5.2 6 sodium, serum 138 mmol/L [facility] 045-456 9123/10/1 6 urea nitrogen/creatinine ratio, serum 9 [facility] 9-23 6 eGFR if 54 mL/min/{1 .73_m2} [facility] >59 Low 6 eGFR if not 47 mL/min/{1 .73_m2} [facility] >59 Low 6 creatinine, serum 1.28 mg/dL [facility] 0.57-1.00 High 6 urea nitrogen, blood 11 mg/dL [facility] 6-24 6 blood glucose, random 133 mg/dL [facility] 65-99 High HISTORY OF MEDICATION USE Medication Status Instructions Dates Provider Indications Com ments amitriptyline 10 mg tablet active Celina Mathew NP amlodipine 10 mg tablet active Take 1 tablet by mouth once a day Celina Mathew NP omeprazole 40 mg capsule,delayed release(DR/EC) active TAKE 1 CAPSULE BY MOUTH EVERY DAY BEFORE A MEAL Celina Mathew NP prednisone 50 mg tablet completed Take 1 tablet by mouth 1 tablet 5pm day before the procedure 1 tablet at bedtime night before the procedure 1 tablet the morning of the procedure - Celina Mathew NP metolazone 2.5 mg tablet completed Take 1 tablet by mouth every three days ONCE EVERY MWF . take 1/2 hr before morning lasix. - Celina Mathew NP furosemide 40 mg tablet completed Take 1 tablet by mouth once a day - Joanne Oquendo MD furosemide 40 mg tablet completed - Siobhan Ritter Lasix 40 mg tablet completed Take 1 tablet by mouth once a day Take one tablet by mouth twice a day on Tuesday and Tuesday. Then tuesday-Tuesday take 40mg once a day. - Joanne Oquendo MD losartan 50 mg tablet active Take 1 tablet by mouth once a day Joanne Oquendo MD Keppra 500 mg tablet completed Take 1 tablet by mouth once a day - Celina Mathew NP Dilantin Extended 100 mg capsule completed Take 2 capsule by mouth twice a day as directed 2 cap am, 3 cap pm - Celina Mathew NP Adult Low Dose Aspirin 81 mg tablet,delayed release (/EC) completed Take 1 tablet by mouth once a day - Celina Mathew NP Lasix unspecified unspecified completed Take 1 tablet by mouth once a day 10 mg - Vannesa Low Klor-Con 10 10 mEq tablet extended release completed Take 1 tablet by mouth once a day - Vannesa Low Symbicort 160-4.5 mcg/actuation HFA aerosol inhaler active Inhale 2 puff using inhaler twice a day Siobhan Ritter Banophen 25 mg capsule completed Take 1 capsule by mouth once a day TAKE ONE CAPSULE BY MOUTH EVERY NIGHT AT BEDTIME - Celina Mathew NP Ventolin HFA 90 mcg/actuation HFA aerosol inhaler active Inhale 2 puff using inhaler three times a day as needed Celina Mathew NP prednisone 20 mg tablet completed Take 1 tablet by mouth once a day - Vannesa O'Hesham levothyroxine 112 mcg tablet active Take 1 tablet by mouth once a day Vannesa Abdi'Hesham guanfacine 2 mg tablet completed Take 2 tablet by mouth at bedtime 1-2 tab at bedtime - Celina Mathew NP norethindrone acetate 5 mg tablet completed Take 1 tablet by mouth once a day - Celina Mathew NP gabapentin 300 mg capsule completed Take 2 capsule by mouth three times a day 700 mg tab 2 tabs 3 times daily - Celina Mathew NP methocarbamol 750 mg tablet completed Take 1 tablet by mouth three times a day TAKE 1 TABLET BY MOUTH FOUR TIMES A DAY NEEDED FOR PAIN - Celina Mathew NP lisinopril 10 mg tablet completed 1 tablet by mouth once a day - Joanne Oquendo MD HTN essential buspirone 10 mg tablet completed tablet by mouth twice a day - Siobhan Ritter estradiol 1 mg tablet active Take 1 tablet by mouth once a day Vannesa Abdi'eHsham atorvastatin 20 mg tablet completed tablet by mouth once a day - Siobhan Ritter melatonin 3 mg tablet completed 5 mg by mouth as needed - Siobhan Ritter SOCIAL HISTORY Date Observation Value Provider smoking, year quit 2020 Joanne Oquendo MD number of years as a smoker 40 a Joanne Oquendo MD smoking history, tot al pack/day 7 a day Joanne Oquendo MD cigarette use yes Joanne quan MD smoking status Former smoker Joanne pimentel MD Exercise counseling No - Patient Refused Celina Mathew NP smoking, year quit 2020 Paula lopez number of years as a smoker 40 a Paula Bravo smoking history, tot al pack/day 7 a day Paula Bravo cigarette use yes Paula Bravo smoking status Former smoker Paula Braov number of years as a smoker 40 a Joanne Oquendo MD smoking history, tot al pack/day 7 a day Joanne Oquendo MD smoking status Former smoker Joanne pimentel MD social history reviewed E&M revi ewed - no changes required Joanne Oquendo MD social history E&M S moking History: Wu francois is a former smoker. Joanne Oquendo MD smoking, year quit 2020 Joanne Oquendo MD cigarette use yes Paula Bravo social history E&M S moking History: Wu francois currently smokes every day. Wu francois has been counseled to quit. Joanne Oquendo MD social history reviewed E&M revi ewed - no changes required Joanne Oquendo MD smoking/tobacco cess ation, patient education and counseling yes Jeanna Roosevelt smoking, year quit 2020 Jeanna Dai maia number of years as a smoker 40 a Jeanna Roosevelt smoking history, tot al pack/day 7 a day Jeanna Roosevelt cigarette use yes Jeanna Roosevelt smoking status Current every da y smoker Jeanna Roosevelt social history E&M S moking History: Wu francois currently smokes every day. Wu francois has been counseled to quit. Joanne Oquendo MD social history reviewed E&M revi ewed - no changes required Joanne Oquendo MD smoking/tobacco cess ation, patient education and counseling yes Ariana Oneal smoking, year quit 2020 Ariana Will fermín number of years as a smoker 40 a Ariana Oneal smoking history, tot al pack/day 7 a day Ariana Oneal cigarette use yes Ariana Oneal smoking status Current every da y smoker Ariana Oneal social history reviewed E&M revi ewed - no changes required Haven Bates NP social history E&M S moking History: Wu francois currently smokes every day. Haven Bates NP number of years as a smoker 40 a Jyoti Archer smoking history, tot al pack/day 7 a day Jyoti Archer cigarette use yes Jyoti dubon smoking status Current every da y smoker Jyoti Archer smoking, year quit 2020 Siobhan Ritter number of years as a smoker 30 a Siobhan Ritter smoking history, tot al pack/day 0.5 Siobhan Ritter cigarette use yes Siobhan hernandez smoking status Former smoker Siobhan Garcia social history reviewed E&M revi ewed - no changes required Joanne Oquendo MD social history E&M S moking History: Wu francois is a former smoker. Joanne Oquendo MD smoking, year quit 2020 Siobhan Ritter number of years as a smoker 30 a Siobhan Ritter smoking history, tot al pack/day 0.5 SiobhanDarling Ritter cigarette use yes Siobhan chiuon smoking status Former smoker Siobhan Garcia number of grandchildren Joanne Oquendo MD social history E&M S moking History: Wu francois is a former smoker. 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 30 a Siobhan Ritter smoking history, tot al pack/day 0.5 Siobhan Ritter cigarette use yes Siobhan hernandez smoking status Current every da y smoker Siobhan Ritter FAMILY HISTORY Family Member Condition Mother Family History of Co ronary Artery Disease: Father Family History of Co ronary Artery Disease: INSURANCE PROVIDERS Payer name Policy type / Coverage type [place] [employer] party ID [id number] (PPO C-SNP) [employer] insurance [employer] [id number] [facility] Medicaid 3 [id number] ADVANCE DIRECTIVES Name Date DISCUSSED - NO DECISION MADE TREATMENT PLAN Date Name Performer [id number],C, T he Patient was reencouraged to stop smoking. July 22, 2023 N ot smoking currently Joanne Oquendo MD [id number],S, T he following medications were removed from the medication list: Atorvastatin 20 Mg Tablet (Atorvastatin) ..... Tablet by mouth once a day Joanne Oquendo MD [id number],B, Joanne pimentel MD [id number],C, P OBDULIA CASTILLO I n regards to her cervical spine surgery, I think it would be okay for her to proceed with surgery. We can electively repair the subclavian after she has had her c-spine surgery completed. More accurate BP readings will be obtained from her right arm. In the event that we did the subclavian stent, she will need to be on DAPT for minimum of 90 days. Which will delay her c-spine surgery. She has had no neuroligical symptoms as she has been able to describe to me associated with the subclavian steel. She does get however, some sc of dizziness and numbness. These may be more associated with the c-spine. Okat to hold Aspirin 3-5 days prior to her c-spine surgery and resume after surgical procedure is completed. July 22, 2023 D id well with her cspine surgery Joanne Oquendo MD [id number],C, B P today: 125/81 P rior BP: 147/74 (01/21/2023) Labs Reviewed: C reat: 0.78 (12/20/2022) C hol: 274 (12/20/2022) HDL: 155 (12/20/2022) Her updated medication list for this problem includes: Metolazone 2.5 Mg Tablet (Metolazone) ..... Take 1 tablet by mouth every three days once every mwf . take 1/2 hr before morning lasix. Losartan 50 Mg Tablet (Losartan) ..... Take 1 tablet by mouth once a day Guanfacine 2 Mg Tablet (Guanfacine) ..... Take 2 tablet by mouth at bedtime 1-2 tab at bedtime Joanne Oquendo MD [id number],C, H er updated medication list for this problem includes: Metolazone 2.5 Mg Tablet (Metolazone) ..... Take 1 tablet by mouth every three days once every mwf . take 1/2 hr before morning lasix. Losartan 50 Mg Tablet (Losartan) ..... Take 1 tablet by mouth once a day Guanfacine 2 Mg Tablet (Guanfacine) ..... Take 2 tablet by mouth at bedtime 1-2 tab at bedtime B P today: 147/74 P rior BP: 116/63 (12/09/2022) Labs Reviewed: C reat: 0.78 (12/20/2022) C hol: 274 (12/20/2022) HDL: 155 (12/20/2022) Joanne Oquendo MD [id number],Angelo Almeida 07/08/21 CONCLUSIONS: 1 . Normal left ventricular systolic function. Normal left ventricular size. Normal left ventricular wall thickness. There is E to A w ave reversal consistent with impaired LV relaxation. E/E': 7.1. Left ventricular ejection fraction is measured at 60 %. 2 . Normal right ventricular size. Normal right ventricular systolic function. 3 . There is trace physiologic mitral valve regurgitation. 4 . There is trace physiologic tricuspid valve regurgitation. Cath [facility] 01/29/15 L eft ventriculogram was performed. Ejection fraction is 55% with normal left ventricular volume, wall m otion, and ejection fraction. There is no evidence of any significant mitral regurgitation noted. However, t he aortic root appeared to be mildly enlarged. A ortogram was performed demonstrating mildly enlarged aortic root. There is no evidence of any s ignificant aortic regurgitation. The ascending arch and descending thoracic aortas appeared to be o therwise grossly normal. There is no evidence of aneurysmal dilatation or any significant atheromatous d isease. Aortic pressure is 152/81 with a mean arterial pressure of 111, left ventricle pressure of 152/5 w ith an end-diastolic pressure of 21. I MPRESSION: 1 . Normal coronary arteries. 2 . Mild systemic hypertension. 3 . Normal LV function. 4 . Mildly elevated LVEDP. 5 . Normal renal arteries. 6 . The right femoral angiogram was performed in anticipation of placement of a closure device. However, s mall vessel was noted and hence manual compression with safeguard was applied for hemostasis. Joanne Oquendo MD [id number],S,U bill review of invasive and noninvasive testing and recent exam the patient is an acceptable candidate for the planned NEUROSURGICAL surgical procedure recommend to maintain her blood pressure range of 110 to 140 mmHg and a heart rate of 60-80 B p.m.. It is okay to use IV beta blockers calcium channel blockers nitrates and afterload reducing agents to maintain the aforementioned hemodynamics parameters. Tele monitoring and EKG should be done if the patient has arrhythmia during procedure WILL DEFER DOING SUBCLAVIAN STENT AT PRESENT MAINLY BECAUSE SHE WILL REQUIRE DAPT AND WE CAN WAIT TO DO THIS UNTIL HER CERVICAL SPINE SURGERY IS COMPLETED, SO THERE'S NO ISSUES OF SUB ACUTE THROMBOSIS OR ISSUES WITH ANTI-PLATELET THERAPY IN THE PERIOPERATIVE SETTING. Joanne Oquendo MD [id number],C, T he following medications were removed from the medication list: Atorvastatin 20 Mg Tablet (Atorvastatin) ..... Tablet by mouth once a day Joanne Oquendo MD [id number],C, B P today: 147/74 P rior BP: 116/63 (12/09/2022) Labs Reviewed: C reat: 0.78 (12/20/2022) C hol: 274 (12/20/2022) HDL: 155 (12/20/2022) Her updated medication list for this problem includes: Metolazone 2.5 Mg Tablet (Metolazone) ..... Take 1 tablet by mouth every three days once every mwf . take 1/2 hr before morning lasix. Losartan 50 Mg Tablet (Losartan) ..... Take 1 tablet by mouth once a day Guanfacine 2 Mg Tablet (Guanfacine) ..... Take 2 tablet by mouth at bedtime 1-2 tab at bedtime Joanne Oquendo MD [id number],C, W ill order UE arterial dopple to evaluate for subclavian steal syndrome CONCLUSIONS: 1 . Mild plaque with less than 50% stenosis of the internal carotid arteries bilaterally. P [email or web address] CAROTID January 21, 2023 She had a carotid angio done for subclavian farah eval I MPRESSION: 1 . 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 2 . A 30% stenosis in the bilateral carotid bulbs. 3 . Widely patent common carotids bilaterally. 4 . Widely patent vertebrals bilaterally. 5 . No evidence of intracranial aneurysm. 6 . Mild disease involving carotid bulbs bilaterally. Will defer doing this procedure. It'll require asa and plavix, which may hamper her getting her c spine surgery done. Joanne Oquendo MD [id number],C,P REOP EVAL I n regards to her cervical spine surgery, I think it would be okay for her to proceed with surgery. We can electively repair the subclavian after she has had her c-spine surgery completed. More accurate BP readings will be obtained from her right arm. In the event that we did the subclavian stent, she will need to be on DAPT for minimum of 90 days. Which will delay her c-spine surgery. She has had no neuroligical symptoms as she has been able to describe to me associated with the subclavian steel. She does get however, some sc of dizziness and numbness. These may be more associated with the c-spine. Okat to hold Aspirin 3-5 days prior to her c-spine surgery and resume after surgical procedure is completed. Joanne Oquendo MD [id number],C, I MPRESSION: 1 . Normal coronary arteries. 2 . Mild systemic hypertension. 3 . Normal LV function. 4 . Mildly elevated LVEDP. 5 . Normal renal arteries. 6 . The right femoral angiogram was performed in anticipation of placement of a closure device. However, s mall vessel was noted and hence manual compression with safeguard was applied for hemostasis. Joanne Oquendo MD [id number],C, I MPRESSION: 1 . Normal coronary arteries. 2 . Mild systemic hypertension. 3 . Normal LV function. 4 . Mildly elevated LVEDP. 5 . Normal renal arteries. 6 . The right femoral angiogram was performed in anticipation of placement of a closure device. However, s mall vessel was noted and hence manual compression with safeguard was applied for hemostasis. Joanne Oquendo MD [id number],C,T he Patient was reencouraged to stop smoking. Joanne Oquendo MD [id number],C, B P today: 116/63 P rior BP: 142/60 (11/05/2022) Labs Reviewed: C reat: 1.28 (07/04/2021) C hol: 248 (07/04/2021) HDL: 89 (07/04/2021) Her updated medication list for this problem includes: Metolazone 2.5 Mg Tablet (Metolazone) ..... Take 1 tablet by mouth every three days once every mwf . take 1/2 hr before morning lasix. Losartan 50 Mg Tablet (Losartan) ..... Take 1 tablet by mouth once a day Guanfacine 2 Mg Tablet (Guanfacine) ..... Take 2 tablet by mouth at bedtime 1-2 tab at bedtime Joanne Oquendo MD [id number],C, W ill order UE arterial dopple to evaluate for subclavian steal syndrome CONCLUSIONS: 1 . Mild plaque with less than 50% stenosis of the internal carotid arteries bilaterally. P [email or web address] CAROTID Study Dt:11-17-2022 Page 2 2 . The left vertebral flow is retrograde consistant with ipsilateral subclavian stenosis or occlusion. 3 . Normal right vertebral flow. Arrange for Angiogram T he risks and benefits of the procedure, including but not limited the risk of heart attack, , stroke, bleeding, kidney failure, and loss of limb as well as the alternative of continued medical therapy, stress testing or bypass surgery were discussed with the patient and any present family members and the patient wishes to proceed with cardiac cath and stenting. The patient and family had opportunity to discuss this with us. Written material including informed consent was given out. Joanne Oquendo MD [id number],C, T he following medications were removed from the medication list: Atorvastatin 20 Mg Tablet (Atorvastatin) ..... Tablet by mouth once a day Joanne Oquendo MD [id number],C,W ill order UE arterial dopple to evaluate for subclavian steal syndrome Haven Bates NP [id number],C, B P today: 142/60 P rior BP: 116/70 (07/10/2021) Labs Reviewed: C reat: 1.28 (07/04/2021) C hol: 248 (07/04/2021) HDL: 89 (07/04/2021) Her updated medication list for this problem includes: Metolazone 2.5 Mg Tablet (Metolazone) ..... Take 1 tablet by mouth every three days once every mwf . take 1/2 hr before morning lasix. Losartan 50 Mg Tablet (Losartan) ..... Take 1 tablet by mouth once a day Guanfacine 2 Mg Tablet (Guanfacine) ..... Take 2 tablet by mouth at bedtime 1-2 tab at bedtime Haven Bates [employer] [id number],S, s ees pulmonary lamine foner at [place]. on steriods inhalers. Haven Bates NP [id number],S, Haven shay [employer] [id number],C, I MPRESSION: 1 . Normal coronary arteries. 2 . Mild systemic hypertension. 3 . Normal LV function. 4 . Mildly elevated LVEDP. 5 . Normal renal arteries. 6 . The right femoral angiogram was performed in anticipation of placement of a closure device. However, s mall vessel was noted and hence manual compression with safeguard was applied for hemostasis. Haven Bates NP [id number],B,t akes symbicort and ventolin 3 x day Her updated medication list for this problem includes: Metolazone 2.5 Mg Tablet (Metolazone) ..... Take 1 tablet by mouth every three days once every mwf . take 1/2 hr before morning lasix. Losartan 50 Mg Tablet (Losartan) ..... Take 1 tablet by mouth once a day Haven Bates [employer] [id number],S,h as nicola CONCLUSIONS: 1 . Normal left ventricular systolic function. Normal left ventricular size. Normal left ventricular wall thickness. There is E to A w ave reversal consistent with impaired LV relaxation. E/E': 7.1. Left ventricular ejection fraction is measured at 60 %. 2 . Normal right ventricular size. Normal right ventricular systolic function. 3 . There is trace physiologic mitral valve regurgitation. 4 . There is trace physiologic tricuspid valve regurgitation. E lectronically Signed By: Tahir Oquendo MD, [facility] 16:53:26 CDT C C: [facility]endo MD, [facility] IMPRESSION: 1 . Normal coronary arteries. 2 . Mild systemic hypertension. 3 . Normal LV function. 4 . Mildly elevated LVEDP. 5 . Normal renal arteries. 6 . The right femoral angiogram was performed in anticipation of placement of a closure device. However, s mall vessel was noted and hence manual compression with safeguard was applied for hemostasis. R ECOMMENDATIONS: 1 . Joanne Oquendo MD [id number],S, s miranda pulmonary lamine aaron at [place]. on steriods inhalers. s he has NICOLA will need cpap Joanne Oquendo MD [id number],C,n ot much improvement t akes symbicort and ventolin 3 x day Joanne Oquendo MD [id number],S,s ome benefit from lasix will get zaroxyln and laxix and have her see nephrology Joanne Oquendo MD [id number],S, S mu Ramirez at [facility], had EEG done, has been on KEppra, and Dilantin. Joanne Oquendo MD [id number],S, H er updated medication list for this problem includes: Losartan 50 Mg Tablet (Losartan) ..... Take 1 tablet by mouth once a day Guanfacine 2 Mg Tablet (Guanfacine) ..... Take 2 tablet by mouth at bedtime 1-2 tab at bedtime Lasix Unspecified Unspecified (Furosemide) ..... Take 1 tablet by mouth once a day 10 mg BP today: 130/60 P rior BP: 130/70 (06/19/2021) Joanne Oquendo MD [id number],C, T he following medications were removed from the medication list: Atorvastatin 20 Mg Tablet (Atorvastatin) ..... Tablet by mouth once a day Joanne Oquendo MD [id number],C,B P is better. Has emphysema. Has swelling needs diuretics Joanne Oquendo MD [id number],S,Bilateral LE. Needs lasix Joanne Oquendo MD [id number],S,S mu Ramirez at [facility], had EEG done, has been on KEppra, and Dilantin. Joanne Oquendo MD [id number],B, Joanne pimentel MD [id number],C, I MPRESSION: 1 . Normal coronary arteries. 2 . Mild systemic hypertension. 3 . Normal LV function. 4 . Mildly elevated LVEDP. 5 . Normal renal arteries. 6 . The right femoral angiogram was performed in anticipation of placement of a closure device. However, s mall vessel was noted and hence manual compression with safeguard was applied for hemostasis. Joanne Oquendo MD [id number],C, C ONCLUSIONS: 1 . Normal left ventricular systolic function. Normal left ventricular size. Normal left ventricular wall thickness. There is E to A w ave reversal consistent with impaired LV relaxation. E/E': 7.1. Left ventricular ejection fraction is measured at 60 %. 2 . Normal right ventricular size. Normal right ventricular systolic function. 3 . There is trace physiologic mitral valve regurgitation. 4 . There is trace physiologic tricuspid valve regurgitation. w heezing and needs to be worked up for CHF. has been tested negative for covid. Joanne Oquendo MD [id number],C, H er updated medication list for this problem includes: Atorvastatin 20 Mg Tablet (Atorvastatin) ..... Tablet by mouth once a day Joanne Oquendo MD [id number],S,w heezing and needs to be worked up for CHF. has been tested negative for covid. Joanne Oquendo MD [id number],C,n eeds to be worked up for chf and needs thyroid testing done. Joanne Oquendo MD [id number],C,I MPRESSION: 1 . Normal coronary arteries. 2 . Mild systemic hypertension. 3 . Normal LV function. 4 . Mildly elevated LVEDP. 5 . Normal renal arteries. 6 . The right femoral angiogram was performed in anticipation of placement of a closure device. However, s mall vessel was noted and hence manual compression with safeguard was applied for hemostasis. Joanne Oquendo MD [id number],S,s ees pulmonary lamine aaron at [place]. on steriods inhalers. Joanne Oquendo MD Cardiology: U nable to tolerate any statins and gets pains and naesea Joanne Oquendo MD Cardiology: T he Patient was reencouraged to stop smoking. July 22, 2023 N ot smoking currently April 20, 2024 N ot smoking Joanne Oquendo MD Cardiology: W ill order UE arterial dopple to evaluate for subclavian steal syndrome CONCLUSIONS: 1 . Mild plaque with less than 50% stenosis of the internal carotid arteries bilaterally. P [email or web address] CAROTID January 21, 2023 She had a carotid angio done for subclavian farah eval I MPRESSION: 1 . 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 2 . A 30% stenosis in the bilateral carotid bulbs. 3 . Widely patent common carotids bilaterally. 4 . Widely patent vertebrals bilaterally. 5 . No evidence of intracranial aneurysm. 6 . Mild disease involving carotid bulbs bilaterally. Will defer doing this procedure. It'll require asa and plavix, which may hamper her getting her c spine surgery done. April 20, 2024 R EVIEWED WITH HER ABOUT SUBCLAVIAN BLOCKAGE AND AT PRESENT DOES NOT HAVE MUCH SX AND WOULD DEFER HAVING NAYTHING DONE. Joanne Oquendo MD Cardiology: P REOP EVAL I n regards to her cervical spine surgery, I think it would be okay for her to proceed with surgery. We can electively repair the subclavian after she has had her c-spine surgery completed. More accurate BP readings will be obtained from her right arm. In the event that we did the subclavian stent, she will need to be on DAPT for minimum of 90 days. Which will delay her c-spine surgery. She has had no neuroligical symptoms as she has been able to describe to me associated with the subclavian steel. She does get however, some sc of dizziness and numbness. These may be more associated with the c-spine. Okat to hold Aspirin 3-5 days prior to her c-spine surgery and resume after surgical procedure is completed. July 22, 2023 D id well with her cspine surgery October 21, 2023 r eports still cannot eat solid foods since surgery, has to eat soft foods M AY NEED REOPERATION FOR HER DYSPHAGIA AND ASPIRATION IN THE EVENT SHE IS GOING TO BE ACCEPTABLE CANDIDATE FOR PLANNED SURGICAL PROCEDURE NOTED ABOVE IN THE PREOP EVAL Joanne Oquendo MD Cardiology: E cho 07/08/21 CONCLUSIONS: 1 . Normal left ventricular systolic function. Normal left ventricular size. Normal left ventricular wall thickness. There is E to A w ave reversal consistent with impaired LV relaxation. E/E': 7.1. Left ventricular ejection fraction is measured at 60 %. 2 . Normal right ventricular size. Normal right ventricular systolic function. 3 . There is trace physiologic mitral valve regurgitation. 4 . There is trace physiologic tricuspid valve regurgitation. Cath [facility] 01/29/15 L eft ventriculogram was performed. Ejection fraction is 55% with normal left ventricular volume, wall m otion, and ejection fraction. There is no evidence of any significant mitral regurgitation noted. However, t he aortic root appeared to be mildly enlarged. A ortogram was performed demonstrating mildly enlarged aortic root. There is no evidence of any s ignificant aortic regurgitation. The ascending arch and descending thoracic aortas appeared to be o therwise grossly normal. There is no evidence of aneurysmal dilatation or any significant atheromatous d isease. Aortic pressure is 152/81 with a mean arterial pressure of 111, left ventricle pressure of 152/5 w ith an end-diastolic pressure of 21. I MPRESSION: 1 . Normal coronary arteries. 2 . Mild systemic hypertension. 3 . Normal LV function. 4 . Mildly elevated LVEDP. 5 . Normal renal arteries. 6 . The right femoral angiogram was performed in anticipation of placement of a closure device. However, s mall vessel was noted and hence manual compression with safeguard was applied for hemostasis. Joanne Oquendo MD Cardiology:CHOL: 274 (12/20/2022) LDL: 98 (12/20/2022) HDL: 155 (12/20/2022) T (12/20/2022) states cannot tolerate statins --> reports causes nausea and vomiting Celina Mathew NP Cardiology:no recurr ence CATH FROM 01/29/15 IMPRESSION: 1 . Normal coronary arteries. 2 . Mild systemic hypertension. 3 . Normal LV function. 4 . Mildly elevated LVEDP. 5 . Normal renal arteries. 6 . The right femoral angiogram was performed in anticipation of placement of a closure device. However, s mall vessel was noted and hence manual compression with safeguard was applied for hemostasis. Celina Mathew [employer] Cardiology: B P today: 125/74 P rior BP: 125/81 (07/22/2023) Labs Reviewed: C reat: 0.78 (12/20/2022) C hol: 274 (12/20/2022) HDL: 155 (12/20/2022) LDL: 98 (12/20/2022) T (12/20/2022) The following medications were removed from the medication list: Metolazone 2.5 Mg Tablet (Metolazone) ..... Take 1 tablet by mouth every three days once every mwf . take 1/2 hr before morning lasix. Guanfacine 2 Mg Tablet (Guanfacine) ..... Take 2 tablet by mouth at bedtime 1-2 tab at bedtime Her updated medication list for this problem includes: Amlodipine 10 Mg Tablet (Amlodipine) ..... Take 1 tablet by mouth once a day Losartan 50 Mg Tablet (Losartan) ..... Take 1 tablet by mouth once a day Celina Mathew [employer] Cardiology:PREOP LISSETH L I n regards to her cervical spine surgery, I think it would be okay for her to proceed with surgery. We can electively repair the subclavian after she has had her c-spine surgery completed. More accurate BP readings will be obtained from her right arm. In the event that we did the subclavian stent, she will need to be on DAPT for minimum of 90 days. Which will delay her c-spine surgery. She has had no neuroligical symptoms as she has been able to describe to me associated with the subclavian steel. She does get however, some sc of dizziness and numbness. These may be more associated with the c-spine. Okat to hold Aspirin 3-5 days prior to her c-spine surgery and resume after surgical procedure is completed. July 22, 2023 D id well with her cspine surgery October 21, 2023 r eports still cannot eat solid foods since surgery, has to eat soft foods M AY NEED REOPERATION FOR HER DYSPHAGIA AND ASPIRATION IN THE EVENT SHE IS GOING TO BE ACCEPTABLE CANDIDATE FOR PLANNED SURGICAL PROCEDURE NOTED ABOVE IN THE PREOP EVAL Celina Mathew [employer] Cardiology: E cho 07/08/21 CONCLUSIONS: 1 . Normal left ventricular systolic function. Normal left ventricular size. Normal left ventricular wall thickness. There is E to A w ave reversal consistent with impaired LV relaxation. E/E': 7.1. Left ventricular ejection fraction is measured at 60 %. 2 . Normal right ventricular size. Normal right ventricular systolic function. 3 . There is trace physiologic mitral valve regurgitation. 4 . There is trace physiologic tricuspid valve regurgitation. Cath [facility] 01/29/15 L eft ventriculogram was performed. Ejection fraction is 55% with normal left ventricular volume, wall m otion, and ejection fraction. There is no evidence of any significant mitral regurgitation noted. However, t he aortic root appeared to be mildly enlarged. A ortogram was performed demonstrating mildly enlarged aortic root. There is no evidence of any s ignificant aortic regurgitation. The ascending arch and descending thoracic aortas appeared to be o therwise grossly normal. There is no evidence of aneurysmal dilatation or any significant atheromatous d isease. Aortic pressure is 152/81 with a mean arterial pressure of 111, left ventricle pressure of 152/5 w ith an end-diastolic pressure of 21. I MPRESSION: 1 . Normal coronary arteries. 2 . Mild systemic hypertension. 3 . Normal LV function. 4 . Mildly elevated LVEDP. 5 . Normal renal arteries. 6 . The right femoral angiogram was performed in anticipation of placement of a closure device. However, s mall vessel was noted and hence manual compression with safeguard was applied for hemostasis. Celina Mathew [employer] Cardiology:last seiz ure >3 yrs ago. no longer on seizure meds The following medications were removed from the medication list: Keppra 500 Mg Tablet (Levetiracetam) ..... Take 1 tablet by mouth once a day Gabapentin 300 Mg Capsule (Gabapentin) ..... Take 2 capsule by mouth three times a day 700 mg tab 2 tabs 3 times daily Dilantin Extended 100 Mg Capsule (Phenytoin sodium extended) ..... Take 2 capsule by mouth twice a day as directed 2 cap am, 3 cap pm Celina Mathew NP Cardiology: T he Patient was reencouraged to stop smoking. July 22, 2023 N ot smoking currently Joanne Oquendo MD Cardiology: T he following medications were removed from the medication list: Atorvastatin 20 Mg Tablet (Atorvastatin) ..... Tablet by mouth once a day Joanne Oquendo MD Cardiology Joanne Oquendo MD Cardiology: P OBDULIA CASTILLO I n regards to her cervical spine surgery, I think it would be okay for her to proceed with surgery. We can electively repair the subclavian after she has had her c-spine surgery completed. More accurate BP readings will be obtained from her right arm. In the event that we did the subclavian stent, she will need to be on DAPT for minimum of 90 days. Which will delay her c-spine surgery. She has had no neuroligical symptoms as she has been able to describe to me associated with the subclavian steel. She does get however, some sc of dizziness and numbness. These may be more associated with the c-spine. Okat to hold Aspirin 3-5 days prior to her c-spine surgery and resume after surgical procedure is completed. July 22, 2023 D id well with her cspine surgery Joanne Oquendo MD Cardiology: B P today: 125/81 P rior BP: 147/74 (01/21/2023) Labs Reviewed: C reat: 0.78 (12/20/2022) C hol: 274 (12/20/2022) HDL: 155 (12/20/2022) Her updated medication list for this problem includes: Metolazone 2.5 Mg Tablet (Metolazone) ..... Take 1 tablet by mouth every three days once every mwf . take 1/2 hr before morning lasix. Losartan 50 Mg Tablet (Losartan) ..... Take 1 tablet by mouth once a day Guanfacine 2 Mg Tablet (Guanfacine) ..... Take 2 tablet by mouth at bedtime 1-2 tab at bedtime Joanne Oquendo MD Cardiology: H er updated medication list for this problem includes: Metolazone 2.5 Mg Tablet (Metolazone) ..... Take 1 tablet by mouth every three days once every mwf . take 1/2 hr before morning lasix. Losartan 50 Mg Tablet (Losartan) ..... Take 1 tablet by mouth once a day Guanfacine 2 Mg Tablet (Guanfacine) ..... Take 2 tablet by mouth at bedtime 1-2 tab at bedtime BP today: 147/74 P rior BP: 116/63 (12/09/2022) Labs Reviewed: C reat: 0.78 (12/20/2022) C hol: 274 (12/20/2022) HDL: 155 (12/20/2022) Joanne Oquendo MD Cardiology:Echo 06/20 CONCLUSIONS: 1 . Normal left ventricular systolic function. Normal left ventricular size. Normal left ventricular wall thickness. There is E to A w ave reversal consistent with impaired LV relaxation. E/E': 7.1. Left ventricular ejection fraction is measured at 60 %. 2 . Normal right ventricular size. Normal right ventricular systolic function. 3 . There is trace physiologic mitral valve regurgitation. 4 . There is trace physiologic tricuspid valve regurgitation. Cath [facility] 01/29/15 L eft ventriculogram was performed. Ejection fraction is 55% with normal left ventricular volume, wall m otion, and ejection fraction. There is no evidence of any significant mitral regurgitation noted. However, t he aortic root appeared to be mildly enlarged. A ortogram was performed demonstrating mildly enlarged aortic root. There is no evidence of any s ignificant aortic regurgitation. The ascending arch and descending thoracic aortas appeared to be o therwise grossly normal. There is no evidence of aneurysmal dilatation or any significant atheromatous d isease. Aortic pressure is 152/81 with a mean arterial pressure of 111, left ventricle pressure of 152/5 w ith an end-diastolic pressure of 21. I MPRESSION: 1 . Normal coronary arteries. 2 . Mild systemic hypertension. 3 . Normal LV function. 4 . Mildly elevated LVEDP. 5 . Normal renal arteries. 6 . The right femoral angiogram was performed in anticipation of placement of a closure device. However, s mall vessel was noted and hence manual compression with safeguard was applied for hemostasis. Joanne Oquendo MD Cardiology:Upon revi ew of invasive and noninvasive testing and recent exam the patient is an acceptable candidate for the planned NEUROSURGICAL surgical procedure recommend to maintain her blood pressure range of 110 to 140 mmHg and a heart rate of 60-80 B p.m.. It is okay to use IV beta blockers calcium channel blockers nitrates and afterload reducing agents to maintain the aforementioned hemodynamics parameters. Tele monitoring and EKG should be done if the patient has arrhythmia during procedure WILL DEFER DOING SUBCLAVIAN STENT AT PRESENT MAINLY BECAUSE SHE WILL REQUIRE DAPT AND WE CAN WAIT TO DO THIS UNTIL HER CERVICAL SPINE SURGERY IS COMPLETED, SO THERE'S NO ISSUES OF SUB ACUTE THROMBOSIS OR ISSUES WITH ANTI-PLATELET THERAPY IN THE PERIOPERATIVE SETTING. Joanne Oquendo MD Cardiology: T juan following medications were removed from the medication list: Atorvastatin 20 Mg Tablet (Atorvastatin) ..... Tablet by mouth once a day Joanne Oquendo MD Cardiology: B P today: 147/74 P rior BP: 116/63 (12/09/2022) Labs Reviewed: C reat: 0.78 (12/20/2022) C hol: 274 (12/20/2022) HDL: 155 (12/20/2022) Her updated medication list for this problem includes: Metolazone 2.5 Mg Tablet (Metolazone) ..... Take 1 tablet by mouth every three days once every mwf . take 1/2 hr before morning lasix. Losartan 50 Mg Tablet (Losartan) ..... Take 1 tablet by mouth once a day Guanfacine 2 Mg Tablet (Guanfacine) ..... Take 2 tablet by mouth at bedtime 1-2 tab at bedtime Joanne Oquendo MD Cardiology: W ill order UE arterial dopple to evaluate for subclavian steal syndrome CONCLUSIONS: 1 . Mild plaque with less than 50% stenosis of the internal carotid arteries bilaterally. P [email or web address] CAROTID January 21, 2023 She had a carotid angio done for subclavian farah eval I MPRESSION: 1 . 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 2 . A 30% stenosis in the bilateral carotid bulbs. 3 . Widely patent common carotids bilaterally. 4 . Widely patent vertebrals bilaterally. 5 . No evidence of intracranial aneurysm. 6 . Mild disease involving carotid bulbs bilaterally. Will defer doing this procedure. It'll require asa and plavix, which may hamper her getting her c spine surgery done. Joanne Oquendo MD Cardiology:PREOP LISSETH flower regards to her cervical spine surgery, I think it would be okay for her to proceed with surgery. We can electively repair the subclavian after she has had her c-spine surgery completed. More accurate BP readings will be obtained from her right arm. In the event that we did the subclavian stent, she will need to be on DAPT for minimum of 90 days. Which will delay her c-spine surgery. She has had no neuroligical symptoms as she has been able to describe to me associated with the subclavian steel. She does get however, some sc of dizziness and numbness. These may be more associated with the c-spine. Okat to hold Aspirin 3-5 days prior to her c-spine surgery and resume after surgical procedure is completed. Joanne Oquendo MD Cardiology: I MPRESSION: 1 . Normal coronary arteries. 2 . Mild systemic hypertension. 3 . Normal LV function. 4 . Mildly elevated LVEDP. 5 . Normal renal arteries. 6 . The right femoral angiogram was performed in anticipation of placement of a closure device. However, s mall vessel was noted and hence manual compression with safeguard was applied for hemostasis. Joanne Oquendo MD Cardiology: I MPRESSION: 1 . Normal coronary arteries. 2 . Mild systemic hypertension. 3 . Normal LV function. 4 . Mildly elevated LVEDP. 5 . Normal renal arteries. 6 . The right femoral angiogram was performed in anticipation of placement of a closure device. However, s mall vessel was noted and hence manual compression with safeguard was applied for hemostasis. Joanne Oquendo MD Cardiology:The Patie nt was reencouraged to stop smoking. Joanne Oquendo MD Cardiology: B P today: 116/63 P rior BP: 142/60 (11/05/2022) Labs Reviewed: C reat: 1.28 (07/04/2021) C hol: 248 (07/04/2021) HDL: 89 (07/04/2021) Her updated medication list for this problem includes: Metolazone 2.5 Mg Tablet (Metolazone) ..... Take 1 tablet by mouth every three days once every mwf . take 1/2 hr before morning lasix. Losartan 50 Mg Tablet (Losartan) ..... Take 1 tablet by mouth once a day Guanfacine 2 Mg Tablet (Guanfacine) ..... Take 2 tablet by mouth at bedtime 1-2 tab at bedtime Joanne Oquendo MD Cardiology: W ill order UE arterial dopple to evaluate for subclavian steal syndrome CONCLUSIONS: 1 . Mild plaque with less than 50% stenosis of the internal carotid arteries bilaterally. P [email or web address] CAROTID Study Dt:11-17-2022 Page 2 2 . The left vertebral flow is retrograde consistant with ipsilateral subclavian stenosis or occlusion. 3 . Normal right vertebral flow. Arrange for Angiogram T he risks and benefits of the procedure, including but not limited the risk of heart attack, , stroke, bleeding, kidney failure, and loss of limb as well as the alternative of continued medical therapy, stress testing or bypass surgery were discussed with the patient and any present family members and the patient wishes to proceed with cardiac cath and stenting. The patient and family had opportunity to discuss this with us. Written material including informed consent was given out. Joanne Oquendo MD Cardiology: T he following medications were removed from the medication list: Atorvastatin 20 Mg Tablet (Atorvastatin) ..... Tablet by mouth once a day Joanne Oquendo MD Cardiology:Will orde r UE arterial dopple to evaluate for subclavian steal syndrome Haven Bates NP Cardiology: B P today: 142/60 P rior BP: 116/70 (07/10/2021) Labs Reviewed: C reat: 1.28 (07/04/2021) C hol: 248 (07/04/2021) HDL: 89 (07/04/2021) Her updated medication list for this problem includes: Metolazone 2.5 Mg Tablet (Metolazone) ..... Take 1 tablet by mouth every three days once every mwf . take 1/2 hr before morning lasix. Losartan 50 Mg Tablet (Losartan) ..... Take 1 tablet by mouth once a day Guanfacine 2 Mg Tablet (Guanfacine) ..... Take 2 tablet by mouth at bedtime 1-2 tab at bedtime Haven Paulo LIN Cardiology: s miranda pulmonary l[facility] at [place]. on steriods inhalers. Haven Bates NP Cardiology Haven Smithlaurita Flower P Cardiology: I MPRESSION: 1 . Normal coronary arteries. 2 . Mild systemic hypertension. 3 . Normal LV function. 4 . Mildly elevated LVEDP. 5 . Normal renal arteries. 6 . The right femoral angiogram was performed in anticipation of placement of a closure device. However, s mall vessel was noted and hence manual compression with safeguard was applied for hemostasis. Haven Bates RILEY Cardiology:takes sym bicort and ventolin 3 x day Her updated medication list for this problem includes: Metolazone 2.5 Mg Tablet (Metolazone) ..... Take 1 tablet by mouth every three days once every mwf . take 1/2 hr before morning lasix. Losartan 50 Mg Tablet (Losartan) ..... Take 1 tablet by mouth once a day Haven Smithlaurita LIN Cardiology:has nicola CONCLUSIONS: 1 . Normal left ventricular systolic function. Normal left ventricular size. Normal left ventricular wall thickness. There is E to A w ave reversal consistent with impaired LV relaxation. E/E': 7.1. Left ventricular ejection fraction is measured at 60 %. 2 . Normal right ventricular size. Normal right ventricular systolic function. 3 . There is trace physiologic mitral valve regurgitation. 4 . There is trace physiologic tricuspid valve regurgitation. E lectronically Signed By: Tahir Oquendo MD, [facility] 2 021-09-28 16:53:26 CDT CC: oJanne Oquendo MD, [facility] cardiac cath IMPRESSION: 1 . Normal coronary arteries. 2 . Mild systemic hypertension. 3 . Normal LV function. 4 . Mildly elevated LVEDP. 5 . Normal renal arteries. 6 . The right femoral angiogram was performed in anticipation of placement of a closure device. However, s mall vessel was noted and hence manual compression with safeguard was applied for hemostasis. R ECOMMENDATIONS: 1 . Joanne Oquendo MD Cardiology: s miranda aaron at [place]. on steriods inhalers. s he has NICOLA will need cpap Joanne Oquendo MD Cardiology:not much improvement t akes symbicort and ventolin 3 x day Joanne Oquendo MD Cardiology:some bene fit from lasix will get zaroxyln and laxix and have her see nephrology Joanne Oquendo MD Cardiology: S mu Ramirez at [facility], had EEG done, has been on KEppra, and Dilantin. Joanne Oquendo MD Cardiology: H er updated medication list for this problem includes: Losartan 50 Mg Tablet (Losartan) ..... Take 1 tablet by mouth once a day Guanfacine 2 Mg Tablet (Guanfacine) ..... Take 2 tablet by mouth at bedtime 1-2 tab at bedtime Lasix Unspecified Unspecified (Furosemide) ..... Take 1 tablet by mouth once a day 10 mg BP today: 130/60 P rior BP: 130/70 (06/19/2021) Joanne Oquendo MD Cardiology: T he following medications were removed from the medication list: Atorvastatin 20 Mg Tablet (Atorvastatin) ..... Tablet by mouth once a day Joanne Oquendo MD Cardiology:BP is bet ter. Has emphysema. Has swelling needs diuretics Joanne Oquendo MD Cardiology:Bilateral LE. Needs l asix Joanne Oquendo MD Cardiology:Seeing at [facility], had EEG done, has been on KEppra, and Dilantin. Joanne Oquendo MD Cardiology Joanne Oquendo MD Cardiology: I MPRESSION: 1 . Normal coronary arteries. 2 . Mild systemic hypertension. 3 . Normal LV function. 4 . Mildly elevated LVEDP. 5 . Normal renal arteries. 6 . The right femoral angiogram was performed in anticipation of placement of a closure device. However, s mall vessel was noted and hence manual compression with safeguard was applied for hemostasis. Joanne Oquendo MD Cardiology: C ONCLUSIONS: 1 . Normal left ventricular systolic function. Normal left ventricular size. Normal left ventricular wall thickness. There is E to A w ave reversal consistent with impaired LV relaxation. E/E': 7.1. Left ventricular ejection fraction is measured at 60 %. 2 . Normal right ventricular size. Normal right ventricular systolic function. 3 . There is trace physiologic mitral valve regurgitation. 4 . There is trace physiologic tricuspid valve regurgitation. w heezing and needs to be worked up for CHF. has been tested negative for covid. Joanne Oquendo MD Cardiology: H er updated medication list for this problem includes: Atorvastatin 20 Mg Tablet (Atorvastatin) ..... Tablet by mouth once a day Joanne Oquendo MD Cardiology:wheezing and needs to be worked up for CHF. has been tested negative for covid. Joanne Oquendo MD Cardiology:needs to be worked up for chf and needs thyroid testing done. Joanne Oquendo MD Cardiology:IMPRESSIO N: 1 . Normal coronary arteries. 2 . Mild systemic hypertension. 3 . Normal LV function. 4 . Mildly elevated LVEDP. 5 . Normal renal arteries. 6 . The right femoral angiogram was performed in anticipation of placement of a closure device. However, s mall vessel was noted and hence manual compression with safeguard was applied for hemostasis. Joanne Oquendo MD Cardiology:sees pulm onromeo aaron at [place]. on steriods inhalers. Joanne Oquendo MD HFU: O rders: E KG (CPT-[id number]) Brielle Pawel HYDROCRANE OPERATOR Date Name Holter Monitor 48 hr EKG PROTHROMBIN TIME WIT H INR LIPID PANEL CBC (INCLUDES DIFF/P LT) BASIC METABOLIC PANE L W/EGFR AIF Intervention - S LHV AIF Diagnostic - [facility] V Carotid Duplex Bilat eral EKG Arterial Duplex Uppe r Extremity Bilateral B TYPE NATRIURETIC P EPTIDE (BNP) TSH, free T4, total T3 CBC (H/H, RBC, INDIC ES, WBC, PLT) HEMOGLOBIN A1c LIPID PANEL COMPREHENSIVE METABO LIC PANEL, W/EGFR Venous Doppler Bilat eral LE 6 minute walk test Ambulatory Oximetry DLCO - 33771 FRC - 27866 FVC - 08805 Complete Echo HISTORY OF PROCEDURES Procedure Date Procedure Name Provider Procedure Notes S tatus EKG Joanne Oquendo MD compl eted Schedule Followup Joanne Oquendo MD [address] OQUENDO completed EKG Joanne Oquendo MD compl eted EKG Joanne Oquendo MD compl eted EKG Joanne Oquendo MD compl eted EKG Joanne Oquendo MD compl eted EKG Joanne Oquendo MD compl eted EKG Joanne Oquendo MD compl eted
--- OUTSIDE RECORDS SUMMARY | 2024-10-19 08:51 | XMS_ITS | Clinical Summary ---
Author Organization [facility] Address [address], [facility] [address] [place] [address] Phone Care Team Providers Care Flat Optical Element Maker Name Role Phone Tony Rodriguez Primary Care Provider [phone] Errol Lebron MD Unavailable [phone] Allergies Active Allergy Reactions Criticality Noted Date Comments Aspirin Hives,Other (see Comments) High 01/13/2021 With a buffer Atorvastatin Nausea Medium 06/06/2023 Ciprofloxacin Nausea 05/23/2024 Iodinated Contrast Media Rash 2020 Gabapentin Swelling Medium 06/27/2023 Penicillins Rash 2020 Tetanus Toxoid Hives 2020 Medications estradiol (ESTRACE) 1 MG Tablet 06/27/2020 Active Suboxone 8-2 MG FILM 07/08/2020 Active Ventolin HFA 108 (90 Base) MCG/ACT Aerosol Solution 11/10/2020 Active nystatin (MYCOSTATIN) 129051 UNIT/ML Suspension 05/26/2021 Active amLODIPine (NORVASC) 5 MG Tablet TAKE 1 TABLET BY MOUTH EVERY DAY FOR BLOOD PRESSURE 05/10/2022 Active levothyroxine (SYNTHROID) 125 MCG Tablet TAKE 1 TABLET BY MOUTH EVERY MORNING FOR THYROID 05/10/2022 Active omeprazole (PriLOSEC) 40 MG CAPSULE DELAYED RELEASE TAKE ONE CAPSULE BY MOUTH EVERY DAY BEFORE a meal 05/10/2022 Active Active Problems Problem Noted Date Diagnosed Date History of colonic polyps 05/26/2022 Non-Hodgkin lymphoma, unspec ified, extranodal and solid organ sites 05/27/2021 Encounters Date Type Department Care Team Description 10/17/2024 Telephone [facility] [address] [address] Errol Lebron MD from Last 3 Months Family History Medical History Relation Name Comments Cancer Brother Congestive Heart Failure Father Cancer Mother Chronic Obstructive Pulmonary Disease Sister Rheumatoid Arthritis Sister Relation Name Status Comments Brother Father Mother Sister Social History Tobacco Use Types Packs/Day Years Used Date Smoking Tobacco: Every Day Cigarettes 0.5 8 Smokeless Tobacco: Never Tobacco Cessation:Ready to Q uit: Yes; Counseling Given: Yes Alcohol Use Standard Drinks/Week Comments Yes 2 (1 standard drink = 0.6 oz pur e alcohol) PHQ-2 Answer Date Recorded Total Score - Questions 1-9 0 03/2022 Sexually Active Control Partners Comments Yes Comments No Sex and Gender Information Value Date Recorded Sex Assigned at Not on file Legal Sex Female 4:14 PM CDT Gender Identity Not on file Sexual Orientation Not on file Last Filed Vital Signs Vital Sign Reading Time Taken Comments Blood Pressure 100/64 05/23/2024 10:51 AM CDT Pulse 90 05/23/2024 10:51 AM CDT Temperature 36.7 ??C (98 ??F) 05/23/2024 10:51 AM CDT Respiratory Rate 18 05/23/2024 10:51 AM CDT Oxygen Saturation 94% 05/23/2024 10:51 AM CDT Inhaled Oxygen Concentration - - Weight 55.8 kg (123 lb) 05/23/2024 10:51 AM CDT Height 157.5 cm (5' 2 ) 05/23/2024 10:51 AM CDT Body Mass Index 22.5 05/23/2024 10:51 AM CDT Plan of Treatment Upcoming Encounters Date Type Department Care Team (Late st Contact Info) Description 05/22/2025 10:30 AM CDT Office Visit [facility] [address] [phone] Errol Lebron MD [address] [place] [phone] 05/22/2025 10:30 AM CDT Lab [facility] [address] [phone] Lab, [facility] Health Maintenance Due Date Last Done Comments Hepatitis C Virus (HCV) Screening 1965 TdaP Immunization 1964 Zoster Immunization (1 of 2) 1983 Colonoscopy 2009 Colorectal Cancer Screening 2009 Cologuard 2014 Immunochemical Fecal Occult Blood 2014 Mammogram 2014 Influenza Immunization (#1) 05/20/202406/20, 07/14/2021, 07/10/2020, Additional history exists SARS-COV-2 Immunization ( season) 2024 08/16/2022, 05/17/2022, 12/28/2020, Additional history exists Respiratory Syncytial Virus (RSV) Immunization (Adult) (1 - Risk 60-74 years 1-dose series) 2024 Pneumococcal Immunization (50+ years) (3 of 3 - PPSV23, PCV20 or PCV21) 07/16/2027 07/16/2022, 06/13/2020 Pneumococcal Immunization Combined Discontinued 07/16/2022, 06/13/2020 Hepatitis B Immunization Aged Out No longer eligible based on patient's age to complete this topic Meningococcal Immunization (ACWY) Aged Out No longer eligible based on patient's age to complete this topic Rotavirus Immunization Aged Out No lo nger eligible based on patient's age to complete this topic Insurance MEDICA[place] MED[place] C [facility] Care Teams Flat Optical Element Maker Relationship Specialty Start Date End Date Tony Rodriguez PA [address] [place] [id number] PCP - General Physician Bar Porter 07/09/20 Errol Lebron MD [address] [place] [phone] Consulting Physician Oncology 07/09/20
--- OUTSIDE RECORDS SUMMARY | 2024-10-19 08:51 | XMS_ITS | Encounter Summary ---
Author Organization [facility] Healthcare Address [address] [place] [address] Care Team Providers Care Courtesy Booth Cashier Name Role Phone Tony Rodriguez Primary Care Provider + Shivani Gary MD Primary Care Prov ider Saad Colon DO Primary Care Provider [phone] Yoana Ragland Primary Care Provider [phone] Kasandra Campoverde MECHANICAL DRAFTER Unavailable [phone] Rodrigo Olivera Primary Care Provider [phone] Encounter Details Date Type Department Care Team (Late st Contact Info) Description 04/22/2021 Telephone [facility] Cardiac Catheterization Lab [address] [place] [address] [place] [address] [place] [phone] Social History Tobacco Use Types Packs/Day Years Used Date Smoking Tobacco: Never Assessed Comments Unknown Sex and Gender Information Value Date Recorded Sex Assigned at Not on file Legal Sex Female 6:21 AM PHOTOGRAPHIC ENGINEER Gender Identity Not on file Sexual Orientation Straight 04/17/2024 9: 54 AM CDT documented as of this encounter Plan of Treatment Not on file documented as of this encounter Visit Diagnoses Not on filedocumented in this encounter Care Teams Courtesy Booth Cashier Relationship Specialty Start Date End Date oTny Rodriguez PA [address] [place] [address] PCP - General Internal Medicine 05/19/20 10/25/22 Shivani Gary MD [address] [place] [address] PCP - General Family Medicine 10/26/22 10/27/22 Saad Colon DO [address] [place] [address] PCP - General Internal Medicine 10/28/22 11/11/22 [place] [address] [place] [address] PCP - General Physician International Manager 11/12/22 02/15/24 Rodrigo Olivera PA [address] [place] [address] PCP - General Physician International Manager 02/16/24 Kasandra Campovedre, [facility] [address] [facility] ([facility] Mailstop [phone] [place] [address] [facility] Outpatient Environmental Maintenance Worker 07/01/23 07/28/23 Dr. Joanne Castillo Supervisor Maintenance 04/19/23 documented as of this encounter
--- OUTSIDE RECORDS SUMMARY | 2024-10-19 08:51 | XMS_ITS ---
Author Organization [facility] Address [address] [place] [address] Care Team Providers Care Fuel Testing Technician Name Role Phone Rodrigo Olivera Primary Care Provider [phone] Active Problems Problem Noted Date Diagnosed Date [...] (11/15/2022): Added automatically from request for surgery [id number] Muscle weakness 11/05/2022 Adenocarcinoma of cervix (CMS/HCC) [...] back pain 03/09/2021 Recurrent seizures ([facility]) 10/27/2020 Cellulitis of hand 09/22/2020 Pain in right arm 09/16/2020 Lateral epicondylitis 05/27/2020 Arthralgia of right elbow 05/16/2020 Parotitis 05/16/2020 Injury of elbow 01/22/2020 Allergic rhinitis 12/05/2019 Acute bronchitis 11/06/2019 Skin eruption 10/23/2019 Renal pain 10/23/2019 Pain of right hip joint 10/23/2019 History of drug abuse ([facility]/HCC) 09/26/2017 Cardiovascular symptoms 02/28/2015 Hypercholesterolemia 02/28/2015 Primary hypertension 02/28/2015 Current Oncology Plans No current plan information found. Past Plans No past plan information found. Radiation Treatments * No radiation treatments are documented for this patient in [facility]. Treatments may have been administered in another system. Lifetime Dose Tracking * Chemical Lifetime Dose Automatic Entry Manual Entr y Fluoro Time 3.185 minutes 3.185 minutes 0 minutes Air kerma at the reference point (Ka,r) 20.36 mGy 2 0.36 mGy 0 mGy
--- OUTSIDE RECORDS SUMMARY | 2024-10-19 08:51 | XMS_ITS | Clinical Summary ---
Author Organization [facility] Address [address] [place] [address]. [place], [place] [id number] [place] [id number] Care Team Providers Care Bill Recapitulation Clerk Name Role Phone Unavailable Primary Care Provider Unavailabl e Social History Tobacco Use Types Packs/Day Years Used Date Smoking Tobacco: Never Assessed Comments Unknown Sex and Gender Information Value Date Recorded Sex Assigned at Not on file Legal Sex Female 11:19 AM WOOD BOATBUILDER Gender Identity Not on file Sexual Orientation Not on file Plan of Treatment Health Maintenance Due Date Last Done Comments Cervical Cancer Screening Pa p Smear (Age 30 to 64) Every 3 Years 1964 Colorectal Cancer Screening Colonoscopy (10 Years) 1964 Annual Physical 1967 Hepatitis C 1982 DTaP, Tdap and Td Vaccines ( 1 - Tdap) 1983 Cervical Cancer Screening Pa p with HPV Testing (Age 30 to 64) Every 5 Years 1994 Cervical Cancer Screening wi th HPV 1994 Mammogram Screening 2004 Zoster Vaccines (1 of 2) 2014 COVID-19 Vaccine (2023-2 5 season) 2024 Influenza Adult (#1) 2024 07/16/2019, 05/07/2017 RSV Immunization or 60+ Years (1 - 1-dose 75+ series) 2039 Pneumococcal Vaccine: Pediatrics (0 to 5 Years) and At-Risk Patients (6 to 64 Years) Aged Out 06/13/2020 No longer eligible b ased on patient's age to complete this topic Meningococcal B Vaccine Aged Out No l onger eligible based on patient's age to complete this topic Meningococcal Vaccine Aged Out No mary lola eligible based on patient's age to complete this topic RSV Immunizations Under 20 Months Aged Out No longer eligible b ased on patient's age to complete this topic Insurance [employer] MEDICAID
--- OUTSIDE RECORDS SUMMARY | 2024-10-19 08:51 | XMS_ITS | Referral Summary ---
Author Organization [facility] Address [address] [facility] [place] [address] Care Team Providers Care Tung Nut Grower Name Role Phone Yunier Rodriguez APRN-BUYER LIAISON Primary Care Provider Source Comments [facility],non-owned Affiliates and Associated Physician Practices is amultiple site organization consisting of ambulatory clinics and hospital sitesin [place], [place], [place] and [place]. This disclosure is being madepursuant to the Care Everywhere program and may not contain all information available regarding this patient. Last updated 18.[facility] Allergies Active Allergy Reactions Criticality Noted Date Comments Aspirin Bleeding High 01/13/2021 Ciprofloxacin Rash Medium 01/13/2021 Contrast-Iodinated Agents For Ct/Other Rash Medium 2020 Penicillins 11/06/2016 Propoxyphene GI Discomfort 01/13/2021 Tetanus Toxoid Swelling High 2020 Medications * Be aware that medications may not be up to date on this document. Alwaysverify current medications with the patient. Medication Sig Dispensed Refills Start Date End Date Status Nutritional Supplements (ESTROVEN PO) Active norethindrone (AYGESTIN) 5 MG tablet 1 tablet at bedtime 01/05/2021 Active levothyroxine (SYNTHROID) 112 MCG tablet 1 tablet at bedtime 01/05/2021 Active guanFACINE (TENEX) 2 MG tablet guanfacine 2 mg tablet TK 1 T PO HS PRN 06/24/2020 Active estradiol (ESTRACE) 1 MG tablet 1 tablet at bedtime 06/27/2020 Active SYMBICORT 160-4.5 MCG/ACT inhaler 2 puffs every morning 12/05/2020 Active VENTOLIN HFA 108 (90 Base) MCG/ACT inhaler 2 puffs every morning 12/05/2020 Active omeprazole EC (PRILOSEC OTC) 20 MG tablet Take 1 tablet by mouth every morning Active ibuprofen (MOTRIN) 200 MG tablet Take 400 mg by mouth 2 times daily Active furosemide (LASIX) 40 MG tablet 03/16/2021 Active methocarbamol (ROBAXIN) 500 MG tablet Take 500 mg by mouth 4 times daily as needed For pain. 03/06/2021 Active potassium chloride ER (KLOR-CON) 10 MEQ tablet 03/16/2021 Active gabapentin (NEURONTIN) 300 MG capsule 3 times daily 04/06/2021 Active losartan (COZAAR) 50 MG tablet Take 50 mg by mouth once daily 06/25/2021 Active phenytoin ER (DILANTIN) 100 MG capsuleIndications: Seizures (HCC),Convulsions, unspecified convulsion type (HCC),Nocturnal seizures (HCC) Take 200 mg in am and 300 mg at night 150 capsule 5 07/07/2021 Active levETIRAcetam (KEPPRA) 750 MG tabletIndications:S eizures (HCC),Convulsions, unspecified convulsion type (HCC),Nocturnal seizures (HCC) Take 1 (one) tablet by mouth 2 times daily 60 tablet 5 07/07/2021 Active Active Problems Problem Noted Date Diagnosed [...] Resolved Date Acute sinusitis 10/23/2019 08/04/2021 Immunizations Name Administration Dates Next Due My Dog Bowl primary monoval ent 12+ yr 0.3mL Purple cap 12/28/2020,12/04/2020 FLU VACCINE QUAD IIV4 SPLIT 0.25 ML IM 0,07/16/2019 INFLUENZA VACCINE 05/07/2017 Pneumococcal Pcv13 Conj 06/13/2020 Social History Tobacco Use Types Packs/Day Years [...] Mass Index 30.15 07/07/2021 1:24 PM CDT Plan of Treatment Not on file Procedures Procedure Name Priority Date/Time Associated Diagnosis Comments BASIC METABOLIC PANEL (CALCIUM TOTAL) STAT 04/03/2021 1:46 AM CDT Shortness of breath from Last 3 Months or Most Recently Relevant to Health Maintenance Results * (ABNORMAL) BASIC METABOLIC PANEL (CALCIUM TOTAL) (04/03/2021 1:46 AM CDT) BUN 8 7 - 26 mg/dL 04/03/2021 2:15 AM [facility] Creatinine 0.93 0.56 - 0.96 mg/dL 04/03/2021 2:15 AM [facility] Sodium 139 136 - 145 mmol/L 04/03/2021 2:15 AM [facility] Potassium 3.6 3.5 - 4.5 mmol/L 04/03/2021 2:15 AM [facility] Chloride 101 98 - 107 mmol/L 04/03/2021 2:15 AM [facility] CO2 27 22 - 29 mmol/L 04/03/2021 2:15 AM [facility] Glucose 94 70 - 115 mg/dL 04/03/2021 2:15 AM [facility] Calcium 8.7 8.4 - 10.2 mg/dL 04/03/2021 2:15 AM [facility] Anion Gap 15 8 - 18 04/03/2021 2:15 AM [facility] BUN/Creatinine Ratio 9 7 - 23 04/03/2021 2:15 AM [facility] Osmolality Calculated 286 270 - 300 mOsm/kg 04/03/2021 2:15 AM [facility] eGFR by CKD-EPI 69(L) >=90 mL/min/1.7 3 m2 04/03/2021 2:15 AM [facility] Blood BLOOD SPECIMEN / Unknown Venipuncture / Unknown 04/03/2021 1:46 AM CDT 04/03/2021 1:52 AM CDT Oscar Daniel MD LAB - CHEMISTRY [facility] [address] [place] [address], [facility] [phone] from Last 3 Months or Most Recently Relevant to Health Maintenance Advance Directives * Full Code (Latest Code Status on File) Date Activated Date Inactivated Comments 04/03/2021 12:23 AM 04/03/2021 4:19 PM Care Teams Tung Nut Grower Relationship Specialty Start Date End Date Yunier Rodriguez, FENCE MANUFACTURE SUPERVISOR-BUYER LIAISON [address] [place] [address] PCP - General 01/16/21
== END 2024-10-19 08:36 | disposition home or self-care (01) ==
LOC: ANHIMG 08:41
PROVIDERS: PCP Physician Assistant Medical; Visit Provider Physician Assistant Medical
DX: Z12.31 Encounter for screening mammogram for malignant neoplasm of breast (principal)
CPT/HCPCS: 77063; 77067

== ENCOUNTER 2025-04-15 10:50 | Emergency (ER) | payer MEDICARE, MEDICAID, SELFPAY ==
[2025-04-15] VITALS (41 sets, daily range): BP systolic 73–129; BP diastolic 55–79; PULSE 78–114; RESP 18–20; TEMP 36.4–37.3; O2SAT 89–100
--- NOTE | ~2025-04-15 | XR_ITS ---
XR chest 1V portable 04/15/2025 12:54 Indication: Fever Procedure: AP portable chest Comparison: Comparison to multiple prior studies sequentially, with oldest reviewed study dated 02/2021. Findings: There is right basilar atelectasis. Heart size normal. Left lung clear. No significant effu kelsey or pneumothorax. No acute osseous abnormality. Impression: 1: Right basilar atelectasis. Reviewed, dictated and finalized at location B. Impression: 1: Right basilar atelectasis.
--- NOTE | ~2025-04-15 | CT_ITS ---
History: Head injury PROCEDURE: CT head without contrast. COMPARISON: 02/27/2021 TECHNIQUE: Axial imaging of the head performed from the skull base to the vertex without IV contrast. Sagittal a nd coronal reformations obtained. DLP: 605 mGy-cm FINDINGS: The ventricles are normal in size, shape and position. There is no mass, mass effect or midline shift. There is no abnormal extra-axial fluid collection or intracranial hemorrhage. Mucoperiosteal thickening with near complete opacification of the bilateral maxillary sinuses. This i s an interval change from previous examination performed in 2020. Remaining paranasal sinuses are unremarkable. The mastoid air cells are well aerated. No acute displaced fractures within the overlying cranium. Impression: No acute intracranial hemorrhage or suspicious mass effect. Inflammatory maxillary sinus disease Reviewed, dictated and finalized at location A. Impression: No acute intracranial hemorrhage or suspicious mass effect. Inflammatory maxillary sinus disease
--- NOTE | 2025-04-15 11:26 | ECG_ITS ---
Test Date: 2025-04-15 11:22:57 Measurements Intervals [place] Rate: 101 P: 66 SD: 120 QRS: 7 QRSD: 99 T: 64 QT: 340 QTc: 442 Interpretive Statements SINUS TACHYCARDIA PROBABLE INFERIOR MYOCARDIAL INFARCTION , PROBABLY OLD [35 ms Q WAVE IN II/aVF] T-WAVE ABNORMALITIES IN V1-3; CANNOT RULE OUT ISCHEMIA No previous ECG available for comparison Electronically Signed On 04-15-2025 12:46:46 CDT by Vijay Gross M.D.
[2025-04-15 11:37] LABS: Hematocrit 43.0 % (37.0-47.0); Hemoglobin 13.8 g/dL (12.0-15.0); Immature Granulocyte Percent A 0.5 % (0-0.5); Lymphocytes Absolute Auto 0.63 K/mm3 (0.9-3.2); Mean Corpuscular HGB Conc 32.1 g/dl (32-36); Mean Corpuscular Hemoglobin 28.3 pg (26-34); Mean Corpuscular Volume 88.3 fl (80-100); Nucleated Red Blood Cells Absolute Auto 0.000 K/mm3 (0.0-0.012); Nucleated Red Blood Cells Perc 0.0 % (0.0-0.2); Platelet Count Result 148 k/mm3 (150-375); Red Blood Count 4.87 M/mm3 (4.2-5.4); White Blood Count 7.5 K/mm3 (4.5-10.0)
[2025-04-15 11:51] LABS: Alanine Aminotransferase 22 U/L (6-35); Albumin Level 3.8 g/dL (3.5-5.1); Alkaline Phosphatase 67 U/L (38-126); Anion Gap 11 mmol/L (4-12); Aspartate Amino Transferase 44 U/L (14-36); Bilirubin,Total 0.6 mg/dL (0.2-1.3); Blood Urea Nitrogen 16 mg/dL (7-17); Calcium 8.1 mg/dL (8.4-10.2); Carbon Dioxide 21 mmol/L (22-30); Chloride 101 mmol/L (98-107); Estimated CRCL calculation 42 ml/min; Estimated Glomerular Filt Rate 53; Glucose 120 mg/dL (65-110); Lipase 82 U/L (23-300); Potassium 3.7 mmol/L (3.4-5.0); Sodium 133 mmol/L (137-145); Total Protein 8.1 g/dL (6.3-8.2)
--- NOTE | 2025-04-15 12:42 | ED.GENADULT ---
HPI - General Adult General Chief complaint: Fever Stated complaint: NVD, high fever after blood infusion on Tuesday Time Seen by Provider: 04/15/25 12:05 History of Present Illness HPI narrative: 59-year-old female presented to the emergency department for evaluation for fever body aches and fatigue. Patient states she does get infusions to increase her white blood cell count on Tuesday at [facility]. Patient states over the course of the weekend she did have elevated fever and some confusion. Patient states she fell and struck her head. Patient denies any other injury. Upon arrival to the emergency department patient denies any current fever patient does complain of some posterior headache. Related Data Home Medications ?Medication ?Instructions ?Recorded ?Confirmed ?Last Taken ?Type estradiol 1 mg tablet 1 mg PO HS 02/18/21 11/14/24 02/17/21 History ibuprofen 200 mg tablet 200 mg PO Q8H PRN Pain (Scale 02/18/21 11/14/24 Unknown History Score 1-3) levothyroxine 112 mcg tablet 112 mcg PO HS 02/18/21 11/14/24 Unknown History omeprazole magnesium 20 mg 20 mg PO DAILY 02/18/21 11/14/24 Unknown History capsule,delayed release (Acid Firewall Security Engineer (omeprazole)) nebulizer accessories 05/26/21 11/14/24 Unknown History buprenorphine 8 mg-naloxone 2 mg 1 film sublingual DAILY 07/24/21 11/14/24 Unknown History sublingual film (Suboxone) amlodipine 5 mg tablet 10 mg PO QAM 01/25/23 11/14/24 Unknown History fluticasone fur. 100 mcg-umeclid 1 inh inhalation DAILY 05/10/23 11/14/24 Unknown History 62.5 mcg-vilant 25 mcg inhalat.powder (Trelegy Ellipta) Allergies Allergy/AdvReac Type Severity Reaction Status Date / Time iohexol (From contrast - CT, Allergy Unknown Swelling Verified 04/15/25 11:25 X-RAY) of Lip/Tongue/Throat Penicillins Allergy Unknown Unknown Verified 04/15/25 11:25 propoxyphene Allergy Unknown Hives Verified 04/15/25 11:25 Tetanus Vaccines and Toxoid Allergy Unknown Swelling Verified 04/15/25 11:25 Review of Systems Review of Systems: All systems reviewed & are unremarkable except as noted in HPI and below PMFSH Past Medical History Medical History Difficulty in swallowing Cranial nerve palsy Hypothyroidism Chronic steroid use Cervical cancer Obstructive sleep apnea Former smoker Chronic obstructive pulmonary disease Chronic kidney disease Gastroesophageal reflux disease Non-Hodgkin lymphoma Hypothyroidism Congestive heart failure Echocardiogram in October 2021 showed normal LV systolic function with an EF of 60% and normal right ventricular systolic function. Allergies Anxiety Arthritis Nocturnal seizures Chronic pain syndrome Hypertension Surgical History Surgical History H/O cervical spine surgery History of blepharoplasty History of tonsillectomy History of open reduction and internal fixation (ORIF) procedure Right foot fracture. History of coronary artery stent placement History of cardiac catheterization Family History Family History Father Acute myocardial infarction Cerebrovascular accident Congestive heart failure Chronic obstructive pulmonary disease Hypertension Cancer of skin Asthma Sibling Asthma Sibling Asthma Sibling Asthma Mother Chronic obstructive pulmonary disease Cancer Ovarian cancer Depression Anxiety Grandparent Cancer Diabetes mellitus Hypertension Cerebrovascular accident Heart problem Social History Social History Social History: Surrogate decision maker: Juan Daniel Bravo (friend) or Kendra Christina (sister). Code status: Full code. Smoking packs per day: 1 Smoking cigarettes per day: 20.0 Years smoked: 50 Smoking pack-years: 50.00 Smoking status: Former smoker Tobacco type: cigarettes Second hand tobacco smoke exposure: No Additional smoking assessment comments: Quit in 2020. Alcohol intake: current Drinks per week: 5 Alcohol use details: Occasional alcohol use, at the most 5 a week. Substance use: former Substance use type: opiates Other substance usage details: prescription pain meds Last use: 2010 Living arrangements: with friend(s) Occupation/Education: unemployed Spiritual care concerns: No Exam Narrative: APPEARANCE: Well appearing, no pain, no distress, well-nourished. HEAD: normocephalic, atraumatic. EYES: PERRLA/EOMI, conjunctivae clear. NOSE: Normal no drainage EARS:TMS clear with good light reflex. THROAT: Pharynx clear, no exudate. NECK: Supple. No adenopathy, no masses. RESPIRATORY: Airway patent, respirations nonlabored. Clear to auscultation bilaterally, no rales, rhonchi, wheezing. CARDIOVASCULAR: Regular rate and rhythm without murmurs rubs or gallops. ABDOMINAL: Soft, nontender, nondistended, normal bowel sounds MUSCULOSKELETAL: Moves all extremities. Strength/ROM intact, No edema, No calf tenderness. NEURO: Alert. Cranial nerves II through XII intact. Good gait. Good coordination SKIN: Warm, dry. Normal Color Course Vital Signs Vital signs: Vital Signs Temperature 97.5 F L 04/15/25 11:00 Pulse Rate 108 H 04/15/25 11:00 Respiratory Rate 20 04/15/25 11:00 Blood Pressure 116/62 04/15/25 11:00 Pulse Oximetry 93 04/15/25 11:00 Oxygen Delivery Room Air 04/15/25 11:00 Temperature 99.2 F 04/15/25 11:24 Pulse Rate 81 04/15/25 16:16 Respiratory Rate 18 04/15/25 11:24 Blood Pressure 129/68 04/15/25 16:16 Pulse Oximetry 95 04/15/25 16:16 Oxygen Delivery Room Air 04/15/25 11:24 Medical Decision Making [facility] Narrative Medical decision making narrative: 5-year-old female present to the emergency department for evaluation for orthostatic hypotension, lightheaded dizziness. Patient is afebrile with no leukocytosis hemoglobin 13.8. No significant acute abnormalities on the patient's CMP, patient's urine was a contaminated sample but urine culture was ordered. Patient was negative influenza RSV and for COVID. Head CT was negative and chest x-ray was negative. Patient did feel improved with rehydration was able to ambulate at her baseline. Patient will be discharged home. Differential Diagnosis Differential Diagnosis: COVID, RSV, influenza, dehydration Vital Signs Vital Signs: Vital Signs Temperature 97.5 F L 04/15/25 11:00 Pulse Rate 108 H 04/15/25 11:00 Respiratory Rate 20 04/15/25 11:00 Blood Pressure 116/62 04/15/25 11:00 Pulse Oximetry 93 04/15/25 11:00 Oxygen Delivery Room Air 04/15/25 11:00 Temperature 99.2 F 04/15/25 11:24 Pulse Rate 81 04/15/25 16:16 Respiratory Rate 18 04/15/25 11:24 Blood Pressure 129/68 04/15/25 16:16 Pulse Oximetry 95 04/15/25 16:16 Oxygen Delivery Room Air 04/15/25 11:24 Lab Data Lab results reviewed: Yes I reviewed the patient's lab results. 04/15/25 11:31 04/15/25 11:31 Labs: Lab Results 04/15/25 04/15/25 04/15/25 Range/Units 11:31 13:06 13:17 WBC 7.5 (4.5-10.0) K/mm3 RBC 4.87 (4.2-5.4) M/mm3 Hgb 13.8 (12.0-15.0) g/dL Hct 43.0 (37.0-47.0) % MCV 88.3 (80-100) fl MCH 28.3 (26-34) pg MCHC 32.1 (32-36) g/dl RDW 15.5 H (11.5-14.5) % Plt Count 148 L (150-375) k/mm3 MPV 10.8 H (7.4-10.4) fl Immature Gran % (Auto) 0.5 (0-0.5) % Neut % (Auto) 81.2 H (45.5-73.1) % Lymph % (Auto) 8.4 L (18.3-44.2) % [place] % (Auto) 8.8 H (2.6-8.5) % Eos % (Auto) 0.4 (0-4.4) % Baso % (Auto) 0.7 (0.2-1.2) % Lymph # (Auto) 0.63 L (0.9-3.2) K/mm3 [place] # (Auto) 0.7 H (0.1-0.6) K/mm3 Eos # (Auto) 0.0 (0-0.3) K/mm3 Baso # (Auto) 0.1 (0.0-0.1) K/mm3 Abs Immat Gran (auto) 0.04 H (0.00-0.031) K/mm3 Absolute Neuts (auto) 6.1 (1.3-6.7) K/mm3 Absolute Nucleated RBC 0.000 (0.0-0.012) K/mm3 Nucleated RBC % 0.0 (0.0-0.2) % Sodium 133 L (137-145) mmol/L Potassium 3.7 (3.4-5.0) mmol/L Chloride 101 (98-107) mmol/L Carbon Dioxide 21 L (22-30) mmol/L Anion Gap 11 (4-12) mmol/L BUN 16 (7-17) mg/dL Creatinine 1.05 H (0.7-1.0) mg/dL Estim Creat Clear Calc 42 ml/min Estimated GFR 53 L (59 - ) Glucose 120 H (65-110) mg/dL Calcium 8.1 L (8.4-10.2) mg/dL Total Bilirubin 0.6 (0.2-1.3) mg/dL AST 44 H (14-36) U/L ALT 22 (6-35) U/L Alkaline Phosphatase 67 (38-126) U/L Total Protein 8.1 (6.3-8.2) g/dL Albumin 3.8 (3.5-5.1) g/dL Lipase 82 (23-300) U/L Urine Color Dark yellow (Yellow) Urine Appearance Cloudy H (Clear) Urine pH 5.5 (5.0-9.0) Ur Specific Marilla 1.023 (1.001-1.035) Urine Protein 2+ H (Negative) mg/dL Urine Glucose (UA) Negative (Negative) mg/dL Urine Ketones 2+ H (Negative) mg/dL Ur Blood (Man) Negative (Negative) Urine Nitrate Negative (Negative) Urine Bilirubin 2+ H (Negative) Urine Urobilinogen 1.0 (<2.0) mg/dL Add Ur Microanalysis Reviewed Leukocyte Esterase Rfl Negative (Negative) VINNY/UL Urine RBC 3-5 H (0-2) /hpf Urine WBC 0-5 (0-3) /hpf Ur Squamous Epith Cells Many H (Few) /hpf Urine Bacteria 3+ H /hpf Urine Casts 6-10 Hyaline Casts Present (None) /lpf Influenza A (RT-PCR) Negative (Negative) Influenza B (RT-PCR) Negative (Negative) RSV (RT-PCR) Negative (Negative) SARS-CoV-2 RNA (RT-PCR) Negative (Negative) Imaging Data Radiologist's impression: Impressions Chest X-Ray 04/15/25 12:55 Impression: 1: Right basilar atelectasis. Head CT 04/15/25 12:55 Impression: No acute intracranial hemorrhage or suspicious mass effect. Inflammatory maxillary sinus disease Discharge Plan Discharge Clinical Impression: Dehydration Headache Qualifiers: Headache type: unspecified Headache chronicity pattern: episodic headache Intractability: intractable Qualified Code(s): R51.9 - Headache, unspecified Patient Disposition: Home Condition: Stable Instructions: Antibiotic Form Additional Instructions: Drink plenty of fluids. Have close follow-up with your physicians. If you have any worsening symptoms then please call or return to the emergency department. Patient Language: Citizen Of [place] Prescriptions: No Action (DME) nebulizer accessories Kit See Rx Instructions .Route Rx Instructions: As directed Trelegy Ellipta 100-62.5-25 mcg blister with device 1 inh inhalation DAILY roflumilast [Daliresp] 250 mcg tablet 500 mcg PO DAILY 28 Days Qty: 56 5RF buprenorphine-naloxone [Suboxone] 8-2 mg film 1 film sublingual DAILY albuterol sulfate 90 mcg/actuation HFA aerosol inhaler See Rx Instructions .ROUTE .COMPLEX Qty: 8.5 3RF Dose Instruction: INHALE TWO PUFFS BY MOUTH EVERY 4-6 HOURS NEEDED FOR WHEEZING Rx Instructions: INHALE TWO PUFFS BY MOUTH EVERY 4-6 HOURS NEEDED FOR WHEEZING estradiol 1 mg tablet 1 mg PO HS ibuprofen 200 mg Tablet 200 mg PO Q8H PRN (Reason: Pain (Scale Score 1-3)) levothyroxine 112 mcg tablet 112 mcg PO HS omeprazole magnesium [Acid Firewall Security Engineer (omeprazole)] 20 mg Capsule,Delayed Release(Dr/Ec) 20 mg PO DAILY amlodipine 5 mg tablet 10 mg PO QAM albuterol sulfate 2.5 mg /3 mL (0.083 %) solution for nebulization See Rx Instructions .ROUTE .COMPLEX Qty: 120 11RF Dose Instruction: USE 1 VIAL IN NEBULIZER EVERY 6 HOURS NEEDED FOR SHORTNESS OF BREATH OR WHEEZING Rx Instructions: USE 1 VIAL IN NEBULIZER EVERY 6 HOURS NEEDED FOR SHORTNESS OF BREATH OR WHEEZING prednisone 10 mg tablet See Rx Instructions .ROUTE .COMPLEX Qty: 30 1RF Dose Instruction: TAKE FOUR TABS DAILY X3 DAYS THEN THREE TABS DAILY X3 DAYS THEN TWO TABS DAILY X3 DAYS THEN ONE TAB DAILY UNTIL GONE Rx Instructions: TAKE FOUR TABS DAILY X3 DAYS THEN THREE TABS DAILY X3 DAYS THEN TWO TABS DAILY X3 DAYS THEN ONE TAB DAILY UNTIL GONE Follow-up/Referrals: Jarod,YESSICA Hdez [Primary Care Provider] -
[2025-04-15] MEDS: KETOROLAC 15 MG/ML VIAL (*BKC) IV PUSH (12:59)
[2025-04-15] MEDS: LACTATED RINGERS 700 ML 999 ML IV CONT (12:59)
[2025-04-15] MEDS: LACTATED RINGERS 1,000 ML 999 ML IV CONT (12:59)
--- OUTSIDE RECORDS SUMMARY | 2025-04-15 13:25 | XMS_ITS | Encounter Summary ---
Author Organization [facility] Address [address] [place] [address] Phone Care Team Providers Care Plant Reliability Engineer Name Role Phone MichaelTony Elle PAC Primary Care Provider + [phone] Errol Lebron MD Unavailable [phone] Encounter Details Date Type Department Care Team (Late st Contact Info) Description 10/24/2020 Telephone [facility] [address] [place] [address] Errol Lebron MD [address] [place] [address] Social History Tobacco Use Types [...] COVID-19? No / Unsure 10/27/2020 10:22 AM INSTRUMENT ROOM TECHNICIAN documented as of this encounter Miscellaneous Notes * Telephone Encounter - Angie Alvarado - 10/24/2020 10:25 AM CST Patient called and rescheduled her appt today she had forgotten it was today. She is rescheduled tonext week. RUMENT ROOM TECHNICIAN documented in this encounter Plan of Treatment Upcoming Encounters Date Type Department Care Team (Late st Contact Info) Description 05/22/2025 10:30 AM CDT Office Visit [facility] [address] [phone] Errol Lebron MD [address] [place] [phone] 05/22/2025 10:30 AM CDT Lab [facility] [address] [address] Lab, [facility] documented as of this encounter Visit Diagnoses Not on filedocumented in this encounter Additional Health Concerns Assessment Noted Time PHQ-9 Depression Total Score: 0 07/25/20 20 8:00 AM INSTRUMENT ROOM TECHNICIAN documented as of this encounter Care Teams Plant Reliability Engineer Relationship Specialty Start Date End Date Tony Rodriguez PAC [address] [place] [id number] PCP - General Physician Montessori Paraprofessional 07/09/20 Errol Lebron MD [address] [place] [phone] Consulting Physician Oncology 07/09/20 documented as of this encounter
--- OUTSIDE RECORDS SUMMARY | 2025-04-15 13:25 | XMS_ITS | Clinical Summary ---
Author Organization [facility] Address [address] [place] [id number] Care Team Providers Care Marriage Performer Name Role Phone Unavailable Primary Care Provider Unavailabl e Social History Tobacco Use Types Packs/Day Years Used Date Smoking Tobacco: Never Assessed Comments Unknown Sex and Gender Information Value Date Recorded Sex Assigned at Not on file Legal Sex Female 11:19 AM BOOT MAKER Gender Identity Not on file Sexual Orientation [...] Every 5 Years 1994 Cervical Cancer Screening with HPV 1994 Mammogram Screening 2004 Zoster Vaccines (1 of 2) 2014 Pneumococcal Vaccine: 50+ Ye ars (2 of 2 - PPSV23) 06/13/2021 06/13/2020 COVID-19 Vaccine ( - 2023-2 5 season) 2024 RSV Immunization or 60+ Years (1 - 1-dose 75+ series) 2039 Meningococcal B Vaccine Aged Out No l onger eligible based on patient's age to complete this topic Meningococcal Vaccine Aged Out No mary lola eligible based on patient's age to complete this topic RSV Immunizations Under 20 Months Aged Out No longer eligible based on patient's age to complete this [place] [address] [place] [address] [employer] MEDICAID
--- OUTSIDE RECORDS SUMMARY | 2025-04-15 13:25 | XMS_ITS | Clinical Summary ---
Author Organization [facility] Address [address], [facility] [address] [place] [address] Phone Care Team Providers Care Creative Services Intern Name Role Phone Tnoy Rodriguez Primary Care Provider [phone] Errol Lebron MD Unavailable [phone] Allergies Active Allergy Reactions Criticality Noted Date [...] MCG/ACT Aerosol Solution 11/10/2020 Active nystatin (MYCOSTATIN) 909530 UNIT/ML Suspension 05/26/2021 Active amLODIPine (NORVASC) 5 [...] ified, extranodal and solid organ sites 05/27/2021 Family History Medical History Relation Name Comments [...] 90 05/23/2024 10:51 AM CDT Temperature 36.7 C (98 F) 05/23/2024 10:51 AM CDT Respiratory Rate 18 05/23/2024 10:51 AM CDT Oxygen Saturation 94% 05/23/2024 10:51 AM CDT Inhaled Oxygen Concentration - - Weight 55.8 kg (123 lb) 05/23/2024 10:51 AM CDT Height 157.5 cm (5' 2) 05/23/2024 10:51 AM CDT Body Mass Index 22.5 05/23/2024 10:51 AM CDT Plan of Treatment Upcoming Encounters Date Type Department Care Team (Late st Contact Info) Description 05/22/2025 10:30 AM CDT Office [facility] [address] [address] Errol Lebron MD [address] [place] [phone] 05/22/2025 10:30 AM CDT Lab [facility] [address] [address] Lab, C[place] Health Maintenance Due Date Last Done Comments Hepatitis C Virus (HCV) Screening 1965 Mammogram 1964 TdaP Immunization 1964 Zoster Immunization (1 of 2) 1983 Cologuard 2009 Colonoscopy 2009 Colorectal Cancer Screening 2009 Immunochemical Fecal Occult Blood 2009 SARS-COV-2 Immunization ( season) 2024 08/16/2022, 05/17/2022, 12/28/2020, Additional history exists Influenza Immunization (#1) 05/20/202506/20, 07/14/2021, 07/10/2020, Additional history exists Pneumococcal Immunization (50+ years) (3 of 3 - PPSV23, PCV20 or PCV21) 07/16/2027 07/16/2022, 06/13/2020 Respiratory Syncytial Virus (RSV) Immunization (Adult) (1 - 1-dose 75+ series) 2039 Pneumococcal Immunization Combined Discontinued 07/16/2022, 06/13/2020 Hepatitis B Immunization Aged Out No longer eligible based on patient's age to complete this topic Human Papillomavirus (HPV) Immunization Aged Out No longer eligible based on patient's age to complete this topic Meningococcal Immunization (ACWY) Aged Out No longer eligible based on patient's age to complete this topic Rotavirus Immunization Aged Out No lo nger eligible based on patient's age to complete this topic Insurance MEDICAID [place] MEDICARE C [employer] Care Teams Creative Services Intern Relationship Specialty Start Date End Date Tony Rodriguez, PAC [address] [place] [id number] PCP - General Physician Percussion Tuner 07/09/20 Errol Lebron MD [address] [place] [phone] Consulting Physician Oncology 07/09/20
[2025-04-15] MEDS: ONDANSETRON INJ 4 MG/2 ML VIAL IV PUSH (13:30)
[2025-04-15 13:40] LABS: Add Urine Microscopic? YES; Appearance Urine Cloudy (Clear); Glucose Urine UA Negative (Negative); Leukocyte Esterase Ur Negative LEU/UL (Negative); Need Manual Microscopic Reviewed; Nitrate Urine Negative (Negative); Specific Grav Ur 1.023 (1.001-1.035)
[2025-04-15 13:50] LABS: Influenza A QL RT-PCR Negative (Negative); Influenza B QL RT-PCR Negative (Negative); RSV RNA, RT-PCR Negative (Negative); SARS-CoV-2 RNA PCR Negative (Negative)
--- NOTE | 2025-04-15 16:30 | PC.NURSE ---
Tolerating po fluids well. States dizziness is decreased. Awaiting dispo.
--- NOTE | 2025-04-15 17:02 | PC.NURSE ---
Ambulated to bathroom. Reports dizziness but less than earlier. Gait steady.
== END 2025-04-15 17:20 | disposition home or self-care (01) ==
PROVIDERS: Emergency Provider Emergency Medicine; PCP Physician Assistant Medical
DX: E86.0 Dehydration (principal); R51.9 Headache, unspecified; Z20.822 Contact with and (suspected) exposure to COVID-19; E03.9 Hypothyroidism, unspecified; Z85.41 Personal history of malignant neoplasm of cervix uteri; G47.30 Sleep apnea, unspecified; J44.9 Chronic obstructive pulmonary disease, unspecified; I50.9 Heart failure, unspecified; M19.90 Unspecified osteoarthritis, unspecified site; F41.9 Anxiety disorder, unspecified; I13.0 Hypertensive heart and chronic kidney disease with heart failure and stage 1 through stage 4 chronic kidney disease, or unspecified chronic kidney disease; N18.9 Chronic kidney disease, unspecified; R00.0 Tachycardia, unspecified
CPT/HCPCS: 36415; 70450; 71045; 80053; 81001; 83690; 85025; 87637; 93005; 96374; 96375; 99284; J1885; J2405; J7120

== ENCOUNTER 2025-05-14 09:20 | Outpatient (CLI) | payer MEDICARE, MEDICAID, SELFPAY ==
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
--- OUTSIDE RECORDS SUMMARY | 2025-05-14 09:43 | XMS_ITS | Encounter Summary ---
Author Organization [facility] Healthcare Address [address] [place] [address] Care Team Providers Care Roll On Worker Name Role Phone Tony Rodriguez Primary Care Provider + Shivani Gary MD Primary Care Prov ider Saad Colon DO Primary Care Provider [phone]- [phone] Yoana Ragland Primary Care Provider Kasandra Campoverde RISK MANAGER Unavailable [phone] Rodrigo Olivera Primary Care Provider [phone]- [phone] Encounter Details Date Type Department Care Team (Late st Contact Info) Description 04/22/2021 Telephone [facility] Cardiac Catheterization Lab [address] [place] [address] [place] [address] [place] [id number] Social History Tobacco Use Types Packs/Day Years Used Date Smoking Tobacco: Never Assessed Comments Unknown Sex and Gender Information Value Date Recorded Sex Assigned at Not on file Legal Sex Female 6:21 AM ACTING SECTION CHIEF Gender Identity Not on file Sexual Orientation Straight 04/17/2024 9: 54 AM CDT documented as of this encounter Plan of Treatment Not on file documented as of this encounter Visit Diagnoses Not on filedocumented in this encounter Care Teams Roll On Worker Relationship Specialty [place] [address] [place] [address] PCP - General Internal Medicine 05/19/20 10/25/22 Shivani Gary MD [address] [place] [address] PCP - General Family Medicine 10/26/22 10/27/22 Saad Colon DO [address] [place] [address] PCP - General Internal Medicine 10/28/22 11/11/22 [place] [address] [place] [address] PCP - General Physician Brand Executive 11/12/22 02/15/24 Rodrigo Olivera PA [address] [place] [address] PCP - General Physician Brand Executive 02/16/24 Kasandra Campoverde, [facility] [address] ([facility]) Mailstop [id number] [place] [address] SHOP Outpatient Fireproof Door Maker 07/01/23 07/28/23 Dr. Joanne Castillo Title Curative Specialist 04/19/23 documented as of this encounter
--- OUTSIDE RECORDS SUMMARY | 2025-05-14 09:43 | XMS_ITS | Clinical Summary ---
Author Organization [facility] Address [address], [facility] [address] [place] [address] Phone Care Team Providers Care Packing And Stamping Machine Operator Name Role Phone Tony Rodriguez Primary Care Provider [phone]- [phone] Errol Lebron MD Unavailable [phone] Allergies Active Allergy Reactions Criticality Noted Date [...] MCG/ACT Aerosol Solution 11/10/2020 Active nystatin (MYCOSTATIN) 949483 UNIT/ML Suspension 05/26/2021 Active amLODIPine (NORVASC) 5 [...] CDT Office Visit [facility] [address] [address] Errol Lebron MD [address] [place] [phone] 05/22/2025 10:30 AM CDT Lab [facility] [address] [address] Lab, [facility] [place] [facility] [...] Immunization (50+ years) (3 of 3 - PCV20 or PCV21) 07/16/2027 07/16/2022, 06/13/2020 Respiratory [...] age to complete this topic Insurance MEDICAID [place] MEDICARE C [employer] Care Teams Packing And Stamping Machine Operator Relationship Specialty Start Date End Date Tony Rodriguez, PAC [address] [place] [address] PCP - General Physician Special Education Science Teacher 07/09/20 Errol Lebron MD [address] [place] [phone] Consulting Physician Oncology 07/09/20
--- OUTSIDE RECORDS SUMMARY | 2025-05-14 09:43 | XMS_ITS | Clinical Summary ---
Author Organization [facility] Address [address] [place] [address] Care Team Providers Care Psych Np Name Role Phone Yunier Rodriguez APRN-PACKAGER MACHINE Primary Care Provider Source Comments [facility],non-owned Affiliates and Associated Physician Practices is amultiple site organization consisting of ambulatory clinics and hospital sitesin [place], [place], [place] and [place]. This disclosure is being madepursuant to the Care Everywhere program and may not contain all information available regarding this patient. Last updated 18.[facility] Allergies Active Allergy Reactions Criticality Noted Date Comments Aspirin Bleeding High 01/13/2021 Ciprofloxacin Rash Medium 01/13/2021 Contrast-Iodinated Agents For Ct/Other Rash Medium 2020 Penicillins 11/06/2016 Propoxyphene GI Discomfort 01/13/2021 Tetanus Toxoid Swelling High 2020 Medications * Be aware that medications may not be up to date on this document. Alwaysverify current medications with the patient. Nutritional Supplements (ESTROVEN PO) Active norethindrone (AYGESTIN) 5 MG tablet 1 tablet at bedtime 1 Active levothyroxine (SYNTHROID) 112 MCG tablet 1 tablet at bedtime 1 Active guanFACINE (TENEX) 2 MG tablet guanfacine 2 mg tablet TK 1 T PO HS PRN 0 Active estradiol (ESTRACE) 1 MG tablet 1 tablet at bedtime 0 Active SYMBICORT 160-4.5 MCG/ACT inhaler 2 puffs every morning 1 Active VENTOLIN HFA 108 (90 Base) MCG/ACT inhaler 2 puffs every morning 1 Active omeprazole EC (PRILOSEC OTC) 20 MG tablet Take 1 tablet by mouth every morning Active ibuprofen (MOTRIN) 200 MG tablet Take 400 mg by mouth 2 times daily Active furosemide (LASIX) 40 MG tablet 1 Active methocarbamol (ROBAXIN) 500 MG tablet Take 500 mg by mouth 4 times daily as needed For pain. 1 Active potassium chloride ER (KLOR-CON) 10 MEQ tablet 1 Active gabapentin (NEURONTIN) 300 MG capsule 3 times daily 1 Active losartan (COZAAR) 50 MG tablet Take 50 mg by mouth once daily 1 Active phenytoin ER (DILANTIN) 100 MG capsuleIndicatio ns:Seizures (HCC),Convulsion s, unspecified convulsion type (HCC),Nocturnal seizures (HCC) Take 200 mg in am and 300 mg at night 150 capsule 5 1 Active levETIRAcetam (KEPPRA) 750 MG tabletIndication s:Seizures (HCC),Convulsion s, unspecified convulsion type (HCC),Nocturnal seizures (HCC) Take 1 (one) tablet by mouth 2 times daily 60 tablet 5 1 Active Active Problems Problem Noted Date Diagnosed [...] Resolved Date Acute sinusitis 10/23/2019 08/04/2021 Immunizations Immunization Administration Dates Next Due vendome 1699 primary monoval ent 12+ yr 0.3mL Purple cap 12/28/2020,12/04/2020 FLU VACCINE QUAD IIV4 SPLIT 0.25 ML IM 0,07/16/2019 INFLUENZA VACCINE 05/07/2017 Pneumococcal Pcv13 Conj 06/13/2020 Family History Medical History Relation Name Comments Other Brother full unknown Cancer - Skin, Non Melanoma Father Heart Failure Father Cancer Mother cholangiocarcin haydee (gall bladder) Asthma Sister 1 half Other - Cardiac Sister 1 half Peripheral v ascular disease Other - Rheumatologic Sister 2 full juveni le rheumatoid arthritis Relation Name Status Comments Brother full Alive Father Mother Sister 1 half Alive Sister 2 full Alive Social History Tobacco Use Types Packs/Day Years Used Date Smoking Tobacco: Former Cigarettes 1 46 0 02/11/1975 - 02/11/2021 Smokeless Tobacco: Never Tobacco Cessation:Counseling Given: Yes Alcohol Use Standard Drinks/Week Comments Yes 1 (1 standard drink = 0.6 oz pur e alcohol) Comments No Sex and Gender Information Value Date Recorded Sex Assigned at Not on file Legal Sex Female 11:56 AM STEEL BOX TOE INSERTER Gender Identity Not on file Sexual Orientation Not on file Occupation Industry Job Start Date Job End Date disabled Not on file Not on file Not on file Last Filed Vital Signs Vital Sign Reading Time Taken Comments Blood Pressure 117/76 07/07/2021 1:24 PM CDT Pulse 100 07/07/2021 1:24 PM CDT Temperature 36.3 C (97.3 F) 07/07/2021 1:24 PM CDT Respiratory Rate 14 04/03/2021 8:09 AM CDT Oxygen Saturation 97% 07/07/2021 1:24 PM CDT Inhaled Oxygen Concentration - - Weight 77.2 kg (170 lb 3.2 oz) 07/07/2021 1:24 P M CDT Height 160 cm (5' 3) 07/07/2021 1:24 PM CDT Body Mass Index 30.15 07/07/2021 1:24 PM CDT Plan of Treatment Health Maintenance Due Date Last Done Comments COLOGUARD (AGES 45-75) - COLON CA SCREENING 1964 COLON MONITORING 1964 COLONOSCOPY - COLON CA SCREENING 1964 CT COLONOGRAPHY - COLON CA SCREENING 1964 Colorectal Cancer Screening 1964 FIT - COLON CA SCREENING 1964 FLEX SIG - COLON CA SCREENING 1964 LIPID TESTING 1964 MAMMOGRAM 1964 HIV SCREENING 1979 HEPATITIS C SCREENING 07/14/1982 DTAP/TDAP/TD VACCINES (1 - Tdap) 1983 LUNG CANCER SCREENING 2014 ZOSTER VACCINE (1 of 2) 2014 PNEUMOCOCCAL VACCINE 50+ (2 of 2 - PCV20 or PCV21) 06/13/2021 06/13/2020 COVID-19 VACCINE (3 - season) 2024 12/28/2020, 12/04/2020 SCREENING FOR DIABETES 05/27/2024 1, 04/03/2021, 04/03/2021, Additional history exists DEPRESSION SCREENING 09/19/2024 INFLUENZA VACCINE (#1) 2025 0, 07/16/2019, 05/07/2017 Respiratory Syncytial Virus (RSV) Vaccine Pt: or over 60 yrs (1 - 1-dose 75+ series) 2039 HEPATITIS B VACCINE Aged Out No longe r eligible based on patient's age to complete this topic HIB VACCINE Aged Out No longer eligi ble based on patient's age to complete this topic HPV VACCINE Aged Out No longer eligi ble based on patient's age to complete this topic MENINGOCOCCAL (Group B) VACCINE SHARED DECISION-MAKING Aged Out No longer eligible based on patient's age to complete this topic MENINGOCOCCAL GROUPS A/C/Y/W VACCINE Aged Out No longer eligible based on patient's age to complete this topic Procedures Procedure Name Priority Date/Time Associated Diagnosis Comments BASIC METABOLIC PANEL (CALCIUM TOTAL) STAT 04/03/2021 1:46 AM CDT Shortness of breath from Last 3 Months or Most Recently Relevant to Health Maintenance Results * (ABNORMAL) BASIC METABOLIC PANEL (CALCIUM TOTAL) (04/03/2021 1:46 AM CDT) BUN 8 7 - 26 mg/dL 04/03/2021 2:15 AM [facility] Creatinine 0.93 0.56 - 0.96 mg/dL 04/03/2021 2:15 AM [facility] Sodium 139 136 - 145 mmol/L 04/03/2021 2:15 AM [facility] Potassium 3.6 3.5 - 4.5 mmol/L 04/03/2021 2:15 AM [facility] Chloride 101 98 - 107 mmol/L 04/03/2021 2:15 AM [facility] CO2 27 22 - 29 mmol/L 04/03/2021 2:15 AM [facility] Glucose 94 70 - 115 mg/dL 04/03/2021 2:15 AM [facility] Calcium 8.7 8.4 - 10.2 mg/dL 04/03/2021 2:15 AM [facility] Anion Gap 15 8 - 18 04/03/2021 2:15 AM [facility] BUN/Creatinine Ratio 9 7 - 23 04/03/2021 2:15 AM [facility] Osmolality Calculated 286 270 - 300 mOsm/kg 04/03/2021 2:15 AM [facility] eGFR by CKD-EPI 69(L) >=90 mL/min/1.7 3 m2 04/03/2021 2:15 AM CDT [facility] Blood BLOOD SPECIMEN / Unknown Venipuncture / Unknown 04/03/2021 1:46 AM CDT 04/03/2021 1:52 AM CDT Oscar Daniel MD LAB - CHEMISTRY ORDERABLES F inal Result [facility] [address] [place] [address], [facility] [phone] from Last 3 Months or Most Recently Relevant to Health Maintenance Insurance AETNA MEDICAID - OUT OF STATE AETNA * Guarantor: JOAN KUMAR Account Type Relation to Patient Date of Phone Billing Address Personal/Family 1965 [address] [address] AETNA MEDICAID - OUT OF STATE Advance Directives * Full Code (Latest Code Status on File) Date Activated Date Inactivated Comments 04/03/2021 12:23 AM 04/03/2021 4:19 PM Care Teams Psych Np Relationship Specialty Start Date End Date Yunier Rodriguez, SUPERVISOR FUR FLOOR WORKER-PACKAGER MACHINE [address] [place] [address] PCP - General 01/16/21
--- OUTSIDE RECORDS SUMMARY | 2025-05-14 09:43 | XMS_ITS ---
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 11/15/2024 Chronic sinusitis 04/24/2024 Dysphagia 04/17/2024 Assessment & [...] (11/15/2022): Added automatically from request for surgery [id number] Muscle weakness 11/05/2022 Adenocarcinoma of cervix 11/05/2021 Overview (12/21/2023): Dx in 1999 s/p [...] 04/02/2021 Low back pain 03/09/2021 Recurrent seizures 10/27/2020 Cellulitis of hand 09/22/2020 Pain in right arm 09/16/2020 Lateral epicondylitis 05/27/2020 Arthralgia of right elbow 05/16/2020 Parotitis 05/16/2020 Injury of elbow 01/22/2020 Allergic rhinitis 12/05/2019 Acute bronchitis 11/06/2019 Skin eruption 10/23/2019 Renal pain 10/23/2019 Pain of right hip joint 10/23/2019 History of drug abuse 09/26/2017 Cardiovascular symptoms 02/28/2015 Hypercholesterolemia 02/28/2015 Primary hypertension 02/28/2015 Current Treatment and Therapy Plans No current plan information found. 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 Lifetime Dose Tracking * Chemical Lifetime Dose Automatic Entry Manual Entr y Fluoro Time 3.185 minutes 3.185 minutes 0 minutes Air kerma at the reference point (Ka,r) 20.36 mGy 2 0.36 mGy 0 mGy
--- OUTSIDE RECORDS SUMMARY | 2025-05-14 09:43 | XMS_ITS | Clinical Summary ---
Author Organization [facility] Address [address] [place] [address] Care Team Providers Care City Bus Driver Name Role Phone Rodrigo Olivera Primary Care Provider [phone]- [phone] Allergies Active Allergy Reactions Criticality Noted Date [...] High 2020 Medications amLODIPine (NORVASC) 10 mg tabletIndications: hypertension Take 1 tablet (10 mg total) by mouth nightly 10/14/19 23 Active albuterol HFA (PROVENTIL HFA,VENTOLIN HFA,PROAIR HFA) 90 mcg/actuation inhalerIndications :Acute Asthma Attack,Chronic Obstructive Pulmonary Disease Inhale 2 puffs every morning 10/14/19 23 Active diphenhydrAMINE (BENADRYL) 25 mg capsuleIndications :Allergic Rhinitis Take 1 capsule by mouth nightly 05/05/20 21 Active nystatin 100,000 unit/mL suspensionIndicati ons:oral candidiasis Take 5 mL (500,000 Units total) by mouth as needed (mouth sore) 05/26/20 21 Active Trelegy Ellipta 100-62.5-25 mcg inhalerIndications :Bronchospasm Prevention with COPD,Maintenance Therapy for Asthma Inhale 1 puff every morning Active aspirin 81 mg chewable tabletIndications: Myocardial Reinfarction Prevention Take 1 tablet (81 mg total) by mouth nightly 07/04/20 23 Active Additional Information Patient not taking.Reported on 01/21/2025 estradioL (ESTRACE) 1 mg tabletIndications: hormone replacement Take 1 tablet (1 mg total) by mouth nightly 07/04/20 23 Active Suboxone 8-[address] 1 Film under the tongue Active roflumilast (DALIRESP) 500 mcg tablet 1 tablet (500 mcg total) Active fluticasone propionate (FLONASE) 50 mcg/actuation nasal spray USE ONE SPRAY IN EACH NOSTRIL EVERY DAY DIRECTED FOR ALLERGIES Active Compact Space Chamber spacer USE as directed with inhaler 02/02/20 24 Active omeprazole (PriLOSEC) 20 mg capsule TAKE ONE CAPSULE BY MOUTH EVERY DAY IN THE MORNING FOR STOMACH 03/21/20 24 Active inhalational spacing device (Compact Space Chamber) spacer USE with symbicort Active budesonide (PULMICORT) 0.5 mg/2 mL nebulizer solution Mix 1 capsule/ampule in 250 mL of saline irrigations ([employer] Sinus Rinse Bottle) and irrigate each nostril with half of the bottle twice daily. 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) 03/15/2025 9:00 AM CDT Infusion [facility] [address] [place] [address] Ave [address] [place] [address] [phone] 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) 03/11/2025 Orders Only [facility] Specialty Infusion Center [address] [place] [address] Advanced Medicine 7th [place] [address] Ryann Rowe, MARILIN 02/15/2025 9:30 AM CDT Infusion [facility] [address] [place] [address] [address] [place] [phone] 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 More than three times a week 07/01/2023 How often do you get togethe r with friends or relatives? More than three times a week 07/01/2023 How often do you attend chur ch or yazdanism services? Never 07/01/2023 Do you belong to any clubs o r organizations such as sabianist groups, unions, fraternal or athletic groups, or [...] the money to buy more. Never true 03/15/20 Within the past 12 months, t he food you bought just didn't last and you didn't have money to get more. Never true 03/15/2025 PRAPARE - Transportation Answer Date Re corded [...] making you feel afraid or unsafe? Denies 04/12/2025 Comments No Sex and Gender Information Value Date Recorded Sex Assigned at Not on file Legal Sex Female 6:21 AM MEDICAL ASSISTANT FLOAT Gender Identity Not on file Sexual Orientation Straight 04/17/2024 9: 54 AM CDT Occupation Industry Job Start Date Job End Date On disability Not on file Not on file Not on file Obstetrics History Last Filed Vital Signs Vital Sign Reading Time Taken Comments Blood Pressure 144/67 04/12/2025 10:30 AM CDT Pulse 75 04/12/2025 10:30 AM CDT Temperature 36.9 C (98.5 F) 04/12/2025 8:40 AM CDT Respiratory Rate 16 04/12/2025 8:40 AM CDT Oxygen Saturation 95% 04/12/2025 10:30 AM CDT Inhaled Oxygen Concentration - - Weight 56.9 kg (125 lb 8 oz) 04/12/2025 8:40 AM CDT Height 160 cm (5' 3) 02/15/2025 9:22 AM CDT Body Mass Index 22.23 02/15/2025 9:22 AM CDT Plan of Treatment Health Maintenance Due Date Last Done Comments Breast Cancer Screening-Mammogram 1965 Colon Cancer Screening-Colonoscopy 1965 Hepatitis C Screening 1965 DTaP/Tdap/Td Vaccine (1 - Tdap) 1975 Hepatitis B Screening 1982 Regular Well Visit/Exam 18-64 1982 Zoster Vaccine (1 of 2) 1983 Covid-19 Vaccine (5 - 2023-2 5 season) 2024 08/16/2022, 05/17/2022, 12/28/2020, Additional history exists Depression Screening 04/17/2025 04/17/2024 Influenza Vaccine (#1) 2025 , 07/14/2021, 07/10/2020, Additional history exists Pneumococcal vaccine <65 (3 of 3 - PCV20 or PCV21) 07/16/2027 07/16/2022, 06/13/2020 Medical Devices Implanted Type Area Cash Poster Device Identifier Shelf Expiration Date Model / Serial / Lot [place] Spine [id number] Cervical Anterior 6d Cage Spinal Tritanium Sterile Latex Free [id number] - [id number] Implanted:Qty : 1 on 06/27/2023 by Floyd Sandoval MD at [facility] Cage N/A: Spine Cervical [place] Spine 05/03/2028 [id number] / / [place] Spine L12 Mm X W14 Mm X H6 Mm Cervical Anterior 6 D Cage Spinal Tritanium Sterile Latex Free [id number] - [id number] Implanted:Qty : 1 on 06/27/2023 by Floyd Sandoval MD at [facility] Cage N/A: Spine Cervical [place] Spine 07/08/2023 [id number] / / [place] Spine L14 Mm X W17 Mm X H6 Mm Cervical Anterior 6 D Cage Spinal Tritanium Sterile Latex Free [id number] - [id number] Implanted:Qty : 1 on 06/27/2023 by Floyd Sandoval MD at [facility] Cage N/A: Spine Cervical [place] Spine 03/27/2028 [id number] / / [employer] Mike Graft Bone Cylinder Cancellous Gel [place] Lg 8ml Putty [id number] - [id number] Implanted:Qty : 1 on 06/27/2023 by Floyd Sandoval MD at [facility] Graft N/A: Spine Cervical [employer] Mike [id number] 12/18/2027 [id number] / / [id number] [place] Spine Plate 54mm 3 Level [place] Bone Spine Cerv Nonstrl Ltxfre [id number] - [id number] Implanted:Qty : 1 on 06/27/2023 by Floyd Sandoval MD at [facility] Plate N/A: Spine Cervical [place] Spine [id number] / / [place] Spine Screw 16mm 4mm Bone [place] Spine Cervical Self Start Variable Angle Nonsterile [id number] - [id number] Implanted:Qty : 8 on 06/27/2023 by Floyd Sandoval MD at [facility] Screw N/A: Spine Cervical [place] Spine [id number] / / Insurance [facility] MEDICARE ADVANTAGE [facility] Address: [address] [address] [place] [address] IDPA [facility] MEDICARE ADVANTAGE IDPA Advance Directives For more information, please contact: [phone] * Full Code (Latest Code Status on File) Date Activated Date Inactivated Comments 06/27/2023 4:26 PM 06/30/2023 3:12 PM Care Teams City Bus Driver Relationship Specialty Start Date End Date Rodrigo Olivera PA [address] [place] [address] PCP - General Physician Regulatory Affairs Manager 02/16/24 Dr. Joanne Castillo Bessemer Converter Blower 04/19/23
--- OUTSIDE RECORDS SUMMARY | 2025-05-14 09:43 | XMS_ITS | Encounter Summary ---
Author Organization [facility] Address [address] [place] [address] Phone Care Team Providers Care Syrup Mixer Helper Name Role Phone MichaelTony Elle PAC Primary Care Provider + [phone] Errol Lebron MD Unavailable [phone] Encounter Details Date Type Department Care Team (Late st Contact Info) Description 10/24/2020 Telephone [facility] [address] [place] [address] Errol Lebron MD [address] [place] [address] Social History Tobacco Use Types [...] COVID-19? No / Unsure 10/27/2020 10:22 AM ALLOY WEIGHER documented as of this encounter Miscellaneous Notes * Telephone Encounter - Angie Alvarado - 10/24/2020 10:25 AM CST Patient called and rescheduled her appt today she had forgotten it was today. She is rescheduled tonext week. Y WEIGHER documented in this encounter Plan of Treatment Upcoming Encounters Date Type Department Care Team (Late st Contact Info) Description 05/22/2025 10:30 AM CDT Office Visit [facility] [address] [phone] Errol Lebron MD [address] [place] [phone] 05/22/2025 10:30 AM CDT Lab [facility] [address] [address] Lab, Cc [facility] documented as of this encounter Visit Diagnoses Not on filedocumented in this encounter Additional Health Concerns Assessment Noted Time PHQ-9 Depression Total Score: 0 07/25/20 20 8:00 AM ALLOY WEIGHER documented as of this encounter Care Teams Syrup Mixer Helper Relationship Specialty Start Date End Date Tony Rodriguez PAC [address] [place] [address] PCP - General Physician Inside Outside Sales Representative 07/09/20 Errol Lebron MD [address] [place] [phone] Consulting Physician Oncology 07/09/20 documented as of this encounter
== END 2025-05-14 09:21 | disposition home or self-care (01) ==
PROVIDERS: PCP Physician Assistant Medical; Visit Provider Internal Medicine Critical Care Medicine
DX: J44.1 Chronic obstructive pulmonary disease with (acute) exacerbation (principal)
CPT/HCPCS: 87070; 87101; 87116; 87205; 87206

== ENCOUNTER 2025-05-17 09:14 | Outpatient (CLI) | payer MEDICARE, MEDICAID, SELFPAY ==
--- OUTSIDE RECORDS SUMMARY | 2015-02-21 08:00 | XMS_ITS | Continuity of Care Document ---
Author Organization [facility] Address [address] [place] [address] Phone Care Team Providers Care Central Office Associate Name Role Phone Rangel Gee MD Unavailable [...] Copied on Encounter OFFICE/OUTPA TIENT VISIT, EST [facility], [address] [facility] [facility] [place], [place], [address], [place] tel:[phone] [facility] chest pain (chief complaint) Anxiety (chief complaint) Chest painGeneralized anxiety disorder 5 Gerard Multani. [address], [place], [place], [address] , [place]. tel:[phone] Referring Provider: Baron Lockett [address], [place], [place], [address]. tel:[phone] OFFICE/OUTPA TIENT VISIT, [facility], [address], [place], [place], [address], [place] tel:[phone] [facility] CAD (chief complaint) HLP (chief complaint) GERD (chief complaint) Other and unspecified hyperlipidemiaCoron romeo artery diseaseGERD - Gastro-esophageal reflux disease 5 Gerard Multani. [address], [place], [place], [address] , [place]. tel:[phone] Referring Provider: Baron Lockett [address], [place], [place], [address]. tel:[phone] OFFICE/OUTPA TIENT VISIT, [facility], [address], [place], [place], [address], [place] tel:[phone] [facility] fatigue (chief complaint) lymphadeno aptny (chief complaint) HLP (chief complaint) Fatigue / MalaiseEnlargement of lymph nodesOther and unspecified hyperlipidemiaOTHER ABNORMAL GLUCOSEDietary surveillance and counseling 5 Gerard Multani. [address], [place], [place], [address] , [place]. tel:[phone] Referring Provider: Baron Lockett [address], [place], [place], [address]. tel:[phone] OFFICE/OUTPA TIENT VISIT, [facility], [address], [place], [place], [address], [place] tel:[phone] [facility] Motor vehicle traffic accident of unspecified nature injuring unspecified personCervicalgiaHe adache 4 Gerard Multani. [address], [place], [place], [address] , [place]. tel:[phone] Referring Provider: Baron Lockett [address], [place], [place], [address]. tel:[phone] PREV VISIT, EST, AGE 40-64 [facility], [address], [place], [place], [address], [place] tel:[phone] [facility] Physical (chief complaint) abdominal pain (chief complaint) Routine Medical ExamEnlargement of lymph nodesAbdominal PainCervicalgiaRout ine Medical Exam 4 Gerard Multani. [address], [place], [place], [address] , [place]. tel:[phone] Referring Provider: Baron Lockett [address], [place], [place], [address]. tel:[phone] OFFICE/OUTPA TIENT VISIT, [facility], [address], [place], [place], [address], [place] tel:[phone] [facility] back pain (chief complaint) Lumbago 3 Gerard Multani. [address], [place], [place], [address] , [place]. tel:[phone] Referring Provider: Baron Lock[address], [place], [place], [address]. tel:[phone] OFFICE/OUTPA TIENT VISIT, EST [facility], [address], [place], [place], [address], [place] tel:[phone] [facility] back pain (chief complaint) abdominal pain (chief complaint) Lumbago 2 Gerard Multani. [address], [place], [place], [address] , [place]. tel:[phone] Referring Provider: Baron Lock[address], [place], [place], [address]. tel:[phone] Family History Family Member Type Diagnosis Age [...] Management (related to Lumbago) ordered Referral Ordered: CT ABD & PELVIS W/O CONTRAST ordered Referral Ordered: COLONOSCOPY AND BIOPSY ordered Referral Ordered: MAMMOGRAM, SCREENING ordered Referral Ordered: MAMMOGRAM, BOTH BREASTS ordered Referral Ordered: Referral: Pain Management. ordered History Of Present Illness Encounter Date Complaint History Of Prese nt Illness Anxiety Additional infor mation: Pt has been having stress at home. Pt has some anxiety Pt denies any depression or any suicidal thought. chest pain The patient pres ents with a complaint of chest pain. Relevant history for this patient includes tobacco use. Pt has been having intermitent nonexertional chest pain. Pt denies any exertional chest apin. Pt had negative cardaic cath recently. Pt denies any nausea, vomiting, diarphoresis. Pt notices left arm discomfortable with chest pain. Pt c/o sharp pain. Pt has negative ddimer also. GERD Pertinent negati ves include constipation, diarrhea, dyspnea, fever, hematuria, rash, vaginal discharge, vomiting, weight gain and weight loss.Additional information:Pt has not done EGD yet due to personal schedule. Pt had colonoscopy done. Pt has not been taking oeprazole. Pt has GERD symptosm. Pt denies abd pain. HLP Pt has elevated TG Pt is not on any meds. CAD Pt told me she h ad a heart attack recently. Pt told me she had a cardiac cath and had two cardiac stents placed recently at [facility]. Pt initaily went to hospital due to chest pain. Pt is rather confused about her hospital course. Pt states that she is not on any medication from the hospital. Pt does not have any appointment with meter reader inspector either. Pt denies any chest pain. Pt then told me doctor told her that her symptosm are due to stress and anxiety and gave her some xanax RPN Instructions Date Instruction Additional Infor karenion Decrease caloric intake Related to Dietary surveillance counseling Physical activity counseling Rel ated to Dietary surveillance counseling Assessments Type Assessment Date assessment Chest pain assessment Generalized anxiety disorder Feb Mental Status Date Cognitive Assessment Orientation - [place] ed to time, place, person, situation.
--- OUTSIDE RECORDS SUMMARY | 2025-05-17 09:20 | XMS_ITS ---
Author Organization [facility] Address [address] [place] [address] Care Team Providers Care Supervisor Mail Carriers Name Role Phone Rodrigo Olivera Primary Care Provider +1- [phone] Active Problems Problem Noted Date Diagnosed Date [...] (11/15/2022): Added automatically from request for surgery [id number] Muscle weakness 11/05/2022 Adenocarcinoma of cervix 11/05/2021 [...]
--- OUTSIDE RECORDS SUMMARY | 2025-05-17 09:20 | XMS_ITS | Encounter Summary ---
Author Organization [facility] Address [address] [place] [address] Phone Care Team Providers Care Ware Cleaner Name Role Phone MichaelTony Elle PAC Primary Care Provider + [phone] Errol Lebron MD Unavailable [phone] Encounter Details Date Type Department Care Team (Late st Contact Info) Description 10/24/2020 Telephone [facility] [address] [place] [address] Errol Lebron MD [address] [place] [address] Social History Tobacco Use Types [...] COVID-19? No / Unsure 10/27/2020 10:22 AM BATHHOUSE ATTENDANT documented as of this encounter Miscellaneous Notes * Telephone Encounter - Angie Alvarado - 10/24/2020 10:25 AM CST Patient called and rescheduled her appt today she had forgotten it was today. She is rescheduled tonext week. HOUSE ATTENDANT documented in this encounter Plan of Treatment Upcoming Encounters Date Type Department Care Team (Late st Contact Info) Description 05/22/2025 10:30 AM CDT Office Visit [facility] [address] [phone] Errol Lebron MD [address] [place] [phone] 05/22/2025 10:30 AM CDT Lab [facility] [address] [address] Lab, Cc [facility] documented as of this encounter Visit Diagnoses Not on filedocumented in this encounter Additional Health Concerns Assessment Noted Time PHQ-9 Depression Total Score: 0 07/25/20 20 8:00 AM BATHHOUSE ATTENDANT documented as of this encounter Care Teams Ware Cleaner Relationship Specialty Start Date End Date Tony Rodriguez PAC [address] [place] [phone] PCP - General Physician Unit Operator 07/09/20 Errol Lebron MD [address] [place] [phone] Consulting Physician Oncology 07/09/20 documented as of this encounter
--- OUTSIDE RECORDS SUMMARY | 2025-05-17 09:20 | XMS_ITS | Clinical Summary ---
Author Organization [facility] Address [address] [place] [address] Care Team Providers Care Facilities Technician Name Role Phone Rodrigo Olivera Primary Care Provider [phone]- [phone] Allergies Active Allergy Reactions Criticality Noted Date [...] capsule/ampule in 250 mL of saline irrigations ([employer] Sinus Rinse Bottle) and irrigate each nostril [...] (11/15/2022): Added automatically from request for surgery [id number] Muscle weakness 11/05/2022 Adenocarcinoma of cervix 11/05/2021 [...] Type Department Care Team Description 04/16/2025 Telephone [facility] Medicine Allergy and Immunology [address] [facility] [address] [place] [address] Kim Vazquez, MARILIN SCIG 04/16/2025 Orders Only [facility] Outpatient Infusion Center [address] [place], [place] [address]e [address] [place] [phone] Jacinto Melo RN 04/12/2025 9:00 AM CDT Infusion [facility]fusion [facility] [address] [place] [address] Ave [address] [place] [phone] 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) 03/15/2025 9:00 AM CDT Infusion [facility]fusion [facility] [address] [place] [address] Ave [address] [place] [phone] 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 Never 07/01/2023 Do you belong to any clubs o r organizations such as mandaeism groups, unions, fraternal or athletic groups, or [...] place to sleep or slept in a long term (including now)? No 07/01/2023 Personal Safety Answer Date Recorded Have you ever been in or are you currently in a harmful physical or emotional relationship or is someone making you feel afraid or unsafe? Denies 04/12/2025 Comments No Sex and Gender Information Value Date Recorded Sex Assigned at Not on file Legal Sex Female 6:21 AM CHIEF RADIATION THERAPIST Gender Identity Not on file Sexual Orientation [...] 07/16/2022, 06/13/2020 Medical Devices Implanted Type Area Electroformer Device Identifier Shelf Expiration Date Model / Serial / Lot Loudon Spine [id number] Cervical Anterior 6d Cage Spinal Tritanium Sterile Latex Free [id number] - [id number] Implanted:Qty : 1 on 06/27/2023 by Floyd Sandoval MD at [facility] Cage N/A: Spine Cervical Loudon Spine 05/03/2028 [id number] / / Marbella Spine L12 Mm X W14 Mm X H6 Mm Cervical Anterior 6 D Cage Spinal Tritanium Sterile Latex Free [id number] - [id number] Implanted:Qty : 1 on 06/27/2023 by Floyd Sandoval MD at [facility] Cage N/A: Spine Cervical Mar[place]ella Spine 07/08/2023 [id number] / / Loudon Spine L14 Mm X W17 Mm X H6 Mm Cervical Anterior 6 D Cage Spinal Tritanium Sterile Latex Free [id number] - [id number] Implanted:Qty : 1 on 06/27/2023 by Floyd Sandoval MD at [facility] Cage N/A: Spine Cervical L[place]on Spine 03/27/2028 [id number] / / [employer] Mike Graft Bone Cylinder Cancellous Gel Altapore Lg 8ml Putty [id number] - [id number] Implanted:Qty : 1 on 06/27/2023 by Floyd Sandoval MD at [facility] Graft N/A: Spine Cervical [employer] Mike [id number] 12/18/2027 [id number] / / [id number] Loudon Spine Plate 54mm 3 Level [place] Bone Spine Cerv Nonstrl Ltxfre [id number] - [id number] Implanted:Qty : 1 on 06/27/2023 by Floyd Sandoval MD at [facility] Plate N/A: Spine Cervical Mar[place]ella Spine [id number] / / Loudon Spine Screw 16mm 4mm Bone [place] Spine Cervical Self Start Variable Angle Nonsterile [id number] - [id number] Implanted:Qty : 8 on 06/27/2023 by Floyd Sandoval MD at [facility] Screw N/A: Spine Cervical L[place]on Spine [id number] / / Insurance [facility] MEDICARE ADVANTAGE IDPA [facility] MEDICARE ADVANTAGE IDPA Advance Directives For more information, please contact: [phone] * Full Code (Latest Code Status on File) Date Activated Date Inactivated Comments 06/27/2023 4:26 PM 06/30/2023 3:12 PM Care Teams Facilities Technician Relationship Specialty Start Date End Date Rodrigo Olivera PA [address] [place] [address] PCP - General Physician Pediatric Oncologist 02/16/24 Dr. Joanne Castillo Airport Skilled Maintenance Supervisor 04/19/23
--- OUTSIDE RECORDS SUMMARY | 2025-05-17 09:20 | XMS_ITS | Encounter Summary ---
Author Organization [facility] Address [address] [place] [address] Care Team Providers Care Major Assembly Lineman Name Role Phone Tony Rodriguez Primary Care Provider + Shivani Gary MD Primary Care Prov ider Saad Colon DO Primary Care Provider +- [phone] Yoana Ragland Primary Care Provider [phone] Kasandra Campoverde WELDING INSTRUCTOR Unavailable [phone] Rodrigo Olivera Primary Care Provider [phone] Encounter Details Date Type Department Care Team (Late st Contact Info) Description 04/22/2021 Telephone [facility] Cardiac Catheterization Lab [address] [place] [address] [place] [address] [place] [phone] Social History Tobacco Use Types Packs/Day Years Used Date Smoking Tobacco: Never Assessed Comments Unknown Sex and Gender Information Value Date Recorded Sex Assigned at Not on file Legal Sex Female 6:21 AM HOUSEKEEPING AID Gender Identity Not on file Sexual Orientation Straight 04/17/2024 9: 54 AM CDT documented as of this encounter Plan of Treatment Not on file documented as of this encounter Visit Diagnoses Not on filedocumented in this encounter Care Teams Major Assembly Lineman Relationship Specialty [place] [address] [place] [address] PCP - General Internal Medicine 05/19/20 10/25/22 Shivani Gary MD [address] [place] [address] PCP - General Family Medicine 10/26/22 10/27/22 Saad Colon DO [address] [place] [address] PCP - General Internal Medicine 10/28/22 11/11/22 [place] [address] [place] [address] PCP - General Physician Rn Support Services 11/12/22 02/15/24 Rodrigo Olivera PA [address] [place] [address] PCP - General Physician Rn Support Services 02/16/24 Kasandra Campoverde, [facility] [address] [facility] Mailstop [phone] [place] [address] SHOP Outpatient Cleaner And Dyer 07/01/23 07/28/23 Dr. Joanne Castillo Train Announcer 04/19/23 documented as of this encounter
--- OUTSIDE RECORDS SUMMARY | 2025-05-17 09:20 | XMS_ITS | Clinical Summary ---
Author Organization [facility] Address [address], [facility] [address] [place] [address] Phone Care Team Providers Care Brewing Director Name Role Phone Tony Rodriguez Primary Care Provider [phone] Errol Lebron MD Unavailable [phone] Allergies Active Allergy Reactions Criticality Noted Date [...] MCG/ACT Aerosol Solution 11/10/2020 Active nystatin (MYCOSTATIN) 054307 UNIT/ML Suspension 05/26/2021 Active amLODIPine (NORVASC) 5 [...] CDT Office Visit [facility] [address] [address] Errol Lebron MD [address] [place] [phone] 05/22/2025 10:30 AM CDT Lab [facility] [address] [address] Lab, Cc [place] [facility] [...] MEDICAID [place] MEDICARE C [employer] Care Teams Brewing Director Relationship Specialty Start Date End Date Tony Rodriguez, PAC [address] [place] [address] PCP - General Physician Otr Tanker Truck Driver 07/09/20 Errol Lebron MD [address] [place] [phone] Consulting Physician Oncology 07/09/20
--- OUTSIDE RECORDS SUMMARY | 2025-05-17 09:21 | XMS_ITS | Clinical Summary ---
Author Organization [facility] Address [address] [place] [address] Care Team Providers Care Manufactured Buildings Supervisor Name Role Phone Yunier Rodriguez APRN-TRACK RIDER Primary Care Provider Source Comments [facility],non-owned Affiliates and Associated Physician Practices is amultiple site organization consisting of ambulatory clinics and hospital sitesin [place], [place], [place] and [place]. This disclosure is being madepursuant to the Care Everywhere program and may not contain all information available regarding this patient. 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 OFFICER Gender Identity Not on file Sexual Orientation [...] 7 - 26 mg/dL 04/03/2021 2:15 AM [facility] Creatinine 0.93 0.56 - 0.96 mg/dL 04/03/2021 2:15 AM [facility] Sodium 139 136 - 145 mmol/L 04/03/2021 2:15 AM [facility] Potassium 3.6 3.5 - 4.5 mmol/L 04/03/2021 2:15 AM [facility] Chloride 101 98 - 107 mmol/L 04/03/2021 2:15 AM [facility] CO2 27 22 - 29 mmol/L 04/03/2021 2:15 AM [facility] Glucose 94 70 - 115 mg/dL 04/03/2021 2:15 AM [facility] Calcium 8.7 8.4 - 10.2 mg/dL 04/03/2021 2:15 AM [facility] Anion Gap 15 8 - 18 04/03/2021 2:15 AM [facility] BUN/Creatinine Ratio 9 7 - 23 04/03/2021 2:15 AM [facility] Osmolality Calculated 286 270 - 300 mOsm/kg 04/03/2021 2:15 AM [facility] eGFR by CKD-EPI 69(L) >=90 mL/min/1.7 3 m2 04/03/2021 2:15 AM CDT [facility] Blood BLOOD SPECIMEN / Unknown Venipuncture / Unknown 04/03/2021 1:46 AM CDT 04/03/2021 1:52 AM CDT Oscar Daniel MD LAB - CHEMISTRY ORDERABLES F inal Result [facility] [address] [place] [address], [facility] [phone] from Last 3 Months or Most Recently Relevant to Health Maintenance Insurance AETNA MEDICAID - OUT OF STATE AETNA AETNA MEDICAID - OUT OF STATE Advance Directives * Full Code (Latest Code Status on File) Date Activated Date Inactivated Comments 04/03/2021 12:23 AM 04/03/2021 4:19 PM Care Teams Manufactured Buildings Supervisor Relationship Specialty Start Date End Date Yunier Rodriguez, STAFF DEVELOPER-TRACK RIDER [address] [place] [address] PCP - General 01/16/21
== END 2025-05-17 09:15 | disposition home or self-care (01) ==
LOC: ANHLAB 09:15
PROVIDERS: PCP Physician Assistant Medical; Visit Provider Internal Medicine Critical Care Medicine
DX: J44.1 Chronic obstructive pulmonary disease with (acute) exacerbation (principal)
CPT/HCPCS: 87070; 87205; 87206

== ENCOUNTER 2025-09-06 09:28 | Outpatient (CLI) | payer MEDICARE, MEDICAID, SELFPAY ==
--- OUTSIDE RECORDS SUMMARY | 2025-09-06 09:46 | XMS_ITS | Clinical Summary ---
Author Organization [facility] Address [address] [place] [phone] Phone Care Team Providers Care Oral Surgery Technician Name Role Phone Unavailable Unavailable Unavailable Reason for Visit and Chief Complaint referred by Tony Rodriguez PA-C - The Chief Complaint is: Pt here today for right hip pain. Hip ablation 2019 done by . ([facility]) no previous pm, PT tried and not helpful (2018), steroidinjections tried before the ablation and minimal relief. MRI done 07/04/2018, nothing more recent Plan of Treatment Instructions to patient Intervention and counseling on cessation of tobacco use : Patient recieved smoking cessation handout Last Documented On 0 1:48PM ; [facility] Assessments Includes: Assessments from this encounter Findings - Sacroiliitis [M46.1 - Sacroiliitis, not elsewhere classified] - Last Documented On 12/03/2019 10:01AM ; [facility] - Myalgia [M79.18 - Myalgia, other site] - Last Documented On 12/03/2019 10:01AM ; [facility] - Chronic pain syndrome [G89.4 - Chronic pain syndrome] - Last Documented On 12/03/2019 10:01AM ; [facility] Instructions Includes: Instructions from this encounter Instructions to patient Intervention and counseling on cessation of tobacco use : Patient recieved smoking cessation handout Last Documented On 0 1:48PM ; [facility] Medical Equipment - Implanted Devices Includes: Current Devices No Medical Equipment Recorded Medications Includes: Medications discussed during this encounter and other current Medications Current Medications (continue as prescribed) Suboxone 8-2 MG Sublingual Film 11/14/2019 Provider: Diagnosis: Last Documented On 0 1:40PM By Catalina ROE ; [facility] Estroven Nighttime 2 MG Oral Tablet 11/14/2019 Provi sarina: Diagnosis: Last Documented On 0 1:41PM By Catalina ROE ; [facility] Medications Administered Includes: Administered Medications from this encounter No Administered Medications Recorded Vital Signs Includes: Vital Signs from this encounter Vital Name 11/14/2019 01:42P Blood Pressure Sitting L 102/58 BP Cuff Size Large Pulse Rate-Sitting (bpm) 62 Pulse Rhythm Regular Respiration Rate (breaths/min) 18 Weight (lb) 133 Pain Level 7 Last Documented: On 11/14/2019 1:43PM ; [facility] Results Includes: Results discussed during this encounter No Results Recorded For Specified Dates History of Present Illness Includes: History of Present Illness from this encounter CARLOS CORBIN is a 54 year old female. Patient is referred for evaluation and treatment. She complains of chronic right buttock pain since April 2018 when she was hurt at work. There is no ongoing case. Therapy 1 year ago, 8-10 sessions, caused increase pain. RF ablation of SI joint was done twice, last 4 months ago and provided good relief. Ibuprofen 800mg TID is used. - Allergy list reviewed - Medication reconciliation performed - Sexual complaints - Hair symptoms - Ankle joint swelling Social History Description Last Updated Alcohol 11/14/2019 Last Documented On 0 10:01AM ; [facility] 11/14/2019 Last Documented On 0 10:01AM ; [facility] Not using drugs 11/14/2019 Last Documented On 0 10:01AM ; [facility] Tobacco use 11/14/2019 Last Documented On 0 10:01AM ; [facility] Smoking status : Current everyday smoker 11/14/2019 Last Documented On 0 10:01AM ; [facility] Procedures and Surgical History Includes: Procedures from this encounter Procedures Code Diagnosis Performing Provider Service L ocation Service Date education and instructions provided Last Documented On 0 9:54AM ; [facility] intervention and counseling on cessation of tobacco use : Patient recieved smoking cessation handout 4000F Last Documented On 0 1:48PM ; [facility] Medical History Includes: Medical History addressed during this encounter Description Last Updated Exposure to a lot of bright sunlight Last Documented On 0 10:01AM ; [facility] Currently wearing eyeglasses 11/14/2019 Last Documented On 0 10:01AM ; [facility] Exposure airborne chemical particulate 0 11/14/2019 Last Documented On 0 10:01AM ; [facility] History of arthritis 11/14/2019 Last Documented On 0 10:01AM ; [facility] History of cancer 11/14/2019 Last Documented On 0 10:01AM ; [facility] No history of chronic obstructive pulmon romeo disease 11/14/2019 Last Documented On 0 10:01AM ; [facility] No history of convulsive disorder 2019 Last Documented On 0 10:01AM ; [facility] No history of diabetes mellitus 11/14/19 20 Last Documented On 0 10:01AM ; [facility] No history of hypertension 11/14/2019 Last Documented On 0 10:01AM ; [facility] No history of sexually transmitted disea se 11/14/2019 Last Documented On 0 10:01AM ; [facility] No history of stroke syndrome 11/14/2019 Last Documented On 0 10:01AM ; [facility] No reported easy bleeding 11/14/2019 Last Documented On 0 10:01AM ; [facility] Reported cardiovascular symptoms 020 Last Documented On 0 10:01AM ; [facility] Reported recurrent infections 11/14/2019 Last Documented On 0 10:01AM ; [facility] Reviewed and Unchanged 11/14/2019 Last Documented On 0 10:01AM ; [facility] Family History Includes: Family History addressed during this encounter Description Last Updated Father HYPERTENSION ~HEART DISEASE ~BONE DISEASE 11/14/2019 Last Documented On 0 10:01AM ; [facility] Mother BLADDER CANCER 0 Last Documented On 0 10:01AM ; [facility] Review of Systems Includes: Review of Systems from this encounter Systemic: General overall feeling and feeling tired (fatigue). No fever and no chills. Recent weight change. No recent weight change. Head: Headache. No headache. Chronic/recurring headaches. Neck: Swollen glands in the neck. Eyes: Eye symptoms. Otolaryngeal: Hearing loss, earache, epistaxis, and mouth sores. Breasts: Breast lump and pain in breast. Cardiovascular: Chest pain or discomfort. No chest pain or discomfort. Cold hands or feet. Pulmonary: No dyspnea. Shortness of breath, expressed as feeling short of breath, chronic cough, and wheezing. Gastrointestinal: Decreased appetite. No nausea and no vomiting. Abdominal pain, bowel movement frequency has recently changed, hematochezia, and constipation. Genitourinary: No dysuria. Endocrine: Temperature intolerance and muscle weakness. Hematologic: No tendency for easy bruising. Musculoskeletal: Lower back pain, muscle aches, muscle aches, pain localized to one or more joints, and joint swelling localized to one or more joints. Neurological: Dizziness. No dizziness, no vertigo, and no motor disturbances. A tremor. No sensory disturbances. Numbness. Psychological: Feeling nervous. No anxiety. Depression. No depression. Insomnia. No sleep apnea. Skin: Dry skin, pruritus which is generalized, and change in skin color. No rash. A skin wound is slow to heal. Mental Status Includes: Mental Status from this encounter Description Oriented to time, place, and person No anxiety Functional Status Includes: Functional Status from this encounter No Functional Status Recorded Physical Exam Includes: Physical Exam from this encounter Allergies Includes: Active Allergies Substance Type Reaction Onset Date Resolved Date Statu s Penicillins Allergy 11/14/2019 Active Last Documented On 0 1:46PM ; [facility] Diphtheria-Tetanus Toxoids Allergy 11/14/2019 Active Last Documented On 0 1:46PM ; [facility] Contrast Dye Allergy 11/14/2019 Active Last Documented On 0 1:46PM ; [facility] Encounters Encounter Provider Location Date Check-In Time Check-Out Time Diagnosis PAIN MANAGEMENT NEW CONSULT HIRAM NGUYEN [facility] 11/14/19 20 1:45PM 2:27PM Chronic Pain Syndrome,Sacr oiliitis,Myal maverick , Other Site (M79.18) Clinical Notes Includes: Clinical Notes from this encounter No Clinical Notes Recorded
--- OUTSIDE RECORDS SUMMARY | 2025-09-06 09:46 | XMS_ITS ---
Author Organization [facility] Address [address] [place] [phone] Phone Care Team Providers Care Plan Examiner Name Role Phone Unavailable Unavailable Unavailable Plan of Treatment Instructions to patient Intervention and counseling on cessation of tobacco use : Patient recieved smoking cessation handout Last Documented On 0 1:48PM ; [facility] Assessments Includes: Assessments for all patient encounters Findings Encounter Date Chronic pain syndrome PAIN MANAGEMENT NE W CONSULT with [facility] 11/14/2019 Last Documented On 0 10:01AM ; [facility] Myalgia PAIN MANAGEMENT NEW CONSULT with [facility] 11/14/2019 Last Documented On 0 10:01AM ; [facility] Sacroiliitis PAIN MANAGEMENT NEW CONSULT with [facility] 11/14/2019 Last Documented On 0 10:01AM ; [facility] Instructions Includes: Instructions for all patient encounters Instructions to patient Intervention and counseling on cessation of tobacco use : Patient recieved smoking cessation handout Last Documented On 0 1:48PM ; [facility] Medical Equipment - Implanted Devices Includes: Current and historical Devices No Medical Equipment Recorded Medications Includes: Current and historical Medications Current Medications (continue as prescribed) Suboxone 8-2 MG Sublingual Film 11/14/2019 Provider: Diagnosis: Last Documented On 0 1:40PM By Catalina ROE ; [facility] Estroven Nighttime 2 MG Oral Tablet 11/14/2019 Provi sarina: Diagnosis: Last Documented On 0 1:41PM By Catalina ROE ; [facility] Medications Administered Includes: Administered Medications in patient's chart No Administered Medications Recorded Results Includes: Results from 09/06/2024 through 09/06/2025 No Results Recorded For Specified Dates History of Present Illness History of Present Illness not supported for this document type No History of Present Illness Recorded Social History Description Last Updated Alcohol 11/14/2019 Last Documented On 0 10:01AM ; [facility] 11/14/2019 Last Documented On 0 10:01AM ; [facility] Not using drugs 11/14/2019 Last Documented On 0 10:01AM ; [facility] Tobacco use 11/14/2019 Last Documented On 0 10:01AM ; [facility] Smoking status : Current everyday smoker 11/14/2019 Last Documented On 0 10:01AM ; [facility] Medical History Includes: Medical History in patient's chart Description Last Updated Exposure to a lot of bright sunlight Last Documented On 0 10:01AM ; [facility] Currently wearing eyeglasses 11/14/2019 Last Documented On 0 10:01AM ; [facility] Exposure airborne chemical particulate 0 11/14/2019 Last Documented On 0 10:01AM ; [facility] History of arthritis 11/14/2019 Last Documented On 0 10:01AM ; [facility] History of cancer 11/14/2019 Last Documented On 0 10:01AM ; [facility] No history of chronic obstructive pulmon romeo disease 11/14/2019 Last Documented On 0 10:01AM ; [facility] No history of convulsive disorder 2019 Last Documented On 0 10:01AM ; [facility] No history of diabetes mellitus 11/14/19 20 Last Documented On 0 10:01AM ; [facility] No history of hypertension 11/14/2019 Last Documented On 0 10:01AM ; [facility] No history of sexually transmitted disea se 11/14/2019 Last Documented On 0 10:01AM ; [facility] No history of stroke syndrome 11/14/2019 Last Documented On 0 10:01AM ; [facility] No reported easy bleeding 11/14/2019 Last Documented On 0 10:01AM ; [facility] Reported cardiovascular symptoms 020 Last Documented On 0 10:01AM ; [facility] Reported recurrent infections 11/14/2019 Last Documented On 0 10:01AM ; [facility] Reviewed and Unchanged 11/14/2019 Last Documented On 0 10:01AM ; [facility] Family History Includes: Family History in patient's chart Description Last Updated Father HYPERTENSION ~HEART DISEASE ~BONE DISEASE 11/14/2019 Last Documented On 0 10:01AM ; [facility] Mother BLADDER CANCER 0 Last Documented On 0 10:01AM ; [facility] Review of Systems Review of Systems not supported for this document type No Review of Systems Recorded Mental Status Description Oriented to time, place, and person No anxiety Functional Status No Functional Status Recorded Physical Exam Physical Exam not supported for this document type No Physical Exam Recorded Allergies Includes: Active, inactive, and resolved Allergies Substance Type Reaction Onset Date Resolved Date Statu s Penicillins Allergy 11/14/2019 Active Last Documented On 0 1:46PM ; [facility] Diphtheria-Tetanus Toxoids Allergy 11/14/2019 Active Last Documented On 0 1:46PM ; [facility] Contrast Dye Allergy 11/14/2019 Active Last Documented On 0 1:46PM ; [facility] Clinical Notes Includes: Signed Clinical Notes starting from 10/08/2022 No Clinical Notes Recorded
--- OUTSIDE RECORDS SUMMARY | 2025-09-06 09:46 | XMS_ITS | Clinical Summary ---
Author Organization [facility] Address [address], [facility] [address] [place] [address] Phone Care Team Providers Care Channel Cementer Insole Machine Name Role Phone Tony Rodriguez Primary Care Provider [phone]- [phone] Errol Lebron MD Unavailable [phone] Allergies Active Allergy Reactions Criticality Noted Date Comments Aspirin Hives,Other (see Comments) High 01/13/2021 With a buffer Atorvastatin Nausea Medium 06/06/2023 Ciprofloxacin Nausea 05/23/2024 Iodinated Contrast Media Rash 2020 Gabapentin Swelling Medium 06/27/2023 Penicillins Rash 2020 Tetanus Toxoid Hives 2020 Medications estradiol (ESTRACE) 1 MG Tablet 0 Active Suboxone 8-2 MG FILM 0 Active Ventolin HFA 108 (90 Base) MCG/ACT Aerosol Solution 1 Active nystatin (MYCOSTATIN) 385887 UNIT/ML Suspension 1 Active omeprazole (PriLOSEC) 40 MG CAPSULE DELAYED RELEASE TAKE ONE CAPSULE BY MOUTH EVERY DAY BEFORE a meal 2 Active Trelegy Ellipta 100-62.5-25 MCG/ACT AEROSOL POWDER, BREATH ACTIVATED INHALE ONE PUFF BY MOUTH EVERY MORNING FOR BREATHING 5 Active Mirtazapine (REMERON) 7.5 MG Tablet take one tablet by mouth once daily at bedtime Active amLODIPine (NORVASC) 10 MG Tablet TAKE ONE TABLET BY MOUTH EVERY MORNING FOR BLOOD PRESSURE 5 Active levothyroxine (SYNTHROID) 75 MCG Tablet TAKE ONE TABLET BY MOUTH EVERY MORNING 30 MINUTES BEFORE BREAKFAST FOR THYROID 5 Active Active Problems Problem Noted Date Diagnosed [...] Used Date Smoking Tobacco: Former Cigarettes 0.5 8 Q uit: 2021 Smokeless Tobacco: Never Alcohol Use Standard Drinks/Week [...] Sign Reading Time Taken Comments Blood Pressure 124/60 05/22/2025 10:29 AM CDT Pulse 83 05/22/2025 10:29 AM CDT Temperature 36.8 C (98.3 F) 05/22/2025 10:29 AM CDT Respiratory Rate 18 05/22/2025 10:29 AM CDT Oxygen Saturation 93% 05/22/2025 10:29 AM CDT Inhaled Oxygen Concentration - - Weight 57.2 kg (126 lb) 05/22/2025 10:29 AM CDT Height 157.5 cm (5' 2) 05/22/2025 10:29 AM CDT Body Mass Index 23.05 05/22/2025 10:29 AM CDT Plan of Treatment Health Maintenance Due Date Last Done Comments Hepatitis C Virus (HCV) Screening 1965 Mammogram 1965 TdaP Immunization 1965 Zoster Immunization (1 of 2) 1983 Cologuard 2009 Colonoscopy 2009 Colorectal Cancer Screening 2009 Immunochemical Fecal Occult Blood 2009 Medicare Initial AWV [id number] 10/20/2021 Influenza Immunization (#1) 05/20/202506/20, 07/14/2021, 07/10/2020, Additional history exists SARS-COV-2 Immunization (2024- season) 2025 08/16/2022, 05/17/2022, 12/28/2020, Additional history exists Respiratory Syncytial Virus (RSV) Immunization (Adult) (1 - 1-dose 75+ series) 2039 Pneumococcal Immunization (50+ years) Completed 06/26/2024, 07/16/2022, 06/13/2020 Pneumococcal Immunization Combined Discontinued 06/26/2024, 07/16/2022, 06/13/2020 Hepatitis B Immunization Aged Out No longer eligible based on patient's age to complete this topic Human Papillomavirus (HPV) Immunization (No Doses Required) Completed Meningococcal Immunization (ACWY) Aged Out No longer eligible based on patient's age to complete this topic Rotavirus Immunization Aged Out No lo nger eligible based on patient's age to complete this topic Insurance MEDICAID [place] MEDICARE C [employer] Care Teams Channel Cementer Insole Machine Relationship Specialty Start Date End Date Tony Rodriguez, PAC [facility] [place] [address] PCP - General Physician Commission Clerk 07/09/20 Errol Lebron MD [address] [place] [phone] Consulting Physician Oncology 07/09/20
--- OUTSIDE RECORDS SUMMARY | 2025-09-06 09:46 | XMS_ITS ---
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
--- OUTSIDE RECORDS SUMMARY | 2025-09-06 09:46 | XMS_ITS | Encounter Summary ---
Author Organization [facility] Address [address] [place] [address] Care Team Providers Care Electrolytic De Scaler Name Role Phone Tony Rodriguez Primary Care Provider + Shivani Gary MD Primary Care Prov ider Saad Colon DO Primary Care Provider [phone]- [phone] Yoana Ragland Primary Care Provider [phone] Kasandra Campoverde TILE LAYER HELPER Unavailable Rodrigo Olivera Primary Care Provider [phone]- [phone] Encounter Details Date Type Department Care Team (Late st Contact Info) Description 04/22/2021 Telephone [facility] Cardiac Catheterization Lab [address] [place] [address] Joanne Oquendo MD [address] [place] [id number] Social History Tobacco Use Types Packs/Day Years Used Date Smoking Tobacco: Never Assessed Comments Unknown Sex and Gender Information Value Date Recorded Sex Assigned at Not on file Legal Sex Female 6:21 AM BATTERY HAND Gender Identity Not on file Sexual Orientation Straight 04/17/2024 9: 54 AM CDT documented as of this encounter Plan of Treatment Not on file documented as of this encounter Visit Diagnoses Not on filedocumented in this encounter Care Teams Electrolytic De Scaler Relationship Specialty Start Date End Date Tony Rodriguez PA [address] [place] [address] PCP - General Internal Medicine 05/19/20 10/25/22 Shivani Gary MD [address] [place] [address] PCP - General Family Medicine 10/26/22 10/27/22 Saad Colon DO [address] [place] [address] PCP - General Internal Medicine 10/28/22 11/11/22 [place] [address] [place] [address] PCP - General Physician Behavioral Instructor 11/12/22 02/15/24 Rodrigo Olivera PA [address] [place] [address] PCP - General Physician Behavioral Instructor 02/16/24 Kasandra Campoverde, [facility] [address] [facility] ([facility]) Mailstop [phone] [place] [address] SHOP Outpatient Director Vaccine 07/01/23 07/28/23 Dr. Joanne Castillo Paper Cutter Operator 04/19/23 documented as of this encounter
--- OUTSIDE RECORDS SUMMARY | 2025-09-06 09:47 | XMS_ITS | Encounter Summary ---
Author Organization [facility] Address [address] [place] [address] Phone Care Team Providers Care Tablet Tester Name Role Phone MichaelTony Elle PAC Primary Care Provider + [phone] Errol Lebron MD Unavailable [phone] Encounter Details Date Type Department Care Team (Late st Contact Info) Description 10/24/2020 Telephone [facility] [address] [place] [address] Errol Lebron MD [address] [place] [address] Social History Tobacco Use Types [...] COVID-19? No / Unsure 10/27/2020 10:22 AM WELT RANDER documented as of this encounter Functional Status documented as of this encounter Mental Status * Question Answer Entry Date Author BP 144/72 10/27/2020 10:39 AM WELT RANDER Sanjana s, Cassi L, DOUGH BRAKE MACHINE OPERATOR Temp 97 10/27/2020 10:39 AM WELT RANDER Sanjana s, Cassi L, DOUGH BRAKE MACHINE OPERATOR Pulse 76 10/27/2020 10:39 AM WELT RANDER Sanjana s, Cassi L, DOUGH BRAKE MACHINE OPERATOR SpO2 98 10/27/2020 10:39 AM WELT RANDER Sanjana s, Cassi L, DOUGH BRAKE MACHINE OPERATOR * Question Answer Entry Date Author Initial Score 0 10/27/2020 10:44 AM WELT RANDER Hazel ss, Cassi L, DOUGH BRAKE MACHINE OPERATOR documented in this encounter Miscellaneous Notes * Telephone Encounter - Angie Alvarado - 10/24/2020 10:25 AM CST Patient called and rescheduled her appt today she had forgotten it was today. She is rescheduled tonext week. RANDER documented in this encounter Plan of Treatment Not on file documented as of this encounter Visit Diagnoses Not on filedocumented in this encounter Additional Health Concerns Assessment Noted Time PHQ-9 Depression Total Score: 0 07/25/20 20 8:00 AM WELT RANDER documented as of this encounter Care Teams Tablet Tester Relationship Specialty Start Date End Date Tony Rodriguez PAC [address] [place] [address] PCP - General Physician Tag Writer 07/09/20 Errol Lebron MD [address] [place] [phone] Consulting Physician Oncology 07/09/20 documented as of this encounter
--- OUTSIDE RECORDS SUMMARY | 2025-09-06 09:47 | XMS_ITS ---
Care Plan - [facility] Created on: September 06, 2025 SAGAR CORBIN : 1965 Sex: Female Author Organization [facility] Address [address] [place] [phone] Phone Care Team Providers Care Aquarist Name Role Phone Unavailable Unavailable Unavailable
--- OUTSIDE RECORDS SUMMARY | 2025-09-06 09:47 | XMS_ITS | Clinical Summary ---
Author Organization [facility] Address [address] [place] [phone] Care Team Providers Care Community Center Director Name Role Phone Rodrigo Olivera Primary Care Provider +1- [phone] Allergies Active Allergy Reactions Criticality Noted Date Comments Aspirin Hives,Other (See comments) High 01/13/2021 With a buffer Atorvastatin Muscle pain,Nausea & Vomiting Medium 06/06/2023 Ciprofloxacin Rash Medium 01/13/2021 Dye Unknown High 09/19/2024 Gabapentin Swelling Medium 06/27/2023 Iodinated Contrast Media [...] Active Additional Information Patient not taking.Reported on 07/24/2025 estradioL (ESTRACE) 1 mg tabletIndications: hormone replacement [...] Space Chamber) spacer USE with symbicort Active mirtazapine (REMERON) 7.5 mg tablet TAKE [...] week 300 mL 11 04/22/20 25 Active EPINEPHrine 0.3 mg/0.3 mL auto-injection syringe 05/22/20 25 Active budesonide (PULMICORT) 0.5 mg/2 mL nebulizer solutionIndication s:Chronic sinusitis, unspecified location,Moderate persistent asthma without complication Mix 1 capsule/ampule in 250 mL of saline irrigations (NeRentBits Sinus Rinse Bottle) and irrigate each nostril with half of the bottle twice daily. 240 mL 3 07/24/20 25 Active azelastine (ASTELIN) 137 mcg (0.1 %) nasal sprayIndications:C hronic sinusitis, unspecified location Administer 2 sprays into each nostril 2 (two) times a day Use in each nostril as directed 30 mL 11 07/24/20 25 026 Active Active Problems Problem Noted Date Diagnosed [...] (11/15/2022): Added automatically from request for surgery [id number] Muscle weakness 11/05/2022 Adenocarcinoma of cervix 11/05/2021 [...] Encounters Date Type Department Care Team Description 07/24/2025 11:30 AM MIXER DIAMOND POWDER Office Visit [facility] Medicine Allergy and Immunology [address] [facility] [address] [place] [address] Chalo Smith MD Chronic sinusitis, unspecified location (Primary Dx); Moderate persistent asthma without complication; 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 07/03/2025 12:45 PM CDT Office Visit [facility] Medicine Neurosurgery [address] [facility] [address] [place] [phone] Floyd Sandoval MD Spinal stenosis, cervical region (Primary Dx) 07/03/2025 11:52 AM CDT - 07/03/2025 11:59 PM CDT Hospital Encounter [id number] [address] [facility] [facility] [address] [place] [phone] Spinal stenosis, cervical region Discharge Disposition: Discharge to home or self care 06/18/2025 Orders Only [facility] Medicine Neurosurgery [address] [facility] [address] [place] [address] Floyd Sandoval MD Spinal stenosis, cervical region (Primary Dx) from Last 3 Months Immunizations [...] often do you attend chur ch or evangelical services? Never 07/01/2023 Do you belong to any clubs o r organizations such as jew groups, unions, fraternal or athletic groups, or [...] place to sleep or slept in a mcfp (including now)? No 07/01/2023 Personal Safety Answer Date Recorded Have you ever been in or are you currently in a harmful physical or emotional relationship or is someone making you feel afraid or unsafe? Denies 04/12/2025 Comments No Sex and Gender Information Value Date Recorded Sex Assigned at Not on file Legal Sex Female 6:21 AM MIXER DIAMOND POWDER Gender Identity Not on file Sexual Orientation Straight 04/17/2024 9: 54 AM CDT Occupation Industry Job Start Date Job End Date On disability Not on file Not on file Not on file Last Filed Vital Signs Vital Sign Reading Time Taken Comments Blood Pressure 152/65 07/24/2025 11:08 AM MIXER DIAMOND POWDER Pulse 82 07/24/2025 11:08 AM MIXER DIAMOND POWDER Temperature 36.7 C (98 F) 07/24/2025 11:08 AM MIXER DIAMOND POWDER Respiratory Rate 16 04/12/2025 8:40 AM CDT Oxygen Saturation 97% 07/24/2025 11:08 AM MIXER DIAMOND POWDER Inhaled Oxygen Concentration - - Weight 58.1 kg (128 lb) 07/24/2025 11:08 AM MIXER DIAMOND POWDER Height 160 cm (5' 3) 07/24/2025 11:08 AM MIXER DIAMOND POWDER Body Mass Index 22.67 07/24/2025 11:08 AM MIXER DIAMOND POWDER Plan of Treatment Health Maintenance Due Date Last Done Comments Breast Cancer Screening-Mammogram 1965 Colon Cancer Screening-Colonoscopy 1965 Hepatitis C Screening 1965 DTaP/Tdap/Td Vaccine (1 - Tdap) 1975 Hepatitis B Screening 1982 Regular Well Visit/Exam 18-64 1982 Zoster Vaccine (1 of 2) 1983 Depression Screening 04/17/2025 04/17/2024 Covid-19 Vaccine (5 - 2024-2 6 season) 2025 08/16/2022, 05/17/2022, 12/28/2020, Additional history exists Influenza Vaccine (#1) 2025 , 07/14/2021, 07/10/2020, Additional history exists Pneumococcal vaccine <65 (3 of 3 - PCV20 or PCV21) 07/16/2027 07/16/2022, 06/13/2020 Medical Devices Implanted Type Area Complaint Clerk Device Identifier Shelf Expiration Date Model / Serial / Lot Protivin Spine [id number] Cervical Anterior 6d Cage Spinal Tritanium Sterile Latex Free [id number] - [id number] Implanted:Qty : 1 on 06/27/2023 by Floyd Sandoval MD at [facility] Cage N/A: Spine Cervical Protivin Spine 05/03/2028 [id number] / / Marbella Spine L12 Mm X W14 Mm X H6 Mm Cervical Anterior 6 D Cage Spinal Tritanium Sterile Latex Free [id number] - [id number] Implanted:Qty : 1 on 06/27/2023 by Floyd Sandoval MD at [facility] Cage N/A: Spine Cervical Protivin Spine 07/08/2023 [id number] / / Marbella Spine L14 Mm X W17 Mm X H6 Mm Cervical Anterior 6 D Cage Spinal Tritanium Sterile Latex Free [id number] - [id number] Implanted:Qty : 1 on 06/27/2023 by Floyd Sandoval MD at [facility] Cage N/A: Spine Cervical Protivin Spine 03/27/2028 [id number] / / [employer] Mike Graft Bone Cylinder Cancellous Gel Altapore Lg 8ml Putty [id number] - [id number] Implanted:Qty : 1 on 06/27/2023 by Floyd Sandoval MD at [facility] Graft N/A: Spine Cervical [employer] Mike [id number] 12/18/2027 [id number] / / [id number] Protivin Spine Plate 54mm 3 Level Blanco Bone Spine Cerv Nonstrl Ltxfre [id number] - [id number] Implanted:Qty : 1 on 06/27/2023 by Floyd Sandoval MD at [facility] Plate N/A: Spine Cervical Marbella Spine [id number] / / Protivin Spine Screw 16mm 4mm Bone Blanco Spine Cervical Self Start Variable Angle Nonsterile [id number] - [id number] Implanted:Qty : 8 on 06/27/2023 by Floyd Sandoval MD at [facility] Screw N/A: Spine Cervical Protivin Spine [id number] / / Procedures Procedure Name Priority Date/Time Associated Diagnosis Comments XR SPINE CERVICAL COMPLETE 4 OR 5 VW Schedule Routine, Read Routine (OP Routine) 07/03/2025 12:04 PM CDT Spinal stenosis, cervical region from Last 3 Months Results * XR Spine Cervical Complete 4 or 5 Views (07/03/2025 12:04 PM CDT) Anatomical Region Laterality Modality Spine N/A Computed Radiogr aphy 07/03/2025 1:26 PM CDT Impressions 07/03/2025 1:26 PM CDT Unchanged anterior discectomy and instrumented fusion C3-C6. There is unchanged fracturing of the C6 screws with angular excursion at C5-C6. Electronically signed by: Nick Mata M.D. Narrative 07/03/2025 1:26 PM CDT EXAMINATION: XR SPINE CERVICAL COMPLETE 4 OR 5 VW HISTORY: Neck pain FINDINGS: 4 views of the cervical spine were performed with comparison 06/27/2024. There is anterior discectomy and instrumented fusion C3-C6. The C6 screws are fractured. There is mild residual angular excursion C5-C6. No listhesis develops. Prevertebral soft tissues appear normal. Carotid atherosclerosis is noted. Procedure Note Nick Mata MD PhD - 07/03/2025 EXAMINATION: XR SPINE CERVICAL COMPLETE 4 OR 5 VW HISTORY: Neck pain FINDINGS: 4 views of the cervical spine were performed with comparison 06/27/2024. There is anterior discectomy and instrumented fusion C3-C6. The C6 screws are fractured. There is mild residual angular excursion C5-C6. No listhesis develops. Prevertebral soft tissues appear normal. Carotid atherosclerosis is noted. IMPRESSION: Unchanged anterior discectomy and instrumented fusion C3-C6. There is unchanged fracturing of the C6 screws with angular excursion at C5-C6. Electronically signed by: Nick Mata M.D. Floyd Sandoval MD IMG XR PROCEDURES Final Result from Last 3 Months Insurance [facility] MEDICARE ADVANTAGE IDPA IDPA Advance Directives For more information, please contact: [phone] * Full Code (Latest Code Status on File) Date Activated Date Inactivated Comments 06/27/2023 4:26 PM 06/30/2023 3:12 PM Care Teams Community Center Director Relationship Specialty Start Date End Date Rodrigo Olivera PA [address] [place] [address] PCP - General Physician Pan Washer 02/16/24 Dr. Joanne Castillo Strike Off Machine Operator 04/19/23
--- OUTSIDE RECORDS SUMMARY | 2025-09-06 09:47 | XMS_ITS | Clinical Summary ---
Author Organization [facility] Address [address] [place] [address] Care Team Providers Care Real Estate Legal Secretary Name Role Phone Yunier Rodriguez APRN-METAL SANDER Primary Care Provider Source Comments [facility],non-owned Affiliates and Associated Physician Practices is amultiple site organization consisting of ambulatory clinics and hospital sitesin [place], [place], [place] and [place]. This disclosure is being madepursuant to the Care Everywhere program and may not contain all information available regarding this patient. Last updated 18.[facility] Allergies Active Allergy Reactions Criticality [...] 08/04/2021 Immunizations Immunization Administration Dates Next Due Population [employer] primary monoval ent 12+ yr 0.3mL Purple [...] on file Legal Sex Female 11:56 AM [employer] Gender Identity Not on file Sexual Orientation [...] Last Done Comments COLOGUARD (AGES 45-75) - COL ON CA SCREENING 1964 COLON MONITORING 1964 COLONOSCOPY [...] 2 - PCV20 or PCV21) 06/13/2021 06/13/2020 SCREENING FOR DIABETES 04/03/2024 , 04/03/2021, 04/02/2021 DEPRESSION SCREENING 09/19/2024 COVID-19 VACCINE (3 - 2024-2 6 season) 2025 12/28/2020, 12/04/2020 INFLUENZA VACCINE (#1) 2025 0, 07/16/2019, 05/07/2017 [...] A/C/Y/W VACCINE Aged Out No longer eligible b ased [...] 7 - 26 mg/dL 04/03/2021 2:[address] [facility] Creatinine 0.93 0.56 - 0.96 mg/dL 04/03/2021 2:15 AM [facility] Sodium 139 136 - 145 mmol/L 04/03/2021 2:15 AM [facility] Potassium 3.6 3.5 - 4.5 mmol/L 04/03/2021 2:15 AM [facility] Chloride 101 98 - 107 mmol/L 04/03/2021 2:15 AM [facility] CO2 27 22 - 29 mmol/L 04/03/2021 2:15 AM [facility] Glucose 94 70 - 115 mg/dL 04/03/2021 2:15 AM [facility] Calcium 8.7 8.4 - 10.2 mg/dL 04/03/2021 2:15 AM [facility] Anion Gap 15 8 - 18 04/03/2021 2:15 AM [facility] BUN/Creatinine Ratio 9 7 - 23 04/03/2021 2:15 AM [facility] Osmolality Calculated 286 270 - 300 mOsm/kg 04/03/2021 2:15 AM [facility] eGFR by CKD-EPI 69(L) >=90 mL/min/1.7 3 m2 04/03/2021 2:15 AM CDT [facility] Blood BLOOD SPECIMEN / Unknown Venipuncture / Unknown 04/03/2021 1:46 AM CDT 04/03/2021 1:52 AM CDT Oscar Daniel MD LAB - CHEMISTRY ORDERABLES F inal Result [facility] [address] [place] [address], [facility] [phone] from Last 3 Months or Most Recently Relevant to Health Maintenance Insurance AETNA MEDICAID - OUT OF STATE AETNA AETNA MEDICAID - OUT OF STATE Advance Directives * Full Code (Latest Code Status on File) Date Activated Date Inactivated Comments 04/03/2021 12:23 AM 04/03/2021 4:19 PM Care Teams Real Estate Legal Secretary Relationship Specialty Start Date End Date Yunier Rodriguez, BUREAU CHIEF-METAL SANDER [address] [place] [address] PCP - General 01/16/21
--- NOTE | 2025-09-06 15:13 | P.PCNPFT_ITS ---
PFT Procedure Performed PFT Procedure Performed Spirometry with Pre/Post Bronchodilator Plethysmography (Lung Vol) Diffusing Cap (DLCO) Flow Vol Loop PFT Interpretation This is a pulmonary function test with pre and post-bronchodilator spirometry, plethysmography and diffusing capacity. The test was performed and results interpreted in accordance with the 2019 and 2005 ATS/ERS Task Force guidelines respectively using the Global Lung Function Initiative-2012 reference equations. Patient demonstrated good effort and cooperation. Reproducibility criteria were met. The quality of the pre bronchodilator spirometry maneuver was Grade B and post bronchodilator spirometry maneuver was Grade B. Findings: Spirometry: There is decreased maximal expiratory airflow at all lung volumes with a concave expiratory flow tracing. The contour the inspiratory flow tracing is normal. The pre bronchodilator FVC is 2.83 L, 94% predicted. The pre bronchodilator FEV1 is 1.46 L, 61% predicted. The pre bronchodilator FEV1: FVC ratio is 51%. The post bronchodilator FVC is 2.95 L, representing and 4% increase. The post bronchodilator FEV1 is 1.63 L, representing an 11% increase. The post bronchodilator FEV1: FVC ratio is 55%. Plethysmography: The total lung capacity is 5.26 L, 107% predicted. The functi onal residual capacity is 3.87 L, 140% predicted. The residual volume is 2.35 L, 120% predicted. Diffusing capacity: The diffusing capacity unadjusted for hemoglobin and carboxyhemoglobin is 6.1, 29% predicted. The diffusing capacity adjusted for alveolar volume is 3.20, 72% predicted. Impression: There is a moderate obstructive abnormality. There is no significant improvement after inhaling a single dose of albuterol. The total lung capacity and residual volume are normal with an increased functional residual capacity. This is an abnormal but nonspecific lung volume pattern. The di ffusing capacity unadjusted for hemoglobin and carboxyhemoglobin is severely decreased and normalizes when adjusted for alveolar volume. There are no prior studies for comparison
== END 2025-09-06 09:29 | disposition home or self-care (01) ==
PROVIDERS: PCP Physician Assistant Medical; Visit Provider Internal Medicine Critical Care Medicine
DX: R13.10 Dysphagia, unspecified (principal); R94.2 Abnormal results of pulmonary function studies
CPT/HCPCS: 94060; 94726; 94729